=== PATIENT | female | born 1935 | race Caucasian/White ===

== ENCOUNTER 2017-06-07 22:42 | Observation (INO) | payer MEDICARE ==
[~2017-06-07] VITALS: Ht 167.6 cm; Wt 98.0 kg
[~2017-06-07 22:42] MED LIST: ACET325T49 PO; ACHYD1T PO; AMOX500C2 PO; ASP325T PO; ASP325TEC PO; ASP81TEC PO; ASPI-266 PO; ASPI-892 PO; ATEN25TA PO; ATOR40TA PO; ATOR80TA75 PO; AZOPT OU; BENZ200C25 PO; BMT1T PO; CALC-80 PO; CARV12.52; CARV3.122 PO; CARV3.12T PO; CARV6.252 PO; CEFU500T5 PO; CHOL2000 PO; CLON1TAB3 PO; CLON1TAB36; CLON1TAB36 PO; CLON1TAB69 PO; CRV25T; FLUO40CA PO; FLUO40CA12 PO; FLX20C; FURO80TA PO; FURO80TA3 PO; GLIM1TAB PO; GLIM2TAB PO; GLMP1T; GLMP1T PO; IRON150C6 PO; MEMA10TA; METF-380; METF-380 PO; METF500T4 PO; MTF500T PO; MULT-974 PO; MULT1CAP27 PO; NAPR220T76 PO; NTR.4SL PO; OMEG1CAP74 PO; OXYC-12 PO; POTA10CA43 PO; POTA10TA PO; POTA10TA36 PO; PRD20T PO; RAMI10TA PO; SENN1TAB76 PO; SIMV80TA3 PO; TRAV5DRO OU; TRAVATAN EYE OU; Warfarin Sod PO
--- OUTSIDE RECORDS SUMMARY | 2017-06-07 22:49 | XMS REPORT | Continuity of Care Document ---
Author Author [facility] Organization [facility] Address Unknown Phone Unavailable Allergies Active Description Code Type Severity Reaction Onset Reported/Identified Relationship to Patient Clinical Status Yes No Known Drug Allergies [id number] Drug Allergy Unknown N/A 02/25/2014 Medications There is no data. Problems Date Dx Coded Attending Type Code Diagnosis Diagnosed By 04/22/2010 Ot 250.00 04/22/2010 Ot 272.4 04/22/2010 Ot 278.00 04/22/2010 Ot 311 04/22/2010 Ot 401.9 04/22/2010 Ot 414.01 04/22/2010 Ot 425.4 04/22/2010 Ot 786.59 04/22/2010 Ot V45.82 04/22/2010 Ot V58.66 04/22/2010 Ot V58.69 04/22/2010 Ot V85.35 08/05/2011 Ot 250.00 DIAB JODY WO COMPL, TYPE II OR UNSPEC TY 08/05/2011 Ot 272.4 HYPERLIPIDEMIA NEC/NOS 08/05/2011 Ot 278.00 OBESITY, NOS 08/05/2011 Ot 311 DEPRESSIVE DISORDER NEC 08/05/2011 Ot 401.9 HYPERTENSION NOS 08/05/2011 Ot 414.01 CORONARY ATHEROSCLEROSIS OF [place] CORON 08/05/2011 Ot 425.4 PRIM CARDIOMYOPATHY NEC 08/05/2011 Ot 786.09 RESPIRATORY ABNORM NEC 08/05/2011 Ot 786.59 CHEST PAIN NEC 08/05/2011 Ot V45.82 PERCUTANEOUS TRANSLUM CORON ANGIOPLASTY 08/05/2011 Ot V58.66 LONG-TERM ( CURRENT) USE OF ASPIRIN 08/05/2011 Ot V58.69 OTH MED,LT, CURRENT USE 08/05/2011 Ot V85.31 BODY MASS INDEX 31.0-31.9, ADULT 08/14/2011 Ot 250.00 DIAB JODY WO COMPL, TYPE II OR UNSPEC TY 08/14/2011 Ot 401.9 HYPERTENSION NOS 08/14/2011 Ot 414.01 CORONARY ATHEROSCLEROSIS OF [place] CORON 08/14/2011 Ot 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 NEC 08/14/2011 Ot 780.79 OTH MALAISE FATIGUE 08/14/2011 Ot 786.05 SHORTNESS OF BREATH 08/14/2011 Ot V58.66 LONG-TERM ( CURRENT) USE OF ASPIRIN 08/14/2011 Ot V58.69 OTH MED,LT, CURRENT USE 12/28/2012 JUAN HIGGINS DO Ot 922.0 CONTUSION OF BREAST 12/28/2012 JUAN HIGGINS DO Ot 959.11 OTH INJURY OF CHEST WALL 12/28/2012 JUAN HIGGINS DO Ot E000.8 OTHER EXTERNAL CAUSE STATUS 12/28/2012 JUAN HIGGINS DO Ot E849.0 ACCIDENT IN HOME 12/28/2012 JUAN HIGGINS DO Ot E888.1 FALL STRIKING OBJECT NEC 03/31/2013 JUSTINE VANN, JOVANNA Pollock Ot 786.2 COUGH 08/12/2013 SHANE LOZANO MD Ot 250.40 DIAB W RENAL MANIFEST, TYPE II OR UNSPEC 08/12/2013 SHANE LOZANO MD Ot 272.0 PURE HYPERCHOLESTEROLEM 08/12/2013 SHANE LOZANO MD Ot 300.00 ANXIETY STATE NOS 08/12/2013 SHANE LOZANO MD Ot 311 DEPRESSIVE DISORDER NEC 08/12/2013 SHANE LOZANO MD Ot 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, UNSPEC, W HRT FAIL 08/12/2013 SHANE LOZANO MD Ot 414.01 CORONARY ATHEROSCLEROSIS OF [place] CORON 08/12/2013 SHANE LOZANO MD Ot 425.4 PRIM CARDIOMYOPATHY NEC 08/12/2013 SHANE LOZANO MD Ot 428.0 CONGESTIVE HEART FAILURE NOS 08/12/2013 SHANE LOZANO MD Ot 428.43 ACUTE CHRONIC SYSTOLIC/DIALSTOLIC HRT FA 08/12/2013 SHANE LOZANO MD Ot 496 CHR AIRWAY OBSTRUCT NEC 08/12/2013 SHANE LOZANO MD Ot 585.3 CHRONIC KIDNEY DISEASE, STAGE III (MODER 08/12/2013 SHANE LOZANO MD Ot V45.02 AUTO IMPLANTABLE CARDIAC DEFIBRILLATOR I 08/12/2013 SHANE LOZANO MD Ot V45.82 PERCUTANEOUS TRANSLUM CORON ANGIOPLASTY 02/25/2014 KINDRA PRINGLE DO Ot 250.00 DIAB JODY WO COMPL, TYPE II OR UNSPEC TY 02/25/2014 KINDRA PRINGLE DO Ot 272.4 HYPERLIPIDEMIA NEC/NOS 02/25/2014 YARY KINDRA Fajardo Ot 285.1 AC POSTHEMORRHAG ANEMIA 02/25/2014 YARY DO KINDRA F Ot 311 DEPRESSIVE DISORDER NEC 02/25/2014 YARY KINDRA Scotty Ot 365.9 GLAUCOMA NOS 02/25/2014 YARY , KINDRA Fajardo Ot 401.9 HYPERTENSION NOS 02/25/2014 YARY KINDRA Fajardo Ot 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 NEC 02/25/2014 YARY KINDRA Fajardo Ot 428.0 CONGESTIVE HEART FAILURE NOS 02/25/2014 YARY KINDRA F Ot 429.9 HEART DISEASE NOS 02/25/2014 YARY KINDRA Fajardo Ot 496 CHR AIRWAY OBSTRUCT NEC 02/25/2014 YARY KINDRA Fajardo Ot 715.36 LOC OSTEOARTH NOS-L/LEG 02/25/2014 YARY COATES KINDRA Fajardo Ot V45.02 AUTO IMPLANTABLE CARDIAC DEFIBRILLATOR I 02/28/2014 PATRICK VANN, GORDON E Ot 250.00 DIAB JODY WO COMPL, TYPE II OR UNSPEC TY 02/28/2014 PATRICK VANN, GORDON E Ot 272.0 PURE HYPERCHOLESTEROLEM 02/28/2014 GORDON NGUYEN MD E Ot 285.9 ANEMIA NOS 02/28/2014 GORDON NGUYEN MD E Ot 311 DEPRESSIVE DISORDER NEC 02/28/2014 GORDON NGUYEN MD Ot 401.9 HYPERTENSION NOS 02/28/2014 GORDON NGUYEN MD E Ot 414.01 CORONARY ATHEROSCLEROSIS OF [place] CORON 02/28/2014 GORDON NGUYEN MD Ot 425.4 PRIM CARDIOMYOPATHY NEC 02/28/2014 GORDON NGUYEN MD Ot 428.0 CONGESTIVE HEART FAILURE NOS 02/28/2014 GORDON NGUYEN MD E Ot 715.36 LOC OSTEOARTH NOS-L/LEG 02/28/2014 GORDON NGUYEN MD Ot 799.02 HYPOXEMIA 02/28/2014 GORDON NGUYEN MD Ot V43.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 02/28/2014 GORDON NGUYEN MD Ot V45.02 AUTO IMPLANTABLE CARDIAC DEFIBRILLATOR I 02/28/2014 GORDON NGUYEN MD Ot V45.82 PERCUTANEOUS TRANSLUM CORON ANGIOPLASTY 02/28/2014 GORDON NGUYEN MD Ot V46.2 SUPPLEMENTAL OXYGEN 02/28/2014 GORDON NGUYEN MD Ot V54.81 AFTERCARE FOLLOWING JOINT REPLACEMENT 02/28/2014 GORDON NGUYEN MD Ot V57.89 REHABILITATION PROC NEC 04/05/2014 YARY KIDNRA COATES Ot V43.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 04/05/2014 KINDRA PRINGLE DO Ot V54.81 AFTERCARE FOLLOWING JOINT REPLACEMENT 04/05/2014 YARY KINDRA Fajardo Ot V57.1 PHYSICAL THERAPY NEC 07/02/2014 SAEID RANGEL DOI Ot 250.00 DIAB JODY WO COMPL, TYPE II OR UNSPEC TY 07/02/2014 SAEID RANGEL DOI Ot 272.0 PURE HYPERCHOLESTEROLEM 07/02/2014 JUAN CARLOS COATES CRISTINA Ot 300.4 DYSTHYMIC DISORDER 07/02/2014 JUAN CARLOS COATES CRISTINA Ot 365.9 GLAUCOMA NOS 07/02/2014 SAEID RANGEL DOI Ot 397.0 TRICUSPID VALVE DISEASE 07/02/2014 SAEID RANGEL DOI Ot 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, UNSPEC, W HRT FAIL 07/02/2014 SAEID RANGEL DOI Ot 414.01 CORONARY ATHEROSCLEROSIS OF [place] CORON 07/02/2014 SAEID RANGEL DOI Ot 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 NEC 07/02/2014 JUAN CARLOS COATES CRISTINA Ot 424.0 MITRAL VALVE DISORDER 07/02/2014 JUAN CARLOS COATES CRISTINA Ot 427.31 ATRIAL FIBRILLATION 07/02/2014 SAEID RANGEL DOI Ot 427.69 PREMATURE BEATS NEC 07/02/2014 JUAN CARLOS COATES CRISTINA Ot 428.0 CONGESTIVE HEART FAILURE NOS 07/02/2014 JUAN CARLOS COATES CRISTINA Ot 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 07/02/2014 SAEID RANGEL DOI Ot 433.30 MULT BILTRAL ARTERY OCCLUSION WO CEREBRA 07/02/2014 JUAN CARLOS COATES CRISTINA Ot 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 07/02/2014 JUAN CARLOS COATES CRISTINA Ot 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, W (ACUTE) EX 07/02/2014 SAEID RANGEL DOI Ot 585.3 CHRONIC KIDNEY DISEASE, STAGE III (MODER 07/02/2014 SAEID RANGEL DOI Ot 715.90 OSTEOARTHROS NOS-UNSPEC 07/02/2014 SAEID RANGEL DOI Ot V15.82 HISTORY OF TOBACCO USE 07/02/2014 CRISTINA RANGEL DO Ot V43.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 07/02/2014 CRISTINA RANGEL DO Ot V45.02 AUTO IMPLANTABLE CARDIAC DEFIBRILLATOR I 07/02/2014 CRISTINA RANGEL DO Ot V45.77 ACQRD ABSENCE OF GENITAL ORGANS 07/02/2014 CRISTINA RANGEL DO Ot V85.32 BODY MASS INDEX 32.0-32.9, ADULT 08/23/2014 Ot 250.00 DIAB JODY WO COMPL, TYPE II OR UNSPEC TY 08/23/2014 Ot 296.30 RECURR DEPR DISORD-UNSP 08/23/2014 Ot 338.29 OTHER CHRONIC PAIN 08/23/2014 Ot 402.91 HYPERTENSIVE HRT DIS W HRT FAILURE NOS 08/23/2014 Ot 414.01 CORONARY ATHEROSCLEROSIS OF [place] CORON 08/23/2014 Ot 428.0 CONGESTIVE HEART FAILURE NOS 08/23/2014 Ot 428.43 ACUTE CHRONIC SYSTOLIC/DIALSTOLIC HRT FA 08/23/2014 Ot 496 CHR AIRWAY OBSTRUCT NEC 08/23/2014 Ot 716.90 ARTHROPATHY NOS-UNSPEC 08/23/2014 Ot 724.5 BACKACHE NOS 08/23/2014 Ot V45.02 AUTO IMPLANTABLE CARDIAC DEFIBRILLATOR I 08/23/2014 Ot V45.82 PERCUTANEOUS TRANSLUM CORON ANGIOPLASTY 09/21/2014 KATHY VANN FACC, ALI FACP CCDS Ot 250.00 09/21/2014 KATHY VANN FACC, ALI FACP CCDS Ot 272.4 09/21/2014 KATHY VANN FACC, ALI FACP CCDS Ot 278.00 09/21/2014 KATHY VANN FACC, ALI FACP CCDS Ot 296.32 09/21/2014 KATHY VANN FACC, ALI FACP CCDS Ot 401.9 09/21/2014 KATHY VANN FACC, ALI FACP CCDS Ot 414.00 09/21/2014 KATHY VANN FACC, ALI FACP CCDS Ot 425.4 09/21/2014 KATHY VANN FACC, ALI FACP CCDS Ot 447.9 09/21/2014 KATHY LEEC, ALI FACP CCDS Ot 785.9 09/21/2014 KATHY VANN FACC, ALI FACP CCDS Ot 786.09 10/01/2014 KATHY VANN FACC, ALI FACP CCDS Ot 250.00 10/01/2014 KATHY LEEC, ALI FACP CCDS Ot 272.4 10/01/2014 KATHY VANN FACC, ALI FACP CCDS Ot 278.00 10/01/2014 KATHY VANN FACC, ALI FACP CCDS Ot 296.32 10/01/2014 KATHY VANN FACC, ALI FACP CCDS Ot 401.9 10/01/2014 KATHY VANN FACC, ALI FACP CCDS Ot 414.00 10/01/2014 KATHY VANN FACC, ALI FACP CCDS Ot 425.4 10/01/2014 KATHY VANN FACC, ALI FACP CCDS Ot 447.9 10/01/2014 KATHY VANN FACC, ALI FACP CCDS Ot 785.9 10/01/2014 KATHY VANN FAC, ALI FACP CCDS Ot 786.09 11/03/2014 SHANE LOZANO MD Ot 782.3 11/17/2014 JOVANNA FLETCHER MD Ot 250.00 DIAB JODY WO COMPL, TYPE II OR UNSPEC TY 11/17/2014 JOVANNA FLETCHER MD Ot 728.87 MUSCLE WEAKNESS (GENERALIZED) 11/17/2014 JOVANNA FLETCHER MD Ot V58.69 OTH MED,LT,CURRENT USE 11/23/2014 SHANE LOZANO MD Ot 782.3 11/24/2014 YARY DO, KINDRA F Ot 250.00 11/24/2014 YARY DO, KINDRA F Ot 276.1 11/24/2014 YARY DO, KINDRA F Ot 285.1 11/24/2014 YARY DO, KINDRA F Ot 414.8 11/24/2014 YARY DO, KINDRA F Ot 715.36 11/24/2014 YARY DO, KINDRA F Ot 726.91 11/25/2014 YARY DO, KINDRA F Ot 250.00 11/25/2014 YARY DO, KINDRA F Ot 276.1 11/25/2014 YARY DO, KINDRA F Ot 285.1 11/25/2014 YARY DO, KINDRA F Ot 414.8 11/25/2014 YARY DO, KINDRA F Ot 715.36 11/25/2014 YARY DO, KINDRA F Ot 726.91 11/26/2014 YARY DO, KINDRA F Ot 250.00 11/26/2014 YARY DO, KINDRA F Ot 276.1 11/26/2014 YARY DO, KINDRA F Ot 285.1 11/26/2014 YARY DO, KINDRA F Ot 414.8 11/26/2014 YARY DO, KINDRA F Ot 715.36 11/26/2014 YARY KINDRA COATES Ot 726.91 11/26/2014 YARY KINDRA COATES Ot 250.00 DIAB JODY WO COMPL, TYPE II OR UNSPEC TY 11/26/2014 KINDRA PRINGLE DO Ot 276.1 HYPOSMOLALITY 11/26/2014 KINDRA PRINGLE DO Ot 285.1 AC POSTHEMORRHAG ANEMIA 11/26/2014 KINDRA PRINGLE DO Ot 402.90 HYPERTENSIVE HRT DIS W/O HRT FAILURE NOS 11/26/2014 KINDRA PRINGLE DO Ot 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 NEC 11/26/2014 KINDRA PRINGLE DO Ot 564.00 UNSPEC CONSTIPATION 11/26/2014 KINDRA PRINGLE DO Ot 715.36 LOC OSTEOARTH NOS-L/LEG 11/26/2014 KINDRA PRINGLE DO Ot 726.91 EXOSTOSIS, SITE NOS 12/05/2014 YARY KINDRA COATES Ot 715.36 12/05/2014 YARY KINDRA COATES Ot V72.63 12/05/2014 YARY DO, KINDRA Fajardo Ot V74.8 12/13/2014 YARY DO, KINDRA Fajardo Ot 715.36 12/13/2014 YARY DO, KINDRA Fajardo Ot V72.63 12/13/2014 YARY DO, KINDRA Fajardo Ot V74.8 12/26/2014 YARY DO, KINDRA Fajardo Ot V58.61 12/26/2014 YARY DOKINDRA Ot V58.83 02/26/2015 Ot 396.3 02/26/2015 Ot 397.0 02/26/2015 Ot 414.01 02/26/2015 Ot 425.4 02/26/2015 Ot 429.3 02/26/2015 Ot 627.1 02/26/2015 Ot 721.2 02/26/2015 Ot 786.50 02/26/2015 Ot 414.01 02/26/2015 Ot 786.50 02/26/2015 Ot 272.4 02/26/2015 Ot 401.9 02/26/2015 Ot 413.9 02/26/2015 Ot 414.01 02/26/2015 Ot 786.05 02/26/2015 Ot 794.39 02/26/2015 Ot V58.69 02/26/2015 Ot V72.63 02/26/2015 Ot V72.81 02/26/2015 Ot V74.8 02/26/2015 Ot 250.00 02/26/2015 Ot 401.9 02/26/2015 Ot 414.00 02/26/2015 Ot 425.4 02/26/2015 Ot 780.79 02/26/2015 Ot 786.05 02/26/2015 Ot V58.69 02/26/2015 Ot V72.63 02/26/2015 Ot V72.81 02/26/2015 BAIMAJEWEL L NETWORK TECHNICIAN Ot 272.4 02/26/2015 BAIMAJEWEL L NETWORK TECHNICIAN Ot 396.3 02/26/2015 BAIMAJEWEL L NETWORK TECHNICIAN Ot 401.9 02/26/2015 BAIMAASHLEEJEWEL L NETWORK TECHNICIAN Ot 414.00 02/26/2015 BAIMAJEWEL L NETWORK TECHNICIAN Ot 425.4 02/26/2015 YARY DO, KINDRA F Ot 715.36 02/26/2015 YARY DO, KINDRA F Ot V72.63 02/26/2015 YARY DO, KINDRA F Ot V72.83 02/26/2015 YARY DO, KINDRA F Ot V74.8 02/26/2015 MAYELIN OWENS ROLLER STITCHER Ot 729.81 02/26/2015 MAYELIN OWENS ROLLER STITCHER Ot V43.65 02/26/2015 KATHY VANN FACC, ALI FACP CCDS Ot 250.00 02/26/2015 KATHY VANN FACC, ALI FACP CCDS Ot 272.4 02/26/2015 KATHY VANN FACC, ALI FACP CCDS Ot 278.00 02/26/2015 KATHY VANN FACC, ALI FACP CCDS Ot 296.32 02/26/2015 KATHY VANN FACC, ALI FACP CCDS Ot 401.9 02/26/2015 KATHY VANN FACC, ALI FACP CCDS Ot 414.00 02/26/2015 KATHY VANN FACC, ALI FACP CCDS Ot 425.4 02/26/2015 KATHY VANN FACC, ALI FACP CCDS Ot 447.9 02/26/2015 KATHY VANN FACC, ALI FACP CCDS Ot 785.9 02/26/2015 KATHY VANN FACC, ALI FACP CCDS Ot 786.09 02/26/2015 BLAKE VANN, SHANE Collier Ot 782.3 02/26/2015 YARY DO, KINDRA F Ot 715.36 02/26/2015 YARY DO, KINDRA Fajardo Ot V72.63 02/26/2015 YARY DO, KINDRA Fajardo Ot V74.8 02/26/2015 YARY DO, KINDRA Fajardo Ot V58.61 02/26/2015 YARY DO, KINDRA Fajardo Ot V58.83 03/20/2015 BAIMA, JEWEL L NETWORK TECHNICIAN Ot 272.4 03/20/2015 BAIMA, JEWEL L NETWORK TECHNICIAN Ot 401.9 03/20/2015 BAIMA, JEWEL L NETWORK TECHNICIAN Ot 414.9 03/20/2015 BAIMA, JEWEL L NETWORK TECHNICIAN Ot 425.4 03/20/2015 BAIMA, JEWEL L NETWORK TECHNICIAN Ot 447.9 03/28/2015 BAIMA, JEWEL L NETWORK TECHNICIAN Ot 272.4 03/28/2015 BAIMA, JEWEL L NETWORK TECHNICIAN Ot 401.9 03/28/2015 BAIMA, JEWEL L NETWORK TECHNICIAN Ot 414.9 03/28/2015 BAIMA, JEWEL L NETWORK TECHNICIAN Ot 425.4 03/28/2015 BAIMA, JEWEL L NETWORK TECHNICIAN Ot 447.9 11/06/2015 JOVANNA FLETCEHR MD Ot 250.00 DIAB JODY WO COMPL, TYPE II OR UNSPEC TY 11/06/2015 JOVANNA FLETCHER MD Ot 728.87 MUSCLE WEAKNESS (GENERALIZED) 11/06/2015 JOVANNA FLETCHER MD Ot V58.69 OTH MED,LT,CURRENT USE 01/20/2016 Ot 250.00 DIAB JODY WO COMPL, TYPE II OR UNSPEC TY 01/20/2016 Ot 401.9 HYPERTENSION NOS 01/20/2016 Ot 414.00 CORON ATHEROSCLER NOS TYPE VESSEL, NATIV 01/20/2016 Ot 425.4 PRIM CARDIOMYOPATHY NEC 01/20/2016 Ot 780.79 OTH MALAISE FATIGUE 01/20/2016 Ot 786.05 SHORTNESS OF BREATH 01/20/2016 Ot V58.69 OTH MED,LT, CURRENT USE 01/20/2016 Ot V72.63 PRE- PROCEDURAL LABORATORY EXAMINATION 01/20/2016 Ot V72.81 EXAM-PRE- OPERATIVE CARDIOVASCULAR 01/20/2016 BAIMA, JEWEL L NETWORK TECHNICIAN Ot 272.4 HYPERLIPIDEMIA NEC/NOS 01/20/2016 BAIMA, JEWEL L NETWORK TECHNICIAN Ot 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 01/20/2016 JEWEL OSEGUERA NETWORK TECHNICIAN Ot 401.9 HYPERTENSION NOS 01/20/2016 JEWEL OSEGUERA NETWORK TECHNICIAN Ot 414.00 CORON ATHEROSCLER NOS TYPE VESSEL, NATIV 01/20/2016 JEWEL OSEGUERA NETWORK TECHNICIAN Ot 425.4 PRIM CARDIOMYOPATHY NEC 01/20/2016 KINDRA PRINGLE DO Ot 715.36 LOC OSTEOARTH NOS-L/LEG 01/20/2016 KINDRA PRINGLE DO Ot V72.63 PRE-PROCEDURAL LABORATORY EXAMINATION 01/20/2016 KINDRA PRINGLE DO Ot V72.83 EXAM PRE-OPERATIVE NEC 01/20/2016 KINDRA PRINGLE DO Ot V74.8 SCREEN-BACTERIAL DIS NEC 01/20/2016 MAYELIN OWENS ROLLER STITCHER Ot 729.81 SWELLING OF LIMB 01/20/2016 MAYELIN OWENS ROLLER STITCHER Ot V43.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 01/20/2016 KATHY VANN FACC, ALI FACP CCDS Ot 250.00 DIAB JODY WO COMPL, TYPE II OR UNSPEC TY 01/20/2016 KATHY VANN FACC, ALI FACP CCDS Ot 272.4 HYPERLIPIDEMIA NEC/NOS 01/20/2016 KATHY VANN FACC, ALI FACP CCDS Ot 278.00 OBESITY, NOS 01/20/2016 KATHY VANN FACC, ALI FACP CCDS Ot 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 01/20/2016 KATHY LEEC, ALI FACP CCDS Ot 401.9 HYPERTENSION NOS 01/20/2016 KATHY VANN FACC, ALI FACP CCDS Ot 414.00 CORON ATHEROSCLER NOS TYPE VESSEL, NATIV 01/20/2016 KATHY VANN FACC, ALI FACP CCDS Ot 425.4 PRIM CARDIOMYOPATHY NEC 01/20/2016 KATHY VANN FACC, ALI FACP CCDS Ot 447.9 ARTERIAL DISEASE NOS 01/20/2016 KATHY VANN FACC, ALI FACP CCDS Ot 785.9 CARDIOVAS SYS SYMP NEC 01/20/2016 KATHY VANN FACC, ALI FACP CCDS Ot 786.09 RESPIRATORY ABNORM NEC 01/20/2016 SHANE LOZANO MD Ot 782.3 EDEMA 01/20/2016 KINDRA PRINGLE DO Ot 715.36 LOC OSTEOARTH NOS-L/LEG 01/20/2016 KINDRA PRINGLE DO Ot V72.63 PRE-PROCEDURAL LABORATORY EXAMINATION 01/20/2016 KINDRA PRINGLE DO Ot V74.8 SCREEN-BACTERIAL DIS NEC 01/20/2016 KINDRA PRINGLE DO Ot V58.61 ANTICOAGULANTS,LT,CURRENT USE 01/20/2016 KINDRA PRINGLE DO Ot V58.83 ENCOUNTER FOR THERAPEUTIC DRUG MONITORIN 01/20/2016 JEWEL OSEGUERA NETWORK TECHNICIAN Ot 272.4 HYPERLIPIDEMIA NEC/NOS 01/20/2016 JEWEL OSEGUERA NETWORK TECHNICIAN Ot 401.9 HYPERTENSION NOS 01/20/2016 EDOUARDJEWEL WADE L NETWORK TECHNICIAN Ot 414.9 CHR ISCHEMIC HRT DIS NOS 01/20/2016 EDOUARDJEWEL WADE NETWORK TECHNICIAN Ot 425.4 PRIM CARDIOMYOPATHY NEC 01/20/2016 EDOUARDJEWEL WADE NETWORK TECHNICIAN Ot 447.9 ARTERIAL DISEASE NOS 01/20/2016 JAZMYNE WHITEHEAD APRN Ot M25.531 PAIN IN RIGHT WRIST 01/20/2016 JAZMYNE WHITEHEAD APRN Ot 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, CERVICAL REGION 01/20/2016 JAZMYNE WHITEHEAD APRN Ot S01.511A LACERATION WITHOUT FOREIGN BODY OF LIP, 01/20/2016 JAZMYNE WHITEHEAD APRN Ot S02.5XXA FRACTURE OF TOOTH (TRAUMATIC), INIT FOR 01/20/2016 JAZMYNE WHITEHEAD APRN Ot W01.0XXA FALL SAME LEV FROM SLIP/TRIP W/O STRIKE 01/20/2016 JAZMYNE WHITEHEAD APRN Ot Y92.[address] OF OCCURRENCE OF T 01/20/2016 JAZMYNE WHITEHEAD APRN Ot Y99.8 OTHER EXTERNAL CAUSE STATUS 01/20/2016 JAZMYNE WHITEHEAD APRN Ot Z23 ENCOUNTER FOR IMMUNIZATION 01/20/2016 JAZMYNE WHITEHEAD APRN Ot Z95.0 PRESENCE OF CARDIAC PACEMAKER 01/22/2016 JAZMYNE WHITEHEAD APRN Ot M25.531 PAIN IN RIGHT WRIST 01/22/2016 JAZMYNE WHITEHEAD APRN Ot 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, CERVICAL REGION 01/22/2016 JAZMYNE WHITEHEAD APRN Ot S01.511A LACERATION WITHOUT FOREIGN BODY OF LIP, 01/22/2016 JAZMYNE WHITEHEAD APRN Ot S02.5XXA FRACTURE OF TOOTH (TRAUMATIC), INIT FOR 01/22/2016 WHITEHEAD, PETER J ROLLER STITCHER Ot W01.0XXA FALL SAME LEV FROM SLIP/TRIP W/O STRIKE 01/22/2016 JAZMYNE WHITEHEAD ROLLER STITCHER Ot Y92.[address] OF OCCURRENCE OF T 01/22/2016 JAZMYNE WHITEHEAD ROLLER STITCHER Ot Y99.8 OTHER EXTERNAL CAUSE STATUS 01/22/2016 JAZMYNE WHITEHEAD ROLLER STITCHER Ot Z23 ENCOUNTER FOR IMMUNIZATION 01/22/2016 JAZMYNE WHITEHEAD ROLLER STITCHER Ot Z95.0 PRESENCE OF CARDIAC PACEMAKER 03/07/2016 JOVANNA FLETCHER MD Ot 250.00 DIAB JODY WO COMPL, TYPE II OR UNSPEC TY 03/07/2016 JOVANNA FLETCHER MD Ot 728.87 MUSCLE WEAKNESS (GENERALIZED) 03/07/2016 JOVANNA FLETCHER MD Ot V58.69 OTH MED,LT,CURRENT USE 10/26/2016 Ot 250.00 DIAB JODY WO COMPL, TYPE II OR UNSPEC TY 10/26/2016 Ot 401.9 HYPERTENSION NOS 10/26/2016 Ot 414.00 CORON ATHEROSCLER NOS TYPE VESSEL, NATIV 10/26/2016 Ot 425.4 PRIM CARDIOMYOPATHY NEC 10/26/2016 Ot 780.79 OTH MALAISE FATIGUE 10/26/2016 Ot 786.05 SHORTNESS OF BREATH 10/26/2016 Ot V58.69 OTH MED,LT, CURRENT USE 10/26/2016 Ot V72.63 PRE- PROCEDURAL LABORATORY EXAMINATION 10/26/2016 Ot V72.81 EXAM-PRE- OPERATIVE CARDIOVASCULAR 10/26/2016 JEWEL OSEGUERA NETWORK TECHNICIAN Ot 272.4 HYPERLIPIDEMIA NEC/NOS 10/26/2016 BAIMAJEWEL NETWORK TECHNICIAN Ot 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 10/26/2016 JEWEL OSEGUERA NETWORK TECHNICIAN Ot 401.9 HYPERTENSION NOS 10/26/2016 BAIMAJEWEL NETWORK TECHNICIAN Ot 414.00 CORON ATHEROSCLER NOS TYPE VESSEL, NATIV 10/26/2016 JEWEL OSEGUERA NETWORK TECHNICIAN Ot 425.4 PRIM CARDIOMYOPATHY NEC 10/26/2016 KINDRA PRINGLE DO Ot 715.36 LOC OSTEOARTH NOS-L/LEG 10/26/2016 KINDRA PRINGLE DO Ot V72.63 PRE-PROCEDURAL LABORATORY EXAMINATION 10/26/2016 KINDRA PRINGLE DO Ot V72.83 EXAM PRE-OPERATIVE NEC 10/26/2016 KINDRA PRINGLE DO Ot V74.8 SCREEN-BACTERIAL DIS NEC 10/26/2016 MAYELIN OWENS ROLLER STITCHER Ot 729.81 SWELLING OF LIMB 10/26/2016 MAYELIN OWENS ROLLER STITCHER Ot V43.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 10/26/2016 KATHY VANN FACC, ALI FACP CCDS Ot 250.00 DIAB JODY WO COMPL, TYPE II OR UNSPEC TY 10/26/2016 KATHY VANN FACC, ALI FACP CCDS Ot 272.4 HYPERLIPIDEMIA NEC/NOS 10/26/2016 KATHY VANN FACC, ALI FACP CCDS Ot 278.00 OBESITY, NOS 10/26/2016 KATHY VANN FACC, ALI FACP CCDS Ot 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 10/26/2016 KATHY VANN FACC, ALI FACP CCDS Ot 401.9 HYPERTENSION NOS 10/26/2016 KATHY VANN FACC, ALI FACP CCDS Ot 414.00 CORON ATHEROSCLER NOS TYPE VESSEL, NATIV 10/26/2016 KATHY VANN FACC, ALI FACP CCDS Ot 425.4 PRIM CARDIOMYOPATHY NEC 10/26/2016 KATHY VANN FACC, ALI FACP CCDS Ot 447.9 ARTERIAL DISEASE NOS 10/26/2016 KATHY VANN FACC, ALI FACP CCDS Ot 785.9 CARDIOVAS SYS SYMP NEC 10/26/2016 KATHY VANN FACC, ALI FACP CCDS Ot 786.09 RESPIRATORY ABNORM NEC 10/26/2016 BLAKE VANN, SHANE Collier Ot 782.3 EDEMA 10/26/2016 KINDRA PRINGLE DO Ot 715.36 LOC OSTEOARTH NOS-L/LEG 10/26/2016 KINDRA PRINGLE DO Ot V72.63 PRE-PROCEDURAL LABORATORY EXAMINATION 10/26/2016 KINDRA PRINGLE DO Ot V74.8 SCREEN-BACTERIAL DIS NEC 10/26/2016 KINDRA PRINGLE DO Ot V58.61 ANTICOAGULANTS,LT,CURRENT USE 10/26/2016 KINDRA PRINGLE DO, Ot V58.83 ENCOUNTER FOR THERAPEUTIC DRUG MONITORIN 10/26/2016 JEWEL OSEGUERA NETWORK TECHNICIAN Ot 272.4 HYPERLIPIDEMIA NEC/NOS 10/26/2016 JEWEL OSEGUERA NETWORK TECHNICIAN Ot 401.9 HYPERTENSION NOS 10/26/2016 JEWEL OSEGUERA NETWORK TECHNICIAN Ot 414.9 CHR ISCHEMIC HRT DIS NOS 10/26/2016 JEWEL OSEGUERA NETWORK TECHNICIAN Ot 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.4 PRIM CARDIOMYOPATHY NEC 10/26/2016 EDOUARDMAURO JEWEL L NETWORK TECHNICIAN Ot 447.9 ARTERIAL DISEASE NOS 10/27/2016 JOVANNA FLETCHER MD Ot R07.9 CHEST PAIN, UNSPECIFIED 10/28/2016 JOVANNA FLETCHER MD Ot E11.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 2 DIABETES W DIABETIC PERIPHERAL AN 10/28/2016 JOVANNA FLETCHER MD Ot E78.00 PURE HYPERCHOLESTEROLEMIA, UNSPECIFIED 10/28/2016 JOVANNA FLETCHER MD Ot F32.9 MAJOR DEPRESSIVE DISORDER, SINGLE EPISOD 10/28/2016 JOVANNA FLETCHER MD Ot G47.30 SLEEP APNEA, UNSPECIFIED 10/28/2016 JOVANNA FLETCHER MD, Ot I08.1 RHEUMATIC DISORDERS OF BOTH [place] AND T 10/28/2016 JOVANNA FLETCHER MD Ot I10 ESSENTIAL (PRIMARY) HYPERTENSION 10/28/2016 JOVANNA FLETCHER MD Ot I25.10 ATHSCL HEART DISEASE OF [place] CORONARY 10/28/2016 JOVANNA FLETCHER MD Ot I25.5 ISCHEMIC CARDIOMYOPATHY 10/28/2016 JOVANNA FLETCHER MD Ot I48.91 UNSPECIFIED ATRIAL FIBRILLATION 10/28/2016 JOVANNA FLETCHER MD Ot I50.23 ACUTE ON CHRONIC SYSTOLIC (CONGESTIVE) H 10/28/2016 JOVANNA FLETCHER MD Ot I65.23 OCCLUSION AND STENOSIS OF BILATERAL [place] 10/28/2016 JOVANNA FLETCHER MD Ot J44.9 CHRONIC OBSTRUCTIVE PULMONARY DISEASE, U 10/28/2016 JOVANNA FLETCHER MD Ot K64.9 UNSPECIFIED HEMORRHOIDS 10/28/2016 JOVANNA FLETCHER MD Ot M19.91 PRIMARY OSTEOARTHRITIS, UNSPECIFIED SITE 10/28/2016 JOVANNA FLETCHER MD Ot M54.9 DORSALGIA, UNSPECIFIED 10/28/2016 JOVANNA FLETCHER MD Ot R07.9 CHEST PAIN, UNSPECIFIED 10/28/2016 JOVANNA FLETCHER MD Ot R53.1 WEAKNESS 10/28/2016 JOVANNA FLETCHER MD Ot Z66 DO NOT RESUSCITATE 10/28/2016 JOVANNA FLETCHER MD Ot Z79.84 SKILLED NURSING (CURRENT) USE OF ORAL HYPOGLYC 10/28/2016 JOVANNA FLETCHER MD Ot Z87.891 PERSONAL HISTORY OF NICOTINE DEPENDENCE 10/28/2016 JOVANNA FLETCHER MD, Ot Z91.19 PATIENT'S NONCOMPLIANCE W OTH MEDICAL TR 10/28/2016 JOVANNA FLETCHER MD, Ot Z91.81 HISTORY OF FALLING 10/28/2016 JOVANNA FLETCHER MD, Ot Z95.5 PRESENCE OF CORONARY ANGIOPLASTY IMPLANT 10/28/2016 JOVANNA FLETCHER MD, Ot Z95.810 PRESENCE OF AUTOMATIC (IMPLANTABLE) CARD 10/28/2016 JOVANNA FLETCHER MD, Ot 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 OXYGEN 10/29/2016 JOVANNA FLETCHER MD Ot E11.51 TYPE 2 DIABETES W DIABETIC PERIPHERAL AN 10/29/2016 JOVANNA FLETCHER MD, Ot E78.00 PURE HYPERCHOLESTEROLEMIA, UNSPECIFIED 10/29/2016 JOVANNA FLETCHER MD, Ot F32.9 MAJOR DEPRESSIVE DISORDER, SINGLE EPISOD 10/29/2016 JOVANNA FLETCHER MD, Ot G47.30 SLEEP APNEA, UNSPECIFIED 10/29/2016 JOVANNA FLETCHER MD, Ot I08.1 RHEUMATIC DISORDERS OF BOTH [place] AND T 10/29/2016 JOVANNA FLETCHER MD Ot I10 ESSENTIAL (PRIMARY) HYPERTENSION 10/29/2016 JOVANNA FLETCHER MD, Ot I25.10 ATHSCL HEART DISEASE OF [place] CORONARY 10/29/2016 JOVANNA FLETCHER MD, Ot I25.5 ISCHEMIC CARDIOMYOPATHY 10/29/2016 JOAVNNA FLETCHER MD, Ot I48.91 UNSPECIFIED ATRIAL FIBRILLATION 10/29/2016 JOVANNA FLETCHER MD Ot I50.23 ACUTE ON CHRONIC SYSTOLIC (CONGESTIVE) H 10/29/2016 JOVANNA FLETCHER MD Ot I65.23 OCCLUSION AND STENOSIS OF BILATERAL [place] 10/29/2016 JOVANNA FLETCHER MD, Ot J44.9 CHRONIC OBSTRUCTIVE PULMONARY DISEASE, U 10/29/2016 JOVANNA FLETCHER MD, Ot K64.9 UNSPECIFIED HEMORRHOIDS 10/29/2016 JOVANNA FLETCHER MD, Ot M19.91 PRIMARY OSTEOARTHRITIS, UNSPECIFIED SITE 10/29/2016 JOVANNA FLETCHER MD, Ot M54.9 DORSALGIA, UNSPECIFIED 10/29/2016 JOVANNA FLETCHER MD Ot R07.9 CHEST PAIN, UNSPECIFIED 10/29/2016 JOVANNA FLETCHER MD Ot R53.1 WEAKNESS 10/29/2016 ODJOVANNA INGRAM MD, Ot Z66 DO NOT RESUSCITATE 10/29/2016 JOVANNA FLETCHER MD, Ot Z79.84 SKILLED NURSING (CURRENT) USE OF ORAL HYPOGLYC 10/29/2016 JOVANNA FLETCHER MD, Ot Z87.891 PERSONAL HISTORY OF NICOTINE DEPENDENCE 10/29/2016 JOVANNA FLETCHER MD, Ot Z91.19 PATIENT'S NONCOMPLIANCE W OTH MEDICAL TR 10/29/2016 JOVANNA FLETCHER MD, Ot Z91.81 HISTORY OF FALLING 10/29/2016 JOVANNA FLETCHER MD, Ot Z95.5 PRESENCE OF CORONARY ANGIOPLASTY IMPLANT 10/29/2016 JOVANNA FLETCHER MD, Ot Z95.810 PRESENCE OF AUTOMATIC (IMPLANTABLE) CARD 10/29/2016 JOVANNA FLETCHER MD, Ot 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 OXYGEN 10/29/2016 JOVANNA FLETCHER MD, Ot E11.21 TYPE 2 DIABETES MELLITUS WITH DIABETIC N 10/29/2016 JOVANNA FLETCHER MD Ot E11.51 TYPE 2 DIABETES W DIABETIC PERIPHERAL AN 10/29/2016 JOVANNA FLETCHER MD Ot E78.00 PURE HYPERCHOLESTEROLEMIA, UNSPECIFIED 10/29/2016 JOVANNA FLETCHER MD, Ot E86.0 DEHYDRATION 10/29/2016 JOVANNA FLETCHER MD, Ot E86.9 VOLUME DEPLETION, UNSPECIFIED 10/29/2016 JOVANNA FLETCHER MD Ot F32.9 MAJOR DEPRESSIVE DISORDER, SINGLE EPISOD 10/29/2016 JOVANNA FLETCHER MD Ot G47.30 SLEEP APNEA, UNSPECIFIED 10/29/2016 JOVANNA FLETCHER MD Ot I08.1 RHEUMATIC DISORDERS OF BOTH MITRAL AND T 10/29/2016 JOVANNA FLETCHER MD Ot I10 ESSENTIAL (PRIMARY) HYPERTENSION 10/29/2016 JOVANNA FLETCHER MD, Ot I25.10 ATHSCL HEART DISEASE OF [place] CORONARY 10/29/2016 JOVANNA FLETCHER MD, Ot I25.5 ISCHEMIC CARDIOMYOPATHY 10/29/2016 JOVANNA FLETCHER MD, Ot I48.91 UNSPECIFIED ATRIAL FIBRILLATION 10/29/2016 JOVANNA FLETCHER MD, Ot I50.23 ACUTE ON CHRONIC SYSTOLIC (CONGESTIVE) H 10/29/2016 JOVANNA FLETCHER MD Ot I65.23 OCCLUSION AND STENOSIS OF BILATERAL [place] 10/29/2016 JOVANNA FLETCHER MD, Ot J44.9 CHRONIC OBSTRUCTIVE PULMONARY DISEASE, U 10/29/2016 JOVANNA FLETCHER MD, Ot K64.9 UNSPECIFIED HEMORRHOIDS 10/29/2016 JOVANNA FLETCHER MD Ot M19.91 PRIMARY OSTEOARTHRITIS, UNSPECIFIED SITE 10/29/2016 JOVANNA FLETCHER MD, Ot M54.9 DORSALGIA, UNSPECIFIED 10/29/2016 JOVANNA FLETCHER MD Ot N17.9 ACUTE KIDNEY FAILURE, UNSPECIFIED 10/29/2016 JOVANNA FLETCHER MD, Ot N18.9 CHRONIC KIDNEY DISEASE, UNSPECIFIED 10/29/2016 JOVANNA FLETCHER MD Ot R07.89 OTHER CHEST PAIN 10/29/2016 JOVANNA FLETCHER MD, Ot R53.1 WEAKNESS 10/29/2016 JOVANNA FLETCHER MD, Ot Z66 DO NOT RESUSCITATE 10/29/2016 JOVANNA FLETCHER MD, Ot Z79.84 SKILLED NURSING (CURRENT) USE OF ORAL HYPOGLYC 10/29/2016 JOVANNA FLETCHER MD Ot Z87.891 PERSONAL HISTORY OF NICOTINE DEPENDENCE 10/29/2016 JOVANNA FLETCHER MD, Ot Z91.19 PATIENT'S NONCOMPLIANCE W [facility] MEDICAL TR 10/29/2016 JOVANNA FLETCHER MD, Ot Z91.81 HISTORY OF FALLING 10/29/2016 JOVANNA FLETCHER MD Ot Z95.5 PRESENCE OF CORONARY ANGIOPLASTY IMPLANT 10/29/2016 JOVANNA FLETCHER MD Ot Z95.810 PRESENCE OF AUTOMATIC (IMPLANTABLE) CARD 10/29/2016 JOVANNA FLETCHER MD Ot 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 OXYGEN Procedures Code Description Performed By Performed On 00.40 PROCEDURE ON SINGLE VESSEL 12/11/2006 00.45 INSERTION OF ONE VASCULAR STENT 12/11/2006 00.66 PERC TRANSLUMINAL CORON ANGIOPLASTY PTCA 12/11/2006 36.06 CORONARY ARTERY STENT INSERTION NON-DRUG 12/11/2006 37.23 RT/LEFT HEART CARD CATH 12/11/2006 88.53 LT HEART ANGIOCARDIOGRAM 12/11/2006 88.56 CORONAR ARTERIOGR-2 CATH 12/11/2006 99.20 INJECT/INFUSE PLATELET INHIBITOR 12/11/2006 81.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 02/20/2014 81.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 11/20/2014 [id number] MEASURE OF CARDIAC SAMPL PRESSURE, L H 10/27/2016 [id number] FLUOROSCOPY OF MULT COR ART USING L OSM 10/27/2016 [id number] FLUOROSCOPY OF LEFT HEART USING LOW OSMO 10/27/2016 Results Test Result Range Complete blood count (CBC) with automated white blood cell (WBC) differential - 10/26/16 12:20 Blood leukocytes automated count (number/volume) 7.8 10*3/uL 4.3-11.0 Blood erythrocytes automated count (number/volume) 4.03 10*6/uL 4.35-5.85 Venous blood hemoglobin measurement (mass/volume) 12.7 g/dL 11.5-16.0 Blood hematocrit (volume fraction) 39 % 35-52 Automated erythrocyte mean corpuscular volume 96 [foz_us] 80-99 Automated erythrocyte mean corpuscular hemoglobin (mass per erythrocyte) 32 pg 25-34 Automated erythrocyte mean corpuscular hemoglobin concentration measurement ( mass/volume) 33 g/dL 32-36 Automated erythrocyte distribution width ratio 13.9 % 10.0-14.5 Automated blood platelet count (count/volume) 254 10*3/uL 130-400 Automated blood platelet mean volume measurement 10.8 [foz_us] 7.4-10.4 Automated blood neutrophils/100 leukocytes 65 % 42-75 Automated blood lymphocytes/100 leukocytes 20 % 12-44 Blood monocytes/100 leukocytes 8 % 0-12 Automated blood eosinophils/100 leukocytes 7 % 0-10 Automated blood basophils/100 leukocytes 1 % 0-10 Blood neutrophils automated count (number/volume) 5.0 10*3 1.8-7.8 Blood lymphocytes automated count (number/volume) 1.5 10*3 1.0-4.0 Blood monocytes automated count (number/volume) 0.6 10*3 0.0-1.0 Automated eosinophil count 0.5 10*3/uL 0.0-0.3 Automated blood basophil count (count/volume) 0.0 10*3/uL 0.0-0.1 PT panel in platelet poor plasma by coagulation assay - 10/26/16 12:20 Prothrombin time (PT) in platelet poor plasma by coagulation assay 12.7 s 12.2-14.7 INR in platelet poor plasma or blood by coagulation assay 1.0 0.8-1.4 Activated partial thromboplastin time (aPTT) in platelet poor plasma bycoagulation assay - 10/26/16 12:20 Activated partial thromboplastin time (aPTT) in platelet poor plasma bycoagulation assay 27 s 24-35 Comprehensive metabolic panel - 10/26/16 12:20 Serum or plasma sodium measurement (moles/volume) 140 mmol/L 135-145 Serum or plasma potassium measurement (moles/volume) 4.2 mmol/L 3.6-5.0 Serum or plasma chloride measurement (moles/volume) 107 mmol/L 98-107 Carbon dioxide 24 mmol/L 21-32 Serum or plasma anion gap determination (moles/volume) 9 mmol/L 5-14 Serum or plasma urea nitrogen measurement (mass/volume) 17 mg/dL 7-18 Serum or plasma creatinine measurement (mass/volume) 1.22 mg/dL 0.60-1.30 Serum or plasma urea nitrogen/creatinine mass ratio 14 NRG Serum or plasma creatinine measurement with calculation of estimated glomerular filtration rate 42 NRG Serum or plasma glucose measurement (mass/volume) 129 mg/dL 70-105 Serum or plasma calcium measurement (mass/volume) 9.8 mg/dL 8.5-10.1 Serum or plasma total bilirubin measurement (mass/volume) 0.6 mg/dL 0.1-1.0 Serum or plasma alkaline phosphatase measurement (enzymatic activity/volume) 63 U/L 40-136 Serum or plasma aspartate aminotransferase measurement (enzymatic activity/ volume) 13 U/L 5-34 Serum or plasma alanine aminotransferase measurement (enzymatic activity/volume ) 9 U/L 0-55 Serum or plasma protein measurement (mass/volume) 6.9 g/dL 6.4-8.2 Serum or plasma albumin measurement (mass/volume) 4.0 g/dL 3.2-4.5 Magnesium - 10/26/16 12:20 Magnesium 2.1 mg/dL 1.8-2.4 Serum or plasma troponin i.cardiac measurement (mass/volume) - 10/26/16 12:20 Serum or plasma troponin i.cardiac measurement (mass/volume) < ng/ mL <0.30 Myoglobin, serum - 10/26/16 12:20 Myoglobin, serum 38.3 ng/mL 10.0-92.0 Serum or plasma lithium measurement (moles/volume) - 10/26/16 12:20 BNP level 841.4 pg/mL <100.0 Lipid 1996 panel - 10/27/16 04:45 Serum or plasma triglyceride measurement (mass/volume) 184 mg/dL <150 Serum or plasma cholesterol measurement (mass/volume) 284 mg/dL < 200 Serum or plasma cholesterol in HDL measurement (mass/volume) 38 mg/ dL 40-60 Cholesterol in LDL [mass/volume] in serum or plasma by direct assay 213 mg/dL 1-129 Serum or plasma cholesterol in VLDL measurement (mass/volume) 37 mg/ dL 5-40 Capillary blood glucose measurement by glucometer (mass/volume) - 10/27/16 17: 28 Capillary blood glucose measurement by glucometer (mass/volume) 192 mg/dL 70-110 Automated blood complete blood count (hemogram) panel - 10/28/16 04:15 Blood leukocytes automated count (number/volume) 8.9 10*3/uL 4.3-11.0 Blood erythrocytes automated count (number/volume) 3.94 10*6/uL 4.35-5.85 Venous blood hemoglobin measurement (mass/volume) 12.4 g/dL 11.5-16.0 Blood hematocrit (volume fraction) 38 % 35-52 Automated erythrocyte mean corpuscular volume 96 [foz_us] 80-99 Automated erythrocyte mean corpuscular hemoglobin (mass per erythrocyte) 32 pg 25-34 Automated erythrocyte mean corpuscular hemoglobin concentration measurement ( mass/volume) 33 g/dL 32-36 Automated erythrocyte distribution width ratio 13.7 % 10.0-14.5 Automated blood platelet count (count/volume) 247 10*3/uL 130-400 Automated blood platelet mean volume measurement 10.5 [foz_us] 7.4-10.4 Whole blood basic metabolic panel - 10/28/16 04:15 Serum or plasma sodium measurement (moles/volume) 140 mmol/L 135-145 Serum or plasma potassium measurement (moles/volume) 4.1 mmol/L 3.6-5.0 Serum or plasma chloride measurement (moles/volume) 100 mmol/L 98-107 Carbon dioxide 26 mmol/L 21-32 Serum or plasma anion gap determination (moles/volume) 14 mmol/L 5-14 Serum or plasma urea nitrogen measurement (mass/volume) 27 mg/dL 7-18 Serum or plasma creatinine measurement (mass/volume) 1.78 mg/dL 0.60-1.30 Serum or plasma urea nitrogen/creatinine mass ratio 15 NRG Serum or plasma creatinine measurement with calculation of estimated glomerular filtration rate 27 NRG Serum or plasma glucose measurement (mass/volume) 148 mg/dL 70-105 Serum or plasma calcium measurement (mass/volume) 8.8 mg/dL 8.5-10.1 Capillary blood glucose measurement by glucometer (mass/volume) - 10/28/16 11: 11 Capillary blood glucose measurement by glucometer (mass/volume) 170 mg/dL 70-110 Capillary blood glucose measurement by glucometer (mass/volume) - 10/28/16 16: 15 Capillary blood glucose measurement by glucometer (mass/volume) 112 mg/dL 70-110 Capillary blood glucose measurement by glucometer (mass/volume) - 10/28/16 20: 43 Capillary blood glucose measurement by glucometer (mass/volume) 177 mg/dL 70-110 Capillary blood glucose measurement by glucometer (mass/volume) - 10/29/16 06: 32 Capillary blood glucose measurement by glucometer (mass/volume) 133 mg/dL 70-110 Whole blood basic metabolic panel - 10/29/16 08:15 Serum or plasma sodium measurement (moles/volume) 139 mmol/L 135-145 Serum or plasma potassium measurement (moles/volume) 4.3 mmol/L 3.6-5.0 Serum or plasma chloride measurement (moles/volume) 101 mmol/L 98-107 Carbon dioxide 28 mmol/L 21-32 Serum or plasma anion gap determination (moles/volume) 10 mmol/L 5-14 Serum or plasma urea nitrogen measurement (mass/volume) 27 mg/dL 7-18 Serum or plasma creatinine measurement (mass/volume) 1.31 mg/dL 0.60-1.30 Serum or plasma urea nitrogen/creatinine mass ratio 21 NRG Serum or plasma creatinine measurement with calculation of estimated glomerular filtration rate 39 NRG Serum or plasma glucose measurement (mass/volume) 199 mg/dL 70-105 Serum or plasma calcium measurement (mass/volume) 8.9 mg/dL 8.5-10.1 Capillary blood glucose measurement by glucometer (mass/volume) - 10/29/16 10: 51 Capillary blood glucose measurement by glucometer (mass/volume) 159 mg/dL 70-110 Encounters ACCT No. Visit Date/Time Discharge Status Pt. Type Provider Facility Loc./Unit Complaint [id number] 10/26/2016 13:31:00 10/29/2016 12:35:00 DIS Inpatient JOVANNA FLETCHER MD [facility] ICU CHEST PAIN,CHF EXACERBATION [id number] 01/20/2016 14:07:00 01/20/2016 16:30:00 DIS Emergency JAZMYNE WHITEHEAD APRN [facility] ER FALL FACIAL INJURIES/ RIGHT WRIST PAIN [id number] 02/26/2015 14:20:00 02/26/2015 23:59:59 CLS Outpatient JEWEL OSEGUERA [facility] CARD CAD,CARDIOMYOPATHY, CAROTID ARTERY DI,HTN,HLP [id number] 11/29/2014 14:30:00 11/29/2014 23:59:59 CLS Outpatient KINDRA PRINGLE DO [facility] HH ANTICOAG THERAPY [id number] 11/20/2014 06:05:00 11/26/2014 16:29:00 DIS Inpatient KINDRA PRINGLE DO [facility] SURGICAL DEGENERATIVE DISC DISEASE LEFT KNEE [id number] 11/25/2014 15:23:00 11/25/2014 23:59:59 CLS Preadmit BLAKE VANN, SHANE Collier LT.KNEE [id number] 11/17/2014 12:07:00 11/17/2014 14:13:00 DIS Emergency JOVANNA FLETCHER MD [facility] ER R SIDE PAIN [id number] 11/06/2014 13:48:00 11/06/2014 23:59:59 CLS Outpatient KINDRA PRINGLE DO [facility] PREOP DEGENERATIVE DISC DISEASE LEFT KNEE [id number] 10/04/2014 11:33:00 10/04/2014 23:59:59 CLS Outpatient SHANE LOZANO MD [facility] RAD INCREASED L/E EDEMA, [id number] 08/30/2014 07:42:00 08/30/2014 23:59:59 CLS Outpatient KATHY VANN FACC, MANDA FACP CCDS [facility] CARD CAD, CARDIOMYOPATHY [id number] 06/27/2014 20:27:00 07/02/2014 16:00:00 DIS Inpatient CRISTINA RANGEL DO [facility] CSD ASTHMATIC BRONCHITIS [id number] 03/28/2014 16:18:00 04/05/2014 14:28:00 DIS Outpatient KINDRA PRINGLE DO [facility] REHAB S/P R TKR [id number] 03/07/2014 09:40:00 03/07/2014 23:59:59 CLS Outpatient GRACIELAMAYELIN ROLLER STITCHER [facility] RAD R LE SWELLING [id number] 02/25/2014 14:25:00 02/28/2014 17:19:00 DIS Inpatient GORDON NGUYEN MD [facility] IRF TKR [id number] 02/20/2014 09:00:00 02/25/2014 14:24:00 DIS Inpatient KINDRA PRINGLE DO [facility] SURGICAL RIGHT KNEE DJD [id number] 02/14/2014 13:09:00 02/14/2014 23:59:59 CLS Outpatient KINDRA PRINGLE DO [facility] PREOP RIGHT KNEE DJD [id number] 08/09/2013 13:16:00 08/12/2013 11:00:00 DIS Inpatient BLAKE VANN, SHANE Collier [facility] CSD CHF CHEST PAIN [id number] 08/02/2013 12:43:00 08/02/2013 23:59:59 CLS Outpatient JEWEL OSEGUERA [facility] CARD CAD,HTN [id number] 03/31/2013 14:55:00 03/31/2013 15:14:00 DIS Emergency JOVANNA FLETCHER MD [facility] ER COUGH/SOA [id number] 12/28/2012 12:05:00 12/28/2012 14:26:00 DIS Emergency JUAN HIGGINS DO [facility] ER FALL/LEFT RIB PAIN [id number] 02/26/2015 14:20:00 Document Registration [id number] 02/26/2015 14:20:00 Document Registration [id number] 02/26/2015 14:20:00 Document Registration [id number] 02/26/2015 14:20:00 Document Registration [id number] 02/26/2015 14:20:00 Document Registration [id number] 02/26/2015 14:20:00 Document Registration [id number] 08/21/2014 16:15:00 Document Registration [id number] 08/04/2011 14:10:00 Document Registration [id number] 04/22/2010 05:36:00 Document Registration [id number] 04/21/2010 09:13:00 Document Registration [id number] 03/26/2010 16:03:00 Document Registration [id number] 09/10/2009 12:51:00 Document Registration
[2017-06-07] MEDS ORDERED: ASPIRIN 81 MG CHEW (CHILDREN'S ASA) PO ONE (23:00)
[2017-06-07] MEDS ORDERED: FUROSEMIDE 40 MG/4 ML INJ (LASIX) IVP ONE (23:00)
--- NOTE | 2017-06-07 23:06 | ED Chest Pain ---
General Chief Complaint: Chest Pain Stated Complaint: SOA/CHEST PAIN Nursing Triage Note: cp and soa x 1 day. Nursing Sepsis Screen: No Definite Risk Source: patient, EMS Exam Limitations: no limitations History of Present Illness Time seen by provider: 22:53 Initial Comments Patient present to ER by EMS with chief complaint of shortness of breath and chest tightness. She says been short of breath for the last couple weeks and getting tired and had to use her walker more. She also feels she is been gaining some weight and distended around the middle and not able to eat as much. She has not had any fevers or cough however today she was getting worse so she called EMS to come in and get her. EMS reports she is afebrile gave her a DuoNeb treatments is had difficulty hearing breath sounds along the bases. Patient did not cough for them and they gave her 324 mg aspirin to chew up. Twelve-lead did not reveal anything new just left bundle branch block. Patient describes her pain as being tightness across to her chest on any one side and a similar to when she had a heart attack and stents in the past. She is known to Dr. Garcia. Allergies and Home Medications Allergies Coded Allergies: No Known Drug Allergies (Unverified , 02/25/14) Home Medications Aspirin 81 Mg Tablet., 81 MG PO DAILY, (Reported) Atorvastatin Calcium 40 Mg Tablet, 40 MG PO HS for 30 Days, #30 Ref 11 Prescribed by: SHANE LOZANO on 10/29/16827 Carvedilol 6.25 Mg Tablet, 6.25 MG PO BID for 30 Days, #60 Ref 11 Prescribed by: SHANE LOZANO on 10/29/16827 Clonazepam 1 Mg Tablet, 1 MG PO HS for 30 Days, #60 Prescribed by: SHANE LOZANO on 10/29/1629 Fluoxetine Hcl 40 Mg Capsule, 40 MG PO HS, (Reported) Furosemide 80 Mg Tablet, 160 MG PO DAILY@1600, (Reported) TAKE 2 (80MG) TABS Glimepiride 2 Mg Tablet, 2 MG PO DAILY, (Reported) Potassium Chloride 10 Meq Tab.prt.sr, 10 MEQ PO DAILY, (Reported) Review of Systems Constitutional: No chills, No diaphoresis, No fever, malaise EENTM: No Blurred Vision, No Double Vision Respiratory: Denies Cough, Shortness of Air, SOA With Exertion, SOA at Rest, Denies Wheezing Cardiovascular: See HPI, Chest Pain, Edema, Denies Palpitations, Denies Syncope Gastrointestinal: Denies Constipated, Denies Diarrhea, Nausea, Vomiting Genitourinary: Denies Burning, Denies Discharge Musculoskeletal: No back pain, No joint pain Skin: No pruritus, No rash Past [place]-Qdqeyi-[id number] Hx Patient Social History Alcohol Use: Denies Use Recreational Drug Use: No Smoking Status: Never a Smoker 2nd Hand Smoke Exposure: No Recent Foreign Travel: No Contact w/Someone Who Travel: No Recent Infectious Disease Expo: No Recent Hopitalizations: No Physical Abuse: No Sexual Abuse: No Mistreated: No Fear: No Immunizations Up To Date Tetanus Booster (TDap): Unknown PED Vaccines UTD: Yes Date of Pneumonia Vaccine: Sep 03, 2011 Date of Influenza Vaccine: Mar 07, 2017 Seasonal Allergies Seasonal Allergies: No Surgeries History of Surgeries: Yes (2004 hemorrhoidectomy, breast reduction, right ovary removed) Surgeries: Breast, Cardiac, Coronary Stent, Defibrillator, Eye Surgery, Gallbladder, Hysterectomy, Joint Replacement, Oophorectomy, Orthopedic, Pacemaker, Rectal Respiratory History of Respiratory Disorde: Yes Respiratory Disorders: COPD Cardiovascular History of Cardiac Disorders: Yes (Pacemaker/DEFIB, stents x 2) Cardiac Disorders: Atrial Fibrillation, Cardiomyopathy, Chronic Edema/Swelling , Coronary Artery Disease, High Cholesterol, Hypertension, Peripheral Vascular Neurological History of Neurological Disord: No 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 System Hx 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 Disorders: No Sexually Transmitted Disease: No HIV/AIDS: No Female 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 Disorders: Denies PIPE [employer]ICE History: Menopausal Genitourinary History of Genitourinary Disor: No Genitourinary Disorders: Renal Failure Gastrointestinal History of Gastrointestinal Di: Yes Gastrointestinal Disorders: Hemorrhoids Musculoskeletal History of Musculoskeletal Dis: Yes Musculoskeletal Disorders: Arthritis, Chronic Back Pain Endocrine History of Endocrine Disorders: Yes (Type II) Endocrine Disorders: Diabetes, Non-Insulin dep HEENT HEENT Disorders: Cataract Loss of Vision: Denies Hearing Impairment: Denies Cancer History of Cancer: No Psychosocial History of Psychiatric Problem: Yes Behavioral Health Disorders: Depression Suicide Risk Score: 1 Integumentary History of Skin or Integumenta: No Blood Transfusions History of Blood Disorders: No Adverse Reaction to a Blood Tr: No Family Medical History Family Medial History: Arthritis 19 FATHER 19 MOTHER G8 BROTHER G8 SISTER Asthma 19 FATHER Completed stroke G8 SISTER FH: COPD (chronic obstructive pulmonary disease) G8 SISTER FH: cancer 19 FATHER 19 MOTHER (stomach cancer ) G8 SISTER (LIVER- enio floya- breast cancer) FH: emphysema 19 FATHER G8 SISTER Glaucoma G8 SISTER Headache disorder G8 SISTER No Family History of: AIDS Abdominal aortic aneurysm Alcoholism Alzheimer's disease Cancer of mouth Cardiovascular disease Colon cancer Cystic fibrosis Deafness or hearing loss Dementia Diabetes mellitus Drug abuse Dysphasia Hypercholesterolemia Hypertension Kidney disease Myocardial infarction Parkinson's disease Prostate cancer Psychosocial problem Respiratory disorder Seizure disorder Severe allergy Thyroid disease Tuberculosis Physical Exam Vital Signs Vital Sign - Last 12Hours 06/07/17 06/07/17 22:45 22:54 Pulse 66 Resp 18 B/P (MAP) 141/67 (91) Pulse Ox 99 O2 Delivery Nasal Cannula O2 Flow Rate 2.00 FiO2 95 Capillary Refill : Less Than 3 Seconds General Appearance: WD/WN, Moderate Distress HEENT: PERRL/EOMI, Pharynx Normal Neck: Full Range of Motion, Non Tender, Supple Respiratory: Chest Non Tender, Lungs Clear, No Accessory Muscle Use, No Respiratory Distress, Decreased Breath Sounds (on bilateral bases) Cardiovascular: Regular Rate, Rhythm, Normal Peripheral Pulses Gastrointestinal: Non Tender, Soft Extremity: Normal Capillary Refill, Non Tender, No Calf Tenderness, Pedal Edema (bilateral 1+) Neurologic/Psychiatric: Alert, Oriented x3, No Motor/Sensory Deficits Skin: Normal Color, Warm/Dry Laceration Repair : Suture Size: 5-0 Progress/Results/Core Measures Results/Orders Lab Results Laboratory Tests Test 06/07/17 23:30 Range/Units White Blood Count 11.2 H 4.3-11.0 10^3/uL Red Blood Count 4.12 L 4.35-5.85 10^6/uL Hemoglobin 13.3 11.5-16.0 G/DL Hematocrit 40 35-52 % Mean Corpuscular Volume 96 80-99 FL Mean Corpuscular Hemoglobin 32 25-34 PG Mean Corpuscular Hemoglobin Concent 34 32-36 G/DL Red Cell Distribution Width 13.3 10.0-14.5 % Platelet Count 289 130-400 10^3/uL Mean Platelet Volume 10.4 7.4-10.4 FL Neutrophils (%) (Auto) 81 H 42-75 % Lymphocytes (%) (Auto) 10 L 12-44 % Monocytes (%) (Auto) 7 0-12 % Eosinophils (%) (Auto) 1 0-10 % Basophils (%) (Auto) 0 0-10 % Neutrophils # (Auto) 9.1 H 1.8-7.8 X 10^3 Lymphocytes # (Auto) 1.1 1.0-4.0 X 10^3 Monocytes # (Auto) 0.8 0.0-1.0 X 10^3 Eosinophils # (Auto) 0.1 0.0-0.3 10^3/uL Basophils # (Auto) 0.0 0.0-0.1 10^3/uL Prothrombin Time 14.2 12.2-14.7 SEC INR Comment 1.1 0.8-1.4 Activated Partial Thromboplast Time 27 24-35 SEC Sodium Level 139 135-145 MMOL/L Potassium Level 4.1 3.6-5.0 MMOL/L Chloride Level 105 98-107 MMOL/L Carbon Dioxide Level 23 21-32 MMOL/L Anion Gap 11 5-14 MMOL/L Blood Urea Nitrogen 22 H 7-18 MG/DL Creatinine 1.45 H 0.60-1.30 MG/DL Estimat Glomerular Filtration Rate 35 BUN/Creatinine Ratio 15 Glucose Level 176 H 70-105 MG/DL Calcium Level 9.3 8.5-10.1 MG/DL Magnesium Level 1.8 1.8-2.4 MG/DL Total Bilirubin 1.1 H 0.1-1.0 MG/DL Aspartate Amino Transf (AST/SGOT) 12 5-34 U/L Alanine Aminotransferase (ALT/SGPT) 12 0-55 U/L Alkaline Phosphatase 73 40-136 U/L Myoglobin 58.1 10.0-92.0 NG/ML Troponin I < 0.30 <0.30 NG/ML B-Type Natriuretic Peptide 178.3 H <100.0 PG/ML Total Protein 7.0 6.4-8.2 GM/DL Albumin 3.8 3.2-4.5 GM/DL My Orders Orders - CARO LOYOLA Cbc With Automated Diff (06/07/17 22:59) Magnesium (06/07/17 22:59) Chest 1 View, Ap/Pa Only (06/07/17 22:59) Ekg Tracing (06/07/17 22:59) Cardiac Profile 1 (06/07/17 22:59) Comprehensive Metabolic Panel (06/07/17 22:59) Myoglobin Serum (06/07/17 22:59) Protime With Inr (06/07/17 22:59) Partial Thromboplastin Time (06/07/17 22:59) O2 (06/07/17 22:59) Monitor-Rhythm Ecg Trace Only (06/07/17 22:59) Lipid Panel (06/08/17 06:00) Aspirin Chewable Tablet (Baby Aspirin Ch (06/07/17 23:00) Saline Lock/Iv-Start (06/07/17 22:59) BNP (06/07/17 22:59) Furosemide Injection (Lasix Injection) (06/07/17 23:00) Medications Given in ED Current Medications Medications Dose Ordered Sig/Teresa Route Start Time Stop Time Status Last Admin Dose Admin Furosemide 160 mg ONCE ONCE IVP 06/07/17 23:00 06/07/17 23:01 DC 06/07/17 23:12 160 MG Vital Signs/I&O Vital Sign - Last 12Hours 06/07/17 06/07/17 22:45 22:54 Pulse 66 Resp 18 B/P (MAP) 141/67 (91) Pulse Ox 99 95 O2 Delivery Nasal Cannula Nasal Cannula O2 Flow Rate 2.00 2.00 FiO2 95 Blood Pressure Mean: 91 Progress Note : Time: 00:42 Progress Note Initial history and examination lead us to believe the patient was in fluid overload and Lasix was given. However chest x-ray, BNP did not seem to bear that out. She has a modest white count of 11,000 of uncertain significance. However her treatment does seem to have improved her chest tightness whether that's from just resting or the medications. We have discussed her case with cardiology and will undergo overnight on the cardiac stepdown wing. ECG Initial ECG Impression Date: Jun 07, 2017 Initial ECG Impression Time: 22:47 Initial ECG Rate: 68 Initial ECG Rhythm: Normal Sinus Initial ECG Intervals: QRS (142) Initial ECG Impression: Nonspecific Changes (left bundle branch block) Initial ECG Comparisson: Unchanged Comment Left bundle-branch block without T-wave elevation or depression. Wide QRS. Diagnostic Imaging Diagonstic Imaging: Xray Plain Films/CT/US/NM/MRI: chest Comments Bilateral pleural effusion mild Reviewed: Reviewed by Me Departure Communication (Admissions) Time/Spoke to Admitting Phy: 00:[address] Camargo discussed case lab imaging and findings. Time/Spoke to Consulting Phy: 00:00 Communication/Consulting Dr. Wiseman recommends aspirin and keeping the patient overnight for observation. Impression Impression: Primary Impression: Chest tightness or pressure Additional Impression: Debility Disposition: ADMITTED INPATIENT Condition: Improved Admissions Decision to Admit Reason: Admit from ER (General) Decision to Admit/Date: Jun 08, 2017 Time/Decision to Admit Time: 00:44 Departure-Patient Inst. Referrals: SHANE LOZANO MD (PCP/Family) Primary Care Physician Copy Copies To 1: SHANE LOZANO MD, TITUS J Jun 07, 2017 23:06
[2017-06-07 23:42] LABS: BASOPHILS % (AUTO) 0 % (0-10); EOSINOPHILS # (AUTO) 0.1 10^3/uL (0.0-0.3); EOSINOPHILS % (AUTO) 1 % (0-10); HEMATOCRIT 40 % (35-52); HEMOGLOBIN 13.3 G/DL (11.5-16.0); LYMPHOCYTES # (AUTO) 1.1 X 10^3 (1.0-4.0); LYMPHOCYTES % (AUTO) 10 % (12-44); MEAN CORPUSCULAR HEMOGLOBIN 32 PG (25-34); MEAN CORPUSCULAR HGB CONC 34 G/DL (32-36); MEAN CORPUSCULAR VOLUME 96 FL (80-99); MEAN PLATELET VOLUME 10.4 FL (7.4-10.4); MONOCYTES # (AUTO) 0.8 X 10^3 (0.0-1.0); MONOCYTES % (AUTO) 7 % (0-12); NEUTROPHILS # (AUTO) 9.1 X 10^3 (1.8-7.8); NEUTROPHILS % (AUTO) 81 % (42-75); PLATELET COUNT 289 10^3/uL (130-400); RED BLOOD COUNT 4.12 10^6/uL (4.35-5.85); RED CELL DISTRIBUTION WIDTH 13.3 % (10.0-14.5); WHITE BLOOD COUNT 11.2 10^3/uL (4.3-11.0)
[2017-06-07 23:55] LABS: INR 1.1 (0.8-1.4); PROTHROMBIN TIME PATIENT 14.2 SEC (12.2-14.7)
[2017-06-08] VITALS (13 sets, daily range): BP systolic 120–145; BP diastolic 59–71
[2017-06-08 00:01] LABS: BUN/CREATININE RATIO 15; CARBON DIOXIDE 23 MMOL/L (21-32); CHLORIDE 105 MMOL/L (98-107); CREATININE SERUM 1.45 MG/DL (0.60-1.30); GFR ESTIMATED 35; POTASSIUM 4.1 MMOL/L (3.6-5.0); SODIUM 139 MMOL/L (135-145)
[2017-06-08 00:02] LABS: ALANINE AMINOTRANSFERASE 12 U/L (0-55); ALBUMIN 3.8 GM/DL (3.2-4.5); ALKALINE PHOSPHATASE 73 U/L (40-136); BILIRUBIN,TOTAL 1.1 MG/DL (0.1-1.0); CALCIUM 9.3 MG/DL (8.5-10.1); GLUCOSE 176 MG/DL (70-105); MAGNESIUM 1.8 MG/DL (1.8-2.4)
[2017-06-08 00:08] LABS: MYOGLOBIN SERUM 58.1 NG/ML (10.0-92.0)
--- OUTSIDE RECORDS SUMMARY | 2017-06-08 01:18 | XMS REPORT | Continuity of Care Document ---
Author Author [facility] Organization [facility] Address Unknown Phone Unavailable Allergies Active Description Code Type Severity Reaction Onset Reported/Identified Relationship to Patient Clinical Status Yes No Known Drug Allergies [id number] Drug Allergy Unknown N/A 02/25/2014 Medications There [...] NOS 08/05/2011 Ot 414.01 CORONARY ATHEROSCLEROSIS OF [place] CORON 08/05/2011 Ot 425.4 PRIM CARDIOMYOPATHY NEC [...] NOS 08/14/2011 Ot 414.01 CORONARY ATHEROSCLEROSIS OF [place] CORON 08/14/2011 Ot 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 NEC 08/14/2011 Ot 780.79 OTH MALAISE FATIGUE 08/14/2011 Ot 786.05 SHORTNESS OF BREATH 08/14/2011 Ot V58.66 LONG-TERM ( CURRENT) USE OF ASPIRIN 08/14/2011 Ot V58.69 OTH MED,LT, CURRENT USE 12/28/2012 JUAN IHGGINS DO Ot 922.0 CONTUSION OF BREAST 12/28/2012 [...] LOZANO MD Ot 414.01 CORONARY ATHEROSCLEROSIS OF [place] CORON 08/12/2013 SHANE LOZANO MD Ot 425.4 [...] AUTO IMPLANTABLE CARDIAC DEFIBRILLATOR I 08/12/2013 SHANE LOZAON MD Ot V45.82 PERCUTANEOUS TRANSLUM CORON ANGIOPLASTY 02/25/2014 KINDRA PRINGLE DO Ot 250.00 DIAB JODY WO COMPL, TYPE II OR UNSPEC TY 02/25/2014 KINDRA PRINGLE DO Ot 272.4 HYPERLIPIDEMIA NEC/NOS 02/25/2014 YARY KINDRA Fjaardo Ot 285.1 AC POSTHEMORRHAG ANEMIA 02/25/2014 YARY [...] MD E Ot 414.01 CORONARY ATHEROSCLEROSIS OF [place] CORON 02/28/2014 GORDON NGUYEN MD Ot 425.4 [...] MD Ot V46.2 SUPPLEMENTAL OXYGEN 02/28/2014 GORDON NGUYNE MD Ot V54.81 AFTERCARE FOLLOWING JOINT REPLACEMENT 02/28/2014 GORDON NGUYEN MD Ot V57.89 REHABILITATION PROC NEC 04/05/2014 YARY KINDRA COATES Ot V43.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 [...] RANGEL DOI Ot 414.01 CORONARY ATHEROSCLEROSIS OF [place] CORON 07/02/2014 SAEID RANGEL DOI Ot 414.8 [...] NOS 08/23/2014 Ot 414.01 CORONARY ATHEROSCLEROSIS OF [place] CORON 08/23/2014 Ot 428.0 CONGESTIVE HEART FAILURE [...] KINDRA Fajardo Ot V74.8 12/26/2014 YARY DO, KINDAR Fajardo Ot V58.61 12/26/2014 YARY DOKINDRA Ot [...] V72.63 02/26/2015 Ot V72.81 02/26/2015 BAIMAJEWEL L OBSERVER GRAVITY PROSPECTING Ot 272.4 02/26/2015 BAIMAJEWEL L OBSERVER GRAVITY PROSPECTING Ot 396.3 02/26/2015 BAIMAJEWEL L OBSERVER GRAVITY PROSPECTING Ot 401.9 02/26/2015 BAIMAASHLEEJEWEL L OBSERVER GRAVITY PROSPECTING Ot 414.00 02/26/2015 BAIMAJEWEL L OBSERVER GRAVITY PROSPECTING Ot 425.4 02/26/2015 YARY DO, KINDRA F Ot 715.36 02/26/2015 YARY DO, KINDRA F Ot V72.63 02/26/2015 YARY DO, KINDRA F Ot V72.83 02/26/2015 YARY DO, KINDRA F Ot V74.8 02/26/2015 MAYELIN OWENS PHP WEB DEVELOPER Ot 729.81 02/26/2015 MAYELIN OWENS PHP WEB DEVELOPER Ot V43.65 02/26/2015 KATHY VANN FACC, ALI [...] Fajardo Ot V58.83 03/20/2015 BAIMA, JEWEL L OBSERVER GRAVITY PROSPECTING Ot 272.4 03/20/2015 BAIMA, JEWEL L OBSERVER GRAVITY PROSPECTING Ot 401.9 03/20/2015 BAIMA, JEWEL L OBSERVER GRAVITY PROSPECTING Ot 414.9 03/20/2015 BAIMA, JEWEL L OBSERVER GRAVITY PROSPECTING Ot 425.4 03/20/2015 BAIMA, JEWEL L OBSERVER GRAVITY PROSPECTING Ot 447.9 03/28/2015 BAIMA, JEWEL L OBSERVER GRAVITY PROSPECTING Ot 272.4 03/28/2015 BAIMA, JEWEL L OBSERVER GRAVITY PROSPECTING Ot 401.9 03/28/2015 BAIMA, JEWEL L OBSERVER GRAVITY PROSPECTING Ot 414.9 03/28/2015 BAIMA, JEWEL L OBSERVER GRAVITY PROSPECTING Ot 425.4 03/28/2015 BAIMA, JEWEL L OBSERVER GRAVITY PROSPECTING Ot 447.9 11/06/2015 JOVANNA FLETCHER MD Ot 250.00 DIAB JODY [...] EXAM-PRE- OPERATIVE CARDIOVASCULAR 01/20/2016 BAIMA, JEWEL L OBSERVER GRAVITY PROSPECTING Ot 272.4 HYPERLIPIDEMIA NEC/NOS 01/20/2016 BAIMA, JEWEL L OBSERVER GRAVITY PROSPECTING Ot 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 01/20/2016 JEWEL OSEGUERA OBSERVER GRAVITY PROSPECTING Ot 401.9 HYPERTENSION NOS 01/20/2016 JEWEL OSEGUERA OBSERVER GRAVITY PROSPECTING Ot 414.00 CORON ATHEROSCLER NOS TYPE VESSEL, NATIV 01/20/2016 JEWEL OSEGUERA OBSERVER GRAVITY PROSPECTING Ot 425.4 PRIM CARDIOMYOPATHY NEC 01/20/2016 KINDRA PRINGLE DO Ot 715.36 LOC OSTEOARTH NOS-L/LEG 01/20/2016 KINDRA PRINGLE DO Ot V72.63 PRE-PROCEDURAL LABORATORY EXAMINATION 01/20/2016 KINDRA PRINGLE DO Ot V72.83 EXAM PRE-OPERATIVE NEC 01/20/2016 KINDRA PRINGLE DO Ot V74.8 SCREEN-BACTERIAL DIS NEC 01/20/2016 MAYELIN OWENS PHP WEB DEVELOPER Ot 729.81 SWELLING OF LIMB 01/20/2016 MAYELIN OWENS PHP WEB DEVELOPER Ot V43.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 01/20/2016 [...] FOR THERAPEUTIC DRUG MONITORIN 01/20/2016 JEWEL OSEGUERA OBSERVER GRAVITY PROSPECTING Ot 272.4 HYPERLIPIDEMIA NEC/NOS 01/20/2016 JEWEL OSEGUERA OBSERVER GRAVITY PROSPECTING Ot 401.9 HYPERTENSION NOS 01/20/2016 EDOUARDJEWEL WADE L OBSERVER GRAVITY PROSPECTING Ot 414.9 CHR ISCHEMIC HRT DIS NOS 01/20/2016 EDOUARDJEWEL WADE OBSERVER GRAVITY PROSPECTING Ot 425.4 PRIM CARDIOMYOPATHY NEC 01/20/2016 EDOUARDJEWEL WADE OBSERVER GRAVITY PROSPECTING Ot 447.9 ARTERIAL DISEASE NOS 01/20/2016 JAZMYNE [...] (TRAUMATIC), INIT FOR 01/22/2016 WHITEHEAD, PETER J PHP WEB DEVELOPER Ot W01.0XXA FALL SAME LEV FROM SLIP/TRIP W/O STRIKE 01/22/2016 JAZMYNE WHITEHEAD PHP WEB DEVELOPER Ot Y92.[address] OF OCCURRENCE OF T 01/22/2016 JAZMYNE WHITEHEAD PHP WEB DEVELOPER Ot Y99.8 OTHER EXTERNAL CAUSE STATUS 01/22/2016 JAZMYNE WHITEHEAD PHP WEB DEVELOPER Ot Z23 ENCOUNTER FOR IMMUNIZATION 01/22/2016 JAZMYNE WHITEHEAD PHP WEB DEVELOPER Ot Z95.0 PRESENCE OF CARDIAC PACEMAKER 03/07/2016 [...] V72.81 EXAM-PRE- OPERATIVE CARDIOVASCULAR 10/26/2016 JEWEL OSEGUERA OBSERVER GRAVITY PROSPECTING Ot 272.4 HYPERLIPIDEMIA NEC/NOS 10/26/2016 BAIMAJEWEL OBSERVER GRAVITY PROSPECTING Ot 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 10/26/2016 JEWEL OSEGUERA OBSERVER GRAVITY PROSPECTING Ot 401.9 HYPERTENSION NOS 10/26/2016 BAIMAJEWEL OBSERVER GRAVITY PROSPECTING Ot 414.00 CORON ATHEROSCLER NOS TYPE VESSEL, NATIV 10/26/2016 EJWEL OSEGUERA OBSERVER GRAVITY PROSPECTING Ot 425.4 PRIM CARDIOMYOPATHY NEC 10/26/2016 KINDRA PRINGLE DO Ot 715.36 LOC OSTEOARTH NOS-L/LEG 10/26/2016 KINDRA PRINGLE DO Ot V72.63 PRE-PROCEDURAL LABORATORY EXAMINATION 10/26/2016 KINDRA PRINGLE DO Ot V72.83 EXAM PRE-OPERATIVE NEC 10/26/2016 KINDRA PRINGLE DO Ot V74.8 SCREEN-BACTERIAL DIS NEC 10/26/2016 MAYELIN OWENS PHP WEB DEVELOPER Ot 729.81 SWELLING OF LIMB 10/26/2016 MAYELIN OWENS PHP WEB DEVELOPER Ot V43.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 10/26/2016 [...] DO Ot 715.36 LOC OSTEOARTH NOS-L/LEG 10/26/2016 KINRDA PRINGLE DO Ot V72.63 PRE-PROCEDURAL LABORATORY EXAMINATION 10/26/2016 KINDRA PRINGLE DO Ot V74.8 SCREEN-BACTERIAL DIS NEC 10/26/2016 KINDRA PRINGLE DO Ot V58.61 ANTICOAGULANTS,LT,CURRENT USE 10/26/2016 KINDRA PRINGLE DO, Ot V58.83 ENCOUNTER FOR THERAPEUTIC DRUG MONITORIN 10/26/2016 JEWEL OSEGUERA OBSERVER GRAVITY PROSPECTING Ot 272.4 HYPERLIPIDEMIA NEC/NOS 10/26/2016 JEWEL OSEGUERA OBSERVER GRAVITY PROSPECTING Ot 401.9 HYPERTENSION NOS 10/26/2016 JEWEL OSEGUERA OBSERVER GRAVITY PROSPECTING Ot 414.9 CHR ISCHEMIC HRT DIS NOS 10/26/2016 JEWEL OSEGUERA OBSERVER GRAVITY PROSPECTING Ot 425.4 PRIM CARDIOMYOPATHY NEC 10/26/2016 EDOUARDMAURO JEWEL L OBSERVER GRAVITY PROSPECTING Ot 447.9 ARTERIAL DISEASE NOS 10/27/2016 JOVANNA [...] MD Ot I25.10 ATHSCL HEART DISEASE OF [place] CORONARY 10/28/2016 JOVANNA FLETCHER MD Ot I25.5 [...] RESUSCITATE 10/28/2016 JOVANNA FLETCHER MD Ot Z79.84 JAIL (CURRENT) USE OF ORAL HYPOGLYC 10/28/2016 JOVANNA [...] MD, Ot I25.10 ATHSCL HEART DISEASE OF [place] CORONARY 10/29/2016 JOVANNA FLETCHER MD, Ot I25.5 [...] RESUSCITATE 10/29/2016 JOVANNA FLETCHER MD, Ot Z79.84 JAIL (CURRENT) USE OF ORAL HYPOGLYC 10/29/2016 JOVANNA [...] MD, Ot I25.10 ATHSCL HEART DISEASE OF [place] CORONARY 10/29/2016 JOVANNA FLETCHER MD, Ot I25.5 [...] RESUSCITATE 10/29/2016 JOVANNA FLETCHER MD, Ot Z79.84 JAIL (CURRENT) USE OF ORAL HYPOGLYC 10/29/2016 JOVANNA FLETCHER MD Ot Z87.891 PERSONAL HISTORY OF NICOTINE DEPENDENCE 10/29/2016 JOVANNA FLETCHER MD, Ot Z91.19 PATIENT'S NONCOMPLIANCE W 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 11/20/2014 [id number] MEASURE OF CARDIAC SAMPL PRESSURE, L H 10/27/2016 [id number] FLUOROSCOPY OF MULT COR ART USING L OSM 10/27/2016 [id number] FLUOROSCOPY OF LEFT HEART USING LOW OSMO [...] measurement by glucometer (mass/volume) 159 mg/dL 70-110 Complete blood count (CBC) with automated white blood cell (WBC) differential - 06/07/17 23:30 Blood leukocytes automated count (number/volume) 11.2 10*3/uL 4.3-11.0 Blood erythrocytes automated count (number/volume) 4.12 10*6/uL 4.35-5.85 Venous blood hemoglobin measurement (mass/volume) 13.3 g/dL 11.5-16.0 Blood hematocrit (volume fraction) 40 % 35-52 Automated erythrocyte mean corpuscular volume 96 [foz_us] 80-99 Automated erythrocyte mean corpuscular hemoglobin (mass per erythrocyte) 32 pg 25-34 Automated erythrocyte mean corpuscular hemoglobin concentration measurement ( mass/volume) 34 g/dL 32-36 Automated erythrocyte distribution width ratio 13.3 % 10.0-14.5 Automated blood platelet count (count/volume) 289 10*3/uL 130-400 Automated blood platelet mean volume measurement 10.4 [foz_us] 7.4-10.4 Automated blood neutrophils/100 leukocytes 81 % 42-75 Automated blood lymphocytes/100 leukocytes 10 % 12-44 Blood monocytes/100 leukocytes 7 % 0-12 Automated blood eosinophils/100 leukocytes 1 % 0-10 Automated blood basophils/100 leukocytes 0 % 0-10 Blood neutrophils automated count (number/volume) 9.1 10*3 1.8-7.8 Blood lymphocytes automated count (number/volume) 1.1 10*3 1.0-4.0 Blood monocytes automated count (number/volume) 0.8 10*3 0.0-1.0 Automated eosinophil count 0.1 10*3/uL 0.0-0.3 Automated blood basophil count (count/volume) 0.0 10*3/uL 0.0-0.1 Comprehensive metabolic panel - 06/07/17 23:30 Serum or plasma sodium measurement (moles/volume) 139 mmol/L 135-145 Serum or plasma potassium measurement (moles/volume) 4.1 mmol/L 3.6-5.0 Serum or plasma chloride measurement (moles/volume) 105 mmol/L 98-107 Carbon dioxide 23 mmol/L 21-32 Serum or plasma anion gap determination (moles/volume) 11 mmol/L 5-14 Serum or plasma urea nitrogen measurement (mass/volume) 22 mg/dL 7-18 Serum or plasma creatinine measurement (mass/volume) 1.45 mg/dL 0.60-1.30 Serum or plasma urea nitrogen/creatinine mass ratio 15 NRG Serum or plasma creatinine measurement with calculation of estimated glomerular filtration rate 35 NRG Serum or plasma glucose measurement (mass/volume) 176 mg/dL 70-105 Serum or plasma calcium measurement (mass/volume) 9.3 mg/dL 8.5-10.1 Serum or plasma total bilirubin measurement (mass/volume) 1.1 mg/dL 0.1-1.0 Serum or plasma alkaline phosphatase measurement (enzymatic activity/volume) 73 U/L 40-136 Serum or plasma aspartate aminotransferase measurement (enzymatic activity/ volume) 12 U/L 5-34 Serum or plasma alanine aminotransferase measurement (enzymatic activity/volume ) 12 U/L 0-55 Serum or plasma protein measurement (mass/volume) 7.0 g/dL 6.4-8.2 Serum or plasma albumin measurement (mass/volume) 3.8 g/dL 3.2-4.5 Magnesium - 06/07/17 23:30 Magnesium 1.8 mg/dL 1.8-2.4 PT panel in platelet poor plasma by coagulation assay - 06/07/17 23:30 Prothrombin time (PT) in platelet poor plasma by coagulation assay 14.2 s 12.2-14.7 INR in platelet poor plasma or blood by coagulation assay 1.1 0.8-1.4 Activated partial thromboplastin time (aPTT) in platelet poor plasma bycoagulation assay - 06/07/17 23:30 Activated partial thromboplastin time (aPTT) in platelet poor plasma bycoagulation assay 27 s 24-35 Serum or plasma troponin i.cardiac measurement (mass/volume) - 06/07/17 23:30 Serum or plasma troponin i.cardiac measurement (mass/volume) < ng/ mL <0.30 Myoglobin, serum - 06/07/17 23:30 Myoglobin, serum 58.1 ng/mL 10.0-92.0 Serum or plasma lithium measurement (moles/volume) - 06/07/17 23:30 BNP level 178.3 pg/mL <100.0 Encounters ACCT No. Visit Date/Time Discharge Status Pt. Type Provider Facility Loc./Unit Complaint [id number] 10/26/2016 13:31:00 10/29/2016 12:35:00 DIS Inpatient JUSTINE VANN, JOVANNA [facility] ICU CHEST PAIN,CHF EXACERBATION [id number] 01/20/2016 14:07:00 01/20/2016 16:30:00 DIS Emergency WHITEHEADJAZMYNE APRN [facility] ER FALL FACIAL INJURIES/ RIGHT WRIST PAIN [id number] 02/26/2015 14:20:00 02/26/2015 23:59:59 CLS Outpatient JEWEL OSEGUERA [facility] CARD CAD,CARDIOMYOPATHY, CAROTID ARTERY DI,HTN,HLP [id number] 11/29/2014 14:30:00 11/29/2014 23:59:59 CLS Outpatient KINDRA PRINGLE DO [facility] HH ANTICOAG THERAPY [id number] 11/20/2014 06:05:00 11/26/2014 16:29:00 DIS Inpatient KINDAR PRINGLE DO [facility] SURGICAL DEGENERATIVE DISC DISEASE LEFT KNEE [id number] 11/25/2014 15:23:00 11/25/2014 23:59:59 CLS Preadmit BLAKE VANN, SHANE Collier LT.KNEE [id number] 11/17/2014 12:07:00 11/17/2014 14:13:00 DIS Emergency JOVANNA FLETCHER MD [facility] ER R SIDE PAIN [id number] 11/06/2014 13:48:00 11/06/2014 23:59:59 CLS Outpatient KINDRA PRINGLE DO [facility] PREOP DEGENERATIVE DISC DISEASE LEFT KNEE [id number] 10/04/2014 11:33:00 10/04/2014 23:59:59 CLS Outpatient SHANE LOZANO MD [facility] RAD INCREASED L/E EDEMA, [id number] 08/30/2014 07:42:00 08/30/2014 23:59:59 CLS Outpatient KATHY VANN FACC, MANDA FACJuan CCDS [facility] CARD CAD, CARDIOMYOPATHY [id number] 06/27/2014 20:27:00 07/02/2014 16:00:00 DIS Inpatient CRISTINA RANGEL DO [facility] CSD ASTHMATIC BRONCHITIS [id number] 03/28/2014 16:18:00 04/05/2014 14:28:00 DIS Outpatient YARY DO, KINDRA F [facility] REHAB S/P R TKR [id number] 03/07/2014 09:40:00 03/07/2014 23:59:59 CLS Outpatient MAYELIN OWENS APRN [facility] RAD R LE SWELLING [id number] 02/25/2014 14:25:00 02/28/2014 17:19:00 DIS Inpatient GORDON NGUYEN MD [facility] IRF TKR [id number] 02/20/2014 09:00:00 02/25/2014 14:24:00 DIS Inpatient KINDRA PRINGLE DO [facility] SURGICAL RIGHT KNEE DJD [id number] 02/14/2014 13:09:00 02/14/2014 23:59:59 CLS Outpatient KINDRA PRINGLE DO [facility] PREOP RIGHT KNEE DJD [id number] 08/09/2013 13:16:00 08/12/2013 11:00:00 DIS Inpatient BLAKE VANN, SHANE Collier [facility] CSD CHF CHEST PAIN [id number] 08/02/2013 12:43:00 08/02/2013 23:59:59 CLS Outpatient JEWEL OSEGUERA [facility] CARD CAD,HTN [id number] 03/31/2013 14:55:00 03/31/2013 15:14:00 DIS Emergency JOVANNA FLETCHER MD [facility] ER COUGH/SOA [id number] 12/28/2012 12:05:00 12/28/2012 14:26:00 DIS Emergency JUAN HIGGINS DO [facility] ER FALL/LEFT RIB PAIN [id number] 06/07/2017 23:43:00 Document Registration [id number] 02/26/2015 14:20:00 Document Registration [id number] 02/26/2015 14:20:00 Document Registration [id number] 02/26/2015 14:20:00 Document Registration [id number] 02/26/2015 14:20:00 Document Registration [id number] 02/26/2015 14:20:00 Document Registration [id number] 02/26/2015 14:20:00 Document Registration [id number] 08/21/2014 16:15:00 Document Registration [id number] 08/04/2011 14:10:00 Document Registration [id number] 04/22/2010 05:36:00 Document Registration [id number] 04/21/2010 09:13:00 Document Registration [id number] 03/26/2010 16:03:00 Document Registration [id number] 09/10/2009 12:51:00 Document Registration
[2017-06-08] MEDS ORDERED: ONDANSETRON 4 MG/2 ML (SDV) Z0FRAN IV PRN (04:00)
[2017-06-08] MEDS ORDERED: ACETAMINOPHEN 500 MG TAB (TYLENOL) PO PRN (04:00)
[2017-06-08] MEDS ORDERED: NITROGLYCERIN 0.4 MG SL TABS BTL 25'S SL PRN (04:00)
[2017-06-08] MEDS ORDERED: morphine INJ 4 MG/ML 1 ML (VIAL/SYRINGE) IV PRN (04:00)
[2017-06-08 05:41] LABS: BASOPHILS % (AUTO) 0 % (0-10); EOSINOPHILS % (AUTO) 0 % (0-10); HEMATOCRIT 40 % (35-52); HEMOGLOBIN 13.3 G/DL (11.5-16.0); LYMPHOCYTES # (AUTO) 1.2 X 10^3 (1.0-4.0); LYMPHOCYTES % (AUTO) 10 % (12-44); MEAN CORPUSCULAR HEMOGLOBIN 32 PG (25-34); MEAN CORPUSCULAR HGB CONC 34 G/DL (32-36); MEAN CORPUSCULAR VOLUME 96 FL (80-99); MONOCYTES # (AUTO) 0.7 X 10^3 (0.0-1.0); MONOCYTES % (AUTO) 5 % (0-12); NEUTROPHILS # (AUTO) 10.4 X 10^3 (1.8-7.8); NEUTROPHILS % (AUTO) 85 % (42-75); PLATELET COUNT 269 10^3/uL (130-400); RED BLOOD COUNT 4.13 10^6/uL (4.35-5.85); RED CELL DISTRIBUTION WIDTH 13.3 % (10.0-14.5); WHITE BLOOD COUNT 12.3 10^3/uL (4.3-11.0)
[2017-06-08 05:55] LABS: BUN/CREATININE RATIO 16; CALCIUM 9.4 MG/DL (8.5-10.1); CARBON DIOXIDE 23 MMOL/L (21-32); CHLORIDE 103 MMOL/L (98-107); CHOLESTEROL 294 MG/DL (< 200); CREATININE SERUM 1.45 MG/DL (0.60-1.30); GFR ESTIMATED 35; GLUCOSE 164 MG/DL (70-105); HDL CHOLESTEROL 34 MG/DL (40-60); POTASSIUM 3.9 MMOL/L (3.6-5.0); SODIUM 141 MMOL/L (135-145); TRIGLYCERIDES 210 MG/DL (<150); VLDL CHOLESTEROL 42 MG/DL (5-40)
[2017-06-08] MEDS: inSUlin (REGULAR) HUMAN 1 UNIT/0.01 ML (CHARGE PER UNIT) SC SCH ×4 (06:07→20:30)
[2017-06-08] MEDS: FUROSEMIDE 40 MG (LASIX) TAB PO SCH (07:28)
--- NOTE | 2017-06-08 07:50 | Diagnostic Imaging Report ---
INDICATION: Chest pain. COMPARISON: 10/26/2016 FINDINGS: Single view of the chest demonstrates cardiac enlargement with central vascular congestion. No overt pulmonary edema seen. There is no pneumothorax or effusion. Pacemaker stable. IMPRESSION: Cardiac enlargement with central vascular congestion. Dictated by: Dictated on workstation # [id number]
[2017-06-08] MEDS: lisINopril 10 MG (PRINIVIL) TAB PO SCH (08:20)
--- NOTE | 2017-06-08 08:57 | Diagnostic Imaging Report ---
INDICATION: Congestive heart failure. COMPARISON: 06/07/2017. FINDINGS: There is cardiomegaly. There is some right basilar atelectasis and/or pneumonitis. There is no pleural effusion or pneumothorax. The mediastinum is unremarkable. A pacemaker overlies the left hemithorax. IMPRESSION: Right basilar atelectasis and/or pneumonitis. Cardiomegaly. Dictated by: Dictated on workstation # [id number]
[2017-06-08] MEDS ORDERED: ASPIRIN E.C. 325 MG (ECOTRIN) TABLET PO SCH (09:00)
[2017-06-08] MEDS ORDERED: meTOprolol TARTRATE 25 MG (LOPRESSOR) TABLET PO SCH (09:00)
[2017-06-08] MEDS ORDERED: ENOXAPARIN 30 MG/0.3 ML (LOVENOX) SYR SC SCH (09:15)
[2017-06-08] MEDS ORDERED: CLON1TAB3 PO (09:17)
[2017-06-08] MEDS ORDERED: METF1000 PO (09:17)
[2017-06-08] MEDS ORDERED: FLUO40CA12 PO (09:17)
[2017-06-08] MEDS ORDERED: ENOXAPARIN 100 MG/1 ML (LOVENOX) SYR SC SCH (09:30)
--- NOTE | 2017-06-08 10:07 | Diagnostic Imaging Report ---
PROCEDURE: US right lower extremity venous. TECHNIQUE: Multiple real-time grayscale images were obtained over the right lower extremity in various projections. Additional duplex Doppler and color Doppler images were also obtained. INDICATION: Calf pain and swelling. FINDINGS: The femoral popliteal deep venous system bilaterally was widely patent. There is normal compressibility, normal color flow and normal waveforms. No deep or superficial thrombus. No mass or fluid collection demonstrated. IMPRESSION: Normal negative unilateral right lower extremity venous Doppler and ultrasound exam. Dictated by: Dictated on workstation # [id number]
--- NOTE | 2017-06-08 10:51 | Consultation-Cardiology ---
HPI-Cardiology Cardiology Consultation: Date of Consultation 06/08/17 Time Seen by Provider: 10:00 Date of Admission 06-07-17 Attending Physician Sravani Rangel DO Admitting Physician Shane Anderson MD Consulting Physician Myrtle Wiseman MD HPI: Chief Complaint: Shortness of breath and gen weakness Ms. Dolan is an 82 year old female admitted to ICU 2 from the ED. She reports she has been feeling generally unwell for the last week. She reports dyspnea, fever, chills, nausea and lose productive cough which has been progressive. She reports she has chronic bilat LE edema, but feels the right has been more swollen than the left for approx the last 6 weeks. She reports increasing fatigue over the last week. She states she is feeling better this morning, but continues to feel short of breath. She does wear oxygen at home. She reports she wears O2 at 4L/NC at home. She does not report any chest pain, palpitations , syncope or near syncope She reports generalized and progressive weakness for several weeks. Lives by self. Finding harder and harder to continue with activities of daily life Review of Systems-Cardiology Review of Systems Constitutional: chills, fever, malaise Eyes: No vision change Ears/Nose/Throat: No epistaxis Respiratory: As described under HPI Cardiovascular: As described under HPI Gastrointestinal: No constipation, diarrhea, nausea, vomiting Genitourinary: No dysuria, No hematuria Musculoskeletal: joint pain (chronic) Skin: No rash, No ulcerations Psychiatric/Neurological: depression (chronic), No focal weakness, No syncope Hematologic: No bleeding abnormalities YAF-Lkjhbr-Mrgxht Hx Patient Social History Alcohol Use: Denies Use Recreational Drug Use: No Smoking Status: Never a Smoker 2nd Hand Smoke Exposure: No Recent Foreign Travel: No Recent Infectious Disease Expo: No Hospitalization with Isolation: Denies Physical Abuse Screen: No Sexual Abuse: No Immunizations Up To Date Tetanus Booster (TDap): Unknown Date of Pneumonia Vaccine: Sep 03, 2011 Date of Influenza Vaccine: Mar 07, 2017 Past Medical History PMH As described under Assessment. Family Medical History Family History: 19 FATHER Arthritis Asthma FH: cancer FH: emphysema 19 MOTHER Arthritis FH: cancer (stomach cancer ) G8 BROTHER Arthritis G8 SISTER Arthritis Completed stroke FH: COPD (chronic obstructive pulmonary disease) FH: cancer (LIVER- enio floya- breast cancer) FH: emphysema Glaucoma Headache disorder Allergies and Home Medications Allergies Coded Allergies: No Known Drug Allergies (Unverified , 02/25/14) Home Medications Acetaminophen 325 Mg Tablet, 650 MG PO Q4H PRN for PAIN-MILD, (Reported) TAKES 2 (325MG) TABLETS Aspirin 81 Mg Tablet.dr, 81 MG PO HS, (Reported) Atorvastatin Calcium 40 Mg Tablet, 40 MG PO HS, (Reported) Carvedilol 6.25 Mg Tablet, 12.5 MG PO HS, (Reported) TAKES 2 (6.25MG) TABLETS Clonazepam 1 Mg Tablet, 2 MG PO HS, (Reported) TAKES 2 (1MG) TABLETS Fluoxetine HCl 40 Mg Capsule, 40 MG PO HS, (Reported) Furosemide 80 Mg Tablet, 160 MG PO DAILY, (Reported) TAKES 2 (80MG) TABLETS Glimepiride 2 Mg Tablet, 2 MG PO HS, (Reported) Metformin HCl 500 Mg Tablet, 1,000 MG PO HS, (Reported) TAKES 2 (500MG) TABLETS Potassium Chloride 10 Meq Tablet.er, 10 MEQ PO DAILY, (Reported) Physical Exam-Cardiology Physical Exam Vital Signs/I&O Vital Sign - Last 12Hours 06/08/17 06/08/17 06/08/17 06/08/17 01:37 01:50 02:03 02:03 Pulse 59 65 68 Resp 18 B/P (MAP) 141/65 (90) Pulse Ox 92 95 94 O2 Delivery OxyMask Nasal Cannula Nasal Cannula O2 Flow Rate 6.00 6.00 6.00 FiO2 95 06/08/17 06/08/17 06/08/17 06/08/17 02:15 02:30 02:45 03:00 Pulse 68 65 64 65 B/P (MAP) 120/61 (80) 135/63 (87) 125/61 (82) 126/61 (82) Pulse Ox 92 92 94 94 O2 Delivery Nasal Cannula Nasal Cannula Nasal Cannula Nasal Cannula O2 Flow Rate 6.00 6.00 6.00 6.00 06/08/17 06/08/17 06/08/17 06/08/17 03:15 04:00 04:00 05:00 Pulse 63 62 62 B/P (MAP) 140/59 (86) 140/71 (94) 144/68 (93) Pulse Ox 92 94 95 96 O2 Delivery Nasal Cannula Nasal Cannula Nasal Cannula Nasal Cannula O2 Flow Rate 6.00 6.00 6.00 6.00 06/08/17 06/08/17 06/08/17 06/08/17 06:00 07:00 07:00 08:26 Temp 97.4 Pulse 60 60 60 B/P (MAP) 143/67 (92) 145/64 (91) Pulse Ox 95 96 O2 Delivery Nasal Cannula Nasal Cannula Nasal Cannula O2 Flow Rate 6.00 6.00 6.00 06/08/17 06/08/17 06/08/17 08:27 09:05 11:10 Pulse Ox 94 O2 Delivery Nasal Cannula Nasal Cannula Nasal Cannula O2 Flow Rate 6.00 6.00 5.00 Capillary Refill : Less Than 3 Seconds Constitutional: AAO x 3, well-developed, well-nourished HEENT: PERRL Neck: No carotid bruit, carotid pulses are 2 + bilaterally Respiratory: No accessory muscle use, chest expansion is symmetric, chest is bilaterally symmetric, lungs clear to auscultation Cardiovascular: regular rate-rhythm, No JVD, S1 and S2 Gastrointestinal: No tender, soft, audible bowel sounds Rectal: deferred Extremities: no lower extremity edema bilateral Neurologic/Psychiatric: grossly intact Skin: No rash, No ulcerations Data Review Labs Laboratory Tests 06/07/17 23:30: White Blood Count 11.2H, Red Blood Count 4.12L, Hemoglobin 13.3, Hematocrit 40, Mean Corpuscular Volume 96, Mean Corpuscular Hemoglobin 32, Mean Corpuscular Hemoglobin Concent 34, Red Cell Distribution Width 13.3, Platelet Count 289, Mean Platelet Volume 10.4, Neutrophils (%) (Auto) 81H, Lymphocytes (%) (Auto) 10L, Monocytes (%) (Auto) 7, Eosinophils (%) (Auto) 1, Basophils (%) (Auto) 0, Neutrophils # (Auto) 9.1H, Lymphocytes # (Auto) 1.1, Monocytes # (Auto) 0.8, Eosinophils # (Auto) 0.1, Basophils # (Auto) 0.0, Prothrombin Time 14.2, INR Comment 1.1, Activated Partial Thromboplast Time 27, Sodium Level 139, Potassium Level 4.1, Chloride Level 105, Carbon Dioxide Level 23, Anion Gap 11, Blood Urea Nitrogen 22H, Creatinine 1.45H, Estimat Glomerular Filtration Rate 35 , BUN/Creatinine Ratio 15, Glucose Level 176H, Calcium Level 9.3, Magnesium Level 1.8, Total Bilirubin 1.1H, Aspartate Amino Transf (AST/SGOT) 12, Alanine Aminotransferase (ALT/SGPT) 12, Alkaline Phosphatase 73, Myoglobin 58.1, Troponin I < 0.30, B-Type Natriuretic Peptide 178.3H, Total Protein 7.0, Albumin 3.8 06/08/17 04:25: White Blood Count 12.3H, Red Blood Count 4.13L, Hemoglobin 13.3, Hematocrit 40, Mean Corpuscular Volume 96, Mean Corpuscular Hemoglobin 32, Mean Corpuscular Hemoglobin Concent 34, Red Cell Distribution Width 13.3, Platelet Count 269, Mean Platelet Volume 11.0H, Neutrophils (%) (Auto) 85H, Lymphocytes (%) (Auto) 10L, Monocytes (%) (Auto) 5, Eosinophils (%) (Auto) 0, Basophils (%) (Auto) 0, Neutrophils # (Auto) 10.4H, Lymphocytes # (Auto) 1.2, Monocytes # (Auto) 0.7, Eosinophils # (Auto) 0.0, Basophils # (Auto) 0.0, Sodium Level 141, Potassium Level 3.9, Chloride Level 103, Carbon Dioxide Level 23, Anion Gap 15H, Blood Urea Nitrogen 23H, Creatinine 1.45H, Estimat Glomerular Filtration Rate 35, BUN/ Creatinine Ratio 16, Glucose Level 164H, Calcium Level 9.4, Troponin I < 0.30, D -Dimer 2.40H, Triglycerides Level 210H, Cholesterol Level 294H, LDL Cholesterol Direct 218H, VLDL Cholesterol 42H, HDL Cholesterol 34L 06/08/17 11:04: Glucometer 159H 06/08/17 11:05: Troponin I < 0.30 Laboratory Tests 06/07/17 23:30 06/08/17 04:25 Radiology NAME: BRANDEN DOLAN Eric WISEMAN REC#: [id number] PT STATUS: ADM Sara : 1935 PHYSICIAN: CARO LOYOLA MD ADMIT DATE: 06/08/17/ICU Signed Date of Exam: 06/07/17 CHEST 1 VIEW, AP/PA ONLY INDICATION: Chest pain. COMPARISON: 10/26/2016 FINDINGS: Single view of the chest demonstrates cardiac enlargement with central vascular congestion. No overt pulmonary edema seen. There is no pneumothorax or effusion. Pacemaker stable. IMPRESSION: Cardiac enlargement with central vascular congestion. Dictated by: Dictated on workstation # [id number] Dict: 06/08/17 0746 Trans: 06/08/17924 Interpreted by: PEPE WATSON Electronically signed by: PEPE WATSON 06/08/17924 NAME: BRANDEN DOLAN Eric [facility] REC#: [id number] PT STATUS: ADM Sara : 1935 PHYSICIAN: SRAVANI RANGEL DO ADMIT DATE: 06/08/17/ICU Signed Date of Exam: 06/08/17 CHEST PA/LAT (2 VIEW) INDICATION: Congestive heart failure. COMPARISON: 06/07/2017. FINDINGS: There is cardiomegaly. There is some right basilar atelectasis and/or pneumonitis. There is no pleural effusion or pneumothorax. The mediastinum is unremarkable. A pacemaker overlies the left hemithorax. IMPRESSION: Right basilar atelectasis and/or pneumonitis. Cardiomegaly. Dictated by: Dictated on workstation # [id number] Dict: 06/08/17 0839 Trans: 06/08/17902 Interpreted by: LAM ESCOBAR MD Electronically signed by: LAM ESCOBAR MD 06/08/17902 NAME: BRANDEN DOLAN [facility] REC#: [id number] PHYSICIAN: SHANE ANDERSON MD CC: SHANE ANDERSON MD; MICHAEL CABRALES Page 1 of 1 RADIOLOGY REPORT VIA [facility]. [place], [place] CC: SHANE ANDERSON MD; MICHAEL CABRALES Page 1 of 1 RADIOLOGY REPORT NAME: BRANDEN DOLAN [facility] REC#: [id number] PT STATUS: ADM Sara : 1935 PHYSICIAN: SHANE ANDERSON MD ADMIT DATE: 06/08/17/ICU Signed Date of Exam: 06/08/17 US VENOUS LOWER EXT RT PROCEDURE: US right lower extremity venous. TECHNIQUE: Multiple real-time grayscale images were obtained over the right lower extremity in various projections. Additional duplex Doppler and color Doppler images were also obtained. INDICATION: Calf pain and swelling. FINDINGS: The femoral popliteal deep venous system bilaterally was widely patent. There is normal compressibility, normal color flow and normal waveforms. No deep or superficial thrombus. No mass or fluid collection demonstrated. IMPRESSION: Normal negative unilateral right lower extremity venous Doppler and ultrasound exam. Dictated by: Dictated on workstation # [id number] Dict: 06/08/17 0953 Trans: 06/08/17 1023 Interpreted by: MICHAEL CABRALES Electronically signed by: MICHAEL CABRALES 06/08/17 1023 A/P-Cardiology Assessment/Admission Diagnosis Multifactorial shortness of breath and weakness Suspected pneumonia - management per Medical Services Acute on chronic renal insufficiency (CKD stage 3) - likely in some part to intravascular volume depletion Acute on chronic systolic CHF - no clinical evidence of decompensation of CHF at the time of this exam Coronary artery disease with a history of bare-metal stenting to a non-dominant right coronary and to a diagonal branch of the left anterior descending. Last cardiac catheterization of October 27, 2016: Coronary artery disease, angiographically mild. Patent stents in the first diagonal and the proximal portion of a nondominant right coronary. Global hypokinesis, left ventricle. Marked impairment of global left ventricular systolic function with ejection fraction of 20%-25%. Mild elevation of left ventricular end diastolic pressure. No significant mitral regurgitation is seen. MPI of August 2014 showed LVEF 23%. No evidence of significant myocardia ischemia or infarction. Cardiomegaly Non-ischemic cardiomyopathy Echocardiogram of 02/26/15 showed cardiomegaly with LVEF 30-35%, mild MR and TR, mild to mod AoV sclerosis, mild MAC, PASP 35 mmHg Status post single-chamber defibrillator implantation in August 2011, functioning normally per interrogation of March 2017. Maturity onset diabetes mellitus. Hypertension - controlled Hyperlipidemia - not controlled Depression, chronic. Normal ankle brachial indices in April 2009. Elevated body mass index of nearly 32. Mild carotid arterial disease, bilaterally, per carotid ultrasound carried out in July 2014 HLD - followed by her PCP PVCs, asymptomatic H/o sleep apnea, but noncompliant with therapy Intolerant to ARB d/t rash Discussion and Recomendations Dyspnea with suspected pneumonia which is being managed by medical services. She does have a h/o NICM with chronic systolic CHF which clinically appears clinically compensated. We will do an echocardiogram to re-evaluate LVEF. We will continue her home medications including Lasix, XIOMARA (-) and BB. We will continue statin tx. Monitor lab closely. She has a venous doppler this morning d/t c/o right leg swelling greater than left which was (-) for a DVT. We do advise DVT prophylaxis. We advise continuation of ASA tx. We would like to thank medical services for this consult. Further rec will be based on her hospital course. This consult is being scribed by Maisha Mckay APRN on behalf of Dr. Wiseman after discussion regarding plan of care. Clinical Quality Measures AMI/AHF: ASA po Prior to arrival: Yes DVT/VTE Risk/Contraindication: Risk Factor Score Per Nursin RFS Level Per Nursing on Admit: 4+=Very High Physician Assessment Physician Assessment Gen malaise, weakness, impaired stamina, exertional shortness of breath, feeling of being somewhat bloated Lungs: fair to good bilat air entry Cor: reg Ext: no c/c/e A&R * As documented in our note above that I updated (italics) and as noted below * Complex management issue due to multiple comorbidities described above * She has been taking large amounts of diuretics in the hope of improving symptoms, but actually appears somewhat vol depleted at this juncture * Reduce diuretics to usual daily dose * Slow and careful hydration * Monitor labs * I had a detailed discussion with her and answered her questions JEWEL MCKAY Jun 08, 2017 10:51 MYRTLE WISEMAN MD [facility] Jun 08, 2017 12:39
[2017-06-08] MEDS ORDERED: METF500T4 PO (11:27)
[2017-06-08] MEDS ORDERED: ASPI-983 PO (11:27)
[2017-06-08] MEDS ORDERED: CARV6.25 PO (11:27)
[2017-06-08] MEDS ORDERED: FURO80TA3 PO (11:31)
[2017-06-08] MEDS ORDERED: ATOR40TA PO (11:31)
[2017-06-08] MEDS ORDERED: POTA10TA10 PO (11:31)
[2017-06-08] MEDS ORDERED: ACET325T38 PO (11:33)
--- NOTE | 2017-06-08 12:56 | History & Physical-Hospitalist ---
HPI History of Present Illness: HPI/Chief Complaint Mrs. Dolan an 82-year-old white female with known COPD and ischemic cardiomyopathy with past congestive heart failure due to combined systolic and diastolic dysfunction who reported increasing chest pressure sensation and shortness of breath over the past week. She had noticed some coughing with this that was productive of whitish sputum only. She denied chills fever or myalgia sore throat or otalgia. She did report increased swelling in the right lower extremity with some mild calf discomfort. She reports previous blood clot in the left lower extremity in the 70s following immobilization. She states she was hospitalized for 7 days for does not recall going home on long- term anticoagulant therapy. Because of chest discomfort that was for the most part continuous low-level over the past week and shortness of breath she presented to the emergency room. She denied a pleuritic component to her pain and also denied hemoptysis. See review of systems. Date Seen 06/08/17 Time Seen by Provider: 08:00 Attending Physician Danyel Lozano M.D. PCP Danyel Lozano MD Referring Physician Date of Admission Jun 08, 2017 at 00:35 Home Medications & Allergies Home Medications Reviewed patient Home Medication Reconciliation Form Allergies Allergies Coded Allergies No Known Drug Allergies (Unverified02/25/14) Past Eayjnjb-Weblot-Tjklua Hx Patient Social History Alcohol Use: Denies Use Recreational Drug Use: No Smoking Status: Never a Smoker 2nd Hand Smoke Exposure: No Physical Abuse Screen: No Sexual Abuse: No Recent Foreign Travel: No Contact w/other who traveled: No Recent Hopitalizations: No Recent Infectious Disease Expo: No Immunizations Up To Date Tetanus Booster (TDap): Unknown Pediatric: Yes Date of Pneumonia Vaccine: Sep 03, 2011 Date of Influenza Vaccine: Mar 07, 2017 Seasonal Allergies Seasonal Allergies: No Surgeries Yes (2004 hemorrhoidectomy, breast reduction, right ovary removed) Breast, Cardiac, Coronary Stent, Defibrillator, Eye Surgery, Gallbladder, Hysterectomy, Joint Replacement, Oophorectomy, Orthopedic, Pacemaker, Rectal Respiratory Yes Cardiovascular Yes (Pacemaker/DEFIB, stents x 2) Atrial Fibrillation, Cardiomyopathy, Chronic Edema/Swelling, Coronary Artery Disease, High Cholesterol, Hypertension, Peripheral Vascular Neurological No 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 System Hx 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 Disorders: No Sexually Transmitted Disease: No HIV/AIDS: No Female 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 Disorders: Denies [employer] History: Menopausal Genitourinary No Renal Failure Gastrointestinal Yes Hemorrhoids Musculoskeletal Yes Arthritis, Chronic Back Pain Endocrine History of Endocrine Disorders: Yes (Type II) Endocrine Disorders: Diabetes, Non-Insulin dep HEENT HEENT Disorders: Cataract Loss of Vision: Denies Hearing Impairment: Denies Cancer No Psychosocial History of Psychiatric Problem: Yes Behavioral Health Disorders: Depression Integumentary History of Skin or Integumenta: No Blood Transfusions History of Blood Disorders: No Adverse Reaction to a Blood Tr: No Family Medical History Family Hx: Arthritis 19 FATHER 19 MOTHER G8 BROTHER G8 SISTER Asthma 19 FATHER Completed stroke G8 SISTER FH: COPD (chronic obstructive pulmonary disease) G8 SISTER FH: cancer 19 FATHER 19 MOTHER (stomach cancer ) G8 SISTER (LIVER- enio floya- breast cancer) FH: emphysema 19 FATHER G8 SISTER Glaucoma G8 SISTER Headache disorder G8 SISTER No Family History of: AIDS Abdominal aortic aneurysm Alcoholism Alzheimer's disease Cancer of mouth Cardiovascular disease Colon cancer Cystic fibrosis Deafness or hearing loss Dementia Diabetes mellitus Drug abuse Dysphasia Hypercholesterolemia Hypertension Kidney disease Myocardial infarction Parkinson's disease Prostate cancer Psychosocial problem Respiratory disorder Seizure disorder Severe allergy Thyroid disease Tuberculosis Review of Systems Constitutional: no symptoms reported, see HPI, No chills, No diaphoresis, No dizziness, No fever, No malaise, weakness, No weight gain, No weight loss Respiratory: cough, dyspnea on exertion, No hemoptysis, No orthopnea, phlegm ( nonpurulent), short of breath, No stridor, No wheezing, No other Cardiovascular: see HPI, chest pain, edema (right lower extremity only), No Hx of Intervention, No palpitations, No syncope, vascular heart diseas, No other Physical Exam Physical Exam Vital Signs Vital Sign - Last 12Hours 06/07/17 06/07/17 06/08/17 22:45 22:54 08:26 Temp 97.4 Pulse 66 Resp 18 B/P (MAP) 141/67 (91) Pulse Ox 99 O2 Delivery Nasal Cannula O2 Flow Rate 2.00 FiO2 95 Capillary Refill : Less Than 3 Seconds General Appearance: No Apparent Distress, Anxious HEENT: Pharynx Normal Neck: Full Range of Motion, Normal Inspection, Non Tender, Supple, Carotid Bruit Respiratory: Chest Non Tender, Lungs Clear, Normal Breath Sounds, No Accessory Muscle Use, No Respiratory Distress, Other (somewhat diminished breath sounds posteriorly) Cardiovascular: Regular Rate, Rhythm, No Edema, No Gallop, No JVD, No Murmur, Normal Peripheral Pulses, Other (over room noise difficult to appreciate) Gastrointestinal: Normal Bowel Sounds, No Organomegaly, No Pulsatile Mass, Soft , Other Extremity: Normal Capillary Refill, Normal Range of Motion, Calf Tenderness ( on the right there is also bilateral inner thigh discomfort no worse on the swollen side/right than her left) Neurologic/Psychiatric: Alert, Oriented x3, No Motor/Sensory Deficits Skin: Warm/Dry, Pallor Results Results/Procedures Lab Laboratory Tests 06/07/17 23:30 06/08/17 04:25 Assessment/Plan Admission Diagnosis 1. Atypical chest discomfort with shortness of breath and hypoxia in addition to increased right lower extremity swelling is concerning for DVT with pulmonary embolism. Patient does have renal insufficiency with diabetes stage III we'll start off with venous Doppler evaluation the right lower extremity and give 1 dose of 100 mg Lovenox subcutaneous. 2. Patient has a history of chronic systolic and diastolic heart failure. Currently there does not appear to be acute exacerbation considering physical exam findings chest x-ray and a baseline BNP level for this patient just a little over 100. 3. Type II diabetes mellitus. 4. COPD due to past tobaccoism. 5. Hypertension. Copy Copies To 1: DANYEL LOZANO MD Clinical Quality Measures AMI/AHF: ASA po Prior to arrival: Yes DVT/VTE Risk/Contraindication: Risk Factor Score Per Nursin RFS Level Per Nursing on Admit: 4+=Very High DANYEL LOZANO MD Jun 08, 2017 12:55
[2017-06-08] MEDS ORDERED: FUROSEMIDE 40 MG (LASIX) TAB PO SCH (14:00)
[2017-06-08] MEDS: NS IV 1000 ML 1,000 ML IV SCH (17:16)
--- NOTE | 2017-06-08 18:02 | Diagnostic Imaging Report ---
INDICATION: Short of breath. Pedal edema. Elevated D-dimer. 40.3 mCi of Technetium-99 DTPA were inhaled with images showing normal ventilation. 5.22 mCi of Technetium-99 MAA were given intravenously with images showing normal perfusion. IMPRESSION: Normal ventilation/perfusion lung scan. Dictated by: Dictated on workstation # [id number]
[2017-06-08] MEDS: CARVEDILOL 6.25 MG (COREG) TAB PO SCH (20:31)
[2017-06-08] MEDS ORDERED: clonazePAM 1 MG (KlonoPIN) TAB PO SCH (21:00)
[2017-06-08] MEDS ORDERED: FLUoxetine HCL 20 MG (PROzac) CAP PO SCH (21:00)
[2017-06-08] MEDS ORDERED: ATORVASTATIN 40 MG (LIPITOR) TABLET PO SCH ×2 (21:00)
[2017-06-09] VITALS: BP_SYST 102; BP_SYST 143; BP_DIAS 52; BP_DIAS 61
[2017-06-09 04:00] VITALS: BP 118/56
[2017-06-09 05:50] LABS: CALCIUM 8.7 MG/DL (8.5-10.1); CREATININE SERUM 1.41 MG/DL (0.60-1.30); MAGNESIUM 1.9 MG/DL (1.8-2.4); POTASSIUM 3.6 MMOL/L (3.6-5.0)
[2017-06-09] MEDS: inSUlin (REGULAR) HUMAN 1 UNIT/0.01 ML (CHARGE PER UNIT) SC SCH ×3 (06:24→16:40)
[2017-06-09] MEDS: FUROSEMIDE 40 MG (LASIX) TAB PO SCH (06:53)
[2017-06-09 08:00] VITALS: BP 123/56
[2017-06-09] MEDS: NS IV 1000 ML 1,000 ML IV SCH (08:52)
[2017-06-09] MEDS: CARVEDILOL 6.25 MG (COREG) TAB PO SCH (08:53)
[2017-06-09] MEDS: lisINopril 10 MG (PRINIVIL) TAB PO SCH (08:53)
[2017-06-09] MEDS ORDERED: ENOXAPARIN 40 MG/0.4 ML (LOVENOX) SYR SC SCH (09:00)
[2017-06-09] MEDS ORDERED: ASPIRIN E.C. 81 MG (ECOTRIN) TAB PO SCH (09:00)
--- NOTE | 2017-06-09 09:48 | Progress Note-Cardiology ---
Cardiology SOAP Progress Note Subjective: In bed. States she feels good this morning. Feels her breathing is back to her usual baseline. No c/o CP. Wants to go home. Objective: I&O/Vital Signs Vital Sign - Last 12Hours 06/09/17 06/09/17 06/09/17 06/09/17 04:00 07:00 07:00 08:00 Temp 97.7 98.0 Pulse 55 59 59 57 Resp 12 20 B/P (MAP) 118/56 (76) 123/56 (78) Pulse Ox 93 93 O2 Delivery Nasal Cannula Nasal Cannula O2 Flow Rate 5.00 5.00 06/09/17 06/09/17 06/09/17 06/09/17 08:57 09:33 09:42 12:00 Temp 97.3 Pulse 60 Resp 20 B/P (MAP) 109/59 (76) Pulse Ox 97 95 O2 Delivery Nasal Cannula Nasal Cannula Nasal Cannula O2 Flow Rate 5.00 5.00 4.00 5.00 Intake and Output 06/08/17 23:59 Intake Total 200 ml Output Total 500 ml Balance -300 ml Weight (Pounds): 216 Weight (Ounces): 0.0 Weight (Calculated Kilograms): 97.862641 Constitutional: AAO x 3, well-developed, well-nourished Respiratory: No accessory muscle use, chest expansion is symmetric, chest is bilaterally symmetric, lungs clear to auscultation Cardiovascular: regular rate-rhythm, No JVD, S1 and S2 Gastrointestional: No tender, soft, audible bowel sounds Extremities: no lower extremity edema bilateral Neurologic/Psychiatric: grossly intact Skin: No rash, No ulcerations Results/Procedures: Labs Laboratory Tests 06/08/17 17:17: Glucometer 135H 06/08/17 20:10: Glucometer 124H 06/09/17 05:06: Sodium Level 139, Potassium Level 3.6, Chloride Level 103, Carbon Dioxide Level 24, Anion Gap 12, Blood Urea Nitrogen 28H, Creatinine 1.41H, Estimat Glomerular Filtration Rate 36, BUN/Creatinine Ratio 20, Glucose Level 151H, Calcium Level 8.7, Magnesium Level 1.9 06/09/17 05:40: Glucometer 162H 06/09/17 11:35: Glucometer 130H A/P: Assessment: Multifactorial shortness of breath and weakness Suspected pneumonia - management per Medical Services Acute on chronic renal insufficiency (CKD stage 3) - likely in some part to intravascular volume depletion Acute on chronic systolic CHF - no clinical evidence of decompensation of CHF at the time of this exam Coronary artery disease with a history of bare-metal stenting to a non-dominant right coronary and to a diagonal branch of the left anterior descending. Last cardiac catheterization of October 27, 2016: Coronary artery disease, angiographically mild. Patent stents in the first diagonal and the proximal portion of a nondominant right coronary. Global hypokinesis, left ventricle. Marked impairment of global left ventricular systolic function with ejection fraction of 20%-25%. Mild elevation of left ventricular end diastolic pressure. No significant mitral regurgitation is seen. MPI of August 2014 showed LVEF 23%. No evidence of significant myocardia ischemia or infarction. Cardiomegaly Non-ischemic cardiomyopathy Echocardiogram of 02/26/15 showed cardiomegaly with LVEF 30-35%, mild MR and TR, mild to mod AoV sclerosis, mild MAC, PASP 35 mmHg Status post single-chamber defibrillator implantation in August 2011, functioning normally per interrogation of March 2017. Maturity onset diabetes mellitus. Hypertension - controlled Hyperlipidemia - not controlled Depression, chronic. Normal ankle brachial indices in April 2009. Elevated body mass index of nearly 32. Mild carotid arterial disease, bilaterally, per carotid ultrasound carried out in July 2014 HLD - followed by her PCP PVCs, asymptomatic H/o sleep apnea, but noncompliant with therapy Intolerant to ARB d/t rash Plan: Continue current medication regimen OK to discharge home from cardiac stand point Out pt f/u Clinical Quality Measures AMI/AHF: ASA po Prior to arrival: Yes JEWEL OSEGUERA Jun 09, 2017 09:48
[2017-06-09] MEDS ORDERED: FURO40TA4 PO (09:54)
[2017-06-09] MEDS ORDERED: LISI10TA2 PO (09:54)
[2017-06-09] MEDS ORDERED: CARV6.252 PO (09:54)
[2017-06-09 12:00] VITALS: BP 109/59
--- NOTE | 2017-06-09 13:50 | Progress Note-Cardiology ---
Cardiology SOAP Progress Note Subjective: Feels better than yesterday. Less bloated. Less short of breath. No cp or palp or syncope Objective: I&O/Vital Signs Vital Sign - Last 12Hours 06/09/17 06/09/17 06/09/17 06/09/17 04:00 07:00 08:00 08:57 Temp 97.7 98.0 Pulse 55 59 57 Resp 12 20 B/P (MAP) 118/56 (76) 123/56 (78) Pulse Ox 93 93 O2 Delivery Nasal Cannula Nasal Cannula Nasal Cannula O2 Flow Rate 5.00 5.00 5.00 06/09/17 06/09/17 06/09/17 09:33 09:42 12:00 Temp 97.3 Pulse 60 Resp 20 B/P (MAP) 109/59 (76) Pulse Ox 97 95 O2 Delivery Nasal Cannula Nasal Cannula O2 Flow Rate 5.00 4.00 5.00 Intake and Output 06/08/17 23:59 Intake Total 200 ml Output Total 500 ml Balance -300 ml Weight (Pounds): 216 Weight (Ounces): 0.0 Weight (Calculated Kilograms): 97.628093 Constitutional: AAO x 3, well-developed, well-nourished Respiratory: No accessory muscle use, chest expansion is symmetric, chest is bilaterally symmetric, lungs clear to auscultation Cardiovascular: regular rate-rhythm, No JVD, S1 and S2 Gastrointestional: No tender, soft, audible bowel sounds Extremities: no lower extremity edema bilateral Neurologic/Psychiatric: grossly intact Skin: No rash, No ulcerations Results/Procedures: Labs Laboratory Tests 06/08/17 17:17: Glucometer 135H 06/08/17 20:10: Glucometer 124H 06/09/17 05:06: Sodium Level 139, Potassium Level 3.6, Chloride Level 103, Carbon Dioxide Level 24, Anion Gap 12, Blood Urea Nitrogen 28H, Creatinine 1.41H, Estimat Glomerular Filtration Rate 36, BUN/Creatinine Ratio 20, Glucose Level 151H, Calcium Level 8.7, Magnesium Level 1.9 06/09/17 05:40: Glucometer 162H 06/09/17 11:35: Glucometer 130H Laboratory Tests 06/07/17 23:30 06/08/17 04:25 06/09/17 05:06 A/P: Assessment: Multifactorial shortness of breath and weakness Suspected pneumonia - management per Medical Services Acute on chronic renal insufficiency (CKD stage 3) - likely in some part to intravascular volume depletion Acute on chronic systolic CHF - no clinical evidence of decompensation of CHF at the time of this exam Coronary artery disease with a history of bare-metal stenting to a non-dominant right coronary and to a diagonal branch of the left anterior descending. Last cardiac catheterization of October 27, 2016: Coronary artery disease, angiographically mild. Patent stents in the first diagonal and the proximal portion of a nondominant right coronary. Global hypokinesis, left ventricle. Marked impairment of global left ventricular systolic function with ejection fraction of 20%-25%. Mild elevation of left ventricular end diastolic pressure. No significant mitral regurgitation is seen. MPI of August 2014 showed LVEF 23%. No evidence of significant myocardia ischemia or infarction. Cardiomegaly Non-ischemic cardiomyopathy Echocardiogram of 02/26/15 showed cardiomegaly with LVEF 30-35%, mild MR and TR, mild to mod AoV sclerosis, mild MAC, PASP 35 mmHg Status post single-chamber defibrillator implantation in August 2011, functioning normally per interrogation of March 2017. Maturity onset diabetes mellitus. Hypertension - controlled Hyperlipidemia - not controlled Depression, chronic. Normal ankle brachial indices in April 2009. Elevated body mass index of nearly 32. Mild carotid arterial disease, bilaterally, per carotid ultrasound carried out in July 2014 HLD - followed by her PCP PVCs, asymptomatic H/o sleep apnea, but noncompliant with therapy Intolerant to ARB d/t rash Plan: Continue current medication regimen OK to discharge home from cardiac stand point I spoke with her and answered CV-related questions and discussed risk factor modification Out pt f/u Clinical Quality Measures AMI/AHF: ASA po Prior to arrival: Yes MANDA CHAVEZ MD FACP FACC CCDS Jun 09, 2017 13:50
[2017-06-09 16:00] VITALS: BP 109/46
== END 2017-06-09 08:47 | disposition home or self-care (01) ==
LOC: ER 22:42 → EDUNIT# 22:42 → ICU 06-08 00:35 → UNDOADMOB 06-08 00:35 → ICU 06-08 01:50 → 4TH 06-08 19:35 → ICU 06-08 19:35 → UNDODISOB 06-09 18:22
PROVIDERS: ADMIT Internal Medicine; ATTEND Internal Medicine
DX: R06.02 Shortness of breath (principal); N18.3 Chronic kidney disease, stage 3 (moderate); I42.9 Cardiomyopathy, unspecified; Z95.810 Presence of automatic (implantable) cardiac defibrillator; I12.9 Hypertensive chronic kidney disease with stage 1 through stage 4 chronic kidney disease, or unspecified chronic kidney disease; E11.9 Type 2 diabetes mellitus without complications; E78.5 Hyperlipidemia, unspecified; G47.33 Obstructive sleep apnea (adult) (pediatric); Z91.19 Patient's noncompliance with other medical treatment and regimen; I50.23 Acute on chronic systolic (congestive) heart failure; J44.9 Chronic obstructive pulmonary disease, unspecified; E78.00 Pure hypercholesterolemia, unspecified; I48.91 Unspecified atrial fibrillation; F32.9 Major depressive disorder, single episode, unspecified; R09.02 Hypoxemia; Z87.891 Personal history of nicotine dependence
CPT/HCPCS: 36415; 71045; 80053; 83735; 83874; 83880; 84484; 85025; 85610; 85730; 93005; 93041; 99284; J1940; 71046; 78582; 80048; 80061; 82962; 85379; 93306; 94761

== ENCOUNTER 2017-10-28 21:33 | Emergency (ER) | payer MEDICARE, OTHER ==
[~2017-10-28] VITALS: Ht 167.6 cm; Wt 88.9 kg
[~2017-10-28 21:33] MED LIST changes: +ACET325T38 PO; +ASPI-983 PO; +CARV6.25 PO; +FURO40TA4 PO; +LISI10TA2 PO; +METF10002 PO; +METF500T5 PO; +POTA10TA10 PO
[2017-10-28] MEDS: NS IV 500 ML 500 ML IV ONE (21:55)
--- NOTE | 2017-10-28 21:57 | ED Fall/Injury ---
General Stated Complaint: FALL Source: patient Exam Limitations: no limitations History of Present Illness Date Seen by Provider: October 28, 2017 Time Seen by Provider: 21:37 Initial Comments The patient presents to the ER by EMS with a chief complaint that she was found face down by family in the parking lot without any evidence of loss of consciousness. The patient denies loss of consciousness. She has a small laceration just to the left of her left eye. She has a few small abrasions across her face. She is not having any nausea or vomiting but is asking repetitive questions per EMS. She is on aspirin only. She says she was headed over to get some ice cream from her apartment at night to [place] and took a Benadryl and a Klonopin before heading out of the house and then says she fell in the rain water coming off the gutter from the hotel [facility]. She does have a history of COPD with when necessary oxygen at home. She is known to Dr. Anderson and Dr. Wiseman. She says she had a tetanus shot within the last year for a fall. Allergies and Home Medications Allergies Coded Allergies: No Known Drug Allergies (Unverified , 02/25/14) Home Medications Acetaminophen 325 Mg Tablet, 650 MG PO Q4H PRN for PAIN-MILD, (Reported) TAKES 2 (325MG) TABLETS Aspirin 81 Mg Tablet.dr, 81 MG PO HS, (Reported) Atorvastatin Calcium 40 Mg Tablet, 40 MG PO HS, (Reported) Carvedilol 6.25 Mg Tablet, 6.25 MG PO BID Prescribed by: JEWEL OSEGUERA on 06/09/17 09 Clonazepam 1 Mg Tablet, 2 MG PO HS, (Reported) TAKES 2 (1MG) TABLETS Fluoxetine HCl 40 Mg Capsule, 40 MG PO HS, (Reported) Furosemide 40 Mg Tablet, 80 MG PO DAILY@0700 Prescribed by: JEWEL OSEGUERA on 06/09/17 09 Glimepiride 2 Mg Tablet, 2 MG PO HS, (Reported) Lisinopril 10 Mg Tablet, 10 MG PO DAILY@0900 Prescribed by: JEWEL OSEGUERA on 06/09/17 09 Metformin HCl 500 Mg Tablet, 1,000 MG PO HS, (Reported) TAKES 2 (500MG) TABLETS Potassium Chloride 10 Meq Tablet.er, 10 MEQ PO DAILY, (Reported) Patient Home Medication List Home Medication List Reviewed: Yes Review of Systems Constitutional: chills; No diaphoresis, No fever, No malaise Eyes: Denies Blindness, Denies Drainage, Denies Decreased Acuity, Denies Inflammation, Denies Pain, Denies Photophobia; Glasses Ears, Nose, Mouth, Throat: denies ear pain, denies ear discharge, denies nose pain, denies nose discharge, denies epistaxis Respiratory: No cough, No short of breath, No wheezing Cardiovascular: No chest pain, No palpitations, No syncope Gastrointestinal: No abdominal pain, No constipation, No diarrhea, No dysphagia , No nausea, No vomiting Genitourinary: No discharge, No dysuria Musculoskeletal: No back pain, No joint pain Past Japtops-Yrxlgu-Dziqqh Hx Patient Social History Alcohol Use: Denies Use Recreational Drug Use: No Smoking Status: Current Everyday Smoker Type Used: Cigarettes 2nd Hand Smoke Exposure: No Recent Hopitalizations: No Immunizations Up To Date Tetanus Booster (TDap): Unknown PED Vaccines UTD: Yes Date of Pneumonia Vaccine: Sep 03, 2011 Date of Influenza Vaccine: Mar 07, 2017 Seasonal Allergies Seasonal Allergies: No Past Medical History Surgeries: Yes (2004 hemorrhoidectomy, breast reduction, right ovary removed) Breast, Cardiac, Coronary Stent, Defibrillator, Eye Surgery, Gallbladder, Hysterectomy, Joint Replacement, Oophorectomy, Orthopedic, Pacemaker, Rectal Respiratory: Yes COPD Cardiac: Yes (Pacemaker/DEFIB, stents x 2) Atrial Fibrillation, Cardiomyopathy, Chronic Edema/Swelling, Coronary Artery Disease, High Cholesterol, Hypertension, Peripheral Vascular Neurological: No 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 Disorders: No Female 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 Disorders: Denies PEN TENDER History: Menopausal Sexually Transmitted Disease: No HIV/AIDS: No Genitourinary: No Renal Failure Gastrointestinal: Yes Hemorrhoids Musculoskeletal: Yes Arthritis, Chronic Back Pain Endocrine: Yes (Type II) Diabetes, Non-Insulin dep Cataract Loss of Vision: Denies Hearing Impairment: Denies Cancer: No Psychosocial: Yes Depression Integumentary: No Blood Disorders: No Adverse Reaction/Blood Tranf: No Family Medical History Arthritis 19 FATHER 19 MOTHER G8 BROTHER G8 SISTER Asthma 19 FATHER Completed stroke G8 SISTER FH: COPD (chronic obstructive pulmonary disease) G8 SISTER FH: cancer 19 FATHER 19 MOTHER (stomach cancer ) G8 SISTER (LIVER- enio floya- breast cancer) FH: emphysema 19 FATHER G8 SISTER Glaucoma G8 SISTER Headache disorder G8 SISTER No Family History of: AIDS Abdominal aortic aneurysm Alcoholism Alzheimer's disease Cancer of mouth Cardiovascular disease Colon cancer Cystic fibrosis Deafness or hearing loss Dementia Diabetes mellitus Drug abuse Dysphasia Hypercholesterolemia Hypertension Kidney disease Myocardial infarction Parkinson's disease Prostate cancer Psychosocial problem Respiratory disorder Seizure disorder Severe allergy Thyroid disease Tuberculosis Physical Exam Vital Signs Vital Signs - First Documented Capillary Refill : General Appearance: WD/WN, no apparent distress HEENT: PERRL/EOMI, normal ENT inspection, TMs normal, pharynx normal, other ( negative Mcdermott sign or raccoon eyes.) Neck: non-tender, supple, normal inspection Cardiovascular: normal peripheral pulses, regular rate, rhythm, no edema Respiratory: chest non-tender, lungs clear, normal breath sounds, no respiratory distress, no accessory muscle use Peripheral Pulses: 2+ Radial Pulses (R), 2+ Radial Pulses (L) Gastrointestinal: normal bowel sounds, non tender, soft Back: normal inspection, no vertebral tenderness Extremities: normal range of motion, non-tender, normal inspection, no pedal edema Neurologic/Psychiatric: alert, normal mood/affect, oriented x 3 Skin: other (multiple small abrasions across her face and nose. There is a less than 1 senna meter laceration on the left face lateral to the eye.) Mandie Coma Score Best Eye Response: (4) Open Spontaneously Best Verbal Response: (5) Oriented Best Motor Response: (6) Obeys Commands [place] Total: 15 Procedures/Interventions Suture Size: 5-0 Progress/Results/Core Measures Results/Orders Lab Results Laboratory Tests Test 10/28/17 21:45 10/29/17 00:40 Range/Units White Blood Count 9.0 4.3-11.0 10^3/uL Red Blood Count 4.26 L 4.35-5.85 10^6/uL Hemoglobin 13.5 11.5-16.0 G/DL Hematocrit 40 35-52 % Mean Corpuscular Volume 93 80-99 FL Mean Corpuscular Hemoglobin 32 25-34 PG Mean Corpuscular Hemoglobin Concent 34 32-36 G/DL Red Cell Distribution Width 13.3 10.0-14.5 % Platelet Count 268 130-400 10^3/uL Mean Platelet Volume 10.6 H 7.4-10.4 FL Neutrophils (%) (Auto) 67 42-75 % Lymphocytes (%) (Auto) 21 12-44 % Monocytes (%) (Auto) 10 0-12 % Eosinophils (%) (Auto) 2 0-10 % Basophils (%) (Auto) 0 0-10 % Neutrophils # (Auto) 6.0 1.8-7.8 X 10^3 Lymphocytes # (Auto) 1.9 1.0-4.0 X 10^3 Monocytes # (Auto) 0.9 0.0-1.0 X 10^3 Eosinophils # (Auto) 0.2 0.0-0.3 10^3/uL Basophils # (Auto) 0.0 0.0-0.1 10^3/uL Sodium Level 137 135-145 MMOL/L Potassium Level 3.8 3.6-5.0 MMOL/L Chloride Level 102 98-107 MMOL/L Carbon Dioxide Level 20 L 21-32 MMOL/L Anion Gap 15 H 5-14 MMOL/L Blood Urea Nitrogen 29 H 7-18 MG/DL Creatinine 1.71 H 0.60-1.30 MG/DL Estimat Glomerular Filtration Rate 29 BUN/Creatinine Ratio 17 Glucose Level 171 H 70-105 MG/DL Calcium Level 9.5 8.5-10.1 MG/DL Magnesium Level 1.9 1.8-2.4 MG/DL Total Bilirubin 0.6 0.1-1.0 MG/DL Aspartate Amino Transf (AST/SGOT) 12 5-34 U/L Alanine Aminotransferase (ALT/SGPT) 10 0-55 U/L Alkaline Phosphatase 61 40-136 U/L Total Protein 7.2 6.4-8.2 GM/DL Albumin 4.2 3.2-4.5 GM/DL Serum Alcohol < 10 <10 MG/DL Urine Color YELLOW Urine Clarity CLEAR Urine pH 5 5-9 Urine Specific [place] 1.015 L 1.016-1.022 Urine Protein 1+ H NEGATIVE Urine Glucose (UA) 2+ H NEGATIVE Urine Ketones NEGATIVE NEGATIVE Urine Nitrite NEGATIVE NEGATIVE Urine Bilirubin NEGATIVE NEGATIVE Urine Urobilinogen NORMAL NORMAL MG/DL Urine Leukocyte Esterase NEGATIVE NEGATIVE Urine RBC (Auto) NEGATIVE NEGATIVE Urine RBC NONE /HPF Urine WBC NONE /HPF Urine Squamous Epithelial Cells RARE /HPF Urine Crystals NONE /LPF Urine Bacteria NEGATIVE /HPF Urine Casts PRESENT /LPF Urine Hyaline Casts 2-5 H /LPF Urine Mucus MODERATE H /LPF Urine Culture Indicated NO My Orders Orders - MILLACARO Saline Lock/Iv-Start (10/28/17 21:44) Alcohol (10/28/17 21:44) Cbc With Automated Diff (10/28/17 21:44) Comprehensive Metabolic Panel (10/28/17 21:44) Magnesium (10/28/17 21:44) Ua Culture If Indicated (10/28/17 21:44) Chest 1 View, Ap/Pa Only (10/28/17 21:44) Saline Lock/Iv-Start (10/28/17 21:44) Ns Iv 500 Ml (Sodium Chloride 0.9%) (10/28/17 21:44) Ct Head/Cervical Spine Wo (10/28/17 21:44) Ct Maxillofacial Wo (10/28/17 22:50) Amoxicillin/Clavulanate Tablet (Augmenti (10/29/17 00:28) Acetaminophen Tablet (Tylenol Tablet) (10/29/17 01:00) Medications Given in ED Current Medications Medications Dose Ordered Sig/Teresa Route Start Time Stop Time Status Last Admin Dose Admin Acetaminophen 1,000 mg ONCE ONCE PO 10/29/17 01:00 10/29/17 01:01 10/29/17 00:54 1,000 MG Sodium Chloride 500 ml @ 0 mls/hr Q0M ONCE IV 10/28/17 21:44 10/28/17 21:50 DC 10/28/17 21:55 500 MLS/HR Vital Signs/I&O 10/28/17 10/28/17 21:36 21:36 Temp 97.1 97.1 Pulse 88 88 Resp 20 20 B/P (MAP) 164/88 (113) 164/88 (113) Pulse Ox 91 91 O2 Delivery Room Air Room Air Progress Progress Note #1: Time: 21:59 Progress Note We'll clean her face up with chlorhexidine soap water. She does not need a tetanus shot now. We will reapproximate her skin with some stitches as necessary and obtain CT scan of her head and neck. We have encouraged her to use her oxygen, walker and be careful with the use of Benadryl and benzodiazepines. Progress Note #2: Time: 23:19 Progress Note Going to get a CT of her maxillofacial to better characterize her injuries. If there is no other injuries found we'll put her on a couple days prophylactic Augmentin and allow her to go home. Progress Note #3: Time: 00:32 Progress Note We'll put her on Augmentin to protect her against the common sinus pathogens. We 'll have her follow-up with her primary care doctor next week. We will provide her with an ice pack. She is unfortunately not been able to produce a urine despite being on the bed beaver several times. We are going to do a straight catheter. Diagnostic Imaging Diagonstic Imaging: CT Plain Films/CT/US/NM/MRI: c-spine, head (without contrast) Comments Acute fracture of the anterior, posterior medial wall of the left maxillary antrum. Consider CT of the face. Acute fracture of the inferior and lateral wall of the left orbit without evidence of entrapment. Moderate soft tissue swelling noted about the left lobe with mild proptosis. No acute findings of the CT C-spine. Reviewed: Reviewed by Me Diagonstic Imaging: Xray Plain Films/CT/US/NM/MRI: chest Reviewed: Reviewed by Me Diagonstic Imaging: CT Plain Films/CT/US/NM/MRI: other (maxillofacial without contrast) Comments Acute fracture of the medial, inferior and lateral wall of the left orbit with minimal extraconal gas in stranding. No evidence of entrapment. The globe is intact. Mild proptosis. Acute fracture of the anterior, posterior medial wall of the left maxillary antrum. Blood products noted within the paranasal sinuses. Reviewed: Reviewed Night Damián Study (stat read), Reviewed by Me Diagonstic Imaging: Xray Plain Films/CT/US/NM/MRI: chest (1 view) Comments No acute cardiopulmonary processes noted. Reviewed: Reviewed by Me Departure Impression Primary Impression: Fall Qualified Codes: W19.XXXA - Unspecified fall, initial encounter Additional Impressions: Facial laceration Qualified Codes: S01.81XA - Laceration without foreign body of other part of head, initial encounter Maxillary fracture, left side, initial encounter for closed fracture Orbital wall fracture Qualified Codes: S02.80XA - Fracture of other specified skull and facial bones , unspecified side, initial encounter for closed fracture Orbital floor fracture Qualified Codes: S02.32XA - Fracture of orbital floor, left side, initial encounter for closed fracture Disposition: 01 HOME, SELF-CARE Condition: Improved Departure-Patient Inst. Decision time for Depature: 01:02 Referrals: SHANE ANDERSON MD (PCP/Family) Primary Care Physician Patient Instructions: Skull and Facial Fractures (DC) Add. 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 Drink plenty of fluids and use Tylenol 1000 mg every 8 hours as needed for pain. You can also apply an ice pack across your left face as needed to control the swelling and pain. Please use your assistive devices. Follow-up with her primary care doctor next week. If you begin to experience nausea and vomiting, fevers chills or other worrisome symptoms such as eye pain or vision changes such as double vision you should return to the ER. Scripts Amoxicillin/Potassium Clav (Augmentin 875-125 Tablet) 1 Each Tablet 1 EACH PO BID for 7 Days, #13 TAB 0 Refills Prov: CARO LOYOLA 10/29/17 Copy Copies To 1: SHANE ANDERSON MD, TITUS J October 28, 2017 21:57
[2017-10-28 22:05] LABS: BASOPHILS % (AUTO) 0 % (0-10); EOSINOPHILS # (AUTO) 0.2 10^3/uL (0.0-0.3); EOSINOPHILS % (AUTO) 2 % (0-10); HEMATOCRIT 40 % (35-52); HEMOGLOBIN 13.5 G/DL (11.5-16.0); LYMPHOCYTES # (AUTO) 1.9 X 10^3 (1.0-4.0); LYMPHOCYTES % (AUTO) 21 % (12-44); MEAN CORPUSCULAR HEMOGLOBIN 32 PG (25-34); MEAN CORPUSCULAR HGB CONC 34 G/DL (32-36); MEAN CORPUSCULAR VOLUME 93 FL (80-99); MEAN PLATELET VOLUME 10.6 FL (7.4-10.4); MONOCYTES # (AUTO) 0.9 X 10^3 (0.0-1.0); MONOCYTES % (AUTO) 10 % (0-12); NEUTROPHILS % (AUTO) 67 % (42-75); PLATELET COUNT 268 10^3/uL (130-400); RED BLOOD COUNT 4.26 10^6/uL (4.35-5.85); RED CELL DISTRIBUTION WIDTH 13.3 % (10.0-14.5)
[2017-10-28 22:10] LABS: ALANINE AMINOTRANSFERASE 10 U/L (0-55); ALBUMIN 4.2 GM/DL (3.2-4.5); ALKALINE PHOSPHATASE 61 U/L (40-136); BILIRUBIN,TOTAL 0.6 MG/DL (0.1-1.0); BUN/CREATININE RATIO 17; CALCIUM 9.5 MG/DL (8.5-10.1); CARBON DIOXIDE 20 MMOL/L (21-32); CHLORIDE 102 MMOL/L (98-107); CREATININE SERUM 1.71 MG/DL (0.60-1.30); GFR ESTIMATED 29; GLUCOSE 171 MG/DL (70-105); MAGNESIUM 1.9 MG/DL (1.8-2.4); POTASSIUM 3.8 MMOL/L (3.6-5.0); SODIUM 137 MMOL/L (135-145); TOTAL PROTEIN 7.2 GM/DL (6.4-8.2)
[2017-10-29 00:51] LABS: BILIRUBIN,URINE NEGATIVE (NEGATIVE); CLARITY,URINE CLEAR; COLOR,URINE YELLOW; GLUCOSE, URINE (UA) 2+ (NEGATIVE); KETONES,URINE NEGATIVE (NEGATIVE); LEUKOCYTE ESTERASE ,URINE NEGATIVE (NEGATIVE); NITRITE,URINE NEGATIVE (NEGATIVE); PH,URINE 5 (5-9); PROTEIN,URINE 1+ (NEGATIVE); UROBILINOGEN,URINE NORMAL (NORMAL)
[2017-10-29] MEDS: AUGMENTIN 875 MG TAB (AMOXICILLIN/CLAVULANATE) PO STA (00:53)
[2017-10-29] MEDS: ACETAMINOPHEN 500 MG TAB (TYLENOL) PO ONE (00:54)
[2017-10-29 00:58] LABS: BACTERIA,URINE NEGATIVE /HPF; SQUAMOUS EPITHELIAL CELL,UR RARE /HPF
[2017-10-29] MEDS ORDERED: AMOX-358 PO (01:04)
[2017-10-29 01:26] VITALS: BP 144/81
--- NOTE | 2017-10-29 06:15 | Diagnostic Imaging Report ---
INDICATION: Fall. COMPARISON: 06/08/2017 FINDINGS: Single frontal view of the chest demonstrates persistent moderate cardiomegaly. Pulmonary vasculature, however is within normal limits. Left-sided AICD and calcified aortic atherosclerosis are noted. The lungs are well aerated and clear. No large pleural effusion or pneumothorax is seen. The visualized osseous structures show no acute abnormalities. IMPRESSION: 1. Moderate cardiomegaly, but no evidence of failure or focal infiltrate. Dictated by: Dictated on workstation # [id number]
--- NOTE | 2017-10-29 06:56 | Diagnostic Imaging Report ---
PROCEDURE: CT head and CT cervical spine without contrast. TECHNIQUE: Multiple contiguous axial images were obtained through the brain and cervical spine without the use of intravenous contrast. Sagittal and coronal reformations through the cervical spine were then performed. DATE: 10/28/2017. COMPARISON: CT head without contrast 10/26/2016. CT head, maxillofacial area, and cervical spine without contrast 01/20/2016. INDICATION: 82-year-old female, fall. Laceration of the left eye. FINDINGS: There is soft tissue prominence just superior to the left orbit in the subcutaneous tissues. There is cutaneous gas anterior to the left orbit. The globes appear grossly intact. There is no retro-orbital hematoma. There is a comminuted mildly displaced fracture involving the lateral wall of the left maxillary sinus best illustrated on axial image 14 and adjacent sequential images. There is a nondisplaced fracture of the anterior wall of the left maxillary sinus best seen on axial image 11 and adjacent sequential images. There is a mildly displaced fracture of the superior wall of the left maxillary sinus best seen on coronal image 15. There is high attenuation with fluid fluid level in left maxillary sinus compatible with the differential layering fluid with more dependent fluid relating to blood product. There is partial opacification of the left ethmoidal air cells. The mastoid air cells and middle ears are well aerated bilaterally. There are areas of reduced attenuation in the periventricular and subcortical white matter which are nonspecific but most likely reflect moderate changes of chronic small vessel ischemic disease. There is proportional prominence of the ventricles and CSF spaces compatible with mild generalized cerebral volume loss. There is no abnormal extra-axial fluid collection. There is no acute intracranial hemorrhage. There is no mass effect or midline shift. There is no identified facet joint subluxation or dislocation. There are multilevel moderate facet degenerative changes of the cervical spine. There is no asymmetric widening of the cervical disc spaces. There is no prominent prevertebral soft tissue swelling. There are degenerative changes at the C1-C2 articulation. There is mild disc height loss at C4-C5. There is moderate disc height loss at C5-C6 and C6-C7. There are posterior disc osteophyte complexes at these levels. CT is limited for assessment of disc pathology as well as additional non-bony causes of foraminal and spinal stenosis. There is no identified acute fracture of the cervical spine. The visualized portions of the lungs are clear. The esophagus is mildly dilated with debris within the esophagus. There is retropharyngeal course of the internal carotid arteries. There are carotid calcifications bilaterally. IMPRESSION: 1. Comminuted mildly displaced fractures involving the left maxillary sinus involving the lateral, anterior, and superior jung of the left maxillary sinus. 2. Dedicated CT maxillofacial area may be more optimal for resolution and overall evaluation of potential maxillofacial bone fractures. 3. No identified acute intracranial abnormality. 4. Mild cerebral volume loss and moderate changes of chronic small vessel ischemic disease. 5. No identified acute fracture of the cervical spine. 6. Grossly intact globes. No retro-orbital hematoma. Dictated by: Dictated on workstation # [id number]
--- NOTE | 2017-10-29 07:14 | Diagnostic Imaging Report ---
PROCEDURE: CT maxillofacial without contrast. TECHNIQUE: Multiple contiguous axial images were obtained through the facial bones without the use of intravenous contrast. Date: October 28, 2017. Indication: 82-year-old female, fall. Laceration of the left eye. Comparison: 10/28/2017 CT head and cervical spine. CT head and maxillofacial area as well as cervical spine 01/20/2016. Findings: There is a comminuted mildly displaced fracture involving the left lateral wall of the maxillary sinus. There is a minimally displaced fracture of the anterior wall of the left maxillary sinus. There is fracture extension to the base of the left nasal bones best illustrated on axial image 55 and adjacent sequential images. There is a mildly displaced fracture involving the medial aspect of the left orbital wall. There is a mildly displaced fracture of the left inferior orbital wall. There is a mildly displaced fracture of the left lateral orbital wall. There is gas within the inferior aspect of the extraconal space of the left orbit. There is no extra ocular muscle herniation. There is subcutaneous gas anteriorly at the level of the inferior aspect of the left orbit. The globes appear grossly intact. There is no retro-orbital hematoma. There is a differential attenuation fluid fluid level in the left maxillary sinus compatible with areas of layering blood product. There is opacification within the left ethmoidal air cells. No additional maxillofacial bone fracture is identified. The mastoid air cells and middle ears are well aerated bilaterally. Impression: 1. Comminuted mildly displaced fractures of the left lateral maxillary sinus wall and mildly displaced fracture of the anterior wall of the left maxillary sinus. There is fracture extension to the base of the left nasal bones with mildly displaced fracture of the left medial orbital wall and mildly displaced fracture of the inferior wall of the left orbit. There is a mildly displaced fracture of the left lateral orbital wall. 2. Grossly intact globes. No retro-orbital hematoma. No extraocular muscle herniation. Dictated by: Dictated on workstation # [id number]
== END 2017-10-29 01:26 | disposition home or self-care (01) ==
LOC: EDUNIT# 21:33 → ER 21:34
DX: S02.80XA Fracture of other specified skull and facial bones, unspecified side, initial encounter for closed fracture (principal); S02.40CA Maxillary fracture, right side, initial encounter for closed fracture; S02.32XA Fracture of orbital floor, left side, initial encounter for closed fracture; R40.2142 Coma scale, eyes open, spontaneous, at arrival to emergency department; R40.2252 Coma scale, best verbal response, oriented, at arrival to emergency department; R40.2362 Coma scale, best motor response, obeys commands, at arrival to emergency department; J44.9 Chronic obstructive pulmonary disease, unspecified; E11.9 Type 2 diabetes mellitus without complications; F32.9 Major depressive disorder, single episode, unspecified; I48.91 Unspecified atrial fibrillation; I42.9 Cardiomyopathy, unspecified; I73.9 Peripheral vascular disease, unspecified; I10 Essential (primary) hypertension; E78.00 Pure hypercholesterolemia, unspecified; I25.10 Atherosclerotic heart disease of native coronary artery without angina pectoris; F17.210 Nicotine dependence, cigarettes, uncomplicated; Z95.1 Presence of aortocoronary bypass graft; Z95.810 Presence of automatic (implantable) cardiac defibrillator; Z90.710 Acquired absence of both cervix and uterus; Z80.0 Family history of malignant neoplasm of digestive organs; Z80.3 Family history of malignant neoplasm of breast; Z99.81 Dependence on supplemental oxygen; Z79.82 Long term (current) use of aspirin; Z79.84 Long term (current) use of oral hypoglycemic drugs; W18.30XA Fall on same level, unspecified, initial encounter; Y92.481 Parking lot as the place of occurrence of the external cause
CPT/HCPCS: 12011; 36415; 70450; 70486; 71045; 72125; 80053; 80320; 81000; 83735; 85025; 96360

== ENCOUNTER 2017-11-06 09:23 | Emergency (ER) | payer MEDICARE ==
[~2017-11-06] VITALS: Ht 157.5 cm; Wt 79.4 kg
[~2017-11-06 09:23] MED LIST changes: +AMOX-358 PO
--- OUTSIDE RECORDS SUMMARY | 2017-11-06 09:30 | XMS REPORT | Continuity of Care Document ---
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 08/05/2011 Ot 425.4 PRIM CARDIOMYOPATHY NEC [...] NOS 08/14/2011 Ot 414.01 CORONARY ATHEROSCLEROSIS OF [place] CORON 08/14/2011 Ot 414.8 CHR ISCHEMIC HRT [...] DO Ot E849.0 ACCIDENT IN HOME 12/28/2012 UJAN HIGGINS DO Ot E888.1 FALL STRIKING OBJECT [...] LOZANO MD Ot 414.01 CORONARY ATHEROSCLEROSIS OF [place] CORON 08/12/2013 SHANE LOZANO MD Ot 425.4 [...] MD E Ot 414.01 CORONARY ATHEROSCLEROSIS OF [place] CORON 02/28/2014 GORDON NGUYEN MD Ot 425.4 [...] RANGEL DOI Ot 414.01 CORONARY ATHEROSCLEROSIS OF [place] CORON 07/02/2014 SAEID RANGEL DOI Ot 414.8 [...] NOS 08/23/2014 Ot 414.01 CORONARY ATHEROSCLEROSIS OF [place] CORON 08/23/2014 Ot 428.0 CONGESTIVE HEART FAILURE [...] YARY DO, KINDRA F Ot 414.8 11/24/2014 AYRY DO, KINDRA F Ot 715.36 11/24/2014 YARY [...] V72.63 02/26/2015 Ot V72.81 02/26/2015 BAIMAJEWEL L MANAGER DATABASE ADMINISTRATION Ot 272.4 02/26/2015 BAIMAJEWEL L MANAGER DATABASE ADMINISTRATION Ot 396.3 02/26/2015 BAIMAJEWEL L MANAGER DATABASE ADMINISTRATION Ot 401.9 02/26/2015 BAIMAASHLEEJEWEL L MANAGER DATABASE ADMINISTRATION Ot 414.00 02/26/2015 BAIMAJEWEL L MANAGER DATABASE ADMINISTRATION Ot 425.4 02/26/2015 YARY DO, KINDRA F Ot 715.36 02/26/2015 YARY DO, KINDRA F Ot V72.63 02/26/2015 YARY DO, KINDRA F Ot V72.83 02/26/2015 YARY DO, KINDRA F Ot V74.8 02/26/2015 MAYELIN OWENS HEARING AID REPAIR TECHNICIAN Ot 729.81 02/26/2015 MAYELIN OWENS HEARING AID REPAIR TECHNICIAN Ot V43.65 02/26/2015 AKTHY VANN FACC, ALI FACP CCDS Ot 250.00 [...] Fajardo Ot V58.83 03/20/2015 BAIMA, JEWEL L MANAGER DATABASE ADMINISTRATION Ot 272.4 03/20/2015 BAIMA, JEWEL L MANAGER DATABASE ADMINISTRATION Ot 401.9 03/20/2015 BAIMA, JEWEL L MANAGER DATABASE ADMINISTRATION Ot 414.9 03/20/2015 BAIMA, JEWEL L MANAGER DATABASE ADMINISTRATION Ot 425.4 03/20/2015 BAIMA, JEWEL L MANAGER DATABASE ADMINISTRATION Ot 447.9 03/28/2015 BAIMA, JEWEL L MANAGER DATABASE ADMINISTRATION Ot 272.4 03/28/2015 BAIMA, JEWEL L MANAGER DATABASE ADMINISTRATION Ot 401.9 03/28/2015 BAIMA, JEWEL L MANAGER DATABASE ADMINISTRATION Ot 414.9 03/28/2015 BAIMA, JEWEL L MANAGER DATABASE ADMINISTRATION Ot 425.4 03/28/2015 BAIMA, JEWEL L MANAGER DATABASE ADMINISTRATION Ot 447.9 11/06/2015 JOVANNA FLETCHER MD Ot [...] EXAM-PRE- OPERATIVE CARDIOVASCULAR 01/20/2016 BAIMA, JEWEL L MANAGER DATABASE ADMINISTRATION Ot 272.4 HYPERLIPIDEMIA NEC/NOS 01/20/2016 BAIMA, JEWEL L MANAGER DATABASE ADMINISTRATION Ot 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 01/20/2016 JEWEL OSEGUERA MANAGER DATABASE ADMINISTRATION Ot 401.9 HYPERTENSION NOS 01/20/2016 JEWEL OSEGUERA MANAGER DATABASE ADMINISTRATION Ot 414.00 CORON ATHEROSCLER NOS TYPE VESSEL, NATIV 01/20/2016 JEWEL OSEGUERA MANAGER DATABASE ADMINISTRATION Ot 425.4 PRIM CARDIOMYOPATHY NEC 01/20/2016 KINDRA PRINGLE DO Ot 715.36 LOC OSTEOARTH NOS-L/LEG 01/20/2016 KINDRA PRINGLE DO Ot V72.63 PRE-PROCEDURAL LABORATORY EXAMINATION 01/20/2016 KINDRA PRINGLE DO Ot V72.83 EXAM PRE-OPERATIVE NEC 01/20/2016 KINDRA PRINGLE DO Ot V74.8 SCREEN-BACTERIAL DIS NEC 01/20/2016 MAYELIN OWENS HEARING AID REPAIR TECHNICIAN Ot 729.81 SWELLING OF LIMB 01/20/2016 MAYELIN OWENS HEARING AID REPAIR TECHNICIAN Ot V43.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 01/20/2016 [...] FOR THERAPEUTIC DRUG MONITORIN 01/20/2016 JEWEL OSEGUERA MANAGER DATABASE ADMINISTRATION Ot 272.4 HYPERLIPIDEMIA NEC/NOS 01/20/2016 JEWEL OSEGUERA MANAGER DATABASE ADMINISTRATION Ot 401.9 HYPERTENSION NOS 01/20/2016 EDOUARDJEWEL WADE L MANAGER DATABASE ADMINISTRATION Ot 414.9 CHR ISCHEMIC HRT DIS NOS 01/20/2016 EDOUARDJEWEL WADE MANAGER DATABASE ADMINISTRATION Ot 425.4 PRIM CARDIOMYOPATHY NEC 01/20/2016 EDOUADRJEWEL WADE MANAGER DATABASE ADMINISTRATION Ot 447.9 ARTERIAL DISEASE NOS 01/20/2016 JAZMYNE [...] (TRAUMATIC), INIT FOR 01/22/2016 WHITEHEAD, PETER J HEARING AID REPAIR TECHNICIAN Ot W01.0XXA FALL SAME LEV FROM SLIP/TRIP W/O STRIKE 01/22/2016 JAZMYNE WHITEHEAD HEARING AID REPAIR TECHNICIAN Ot Y92.[address] OF OCCURRENCE OF T 01/22/2016 JAZMYNE [place] HEARING AID REPAIR TECHNICIAN Ot Y99.8 OTHER EXTERNAL CAUSE STATUS 01/22/2016 JAZMYNE [place]ITE[place] HEARING AID REPAIR TECHNICIAN Ot Z23 ENCOUNTER FOR IMMUNIZATION 01/22/2016 JAZMYNE [place]ITE[place] HEARING AID REPAIR TECHNICIAN Ot Z95.0 PRESENCE OF CARDIAC PACEMAKER 03/07/2016 [...] V72.81 EXAM-PRE- OPERATIVE CARDIOVASCULAR 10/26/2016 JEWEL OSEGUERA MANAGER DATABASE ADMINISTRATION Ot 272.4 HYPERLIPIDEMIA NEC/NOS 10/26/2016 BAIMAJEWEL MANAGER DATABASE ADMINISTRATION Ot 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 10/26/2016 JEWEL OSEGUERA MANAGER DATABASE ADMINISTRATION Ot 401.9 HYPERTENSION NOS 10/26/2016 BAIMAJEWEL MANAGER DATABASE ADMINISTRATION Ot 414.00 CORON ATHEROSCLER NOS TYPE VESSEL, NATIV 10/26/2016 JEWEL OSEGUERA MANAGER DATABASE ADMINISTRATION Ot 425.4 PRIM CARDIOMYOPATHY NEC 10/26/2016 KINDRA PRINGLE DO Ot 715.36 LOC OSTEOARTH NOS-L/LEG 10/26/2016 KINDRA PRINGLE DO Ot V72.63 PRE-PROCEDURAL LABORATORY EXAMINATION 10/26/2016 KINDRA PRINGLE DO Ot V72.83 EXAM PRE-OPERATIVE NEC 10/26/2016 KINDRA PRINGLE DO Ot V74.8 SCREEN-BACTERIAL DIS NEC 10/26/2016 MAYELIN OWENS HEARING AID REPAIR TECHNICIAN Ot 729.81 SWELLING OF LIMB 10/26/2016 MAYELIN OWENS HEARING AID REPAIR TECHNICIAN Ot V43.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 10/26/2016 [...] VANN, SHANE Collier Ot 782.3 EDEMA 10/26/2016 KNIDRA PRINGLE DO Ot 715.36 LOC OSTEOARTH NOS-L/LEG 10/26/2016 KINDRA PRINGLE DO Ot V72.63 PRE-PROCEDURAL LABORATORY EXAMINATION 10/26/2016 KINDRA PRINGLE DO Ot V74.8 SCREEN-BACTERIAL DIS NEC 10/26/2016 KINDRA PRINGLE DO Ot V58.61 ANTICOAGULANTS,LT,CURRENT USE 10/26/2016 KINDRA PRINGLE DO, Ot V58.83 ENCOUNTER FOR THERAPEUTIC DRUG MONITORIN 10/26/2016 JEWEL OSEGUERA MANAGER DATABASE ADMINISTRATION Ot 272.4 HYPERLIPIDEMIA NEC/NOS 10/26/2016 JEWEL OSEGUERA MANAGER DATABASE ADMINISTRATION Ot 401.9 HYPERTENSION NOS 10/26/2016 JEWEL OSEGUERA MANAGER DATABASE ADMINISTRATION Ot 414.9 CHR ISCHEMIC HRT DIS NOS 10/26/2016 JEWEL OSEGUERA MANAGER DATABASE ADMINISTRATION Ot 425.4 PRIM CARDIOMYOPATHY NEC 10/26/2016 EDOUARDMAURO JEWEL L MANAGER DATABASE ADMINISTRATION Ot 447.9 ARTERIAL DISEASE NOS 10/27/2016 JOVANNA [...] MD Ot I25.10 ATHSCL HEART DISEASE OF [place] CORONARY 10/28/2016 JOVANNA FLETCHER MD Ot I25.5 [...] RESUSCITATE 10/28/2016 JOVANNA FLETCHER MD Ot Z79.84 SNF (CURRENT) USE OF ORAL HYPOGLYC 10/28/2016 JOVANNA [...] MD, Ot I25.10 ATHSCL HEART DISEASE OF [place] CORONARY 10/29/2016 JOVANNA FLETCHER MD, Ot I25.5 [...] RESUSCITATE 10/29/2016 JOVANNA FLETCHER MD, Ot Z79.84 SNF (CURRENT) USE OF ORAL HYPOGLYC 10/29/2016 JOVANNA [...] MD, Ot I25.10 ATHSCL HEART DISEASE OF [place] CORONARY 10/29/2016 JOVANNA FLETCHER MD, Ot I25.5 ISCHEMIC CARDIOMYOPATHY 10/29/2016 JOVANNA FLETCHER MD, Ot I48.91 UNSPECIFIED ATRIAL FIBRILLATION 10/29/2016 JOVANNA FLETCHER MD, Ot I50.23 ACUTE ON CHRONIC SYSTOLIC (CONGESTIVE) H 10/29/2016 JOVANNA FLETCHER MD Ot I65.23 OCCLUSION AND STENOSIS OF B[place]AL [place] 10/29/2016 JOVANNA FLETCHER MD, Ot J44.9 CHRONIC OBSTRUCTIVE PULMONARY DISEASE, U 10/29/2016 JOVANNA FLETCHER MD Ot K64.9 UNSPECIFIED HEMORRHOIDS 10/29/2016 JOVANNA FLETCHER MD Ot M19.91 PRIMARY OSTEOARTHRITIS, UNSPECIFIED SITE 10/29/2016 JOVANNA FLETCHER MD, Ot M54.9 DORSALGIA, UNSPECIFIED 10/29/2016 JOVANNA FLETCHER MD Ot N17.9 ACUTE KIDNEY FAILURE, UNSPECIFIED 10/29/2016 JOVANNA FLETCHER MD, Ot N18.9 CHRONIC KIDNEY DISEASE, UNSPECIFIED 10/29/2016 JOVANNA FLETCHER MD Ot R07.89 OTHER CHEST PAIN 10/29/2016 JOVANNA FLETCHER MD Ot R53.1 WEAKNESS 10/29/2016 JOVANNA FLETCHER MD, Ot Z66 DO NOT RESUSCITATE 10/29/2016 JOVANNA FLETCHER MD, Ot Z79.84 SNF (CURRENT) USE OF ORAL HYPOGLYC 10/29/2016 JOVANNA FLETCHER MD Ot Z87.891 PERSONAL HISTORY OF NICOTINE DEPENDENCE 10/29/2016 JOVANNA FLETCHER MD Ot Z91.19 PATIENT'S NONCOMPLIANCE W [facility] MEDICAL TR 10/29/2016 JOVANNA FLETCHER MD, Ot Z91.81 HISTORY OF FALLING 10/29/2016 JOVANNA FLETCHER MD Ot Z95.5 PRESENCE OF CORONARY ANGIOPLASTY IMPLANT 10/29/2016 JOVANNA FLETCHER MD Ot Z95.810 PRESENCE OF AUTOMATIC (IMPLANTABLE) CARD 10/29/2016 JOVANNA FLETCHER MD Ot 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 OXYGEN 06/08/2017 JEWEL OSEGUERA MANAGER DATABASE ADMINISTRATION Ot 272.4 HYPERLIPIDEMIA NEC/NOS 06/08/2017 JEWEL OSEGUERA MANAGER DATABASE ADMINISTRATION Ot 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 06/08/2017 JEWEL OSEGUERA MANAGER DATABASE ADMINISTRATION Ot 401.9 HYPERTENSION NOS 06/08/2017 JEWEL OSEGUERA MANAGER DATABASE ADMINISTRATION Ot 414.00 CORON ATHEROSCLER NOS TYPE VESSEL, NATIV 06/08/2017 JEWEL OSEGUERA MANAGER DATABASE ADMINISTRATION Ot 425.4 PRIM CARDIOMYOPATHY NEC 06/08/2017 KINDRA PRINGLE DO Ot 715.36 LOC OSTEOARTH NOS-L/LEG 06/08/2017 KINDRA PRINGLE DO Ot V72.63 PRE-PROCEDURAL LABORATORY EXAMINATION 06/08/2017 KINDRA PRINGLE DO Ot V72.83 EXAM PRE-OPERATIVE NEC 06/08/2017 KINDRA PRINGLE DO Ot V74.8 SCREEN-BACTERIAL DIS NEC 06/08/2017 MAYELIN OWENS HEARING AID REPAIR TECHNICIAN Ot 729.81 SWELLING OF LIMB 06/08/2017 MAYELIN OWENS HEARING AID REPAIR TECHNICIAN Ot V43.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 06/08/2017 KATHY LEEC, ALI FACP CCDS Ot 250.00 DIAB JODY WO COMPL, TYPE II OR UNSPEC TY 06/08/2017 KATHY VANN FACC, ALI FACP CCDS Ot 272.4 HYPERLIPIDEMIA NEC/NOS 06/08/2017 KATHY VANN FACC, ALI FACP CCDS Ot 278.00 OBESITY, NOS 06/08/2017 KATHY VANN FACC, ALI FACP CCDS Ot 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 06/08/2017 KATHY VANN FACC, ALI FACP CCDS Ot 401.9 HYPERTENSION NOS 06/08/2017 KATHY VANN FACC, ALI FACP CCDS Ot 414.00 CORON ATHEROSCLER NOS TYPE VESSEL, NATIV 06/08/2017 KATHY VANN FACC, ALI FACP CCDS Ot 425.4 PRIM CARDIOMYOPATHY NEC 06/08/2017 KATHY VANN FACC, ALI FACP CCDS Ot 447.9 ARTERIAL DISEASE NOS 06/08/2017 KATHY VANN FACC, ALI FACP CCDS Ot 785.9 CARDIOVAS SYS SYMP NEC 06/08/2017 KATHY VANN FACC, ALI FACP CCDS Ot 786.09 RESPIRATORY ABNORM NEC 06/08/2017 BLAKE VANN, SHANE Collier Ot 782.3 EDEMA 06/08/2017 KINDRA PRINGLE DO Ot 715.36 LOC OSTEOARTH NOS-L/LEG 06/08/2017 KINDRA PRINGLE DO Ot V72.63 PRE-PROCEDURAL LABORATORY EXAMINATION 06/08/2017 KINDRA PRINGLE DO Ot V74.8 SCREEN-BACTERIAL DIS NEC 06/08/2017 KINDRA PRINGLE DO Ot V58.61 ANTICOAGULANTS,LT,CURRENT USE 06/08/2017 KINDRA PRINGLE DO Ot V58.83 ENCOUNTER FOR THERAPEUTIC DRUG MONITORIN 06/08/2017 JEWEL OSEGUERA MANAGER DATABASE ADMINISTRATION Ot 272.4 HYPERLIPIDEMIA NEC/NOS 06/08/2017 JEWEL OSEGUERA MANAGER DATABASE ADMINISTRATION Ot 401.9 HYPERTENSION NOS 06/08/2017 JEWEL OSEGUERA MANAGER DATABASE ADMINISTRATION Ot 414.9 CHR ISCHEMIC HRT DIS NOS 06/08/2017 JEWEL OSEGUERA MANAGER DATABASE ADMINISTRATION Ot 425.4 PRIM CARDIOMYOPATHY NEC 06/08/2017 JEWLE OSEGUERA MANAGER DATABASE ADMINISTRATION Ot 447.9 ARTERIAL DISEASE NOS 06/08/2017 JEWEL OSEGUERA MANAGER DATABASE ADMINISTRATION Ot 272.4 HYPERLIPIDEMIA NEC/NOS 06/08/2017 JEWEL OSEGUERA MANAGER DATABASE ADMINISTRATION Ot 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 06/08/2017 EDOUARDJEWEL WADE MANAGER DATABASE ADMINISTRATION Ot 401.9 HYPERTENSION NOS 06/08/2017 JEWEL OSEGUERA MANAGER DATABASE ADMINISTRATION Ot 414.00 CORON ATHEROSCLER NOS TYPE VESSEL, NATIV 06/08/2017 JEWEL OSEGUERA MANAGER DATABASE ADMINISTRATION Ot 425.4 PRIM CARDIOMYOPATHY NEC 06/08/2017 KINDRA PRINGLE DO Ot 715.36 LOC OSTEOARTH NOS-L/LEG 06/08/2017 KINDRA PRINGLE DO Ot V72.63 PRE-PROCEDURAL LABORATORY EXAMINATION 06/08/2017 KINDRA PRINGLE DO Ot V72.83 EXAM PRE-OPERATIVE NEC 06/08/2017 KINDRA PRINGLE DO Ot V74.8 SCREEN-BACTERIAL DIS NEC 06/08/2017 MAYELIN OWENS HEARING AID REPAIR TECHNICIAN Ot 729.81 SWELLING OF LIMB 06/08/2017 MAYELIN OWENS HEARING AID REPAIR TECHNICIAN Ot V43.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 06/08/2017 KATHY VANN FACC, MANDA FACP CCDS Ot 250.00 DIAB JODY WO COMPL, TYPE II OR UNSPEC TY 06/08/2017 KATHY VANN FACC, MANDA FACP CCDS Ot 272.4 HYPERLIPIDEMIA NEC/NOS 06/08/2017 KATHY VANN FACC, MANDA FACP CCDS Ot 278.00 OBESITY, NOS 06/08/2017 KATHY VANN FACC, MANDA FACP CCDS Ot 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 06/08/2017 KATHY VANN FACC, ALI FACP CCDS Ot 401.9 HYPERTENSION NOS 06/08/2017 KATHY VANN FACC, ALI FACP CCDS Ot 414.00 CORON ATHEROSCLER NOS TYPE VESSEL, NATIV 06/08/2017 KATHY VANN FACC, ALI FACP CCDS Ot 425.4 PRIM CARDIOMYOPATHY NEC 06/08/2017 KATHY VANN FACC, ALI FACP CCDS Ot 447.9 ARTERIAL DISEASE NOS 06/08/2017 KATHY VANN FACC, MANDA MCCALLUM CCDS Ot 785.9 CARDIOVAS SYS SYMP NEC 06/08/2017 KATHY VANN FACC, MANDA FACP CCDS Ot 786.09 RESPIRATORY ABNORM NEC 06/08/2017 BLAKE VANN, SHANE Collier Ot 782.3 EDEMA 06/08/2017 KINDRA PRINGLE DO Ot 715.36 LOC OSTEOARTH NOS-L/LEG 06/08/2017 KINDRA PRINGLE DO Ot V72.63 PRE-PROCEDURAL LABORATORY EXAMINATION 06/08/2017 KINDRA PRINGLE DO Ot V74.8 SCREEN-BACTERIAL DIS NEC 06/08/2017 KINDRA PRINGLE DO Ot V58.61 ANTICOAGULANTS,LT,CURRENT USE 06/08/2017 KINDRA PRINGLE DO Ot V58.83 ENCOUNTER FOR THERAPEUTIC DRUG MONITORIN 06/08/2017 JEWEL OSEGUERA MANAGER DATABASE ADMINISTRATION Ot 272.4 HYPERLIPIDEMIA NEC/NOS 06/08/2017 JEWEL OSEGUERA MANAGER DATABASE ADMINISTRATION Ot 401.9 HYPERTENSION NOS 06/08/2017 JEWEL OSEGUERA MANAGER DATABASE ADMINISTRATION Ot 414.9 CHR ISCHEMIC HRT DIS NOS 06/08/2017 JEWEL OSEGUERA MANAGER DATABASE ADMINISTRATION Ot 425.4 PRIM CARDIOMYOPATHY NEC 06/08/2017 BAIMA JEWEL L MANAGER DATABASE ADMINISTRATION Ot 447.9 ARTERIAL DISEASE NOS 06/09/2017 JUAN CARLOS COATES CRISTINA Ot E11.9 TYPE 2 DIABETES MELLITUS WITHOUT COMPLIC 06/09/2017 JUAN CARLOS COATES CRISTINA Ot E78.00 PURE HYPERCHOLESTEROLEMIA, UNSPECIFIED 06/09/2017 RANGEL DO, CRISTINA Ot E78.5 HYPERLIPIDEMIA, UNSPECIFIED 06/09/2017 JUAN CARLOS COATES CRISTINA Ot F32.9 MAJOR DEPRESSIVE DISORDER, SINGLE EPISOD 06/09/2017 JUAN CARLOS COATES CRISTINA Ot G47.33 OBSTRUCTIVE SLEEP APNEA (ADULT) (PEDIATR 06/09/2017 JUAN CARLOS DO CRISTINA Ot I12.9 HYPERTENSIVE CHRONIC KIDNEY DISEASE W ST 06/09/2017 JUAN CARLOS COATES CRISTINA Ot I42.9 CARDIOMYOPATHY, UNSPECIFIED 06/09/2017 JUAN CARLOS DO CRISTINA Ot I48.91 UNSPECIFIED ATRIAL FIBRILLATION 06/09/2017 JUAN CARLOS COATES CRISTINA Ot I50.23 ACUTE ON CHRONIC SYSTOLIC (CONGESTIVE) H 06/09/2017 JUAN CARLOS COATES CRISTINA Ot J44.9 CHRONIC OBSTRUCTIVE PULMONARY DISEASE, U 06/09/2017 RANGEL DO, CRISTINA Ot N18.3 CHRONIC KIDNEY DISEASE, STAGE 3 (MODERAT 06/09/2017 RANGEL DO, CRISTINA Ot R06.02 SHORTNESS OF BREATH 06/09/2017 RANGEL DO, CRISTINA Ot R09.02 HYPOXEMIA 06/09/2017 RANGEL DO, CRISTINA Ot Z87.891 PERSONAL HISTORY OF NICOTINE DEPENDENCE 06/09/2017 RANGEL DO, CRISTINA Ot Z91.19 PATIENT'S NONCOMPLIANCE W [facility] MEDICAL TR 06/09/2017 RANGEL DO, CRISTINA Ot Z95.810 PRESENCE OF AUTOMATIC (IMPLANTABLE) CARD 06/30/2017 RANGEL DO, CRISTINA Ot E11.9 TYPE 2 DIABETES MELLITUS WITHOUT COMPLIC 06/30/2017 RANGEL DO, CRISTINA Ot E78.00 PURE HYPERCHOLESTEROLEMIA, UNSPECIFIED 06/30/2017 RANGEL DO, CRISTINA Ot E78.5 HYPERLIPIDEMIA, UNSPECIFIED 06/30/2017 RANGEL DO, CRISTINA Ot F32.9 MAJOR DEPRESSIVE DISORDER, SINGLE EPISOD 06/30/2017 RANGEL DO, CRISTINA Ot G47.33 OBSTRUCTIVE SLEEP APNEA (ADULT) (PEDIATR 06/30/2017 RANGEL DO, CRISTINA Ot I12.9 HYPERTENSIVE CHRONIC KIDNEY DISEASE W ST 06/30/2017 RANGEL DO, CRISTINA Ot I42.9 CARDIOMYOPATHY, UNSPECIFIED 06/30/2017 RANGEL DO, CRISTINA Ot I48.91 UNSPECIFIED ATRIAL FIBRILLATION 06/30/2017 RANGEL DO, CRISTINA Ot I50.23 ACUTE ON CHRONIC SYSTOLIC (CONGESTIVE) H 06/30/2017 RANGEL DO, CRISTINA Ot J44.9 CHRONIC OBSTRUCTIVE PULMONARY DISEASE, U 06/30/2017 JUAN CARLOS DO, CRISTINA Ot N18.3 CHRONIC KIDNEY DISEASE, STAGE 3 (MODERAT 06/30/2017 RANGEL DO, CRISTINA Ot R06.02 SHORTNESS OF BREATH 06/30/2017 RANGEL DO, CRISTINA Ot R09.02 HYPOXEMIA 06/30/2017 RANGEL DO, CRISTINA Ot Z87.891 PERSONAL HISTORY OF NICOTINE DEPENDENCE 06/30/2017 RANGEL DO, CRISTINA Ot Z91.19 PATIENT'S NONCOMPLIANCE W [facility] MEDICAL TR 06/30/2017 RANGEL DO, CRISTINA Ot Z95.810 PRESENCE OF AUTOMATIC (IMPLANTABLE) CARD 06/30/2017 RANGEL DO, CRISTINA Ot E11.9 TYPE 2 DIABETES MELLITUS WITHOUT COMPLIC 06/30/2017 RANGEL DO CRISTINA Ot E78.00 PURE HYPERCHOLESTEROLEMIA, UNSPECIFIED 06/30/2017 RANGELALEXANDER COATES CRISTINA Ot E78.5 HYPERLIPIDEMIA, UNSPECIFIED 06/30/2017 RANGELALEXANDER COATES CRISTINA Ot F32.9 MAJOR DEPRESSIVE DISORDER, SINGLE EPISOD 06/30/2017 RANGELALEXANDER COATES CRISTINA Ot G47.33 OBSTRUCTIVE SLEEP APNEA (ADULT) (PEDIATR 06/30/2017 RANGEL DO CRISTINA Ot I12.9 HYPERTENSIVE CHRONIC KIDNEY DISEASE W ST 06/30/2017 RANGEL DO CRISTINA Ot I42.9 CARDIOMYOPATHY, UNSPECIFIED 06/30/2017 RANGEL DO CRISTINA Ot I48.91 UNSPECIFIED ATRIAL FIBRILLATION 06/30/2017 RANGEL DO CRISTINA Ot I50.23 ACUTE ON CHRONIC SYSTOLIC (CONGESTIVE) H 06/30/2017 RANGEL DO CRISTINA Ot J44.9 CHRONIC OBSTRUCTIVE PULMONARY DISEASE, U 06/30/2017 RANGEL DO CRISTINA Ot N18.3 CHRONIC KIDNEY DISEASE, STAGE 3 (MODERAT 06/30/2017 JUAN CARLOS COATES CRISTINA Ot R06.02 SHORTNESS OF BREATH 06/30/2017 JUAN CARLOS COATES CRISTINA Ot R09.02 HYPOXEMIA 06/30/2017 JUAN CARLOS COATES CRISTINA Ot Z87.891 PERSONAL HISTORY OF NICOTINE DEPENDENCE 06/30/2017 JUAN CARLOS COATES CRISTINA Ot Z91.19 PATIENT'S NONCOMPLIANCE W [facility] MEDICAL TR 06/30/2017 JUAN CARLOS COATES CRISTINA Ot Z95.810 PRESENCE OF AUTOMATIC (IMPLANTABLE) CARD 10/29/2017 CARO LOYOLA MD Ot E11.9 TYPE 2 DIABETES MELLITUS WITHOUT COMPLIC 10/29/2017 CARO LOYOLA MD Ot E78.00 PURE HYPERCHOLESTEROLEMIA, UNSPECIFIED 10/29/2017 CARO LOYOLA MD Ot F17.210 NICOTINE DEPENDENCE, CIGARETTES, UNCOMPL 10/29/2017 CARO LOYOLA MD Ot F32.9 MAJOR DEPRESSIVE DISORDER, SINGLE EPISOD 10/29/2017 CARO LOYOLA MD Ot I10 ESSENTIAL (PRIMARY) HYPERTENSION 10/29/2017 CARO LOYOLA MD Ot I25.10 ATHSCL HEART DISEASE OF [place] CORONARY 10/29/2017 CARO LOYOLA MD Ot I42.9 CARDIOMYOPATHY, UNSPECIFIED 10/29/2017 CARO LOYOLA MD Ot I48.91 UNSPECIFIED ATRIAL FIBRILLATION 10/29/2017 CARO LOYOLA MD Ot I73.9 PERIPHERAL VASCULAR DISEASE, UNSPECIFIED 10/29/2017 CARO LOYOLA MD, Ot J44.9 CHRONIC OBSTRUCTIVE PULMONARY DISEASE, U 10/29/2017 CARO LOYOLA MD Ot R40.2142 COMA SCALE, EYES OPEN, SPONTANEOUS, EMR 10/29/2017 CARO LOYOLA MD Ot R40.2252 COMA SCALE, BEST VERBAL RESPONSE, ORIENT 10/29/2017 CARO LOYOLA MD Ot R40.2362 COMA SCALE, BEST MOTOR RESPONSE, OBEYS C 10/29/2017 CARO LOYOLA MD, Ot S00.81XA ABRASION OF OTHER PART OF HEAD, INITIAL 10/29/2017 CARO LOYOLA MD, Ot S02.32XA FRACTURE OF ORBITAL FLOOR, LEFT SIDE, IN 10/29/2017 CARO LOYOLA MD Ot S02.40CA MAXILLARY FRACTURE, RIGHT SIDE, INIT 10/29/2017 CARO LOYOLA MD, Ot S02.80XA FX OTH SKULL AND FACIAL BONES, UNSPECIFI 10/29/2017 CARO LOYOLA MD Ot W18.30XA FALL ON SAME LEVEL, UNSPECIFIED, INITIAL 10/29/2017 CARO LOYOLA MD Ot Y92.[address] OF OCCURRENCE O 10/29/2017 CARO LOYOLA MD, Ot Z79.82 BUILDING SERVICES COORDINATOR (CURRENT) USE OF ASPIRIN 10/29/2017 CARO LOYOLA MD Ot Z79.84 SNF (CURRENT) USE OF ORAL HYPOGLYC 10/29/2017 CARO LOYOLA MD Ot Z80.0 FAMILY HISTORY OF MALIGNANT NEOPLASM OF 10/29/2017 CARO LOYOLA MD, Ot Z80.3 FAMILY HISTORY OF MALIGNANT NEOPLASM OF 10/29/2017 CARO LOYOLA MD, Ot Z90.710 ACQUIRED ABSENCE OF BOTH CERVIX AND UTER 10/29/2017 CARO LOYOLA MD Ot Z95.1 PRESENCE OF AORTOCORONARY BYPASS GRAFT 10/29/2017 CARO LOYOLA MD Ot Z95.810 PRESENCE OF AUTOMATIC (IMPLANTABLE) CARD 10/29/2017 CARO LOYOLA MD, Ot 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 OXYGEN 11/03/2017 JEWEL OSEGUERA MANAGER DATABASE ADMINISTRATION Ot 272.4 HYPERLIPIDEMIA NEC/NOS 11/03/2017 JEWEL OSEGUERA MANAGER DATABASE ADMINISTRATION Ot 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 11/03/2017 JEWEL OSEGUERA MANAGER DATABASE ADMINISTRATION Ot 401.9 HYPERTENSION NOS 11/03/2017 JEWEL OSEGUERA MANAGER DATABASE ADMINISTRATION Ot 414.00 CORON ATHEROSCLER NOS TYPE VESSEL, NATIV 11/03/2017 JEWEL OSEGUERA MANAGER DATABASE ADMINISTRATION Ot 425.4 PRIM CARDIOMYOPATHY NEC 11/03/2017 YARY DO, KINDRA F Ot 715.36 LOC OSTEOARTH NOS-L/LEG 11/03/2017 YARY , KINDRA F Ot V72.63 PRE-PROCEDURAL LABORATORY EXAMINATION 11/03/2017 YARY COATES KINDRA F Ot V72.83 EXAM PRE-OPERATIVE NEC 11/03/2017 YARY COATES KINDRA F Ot V74.8 SCREEN-BACTERIAL DIS NEC 11/03/2017 MAYELIN OWENS HEARING AID REPAIR TECHNICIAN Ot 729.81 SWELLING OF LIMB 11/03/2017 MAYELIN OWENS HEARING AID REPAIR TECHNICIAN Ot V43.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 11/03/2017 KATHY VANN FACC, ALI FACP CCDS Ot 250.00 DIAB JODY WO COMPL, TYPE II OR UNSPEC TY 11/03/2017 KATHY VANN FACC, ALI FACP CCDS Ot 272.4 HYPERLIPIDEMIA NEC/NOS 11/03/2017 KATHY VANN FACC, ALI FACP CCDS Ot 278.00 OBESITY, NOS 11/03/2017 KATHY VANN FACC, ALI FACP CCDS Ot 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 11/03/2017 KATHY VANN FACC, ALI FACP CCDS Ot 401.9 HYPERTENSION NOS 11/03/2017 KATHY VANN FACC, ALI FACP CCDS Ot 414.00 CORON ATHEROSCLER NOS TYPE VESSEL, NATIV 11/03/2017 KATHY VANN FACC, ALI FACP CCDS Ot 425.4 PRIM CARDIOMYOPATHY NEC 11/03/2017 KATHY VANN FACC, ALI FACP CCDS Ot 447.9 ARTERIAL DISEASE NOS 11/03/2017 KATHY VANN FACC, ALI FACP CCDS Ot 785.9 CARDIOVAS SYS SYMP NEC 11/03/2017 KATHY VANN FACC, ALI FACP CCDS Ot 786.09 RESPIRATORY ABNORM NEC 11/03/2017 BLAKE VANN, SHANE D Ot 782.3 EDEMA 11/03/2017 KINDRA PRINGLE DO Ot 715.36 LOC OSTEOARTH NOS-L/LEG 11/03/2017 KINDRA PRINGLE DO Ot V72.63 PRE-PROCEDURAL LABORATORY EXAMINATION 11/03/2017 KINDRA PRINGLE DO Ot V74.8 SCREEN-BACTERIAL DIS NEC 11/03/2017 KINDRA PRINGLE DO Ot V58.61 ANTICOAGULANTS,LT,CURRENT USE 11/03/2017 KINDRA PRINGLE DO Ot V58.83 ENCOUNTER FOR THERAPEUTIC DRUG MONITORIN 11/03/2017 JEWEL OSEGUERA MANAGER DATABASE ADMINISTRATION Ot 272.4 HYPERLIPIDEMIA NEC/NOS 11/03/2017 JEWEL OSEGUERA MANAGER DATABASE ADMINISTRATION Ot 401.9 HYPERTENSION NOS 11/03/2017 JEWEL OSEGUERA MANAGER DATABASE ADMINISTRATION Ot 414.9 CHR ISCHEMIC HRT DIS NOS 11/03/2017 JEWEL OSEGUERA MANAGER DATABASE ADMINISTRATION Ot 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.4 PRIM CARDIOMYOPATHY NEC 11/03/2017 JEWEL OSEGUERA MANAGER DATABASE ADMINISTRATION Ot 447.9 ARTERIAL DISEASE NOS Procedures Code Description Performed By Performed On [...] REPLACEMENT 02/20/2014 81.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 11/20/2014 [id number] MEASURE OF CARDIAC SAMPL PRESSURE, L H 10/27/2016 [id number] FLUOROSCOPY OF MULT COR ART USING L OSM 10/27/2016 [id number] FLUOROSCOPY OF LEFT HEART USING LOW OSMO [...] 06/07/17 23:30 BNP level 178.3 pg/mL <100.0 Complete blood count (CBC) with automated white blood cell (WBC) differential - 06/08/17 04:25 Blood leukocytes automated count (number/volume) 12.3 10*3/uL 4.3-11.0 Blood erythrocytes automated count (number/volume) 4.13 10*6/uL 4.35-5.85 Venous blood hemoglobin measurement (mass/volume) 13.3 g/dL 11.5-16.0 Blood hematocrit (volume fraction) 40 % 35-52 Automated erythrocyte mean corpuscular volume 96 [foz_us] 80-99 Automated erythrocyte mean corpuscular hemoglobin (mass per erythrocyte) 32 pg 25-34 Automated erythrocyte mean corpuscular hemoglobin concentration measurement ( mass/volume) 34 g/dL 32-36 Automated erythrocyte distribution width ratio 13.3 % 10.0-14.5 Automated blood platelet count (count/volume) 269 10*3/uL 130-400 Automated blood platelet mean volume measurement 11.0 [foz_us] 7.4-10.4 Automated blood neutrophils/100 leukocytes 85 % 42-75 Automated blood lymphocytes/100 leukocytes 10 % 12-44 Blood monocytes/100 leukocytes 5 % 0-12 Automated blood eosinophils/100 leukocytes 0 % 0-10 Automated blood basophils/100 leukocytes 0 % 0-10 Blood neutrophils automated count (number/volume) 10.4 10*3 1.8-7.8 Blood lymphocytes automated count (number/volume) 1.2 10*3 1.0-4.0 Blood monocytes automated count (number/volume) 0.7 10*3 0.0-1.0 Automated eosinophil count 0.0 10*3/uL 0.0-0.3 Automated blood basophil count (count/volume) 0.0 10*3/uL 0.0-0.1 Whole blood basic metabolic panel - 06/08/17 04:25 Serum or plasma sodium measurement (moles/volume) 141 mmol/L 135-145 Serum or plasma potassium measurement (moles/volume) 3.9 mmol/L 3.6-5.0 Serum or plasma chloride measurement (moles/volume) 103 mmol/L 98-107 Carbon dioxide 23 mmol/L 21-32 Serum or plasma anion gap determination (moles/volume) 15 mmol/L 5-14 Serum or plasma urea nitrogen measurement (mass/volume) 23 mg/dL 7-18 Serum or plasma creatinine measurement (mass/volume) 1.45 mg/dL 0.60-1.30 Serum or plasma urea nitrogen/creatinine mass ratio 16 NRG Serum or plasma creatinine measurement with calculation of estimated glomerular filtration rate 35 NRG Serum or plasma glucose measurement (mass/volume) 164 mg/dL 70-105 Serum or plasma calcium measurement (mass/volume) 9.4 mg/dL 8.5-10.1 Serum or plasma troponin i.cardiac measurement (mass/volume) - 06/08/17 04:25 Serum or plasma troponin i.cardiac measurement (mass/volume) < ng/ mL <0.30 Lipid 1996 panel - 06/08/17 04:25 Serum or plasma triglyceride measurement (mass/volume) 210 mg/dL <150 Serum or plasma cholesterol measurement (mass/volume) 294 mg/dL < 200 Serum or plasma cholesterol in HDL measurement (mass/volume) 34 mg/ dL 40-60 Cholesterol in LDL [mass/volume] in serum or plasma by direct assay 218 mg/dL 1-129 Serum or plasma cholesterol in VLDL measurement (mass/volume) 42 mg/ dL 5-40 Fibrin D-dimer FEU measurement in platelet poor plasma (mass/volume) - 04:25 Fibrin D-dimer FEU measurement in platelet poor plasma (mass/volume) 2.40 ug/mL 0.00-0.49 Capillary blood glucose measurement by glucometer (mass/volume) - 06/08/17 11: 04 Capillary blood glucose measurement by glucometer (mass/volume) 159 mg/dL 70-110 Serum or plasma troponin i.cardiac measurement (mass/volume) - 06/08/17 11:05 Serum or plasma troponin i.cardiac measurement (mass/volume) < ng/ mL <0.30 Capillary blood glucose measurement by glucometer (mass/volume) - 06/08/17 17: 17 Capillary blood glucose measurement by glucometer (mass/volume) 135 mg/dL 70-110 Capillary blood glucose measurement by glucometer (mass/volume) - 06/08/17 20: 10 Capillary blood glucose measurement by glucometer (mass/volume) 124 mg/dL 70-110 Whole blood basic metabolic panel - 06/09/17 05:06 Serum or plasma sodium measurement (moles/volume) 139 mmol/L 135-145 Serum or plasma potassium measurement (moles/volume) 3.6 mmol/L 3.6-5.0 Serum or plasma chloride measurement (moles/volume) 103 mmol/L 98-107 Carbon dioxide 24 mmol/L 21-32 Serum or plasma anion gap determination (moles/volume) 12 mmol/L 5-14 Serum or plasma urea nitrogen measurement (mass/volume) 28 mg/dL 7-18 Serum or plasma creatinine measurement (mass/volume) 1.41 mg/dL 0.60-1.30 Serum or plasma urea nitrogen/creatinine mass ratio 20 NRG Serum or plasma creatinine measurement with calculation of estimated glomerular filtration rate 36 NRG Serum or plasma glucose measurement (mass/volume) 151 mg/dL 70-105 Serum or plasma calcium measurement (mass/volume) 8.7 mg/dL 8.5-10.1 Magnesium - 06/09/17 05:06 Magnesium 1.9 mg/dL 1.8-2.4 Capillary blood glucose measurement by glucometer (mass/volume) - 06/09/17 05: 40 Capillary blood glucose measurement by glucometer (mass/volume) 162 mg/dL 70-110 Capillary blood glucose measurement by glucometer (mass/volume) - 06/09/17 11: 35 Capillary blood glucose measurement by glucometer (mass/volume) 130 mg/dL 70-110 Capillary blood glucose measurement by glucometer (mass/volume) - 06/09/17 16: 37 Capillary blood glucose measurement by glucometer (mass/volume) 132 mg/dL 70-110 Comprehensive metabolic panel - 10/28/17 21:45 Serum or plasma sodium measurement (moles/volume) 137 mmol/L 135-145 Serum or plasma potassium measurement (moles/volume) 3.8 mmol/L 3.6-5.0 Serum or plasma chloride measurement (moles/volume) 102 mmol/L 98-107 Carbon dioxide 20 mmol/L 21-32 Serum or plasma anion gap determination (moles/volume) 15 mmol/L 5-14 Serum or plasma urea nitrogen measurement (mass/volume) 29 mg/dL 7-18 Serum or plasma creatinine measurement (mass/volume) 1.71 mg/dL 0.60-1.30 Serum or plasma urea nitrogen/creatinine mass ratio 17 NRG Serum or plasma creatinine measurement with calculation of estimated glomerular filtration rate 29 NRG Serum or plasma glucose measurement (mass/volume) 171 mg/dL 70-105 Serum or plasma calcium measurement (mass/volume) 9.5 mg/dL 8.5-10.1 Serum or plasma total bilirubin measurement (mass/volume) 0.6 mg/dL 0.1-1.0 Serum or plasma alkaline phosphatase measurement (enzymatic activity/volume) 61 U/L 40-136 Serum or plasma aspartate aminotransferase measurement (enzymatic activity/ volume) 12 U/L 5-34 Serum or plasma alanine aminotransferase measurement (enzymatic activity/volume ) 10 U/L 0-55 Serum or plasma protein measurement (mass/volume) 7.2 g/dL 6.4-8.2 Serum or plasma albumin measurement (mass/volume) 4.2 g/dL 3.2-4.5 Magnesium - 10/28/17 21:45 Magnesium 1.9 mg/dL 1.8-2.4 Complete blood count (CBC) with automated white blood cell (WBC) differential - 10/28/17 21:45 Blood leukocytes automated count (number/volume) 9.0 10*3/uL 4.3-11.0 Blood erythrocytes automated count (number/volume) 4.26 10*6/uL 4.35-5.85 Venous blood hemoglobin measurement (mass/volume) 13.5 g/dL 11.5-16.0 Blood hematocrit (volume fraction) 40 % 35-52 Automated erythrocyte mean corpuscular volume 93 [foz_us] 80-99 Automated erythrocyte mean corpuscular hemoglobin (mass per erythrocyte) 32 pg 25-34 Automated erythrocyte mean corpuscular hemoglobin concentration measurement ( mass/volume) 34 g/dL 32-36 Automated erythrocyte distribution width ratio 13.3 % 10.0-14.5 Automated blood platelet count (count/volume) 268 10*3/uL 130-400 Automated blood platelet mean volume measurement 10.6 [foz_us] 7.4-10.4 Automated blood neutrophils/100 leukocytes 67 % 42-75 Automated blood lymphocytes/100 leukocytes 21 % 12-44 Blood monocytes/100 leukocytes 10 % 0-12 Automated blood eosinophils/100 leukocytes 2 % 0-10 Automated blood basophils/100 leukocytes 0 % 0-10 Blood neutrophils automated count (number/volume) 6.0 10*3 1.8-7.8 Blood lymphocytes automated count (number/volume) 1.9 10*3 1.0-4.0 Blood monocytes automated count (number/volume) 0.9 10*3 0.0-1.0 Automated eosinophil count 0.2 10*3/uL 0.0-0.3 Automated blood basophil count (count/volume) 0.0 10*3/uL 0.0-0.1 Serum or plasma ethanol measurement (mass/volume) - 10/28/17 21:45 Serum or plasma ethanol measurement (mass/volume) < mg/dL <10 Complete urinalysis with reflex to culture - 10/29/17 00:40 Urine color determination YELLOW NRG Urine clarity determination CLEAR NRG Urine pH measurement by test strip 5 5-9 Specific gravity of urine by test strip 1.015 1.016- 1.022 Urine protein assay by test strip, semi-quantitative 1+ NEGATIVE Urine glucose detection by automated test strip 2+ NEGATIVE Erythrocytes detection in urine sediment by light microscopy NEGATIVE NEGATIVE Urine ketones detection by automated test strip NEGATIVE NEGATIVE Urine nitrite detection by test strip NEGATIVE NEGATIVE Urine total bilirubin detection by test strip NEGATIVE NEGATIVE Urine urobilinogen measurement by automated test strip (mass/volume) NORMAL NORMAL Urine leukocyte esterase detection by dipstick NEGATIVE NEGATIVE Automated urine sediment erythrocyte count by microscopy (number/high power field) NONE NRG Automated urine sediment leukocyte count by microscopy (number/high power field ) NONE NRG Bacteria detection in urine sediment by light microscopy NEGATIVE NRG Squamous epithelial cells detection in urine sediment by light microscopy RARE NRG Crystals detection in urine sediment by light microscopy NONE NRG Casts detection in urine sediment by light microscopy PRESENT NRG Mucus detection in urine sediment by light microscopy MODERATE NRG Complete urinalysis with reflex to culture NO NRG Hyaline casts detection in urine sediment by light microscopy 2-5 NRG Encounters ACCT No. Visit Date/Time Discharge Status Pt. Type Provider Facility Loc./Unit Complaint [id number] 10/28/2017 21:34:00 10/29/2017 01:26:00 DIS Emergency MILLA VANN, CARO Reyes [facility] ER FALL [id number] 06/07/2017 22:43:00 06/09/2017 08:47:00 DIS Inpatient CRISTINA RANGEL DO [facility] 4TH CHEST PAIN R/O [id number] 10/26/2016 13:31:00 10/29/2016 12:35:00 DIS Inpatient JOVANNA FLETCHER MD [facility] ICU CHEST PAIN,CHF EXACERBATION [id number] 01/20/2016 14:07:00 01/20/2016 16:30:00 DIS Emergency JAZMYNE WHITEHEAD APRN [facility] ER FALL FACIAL INJURIES/ RIGHT WRIST PAIN [id number] 02/26/2015 14:20:00 02/26/2015 23:59:59 CLS Outpatient JEWEL OSEGUERA [employer] [facility] CARD CAD,CARDIOMYOPATHY, CAROTID ARTERY DI,HTN,HLP [id number] 11/29/2014 14:30:00 11/29/2014 23:59:59 CLS Outpatient KINDRA PRINGLE DO [facility] HH ANTICOAG THERAPY [id number] 11/20/2014 06:05:00 11/26/2014 16:29:00 DIS Inpatient KINDRA PRINGLE DO [facility] SURGICAL DEGENERATIVE DISC DISEASE LEFT KNEE [id number] 11/25/2014 15:23:00 11/25/2014 23:59:59 CLS Preadmit BLAKE VANN, SHANE Collier LT.KNEE [id number] 11/17/2014 12:07:00 11/17/2014 14:13:00 DIS Emergency JUSTINE VANN, JOVANNA Pollock [facility] ER R SIDE PAIN [id number] 11/06/2014 13:48:00 11/06/2014 23:59:59 CLS Outpatient KINDRA PRINGLE DO [facility] PREOP DEGENERATIVE DISC DISEASE LEFT KNEE [id number] 10/04/2014 11:33:00 10/04/2014 23:59:59 CLS Outpatient SHANE LOZANO MD [facility] RAD INCREASED L/E EDEMA, [id number] 08/30/2014 07:42:00 08/30/2014 23:59:59 CLS Outpatient KATHY VANN FACC, MANDA LEEP CCDS [facility] CARD CAD, CARDIOMYOPATHY [id number] 06/27/2014 20:27:00 07/02/2014 16:00:00 DIS Inpatient CRISTINA RANGEL DO [facility] CSD ASTHMATIC BRONCHITIS [id number] 03/28/2014 16:18:00 04/05/2014 14:28:00 DIS Outpatient KINDRA PRINGLE DO [facility] REHAB S/P R TKR [id number] 03/07/2014 09:40:00 03/07/2014 23:59:59 CLS Outpatient MAYELIN OWENS APRN [facility] RAD R LE SWELLING [id number] 02/25/2014 14:25:00 02/28/2014 17:19:00 DIS Inpatient GORDON NGUYEN MD [facility] IRF TKR [id number] 02/20/2014 09:00:00 02/25/2014 14:24:00 DIS Inpatient KINDRA PRINGLE DO [facility] SURGICAL RIGHT KNEE DJD [id number] 02/14/2014 13:09:00 02/14/2014 23:59:59 CLS Outpatient KINDRA PRINGLE DO [facility] PREOP RIGHT KNEE DJD [id number] 08/09/2013 13:16:00 08/12/2013 11:00:00 DIS Inpatient BLAKE VANN, SHANE Collier [facility] CSD CHF CHEST PAIN [id number] 08/02/2013 12:43:00 08/02/2013 23:59:59 CLS Outpatient JEWEL OSEGUERAP [facility] CARD CAD,HTN [id number] 03/31/2013 14:55:00 03/31/2013 15:14:00 DIS Emergency JOVANNA FLETCHER MD [facility] ER COUGH/SOA [id number] 12/28/2012 12:05:00 12/28/2012 14:26:00 DIS Emergency JUAN HIGGINS DO [facility] ER FALL/LEFT RIB PAIN [id number] 02/26/2015 14:20:00 Document Registration [id number] 02/26/2015 14:20:00 Document Registration [id number] 02/26/2015 14:20:00 Document Registration [id number] 02/26/2015 14:20:00 Document Registration [id number] 02/26/2015 14:20:00 Document Registration [id number] 02/26/2015 14:20:00 Document Registration [id number] 08/21/2014 16:15:00 Document Registration [id number] 08/04/2011 14:10:00 Document Registration [id number] 04/22/2010 05:36:00 Document Registration [id number] 04/21/2010 09:13:00 Document Registration [id number] 03/26/2010 16:03:00 Document Registration [id number] 09/10/2009 12:51:00 Document Registration
[2017-11-06 09:44] VITALS: BP 136/72
== END 2017-11-06 09:44 | disposition home or self-care (01) ==
LOC: EDUNIT# 09:23 → ER 09:24
DX: S01.81XD Laceration without foreign body of other part of head, subsequent encounter (principal); X58.XXXD Exposure to other specified factors, subsequent encounter

== ENCOUNTER 2018-06-10 18:22 | Emergency (ER) | payer MEDICARE | END 2018-06-10 19:24 | disposition home or self-care (01) | LOC: ER 18:22 ==

== ENCOUNTER 2018-07-03 11:57 | Inpatient (IN) | payer MEDICARE ==
[~2018-07-03] VITALS: Ht 165.1 cm; Wt 95.1 kg
[~2018-07-03 11:57] MED LIST changes: +CLON1TAB13 PO; +METF-397 PO; +METF-399 PO; -METF10002 PO; -METF500T5 PO
--- NOTE | 2018-07-03 11:57 | NUR ---
PATIENT PLACED ON 02 ON ADMIT REPORTS SHE WEARS 02 24HRS,BUT DID NOT HAVE IT ON ADMIT TO ED . SA02 89% ROOM AIR. PLACED ON 02 3L SA02 UP TO 94% AFTER BEING PLACED ON 02
[2018-07-03 12:12] LABS: BASOPHILS % (AUTO) 1 % (0-10); EOSINOPHILS # (AUTO) 0.4 10^3/uL (0.0-0.3); EOSINOPHILS % (AUTO) 5 % (0-10); HEMATOCRIT 39 % (35-52); HEMOGLOBIN 12.2 G/DL (11.5-16.0); LYMPHOCYTES # (AUTO) 1.7 X 10^3 (1.0-4.0); LYMPHOCYTES % (AUTO) 22 % (12-44); MEAN CORPUSCULAR HEMOGLOBIN 31 PG (25-34); MEAN CORPUSCULAR HGB CONC 32 G/DL (32-36); MEAN CORPUSCULAR VOLUME 97 FL (80-99); MEAN PLATELET VOLUME 10.6 FL (7.4-10.4); MONOCYTES # (AUTO) 0.6 X 10^3 (0.0-1.0); MONOCYTES % (AUTO) 8 % (0-12); NEUTROPHILS # (AUTO) 4.9 X 10^3 (1.8-7.8); NEUTROPHILS % (AUTO) 65 % (42-75); PLATELET COUNT 249 10^3/uL (130-400); RED CELL DISTRIBUTION WIDTH 13.8 % (10.0-14.5); WHITE BLOOD COUNT 7.5 10^3/uL (4.3-11.0)
[2018-07-03 12:21] LABS: INR 1.1 (0.8-1.4); PROTHROMBIN TIME PATIENT 13.8 SEC (12.2-14.7)
--- NOTE | 2018-07-03 12:26 | NUR ---
CALLED [facility]) ABOUT INTERGATION OF LENNY PORTER FROM [facility] RETURNED Jen FARIA WILL LOOK PATIENT UP.
[2018-07-03 12:31] LABS: ALANINE AMINOTRANSFERASE 10 U/L (0-55); ALBUMIN 4.1 GM/DL (3.2-4.5); ALKALINE PHOSPHATASE 63 U/L (40-136); BILIRUBIN,TOTAL 0.8 MG/DL (0.1-1.0); BUN/CREATININE RATIO 15; CALCIUM 9.6 MG/DL (8.5-10.1); CARBON DIOXIDE 21 MMOL/L (21-32); CHLORIDE 108 MMOL/L (98-107); CREATININE SERUM 1.33 MG/DL (0.60-1.30); GFR ESTIMATED 38; GLUCOSE 155 MG/DL (70-105); POTASSIUM 4.9 MMOL/L (3.6-5.0); SODIUM 140 MMOL/L (135-145); TOTAL PROTEIN 7.1 GM/DL (6.4-8.2)
--- NOTE | 2018-07-03 12:32 | ED General ---
General Chief Complaint: General Problems/Pain Stated Complaint: PACEMAKER ISSUES,SOA Source of Information: Patient Exam Limitations: No Limitations History of Present Illness Date Seen by Provider: Jul 03, 2018 Time Seen by Provider: 12:12 Initial Comments Here with report of shortness of air that it's been worsening over the last week as well as concerns about her pacemaker may be failing. She states that she can feel/hear buzzing and it will occasionally ring like a phone. Reports fevers at night. States that the pacemaker is about 10 years old although she wasn't sure about the exact date. States that she feels pain in the area of the left breast intermittently where she believes the pacemaker wires are through. Denies nausea or vomiting. Denies recent injuries but does have history of frequent falls. Seen in a few weeks back for fall and was evaluated at that time. States that she didn't think to call her paper cone grader because she thought that this should be evaluated at the hospital. Timing/Duration: 1 Week, Intermittent Severity: Mild, Moderate Associated Systoms: Chest Pain (occasional twinge at the left breast that she reports is related to the pacemaker. Currently pain-free); No Cough; Fever/ Chills; No Nausea/Vomiting; Shortness of Air; No Weakness Allergies and Home Medications Allergies Coded Allergies: No Known Drug Allergies (Unverified , 02/25/14) Home Medications Acetaminophen 325 Mg Tablet, 650 MG PO Q4H PRN for PAIN-MILD, (Reported) TAKES 2 (325MG) TABLETS Aspirin 81 Mg Tablet.dr, 81 MG PO HS, (Reported) Atorvastatin Calcium 40 Mg Tablet, 40 MG PO HS, (Reported) Carvedilol 6.25 Mg Tablet, 6.25 MG PO BID Prescribed by: JEWEL OSEGUERA on 06/09/17953 Clonazepam 1 Mg Tablet, 2 MG PO HS, (Reported) TAKES 2 (1MG) TABLETS Fluoxetine HCl 40 Mg Capsule, 40 MG PO HS, (Reported) Furosemide 40 Mg Tablet, 80 MG PO DAILY@0700 Prescribed by: JEWEL OSEGUERA on 06/09/17953 Glimepiride 2 Mg Tablet, 2 MG PO HS, (Reported) Lisinopril 10 Mg Tablet, 10 MG PO DAILY@0900 Prescribed by: JEWEL OSEGUERA on 06/09/17953 Metformin HCl 500 Mg Tablet, 1,000 MG PO HS, (Reported) TAKES 2 (500MG) TABLETS Potassium Chloride 10 Meq Tablet.er, 10 MEQ PO DAILY, (Reported) Patient Home Medication List Home Medication List Reviewed: Yes Review of Systems Review of Systems Constitutional: see HPI; No chills; fever; No weakness EENTM: no symptoms reported Respiratory: dyspnea on exertion, short of breath; No wheezing Cardiovascular: see HPI; No edema, No palpitations Gastrointestinal: No abdominal pain, No nausea, No vomiting Genitourinary: no symptoms reported Musculoskeletal: no symptoms reported Skin: no symptoms reported Psychiatric/Neurological: Anxiety; Denies Emotional Problems Hematologic/Lymphatic: No Symptoms Reported All Other Systems Reviewed Negative Unless Noted: Yes Past Ltvgdfh-Mrmeld-Crxzss Hx Past Med/Social Hx: Reviewed Nursing Past Med/Soc Hx Patient Social History Alcohol Use: Denies Use Recreational Drug Use: No Smoking Status: Never a Smoker Type Used: Cigarettes 2nd Hand Smoke Exposure: No Recent Foreign Travel: No Contact w/Someone Who Travel: No Recent Hopitalizations: No Immunizations Up To Date Tetanus Booster (TDap): Less than 5yrs PED Vaccines UTD: Yes Date of Pneumonia Vaccine: Sep 03, 2011 Date of Influenza Vaccine: Mar 07, 2017 Seasonal Allergies Seasonal Allergies: No Past Medical History Surgeries: Yes (2004 hemorrhoidectomy, breast reduction, right ovary removed) Breast, Cardiac, Coronary Stent, Defibrillator, Eye Surgery, Gallbladder, Hysterectomy, Joint Replacement, Oophorectomy, Orthopedic, Pacemaker, Rectal Respiratory: Yes (Has home O2 and wears infrequent at 2 L/M) COPD Cardiac: Yes (Pacemaker/DEFIB, stents x 2) Atrial Fibrillation, Cardiomyopathy, Chronic Edema/Swelling, Coronary Artery Disease, High Cholesterol, Hypertension, Peripheral Vascular Neurological: No 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 Disorders: No Female 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 Disorders: 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 Sexually Transmitted Disease: No HIV/AIDS: No Genitourinary: No Renal Failure Gastrointestinal: Yes Hemorrhoids Musculoskeletal: Yes Arthritis, Chronic Back Pain Endocrine: Yes (Type II) Diabetes, Non-Insulin dep HEENT: Yes Cataract Loss of Vision: Denies Hearing Impairment: Denies Cancer: No Psychosocial: Yes Depression Integumentary: No Blood Disorders: No Adverse Reaction/Blood Tranf: No Family Medical History Reviewed Nursing Family Hx Arthritis 19 FATHER 19 MOTHER G8 BROTHER G8 SISTER Asthma 19 FATHER Completed stroke G8 SISTER FH: COPD (chronic obstructive pulmonary disease) G8 SISTER FH: cancer 19 FATHER 19 MOTHER (stomach cancer ) G8 SISTER (LIVER- enio floya- breast cancer) FH: emphysema 19 FATHER G8 SISTER Glaucoma G8 SISTER Headache disorder G8 SISTER No Family History of: AIDS Abdominal aortic aneurysm Alcoholism Alzheimer's disease Cancer of mouth Cardiovascular disease Colon cancer Cystic fibrosis Deafness or hearing loss Dementia Diabetes mellitus Drug abuse Dysphasia Hypercholesterolemia Hypertension Kidney disease Myocardial infarction Parkinson's disease Prostate cancer Psychosocial problem Respiratory disorder Seizure disorder Severe allergy Thyroid disease Tuberculosis Physical Exam Vital Signs Vital Signs - First Documented 07/03/18 11:57 Temp 97.3 Pulse 73 Resp 18 B/P (MAP) 162/87 (112) Pulse Ox 89 O2 Delivery Room Air O2 Flow Rate 3.00 FiO2 89 Capillary Refill : Height, Weight, BMI Height: 5'5.00" Weight: 200lbs. 0.0oz. 90.562354hr; 28.12 BMI Method:Stated General Appearance: No Apparent Distress, WD/WN HEENT: PERRL/EOMI, Pharynx Normal Neck: Non Tender, Supple Respiratory: Lungs Clear, Normal Breath Sounds Cardiovascular: Regular Rate, Rhythm, No Murmur Gastrointestinal: Non Tender, Soft Back: Normal Inspection, No CVA Tenderness, No Vertebral Tenderness Extremity: Normal Range of Motion, Non Tender, No Calf Tenderness, No Pedal Edema Neurologic/Psychiatric: Alert, Oriented x3 Skin: Normal Color, Warm/Dry Procedures/Interventions Suture Size: 5-0 Progress/Results/Core Measures Suspected Sepsis SIRS Temperature: Pulse: Respiratory Rate: Laboratory Tests 07/03/18 12:06: White Blood Count 7.5 Blood Pressure / Mean: Laboratory Tests 07/03/18 12:06: Creatinine 1.33H, INR Comment 1.1, Platelet Count 249, Total Bilirubin 0.8 Results/Orders Lab Results Laboratory Tests Test 07/03/18 12:06 07/03/18 13:34 Range/Units White Blood Count 7.5 4.3-11.0 10^3/uL Red Blood Count 3.97 L 4.35-5.85 10^6/uL Hemoglobin 12.2 11.5-16.0 G/DL Hematocrit 39 35-52 % Mean Corpuscular Volume 97 80-99 FL Mean Corpuscular Hemoglobin 31 25-34 PG Mean Corpuscular Hemoglobin Concent 32 32-36 G/DL Red Cell Distribution Width 13.8 10.0-14.5 % Platelet Count 249 130-400 10^3/uL Mean Platelet Volume 10.6 H 7.4-10.4 FL Neutrophils (%) (Auto) 65 42-75 % Lymphocytes (%) (Auto) 22 12-44 % Monocytes (%) (Auto) 8 0-12 % Eosinophils (%) (Auto) 5 0-10 % Basophils (%) (Auto) 1 0-10 % Neutrophils # (Auto) 4.9 1.8-7.8 X 10^3 Lymphocytes # (Auto) 1.7 1.0-4.0 X 10^3 Monocytes # (Auto) 0.6 0.0-1.0 X 10^3 Eosinophils # (Auto) 0.4 H 0.0-0.3 10^3/uL Basophils # (Auto) 0.0 0.0-0.1 10^3/uL Prothrombin Time 13.8 12.2-14.7 SEC INR Comment 1.1 0.8-1.4 Activated Partial Thromboplast Time 29 24-35 SEC Sodium Level 140 135-145 MMOL/L Potassium Level 4.9 3.6-5.0 MMOL/L Chloride Level 108 H 98-107 MMOL/L Carbon Dioxide Level 21 21-32 MMOL/L Anion Gap 11 5-14 MMOL/L Blood Urea Nitrogen 20 H 7-18 MG/DL Creatinine 1.33 H 0.60-1.30 MG/DL Estimat Glomerular Filtration Rate 38 BUN/Creatinine Ratio 15 Glucose Level 155 H 70-105 MG/DL Calcium Level 9.6 8.5-10.1 MG/DL Corrected Calcium 9.5 8.5-10.1 MG/DL Magnesium Level 2.0 1.8-2.4 MG/DL Total Bilirubin 0.8 0.1-1.0 MG/DL Aspartate Amino Transf (AST/SGOT) 16 5-34 U/L Alanine Aminotransferase (ALT/SGPT) 10 0-55 U/L Alkaline Phosphatase 63 40-136 U/L Myoglobin 32.8 10.0-92.0 NG/ML Troponin I < 0.028 <0.028 NG/ML B-Type Natriuretic Peptide 832.7 H <100.0 PG/ML Total Protein 7.1 6.4-8.2 GM/DL Albumin 4.1 3.2-4.5 GM/DL My Orders Orders - EBONI VINES MD Furosemide Injection (Lasix Injection) (07/03/18 13:33) Vital Signs/I&O 07/03/18 07/03/18 07/03/18 11:57 11:57 13:04 Temp 97.3 Pulse 73 66 Resp 18 18 B/P (MAP) 162/87 (112) 141/70 (93) Pulse Ox 89 95 O2 Delivery Room Air Nasal Cannula Nasal Cannula O2 Flow Rate 3.00 3.00 FiO2 89 Capillary Refill : Progress Note : Progress Note Seen and evaluated. IV, labs, EKG and chest x-ray ordered. ASA 324 mg by mouth ordered. We will work to get pacemaker evaluated/interrogated. Monitor patient. 1347: I did discuss the case with Dr. LOZANO 1333 and accepts patient for admission, inpatient status due to findings of heart failure. Lasix 40 mg IV ordered and given. Dr. Wiseman is her primary paper cone grader he is out of town currently. I did discuss the case with Dr. Enriquez on-call for cardiology. He agrees with Lasix and recommends echocardiogram in the morning. This was ordered. The pacemaker will be interrogated and we are pending arrival of the team. Admit, inpatient status. Patient agrees with plan. ECG Initial ECG Impression Date: Jul 03, 2018 Initial ECG Impression Time: 11:59 Initial ECG Rate: 73 Comment Atrial rhythm with prolonged AL interval. Left bundle branch block. No evidence of ST elevation IN. Similar to 06/08/17. Interpreted by me. Diagnostic Imaging Diagonstic Imaging: Xray Plain Films/CT/US/NM/MRI: chest Comments [facility] [place], [place] NAME: MARYBRANDEN J MED REC#: [id number] PT STATUS: REG ER : 1935 PHYSICIAN: JAZMYNE WHITEHEAD APRN ADMIT DATE: 07/03/18/ER Draft Date of Exam:07/03/18 CHEST 1 VIEW, AP/PA ONLY INDICATION: Pacemaker. Shortness of breath COMPARISON: 09/28/2017 FINDINGS: Single view of the chest demonstrates cardiac enlargement with central vascular congestion and borderline pulmonary edema. There is no pneumothorax or effusion. Pacemaker is stable. Osseous structures are age-appropriate. IMPRESSION: Cardiac enlargement with central vascular congestion and borderline pulmonary edema. Dictated on workstation # [id number] Dict: 07/03/18 1228 Trans: 07/03/18 1232 [facility] [id number] Interpreted by: PEPE WATSON Electronically signed by: Departure Communication (Admissions) Time/Spoke to Admitting Phy: 13:33 Time/Spoke to Consulting Phy: 13:46 Impression Primary Impression: Acute heart failure Qualified Codes: I50.9 - Heart failure, unspecified Additional Impression: Pacemaker complications Qualified Codes: T82.9XXA - Unspecified complication of cardiac and vascular prosthetic device, implant and graft, initial encounter Disposition: ADMITTED INPATIENT Condition: Stable Admissions Decision to Admit Reason: Admit from ER (General) Decision to Admit/Date: Jul 03, 2018 Time/Decision to Admit Time: 13:33 Departure-Patient Inst. Referrals: SHANE LOZANO MD (PCP/Family) Primary Care Physician EBONI VINES MD Jul 03, 2018 12:32
--- NOTE | 2018-07-03 12:35 | NUR ---
[facility] FROM [facility] CALLED BACK WILL COME TO DO INTERGATION COMING FROM [facility] WILL TAKE APX 2 HRS TO GET HERE.
[2018-07-03 12:38] LABS: MYOGLOBIN SERUM 32.8 NG/ML (10.0-92.0)
[2018-07-03 13:04] VITALS: BP 141/70
--- NOTE | 2018-07-03 13:32 | NUR ---
TO ROOM PATIENT REPORTS THAT SHE IS FEELING BETTER INFORMED THAT SHE IS WATING ON STAFF FROM [facility] TO DO INTERGATION
[2018-07-03] MEDS ORDERED: FUROSEMIDE 40 MG/4 ML INJ (LASIX) IV STA (13:33)
--- NOTE | 2018-07-03 13:56 | NUR ---
CALLED FOR ROOM OBTAINED,BUT IS BEING CLEANED WILL BE APX 1430 BEFORE IT IS READY PER STAFF ON FLOOR.
--- OUTSIDE RECORDS SUMMARY | 2018-07-03 14:06 | XMS REPORT | Continuity of Care Document ---
Author Author [facility] Organization [facility] Address Unknown Phone Unavailable Allergies Active Description Code Type Severity Reaction Onset Reported/Identified Relationship to Patient Clinical Status Yes No Known Drug Allergies [id number] Drug Allergy Unknown N/A 02/25/2014 Medications There [...] NOS 08/05/2011 Ot 414.01 CORONARY ATHEROSCLEROSIS OF [place] CORON 08/05/2011 Ot 425.4 PRIM CARDIOMYOPATHY NEC [...] NOS 08/14/2011 Ot 414.01 CORONARY ATHEROSCLEROSIS OF [place] CORON 08/14/2011 Ot 414.8 CHR ISCHEMIC HRT [...] LOZANO MD Ot 414.01 CORONARY ATHEROSCLEROSIS OF [place] CORON 08/12/2013 SHANE LOZANO MD Ot 425.4 PRIM CARDIOMYOPATHY NEC 08/12/2013 SHANE LOZANO MD Ot 428.0 CONGESTIVE HEART FAILURE NOS 08/12/2013 SHANE LOZANO MD Ot 428.43 ACUTE CHRONIC SYSTOLIC/DIALSTOLIC HRT FA 08/12/2013 SHANE LOZANO MD Ot 496 CHR AIRWAY OBSTRUCT NEC 08/12/2013 SHNAE LOZANO MD Ot 585.3 CHRONIC KIDNEY DISEASE, [...] Fajardo Ot 285.1 AC POSTHEMORRHAG ANEMIA 02/25/2014 YAYR DO KINDRA F Ot 311 DEPRESSIVE DISORDER [...] MD E Ot 414.01 CORONARY ATHEROSCLEROSIS OF [place] CORON 02/28/2014 GORDON NGUYEN MD Ot 425.4 [...] RANGEL DOI Ot 414.01 CORONARY ATHEROSCLEROSIS OF [place] CORON 07/02/2014 SAEID RANGEL DOI Ot 414.8 [...] BRONCHITIS WITH ACUT 07/02/2014 JUAN CARLOS COATES CRISTIAN Ot 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, W (ACUTE) [...] NOS 08/23/2014 Ot 414.01 CORONARY ATHEROSCLEROSIS OF [place] CORON 08/23/2014 Ot 428.0 CONGESTIVE HEART FAILURE [...] V72.63 02/26/2015 Ot V72.81 02/26/2015 BAIMAJEWEL L UNDERWRITING DIRECTOR Ot 272.4 02/26/2015 BAIMAJEWEL L UNDERWRITING DIRECTOR Ot 396.3 02/26/2015 BAIMAJEWEL L UNDERWRITING DIRECTOR Ot 401.9 02/26/2015 BAIMAASHLEEJEWEL L UNDERWRITING DIRECTOR Ot 414.00 02/26/2015 BAIMAJEWEL L UNDERWRITING DIRECTOR Ot 425.4 02/26/2015 YARY DO, KINDRA F Ot 715.36 02/26/2015 YARY DO, KINDRA F Ot V72.63 02/26/2015 YARY DO, KINDRA F Ot V72.83 02/26/2015 YARY DO, KINDRA F Ot V74.8 02/26/2015 MAYELIN OWENS MACHINE CANDLE MOLDER Ot 729.81 02/26/2015 MAYELIN OWENS MACHINE CANDLE MOLDER Ot V43.65 02/26/2015 KATHY VANN FACC, ALI [...] Fajardo Ot V58.83 03/20/2015 BAIMA, JEWEL L UNDERWRITING DIRECTOR Ot 272.4 03/20/2015 BAIMA, JEWEL L UNDERWRITING DIRECTOR Ot 401.9 03/20/2015 BAIMA, JEWEL L UNDERWRITING DIRECTOR Ot 414.9 03/20/2015 BAIMA, JEWEL L UNDERWRITING DIRECTOR Ot 425.4 03/20/2015 BAIMA, JEWEL L UNDERWRITING DIRECTOR Ot 447.9 03/28/2015 BAIMA, JEWEL L UNDERWRITING DIRECTOR Ot 272.4 03/28/2015 BAIMA, JEWEL L UNDERWRITING DIRECTOR Ot 401.9 03/28/2015 BAIMA, JEWEL L UNDERWRITING DIRECTOR Ot 414.9 03/28/2015 BAIMA, JEWEL L UNDERWRITING DIRECTOR Ot 425.4 03/28/2015 BAIMA, JEWEL L UNDERWRITING DIRECTOR Ot 447.9 11/06/2015 JOVANNA FLETCHER MD Ot [...] EXAM-PRE- OPERATIVE CARDIOVASCULAR 01/20/2016 BAIMA, JEWEL L UNDERWRITING DIRECTOR Ot 272.4 HYPERLIPIDEMIA NEC/NOS 01/20/2016 BAIMA, JEWEL L UNDERWRITING DIRECTOR Ot 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 01/20/2016 JEWEL OSEGUERA UNDERWRITING DIRECTOR Ot 401.9 HYPERTENSION NOS 01/20/2016 JEWEL OSEGUERA UNDERWRITING DIRECTOR Ot 414.00 CORON ATHEROSCLER NOS TYPE VESSEL, NATIV 01/20/2016 JEWEL OSEGUERA UNDERWRITING DIRECTOR Ot 425.4 PRIM CARDIOMYOPATHY NEC 01/20/2016 KINDRA PRINGLE DO Ot 715.36 LOC OSTEOARTH NOS-L/LEG 01/20/2016 KINDRA PRINGLE DO Ot V72.63 PRE-PROCEDURAL LABORATORY EXAMINATION 01/20/2016 KINDRA PRINGLE DO Ot V72.83 EXAM PRE-OPERATIVE NEC 01/20/2016 KINDRA PRINGLE DO Ot V74.8 SCREEN-BACTERIAL DIS NEC 01/20/2016 MAYELIN OWENS MACHINE CANDLE MOLDER Ot 729.81 SWELLING OF LIMB 01/20/2016 MAYELIN OWENS MACHINE CANDLE MOLDER Ot V43.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 01/20/2016 [...] FOR THERAPEUTIC DRUG MONITORIN 01/20/2016 JEWEL OSEGUERA UNDERWRITING DIRECTOR Ot 272.4 HYPERLIPIDEMIA NEC/NOS 01/20/2016 JEWEL OSEGUERA UNDERWRITING DIRECTOR Ot 401.9 HYPERTENSION NOS 01/20/2016 EDOUARDJEWEL WADE L UNDERWRITING DIRECTOR Ot 414.9 CHR ISCHEMIC HRT DIS NOS 01/20/2016 EDOUARDJEWEL WADE UNDERWRITING DIRECTOR Ot 425.4 PRIM CARDIOMYOPATHY NEC 01/20/2016 EDOUARDJEWEL WADE UNDERWRITING DIRECTOR Ot 447.9 ARTERIAL DISEASE NOS 01/20/2016 JAZMYNE [...] (TRAUMATIC), INIT FOR 01/22/2016 WHITEHEAD, PETER J MACHINE CANDLE MOLDER Ot W01.0XXA FALL SAME LEV FROM SLIP/TRIP W/O STRIKE 01/22/2016 JAZMYNE WHITEHEAD MACHINE CANDLE MOLDER Ot Y92.[address] OF OCCURRENCE OF T 01/22/2016 JAZMYNE WHITEHEAD MACHINE CANDLE MOLDER Ot Y99.8 OTHER EXTERNAL CAUSE STATUS 01/22/2016 JAZMYNE WHITEHEAD MACHINE CANDLE MOLDER Ot Z23 ENCOUNTER FOR IMMUNIZATION 01/22/2016 JAZMYNE WHITEHEAD MACHINE CANDLE MOLDER Ot Z95.0 PRESENCE OF CARDIAC PACEMAKER 03/07/2016 [...] V72.81 EXAM-PRE- OPERATIVE CARDIOVASCULAR 10/26/2016 JEWEL OSEGUERA UNDERWRITING DIRECTOR Ot 272.4 HYPERLIPIDEMIA NEC/NOS 10/26/2016 BAIMAJEWEL UNDERWRITING DIRECTOR Ot 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 10/26/2016 JEWEL OSEGUERA UNDERWRITING DIRECTOR Ot 401.9 HYPERTENSION NOS 10/26/2016 BAIMAJEWEL UNDERWRITING DIRECTOR Ot 414.00 CORON ATHEROSCLER NOS TYPE VESSEL, NATIV 10/26/2016 JEWEL OSEGUERA UNDERWRITING DIRECTOR Ot 425.4 PRIM CARDIOMYOPATHY NEC 10/26/2016 KINDRA PRINGLE DO Ot 715.36 LOC OSTEOARTH NOS-L/LEG 10/26/2016 KINDRA PRINGLE DO Ot V72.63 PRE-PROCEDURAL LABORATORY EXAMINATION 10/26/2016 KINDRA PRINGLE DO Ot V72.83 EXAM PRE-OPERATIVE NEC 10/26/2016 KINDRA PRINGLE DO Ot V74.8 SCREEN-BACTERIAL DIS NEC 10/26/2016 MAYELIN OWENS MACHINE CANDLE MOLDER Ot 729.81 SWELLING OF LIMB 10/26/2016 MAYELIN OWENS MACHINE CANDLE MOLDER Ot V43.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 10/26/2016 [...] FOR THERAPEUTIC DRUG MONITORIN 10/26/2016 JEWEL OSEGUERA UNDERWRITING DIRECTOR Ot 272.4 HYPERLIPIDEMIA NEC/NOS 10/26/2016 JEWEL OSEGUERA UNDERWRITING DIRECTOR Ot 401.9 HYPERTENSION NOS 10/26/2016 JEWEL OSEGUERA UNDERWRITING DIRECTOR Ot 414.9 CHR ISCHEMIC HRT DIS NOS 10/26/2016 JEWEL OSEGUERA UNDERWRITING DIRECTOR Ot 425.4 PRIM CARDIOMYOPATHY NEC 10/26/2016 EDOUARDMAURO JEWEL L UNDERWRITING DIRECTOR Ot 447.9 ARTERIAL DISEASE NOS 10/27/2016 JOVANNA [...] MD Ot I25.10 ATHSCL HEART DISEASE OF [place] CORONARY 10/28/2016 JOVANNA FLETCHER MD Ot I25.5 [...] RESUSCITATE 10/28/2016 JOVANNA FLETCHER MD Ot Z79.84 SENIOR LIVING (CURRENT) USE OF ORAL HYPOGLYC 10/28/2016 JOVANNA FLETCHER MD Ot Z87.891 PERSONAL HISTORY OF NICOTINE DEPENDENCE 10/28/2016 JOVANNA FELTCHER MD, Ot Z91.19 PATIENT'S NONCOMPLIANCE W [facility] TR 10/28/2016 JOVANNA FLETCHER MD, Ot Z91.81 HISTORY OF FALLING 10/28/2016 JOVANNA FLETCHER MD, Ot Z95.5 PRESENCE OF CORONARY ANGIOPLASTY IMPLANT 10/28/2016 JOVANNA FLETCHER MD, Ot Z95.810 PRESENCE OF AUTOMATIC (IMPLANTABLE) CARD 10/28/2016 JOVANNA LFETCHER MD, Ot 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 OXYGEN [...] MD, Ot I25.10 ATHSCL HEART DISEASE OF [place] CORONARY 10/29/2016 JOVANNA FLETCHER MD, Ot I25.5 [...] RESUSCITATE 10/29/2016 JOVANNA FLETCHER MD, Ot Z79.84 SENIOR LIVING (CURRENT) USE OF ORAL HYPOGLYC 10/29/2016 JOVANNA [...] MD, Ot I25.10 ATHSCL HEART DISEASE OF [place] CORONARY 10/29/2016 JOVANNA FLETCHER MD, Ot I25.5 [...] RESUSCITATE 10/29/2016 JOVANNA FLETCHER MD, Ot Z79.84 SENIOR LIVING (CURRENT) USE OF ORAL HYPOGLYC 10/29/2016 JOVANNA FLETCHER MD Ot Z87.891 PERSONAL HISTORY OF NICOTINE DEPENDENCE 10/29/2016 JOVANNA FLETCHER MD Ot Z91.19 PATIENT'S NONCOMPLIANCE W [facility] 10/29/2016 JOVANNA FLETCHER MD, Ot Z91.81 HISTORY OF FALLING 10/29/2016 JOVANNA FLETCHER MD Ot Z95.5 PRESENCE OF CORONARY ANGIOPLASTY IMPLANT 10/29/2016 JOVANNA FLETCHER MD Ot Z95.810 PRESENCE OF AUTOMATIC (IMPLANTABLE) CARD 10/29/2016 JOVANNA FLETCHER MD Ot 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 OXYGEN 06/08/2017 JEWEL OSEGUERA UNDERWRITING DIRECTOR Ot 272.4 HYPERLIPIDEMIA NEC/NOS 06/08/2017 JEWEL OSEGUERA UNDERWRITING DIRECTOR Ot 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 06/08/2017 JEWEL OSEGUERA UNDERWRITING DIRECTOR Ot 401.9 HYPERTENSION NOS 06/08/2017 JEWEL OSEGUERA UNDERWRITING DIRECTOR Ot 414.00 CORON ATHEROSCLER NOS TYPE VESSEL, NATIV 06/08/2017 JEWEL OSEGUERA UNDERWRITING DIRECTOR Ot 425.4 PRIM CARDIOMYOPATHY NEC 06/08/2017 KINDRA PRINGLE DO Ot 715.36 LOC OSTEOARTH NOS-L/LEG 06/08/2017 KINDRA PRINGLE DO Ot V72.63 PRE-PROCEDURAL LABORATORY EXAMINATION 06/08/2017 KINDRA PRINGLE DO Ot V72.83 EXAM PRE-OPERATIVE NEC 06/08/2017 KINDRA PRINGLE DO Ot V74.8 SCREEN-BACTERIAL DIS NEC 06/08/2017 MAYELIN OWENS MACHINE CANDLE MOLDER Ot 729.81 SWELLING OF LIMB 06/08/2017 MAYELIN OWENS MACHINE CANDLE MOLDER Ot V43.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 06/08/2017 [...] FOR THERAPEUTIC DRUG MONITORIN 06/08/2017 JEWEL OSEGUERA UNDERWRITING DIRECTOR Ot 272.4 HYPERLIPIDEMIA NEC/NOS 06/08/2017 JEWEL OSEGUERA UNDERWRITING DIRECTOR Ot 401.9 HYPERTENSION NOS 06/08/2017 JEWEL OSEGUERA UNDERWRITING DIRECTOR Ot 414.9 CHR ISCHEMIC HRT DIS NOS 06/08/2017 JEWEL OSEGUERA UNDERWRITING DIRECTOR Ot 425.4 PRIM CARDIOMYOPATHY NEC 06/08/2017 JEWEL OSEGUERA UNDERWRITING DIRECTOR Ot 447.9 ARTERIAL DISEASE NOS 06/08/2017 EJWEL OSEGUERA UNDERWRITING DIRECTOR Ot 272.4 HYPERLIPIDEMIA NEC/NOS 06/08/2017 JEWEL OSEGUERA UNDERWRITING DIRECTOR Ot 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 06/08/2017 EDOUARDJEWEL WADE UNDERWRITING DIRECTOR Ot 401.9 HYPERTENSION NOS 06/08/2017 JEWEL OSEGUERA UNDERWRITING DIRECTOR Ot 414.00 CORON ATHEROSCLER NOS TYPE VESSEL, NATIV 06/08/2017 JEWEL OSEGUERA UNDERWRITING DIRECTOR Ot 425.4 PRIM CARDIOMYOPATHY NEC 06/08/2017 KINDRA PRINGLE DO Ot 715.36 LOC OSTEOARTH NOS-L/LEG 06/08/2017 KINDRA PRINGLE DO Ot V72.63 PRE-PROCEDURAL LABORATORY EXAMINATION 06/08/2017 KINDRA PRINGLE DO Ot V72.83 EXAM PRE-OPERATIVE NEC 06/08/2017 KINDRA PRINGLE DO Ot V74.8 SCREEN-BACTERIAL DIS NEC 06/08/2017 MAYELIN OWENS MACHINE CANDLE MOLDER Ot 729.81 SWELLING OF LIMB 06/08/2017 MAYELIN OWENS MACHINE CANDLE MOLDER Ot V43.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 06/08/2017 [...] FOR THERAPEUTIC DRUG MONITORIN 06/08/2017 JEWEL OSEGUERA UNDERWRITING DIRECTOR Ot 272.4 HYPERLIPIDEMIA NEC/NOS 06/08/2017 JEWEL OSEGUERA UNDERWRITING DIRECTOR Ot 401.9 HYPERTENSION NOS 06/08/2017 JEWEL OSEGUERA UNDERWRITING DIRECTOR Ot 414.9 CHR ISCHEMIC HRT DIS NOS 06/08/2017 JEWEL OSEGUERA UNDERWRITING DIRECTOR Ot 425.4 PRIM CARDIOMYOPATHY NEC 06/08/2017 BAIMA JEWEL L UNDERWRITING DIRECTOR Ot 447.9 ARTERIAL DISEASE NOS 06/09/2017 JUAN [...] DO, CRISTINA Ot Z91.19 PATIENT'S NONCOMPLIANCE W [facility] 06/09/2017 RANGEL DO, CRISTINA Ot [...] DO, CRISTINA Ot Z91.19 PATIENT'S NONCOMPLIANCE W [facility] 06/30/2017 RANGEL DO, CRISTINA Ot [...] COATES CRISTINA Ot Z91.19 PATIENT'S NONCOMPLIANCE W [facility] 06/30/2017 JUAN CARLOS COATES CRISTINA [...] MD Ot I25.10 ATHSCL HEART DISEASE OF [place] CORONARY 10/29/2017 CARO LOYOLA MD Ot I42.9 [...] O 10/29/2017 CARO LOYOLA MD, Ot Z79.82 MANAGER WINTER (CURRENT) USE OF ASPIRIN 10/29/2017 CARO LOYOLA MD Ot Z79.84 SENIOR LIVING (CURRENT) USE OF ORAL HYPOGLYC 10/29/2017 CARO [...] DEPENDENCE ON SUPPLEMENTAL OXYGEN 11/03/2017 JEWEL OSEGUERA UNDERWRITING DIRECTOR Ot 272.4 HYPERLIPIDEMIA NEC/NOS 11/03/2017 JEWEL OSEGUERA UNDERWRITING DIRECTOR Ot 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 11/03/2017 JEWEL OSEGUERA UNDERWRITING DIRECTOR Ot 401.9 HYPERTENSION NOS 11/03/2017 JEWEL OSEGUERA UNDERWRITING DIRECTOR Ot 414.00 CORON ATHEROSCLER NOS TYPE VESSEL, NATIV 11/03/2017 JEWEL OSEGUERA UNDERWRITING DIRECTOR Ot 425.4 PRIM CARDIOMYOPATHY NEC 11/03/2017 YARY DO, KINDRA F Ot 715.36 LOC OSTEOARTH NOS-L/LEG 11/03/2017 YARY , KINDRA F Ot V72.63 PRE-PROCEDURAL LABORATORY EXAMINATION 11/03/2017 YARY COATES KINDRA F Ot V72.83 EXAM PRE-OPERATIVE NEC 11/03/2017 YARY COATES KINDRA F Ot V74.8 SCREEN-BACTERIAL DIS NEC 11/03/2017 MAYELIN OWENS MACHINE CANDLE MOLDER Ot 729.81 SWELLING OF LIMB 11/03/2017 MAYELIN OWENS MACHINE CANDLE MOLDER Ot V43.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 11/03/2017 [...] FOR THERAPEUTIC DRUG MONITORIN 11/03/2017 JEWEL OSEGUERA UNDERWRITING DIRECTOR Ot 272.4 HYPERLIPIDEMIA NEC/NOS 11/03/2017 BAIJEWEL WADE UNDERWRITING DIRECTOR Ot 401.9 HYPERTENSION NOS 11/03/2017 JEWEL OSEGUERA UNDERWRITING DIRECTOR Ot 414.9 CHR ISCHEMIC HRT DIS NOS 11/03/2017 JEWEL OSEGUERA UNDERWRITING DIRECTOR Ot 425.4 PRIM CARDIOMYOPATHY NEC 11/03/2017 BAIJEWEL WADE UNDERWRITING DIRECTOR Ot 447.9 ARTERIAL DISEASE NOS 11/06/2017 BASILJEAN PIERRE Stafford DO Ot S01.81XD LACERATION W/O FOREIGN BODY OF OTH PART 11/06/2017 BASILJEAN PIERRE Stafford DO Ot X58.XXXD EXPOSURE TO OTHER SPECIFIED FACTORS, SUB 11/08/2017 BASIL JEAN PIERRE COATES Ot S01.81XD LACERATION W/O FOREIGN BODY OF OTH PART 11/08/2017 BASIL , JEAN PIERRE Pollock Ot X58.XXXD EXPOSURE TO OTHER SPECIFIED FACTORS, SUB 06/13/2018 JAZMYNE WHITEHEAD APRN Ot E11.51 TYPE 2 DIABETES W DIABETIC PERIPHERAL AN 06/13/2018 JAZMYNE WHITEHEAD APRN Ot E78.00 PURE HYPERCHOLESTEROLEMIA, UNSPECIFIED 06/13/2018 JAZMYNE WHITEHEAD APRN Ot F32.9 MAJOR DEPRESSIVE DISORDER, SINGLE EPISOD 06/13/2018 JAZMYNE WHITEHEAD APRN Ot I10 ESSENTIAL (PRIMARY) HYPERTENSION 06/13/2018 JAZMYNE WHITEHEAD APRN Ot I25.10 ATHSCL HEART DISEASE OF [place] CORONARY 06/13/2018 JAZMYNE WHITEHEAD APRN Ot I42.9 CARDIOMYOPATHY, UNSPECIFIED 06/13/2018 JAZMYNE WHITEHEAD APRN Ot I48.91 UNSPECIFIED ATRIAL FIBRILLATION 06/13/2018 JAZMYNE WHITEHEAD APRN Ot I73.9 PERIPHERAL VASCULAR DISEASE, UNSPECIFIED 06/13/2018 JAZMYNE WHITEHEAD APRN Ot J44.9 CHRONIC OBSTRUCTIVE PULMONARY DISEASE, U 06/13/2018 JAZMYNE WHITEHEAD APRN Ot R40.2142 COMA SCALE, EYES OPEN, SPONTANEOUS, EMR 06/13/2018 JAZMYNE WHITEHEAD APRN Ot R40.2252 COMA SCALE, BEST VERBAL RESPONSE, ORIENT 06/13/2018 JAZMYNE WHITEHEAD APRN Ot R40.2362 COMA SCALE, BEST MOTOR RESPONSE, OBEYS C 06/13/2018 JAZMYNE WHITEHEAD APRN Ot R51 HEADACHE 06/13/2018 JAZMYNE WHITEHEAD APRN Ot S01.112A LACERATION W/O FB OF LEFT EYELID AND PER 06/13/2018 JAZMYNE WHITEHEAD APRN Ot W01.198A FALL SAME LEV FROM SLIP/TRIP W STRIKE AG 06/13/2018 JAZMYNE WHITEHEAD APRN Ot Z79.4 MANAGER WINTER (CURRENT) USE OF INSULIN 06/13/2018 JAZMYNE WHITEHEAD APRN Ot Z79.82 SENIOR LIVING (CURRENT) USE OF ASPIRIN 06/13/2018 JAZMYNE WHITEHEAD APRN Ot Z80.0 FAMILY HISTORY OF MALIGNANT NEOPLASM OF 06/13/2018 JAZMYNE WHITEHEAD APRN Ot Z87.19 PERSONAL HISTORY OF OTHER DISEASES OF TH 06/13/2018 JAZMYNE WHITEHEAD APRN Ot Z87.448 PERSONAL HISTORY OF OTHER DISEASES OF UR 06/13/2018 JAZMYNE WHITEHEAD APRN Ot Z90.710 ACQUIRED ABSENCE OF BOTH CERVIX AND UTER 06/13/2018 JAZMYNE WHITEHEAD APRN Ot Z90.89 ACQUIRED ABSENCE OF OTHER ORGANS 06/13/2018 JAZMYNE WHITEHEAD APRN Ot Z95.5 PRESENCE OF CORONARY ANGIOPLASTY IMPLANT 06/13/2018 JAZMYNE WHITEHEAD APRN Ot Z95.810 PRESENCE OF AUTOMATIC (IMPLANTABLE) CARD 06/13/2018 JAZMYNE WHITEHEAD APRN Ot 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 OXYGEN Procedures [...] REPLACEMENT 02/20/2014 81.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 11/20/2014 [id number] MEASURE OF CARDIAC SAMPL PRESSURE, L H 10/27/2016 [id number] FLUOROSCOPY OF MULT COR ART USING L OSM 10/27/2016 [id number] FLUOROSCOPY OF LEFT HEART USING LOW OSMO [...] 103 mmol/L 98-107 Carbon dioxide 24 mmol/L -32 Serum or plasma anion gap determination (moles/volume) [...] 102 mmol/L 98-107 Carbon dioxide 20 mmol/L -32 Serum or plasma anion gap determination (moles/volume) [...] urine sediment by light microscopy 2-5 NRG Complete blood count (CBC) with automated white blood cell (WBC) differential - 07/03/18 12:06 Blood leukocytes automated count (number/volume) 7.5 10*3/uL 4.3-11.0 Blood erythrocytes automated count (number/volume) 3.97 10*6/uL 4.35-5.85 Venous blood hemoglobin measurement (mass/volume) 12.2 g/dL 11.5-16.0 Blood hematocrit (volume fraction) 39 % 35-52 Automated erythrocyte mean corpuscular volume 97 [foz_us] 80-99 Automated erythrocyte mean corpuscular hemoglobin (mass per erythrocyte) 31 pg 25-34 Automated erythrocyte mean corpuscular hemoglobin concentration measurement ( mass/volume) 32 g/dL 32-36 Automated erythrocyte distribution width ratio 13.8 % 10.0-14.5 Automated blood platelet count (count/volume) 249 10*3/uL 130-400 Automated blood platelet mean volume measurement 10.6 [foz_us] 7.4-10.4 Automated blood neutrophils/100 leukocytes 65 % 42-75 Automated blood lymphocytes/100 leukocytes 22 % 12-44 Blood monocytes/100 leukocytes 8 % 0-12 Automated blood eosinophils/100 leukocytes 5 % 0-10 Automated blood basophils/100 leukocytes 1 % 0-10 Blood neutrophils automated count (number/volume) 4.9 10*3 1.8-7.8 Blood lymphocytes automated count (number/volume) 1.7 10*3 1.0-4.0 Blood monocytes automated count (number/volume) 0.6 10*3 0.0-1.0 Automated eosinophil count 0.4 10*3/uL 0.0-0.3 Automated blood basophil count (count/volume) 0.0 10*3/uL 0.0-0.1 PT panel in platelet poor plasma by coagulation assay - 07/03/18 12:06 Prothrombin time (PT) in platelet poor plasma by coagulation assay 13.8 s 12.2-14.7 INR in platelet poor plasma or blood by coagulation assay 1.1 0.8-1.4 Activated partial thromboplastin time (aPTT) in platelet poor plasma bycoagulation assay - 07/03/18 12:06 Activated partial thromboplastin time (aPTT) in platelet poor plasma bycoagulation assay 29 s 24-35 Comprehensive metabolic panel - 07/03/18 12:06 Serum or plasma sodium measurement (moles/volume) 140 mmol/L 135-145 Serum or plasma potassium measurement (moles/volume) 4.9 mmol/L 3.6-5.0 Serum or plasma chloride measurement (moles/volume) 108 mmol/L 98-107 Carbon dioxide 21 mmol/L 21-32 Serum or plasma anion gap determination (moles/volume) 11 mmol/L 5-14 Serum or plasma urea nitrogen measurement (mass/volume) 20 mg/dL 7-18 Serum or plasma creatinine measurement (mass/volume) 1.33 mg/dL 0.60-1.30 Serum or plasma urea nitrogen/creatinine mass ratio 15 NRG Serum or plasma creatinine measurement with calculation of estimated glomerular filtration rate 38 NRG Serum or plasma glucose measurement (mass/volume) 155 mg/dL 70-105 Serum or plasma calcium measurement (mass/volume) 9.6 mg/dL 8.5-10.1 Serum or plasma total bilirubin measurement (mass/volume) 0.8 mg/dL 0.1-1.0 Serum or plasma alkaline phosphatase measurement (enzymatic activity/volume) 63 U/L 40-136 Serum or plasma aspartate aminotransferase measurement (enzymatic activity/ volume) 16 U/L 5-34 Serum or plasma alanine aminotransferase measurement (enzymatic activity/volume ) 10 U/L 0-55 Serum or plasma protein measurement (mass/volume) 7.1 g/dL 6.4-8.2 Serum or plasma albumin measurement (mass/volume) 4.1 g/dL 3.2-4.5 CALCIUM CORRECTED 9.5 mg/dL 8.5-10.1 Magnesium - 07/03/18 12:06 Magnesium 2.0 mg/dL 1.8-2.4 Serum or plasma troponin i.cardiac measurement (mass/volume) - 07/03/18 12:06 Serum or plasma troponin i.cardiac measurement (mass/volume) < ng/ mL <0.028 Myoglobin, serum - 07/03/18 12:06 Myoglobin, serum 32.8 ng/mL 10.0-92.0 Serum or plasma lithium measurement (moles/volume) - 07/03/18 12:06 BNP level 832.7 pg/mL <100.0 Encounters ACCT No. Visit Date/Time Discharge Status Pt. Type Provider Facility Loc./Unit Complaint [id number] 06/10/2018 18:22:00 06/10/2018 19:24:00 DIS Outpatient JAZMYNE WHITEHEAD APRN [facility] ER FELL [id number] 11/06/2017 09:24:00 11/06/2017 09:44:00 DIS Emergency JEAN PIERRE GRACIA DO [facility] ER STITCH REMOVAL [id number] 10/28/2017 21:34:00 10/29/2017 01:26:00 DIS Emergency CARO LOYOLA MD [facility] ER FALL [id number] 06/07/2017 22:43:00 06/09/2017 08:47:00 DIS Inpatient SAEID RANGEL DOI [facility] 4TH CHEST PAIN R/O [id number] 10/26/2016 13:31:00 10/29/2016 12:35:00 DIS Inpatient JOVANNA FLETCHER MD [facility] ICU CHEST PAIN,CHF EXACERBATION [id number] 01/20/2016 14:07:00 01/20/2016 16:30:00 DIS Emergency JAZMYNE WHITEHEAD APRN [facility] ER FALL FACIAL INJURIES/ RIGHT WRIST PAIN [id number] 02/26/2015 14:20:00 02/26/2015 23:59:59 CLS Outpatient JEWEL OSEGUERA [facility] CARD CAD,CARDIOMYOPATHY, CAROTID ARTERY DI,HTN,HLP [id number] 11/29/2014 14:30:00 11/29/2014 23:59:59 CLS Outpatient KINDRA PRINGLE DO [facility] HH ANTICOAG THERAPY [id number] 11/20/2014 06:05:00 11/26/2014 16:29:00 DIS Inpatient KINDRA PRINGLE DO [facility] SURGICAL DEGENERATIVE DISC DISEASE LEFT KNEE [id number] 11/25/2014 15:23:00 11/25/2014 23:59:59 CLS Preadmit SHANE LOZANO MD LT.KNEE [id number] 11/17/2014 12:07:00 11/17/2014 14:13:00 DIS Emergency JOVANNA FLETCHER MD [facility] ER R SIDE PAIN [id number] 11/06/2014 13:48:00 11/06/2014 23:59:59 CLS Outpatient KINDRA PRINGLE DO [facility] PREOP DEGENERATIVE DISC DISEASE LEFT KNEE [id number] 10/04/2014 11:33:00 10/04/2014 23:59:59 CLS Outpatient SHANE LOZANO MD [facility] RAD INCREASED L/E EDEMA, [id number] 08/30/2014 07:42:00 08/30/2014 23:59:59 CLS Outpatient KATHY VANN FACC, MANDA MCCALLUM CCDS [facility] CARD CAD, CARDIOMYOPATHY [id number] 06/27/2014 20:27:00 07/02/2014 16:00:00 DIS Inpatient CRISTINA RANGEL DO [facility] CSD ASTHMATIC BRONCHITIS [id number] 03/28/2014 16:18:00 04/05/2014 14:28:00 DIS Outpatient KINDRA PRINGLE DO [facility] REHAB S/P R TKR [id number] 03/07/2014 09:40:00 03/07/2014 23:59:59 CLS Outpatient MAYELIN OWENS MACHINE [employer] [facility] RAD R LE SWELLING [id number] 02/25/2014 14:25:00 02/28/2014 17:19:00 DIS Inpatient GORDON NGUYEN MD [facility] IRF TKR [id number] 02/20/2014 09:00:00 02/25/2014 14:24:00 DIS Inpatient KINDRA PRINGLE DO [facility] SURGICAL RIGHT KNEE DJD [id number] 02/14/2014 13:09:00 02/14/2014 23:59:59 CLS Outpatient KINDRA PRINGLE DO [facility] PREOP RIGHT KNEE DJD [id number] 08/09/2013 13:16:00 08/12/2013 11:00:00 DIS Inpatient SHANE LOZANO MD [facility] CSD CHF CHEST PAIN [id number] 08/02/2013 12:43:00 08/02/2013 23:59:59 CLS Outpatient JEWEL OSEGUERA [facility] CARD CAD,HTN [id number] 03/31/2013 14:55:00 03/31/2013 15:14:00 DIS Emergency OJVANNA FLETCHER MD [facility] ER COUGH/SOA [id number] 12/28/2012 12:05:00 12/28/2012 14:26:00 DIS Emergency JUAN HIGGINS DO [facility] ER FALL/LEFT RIB PAIN [id number] 07/03/2018 12:14:00 Document Registration [id number] 02/26/2015 14:20:00 Document Registration [id number] 02/26/2015 14:20:00 Document Registration [id number] 02/26/2015 14:20:00 Document Registration [id number] 02/26/2015 14:20:00 Document Registration [id number] 02/26/2015 14:20:00 Document Registration [id number] 02/26/2015 14:20:00 Document Registration [id number] 08/21/2014 16:15:00 Document Registration [id number] 08/04/2011 14:10:00 Document Registration [id number] 04/22/2010 05:36:00 Document Registration [id number] 04/21/2010 09:13:00 Document Registration [id number] 03/26/2010 16:03:00 Document Registration [id number] 09/10/2009 12:51:00 Document Registration
[2018-07-03 14:40] VITALS: BP 173/79
--- NOTE | 2018-07-03 14:40 | NUR ---
BRANDEN HERNANDEZ admitted to room 414-1, with an admitting diagnosis of ACUTE HEART FAILURE, PACEMAKER CONCERNS, on 07/03/18 from ED via , accompanied by STAFF. BRANDEN HERNANDEZ introduced to surroundings, call light, bed controls, phone, TV, temperature control, lights, meal times, smoking policy, visitor policy, side rail policy, bathrooms and showers. Patient Rights given to patient in the handbook. BRANDEN HERNANDEZ verbalizes understanding that [facility] is not responsible for the loss or damage to any personal effects or valuables that are kept in the patients posession during their hospitalization. BRANDEN HERNANDEZ verbalizes understanding of Interdisciplinary Patient Education. Patient and/or family were informed about the Rapid Response Team and its purpose.
[2018-07-03] MEDS ORDERED: ACETAMINOPHEN 325 MG TABLET PO PRN (15:45)
--- NOTE | 2018-07-03 15:55 | Consultation-Cardiology ---
HPI-Cardiology Cardiology Consultation: Date of Consultation 07/03/18 Date of Admission Attending Physician Danyel Anderson MD Admitting Physician Danyel Anderson MD Consulting Physician Katalina ENRIQUEZ MD HPI: Time Seen by a Provider: 15:48 Chief Complaint: Shortness of breath This is a 83-year-old lady who is a patient of Dr. Wiseman. She presents with shortness of breath which has been worsening. Occasionally at rest as well. She denies any chest pain. The patient has history of a single-chamber ICD implanted by Dr. Wiseman in 2011. It's a [employer] device. According to the patient she is hearing some noises from the device. Device interrogation will be done. She previously presented in 2016. Echocardiogram showed severe LV systolic dysfunction with an EF of 25 percent. Coronary angiography done by Dr. Wiseman showed patent stents with no significant CAD. Review of Systems-Cardiology Review of Systems Constitutional: As described under HPI; No As described under HPI, No no symptoms reported, No chills, No fever, No lightheadedness Eyes: No As described under HPI, No no symptoms reported, No blindness, No blurred vision, No contact lenses, No drainage, No decreased acuity, No foreign body sensation, No pain, No vision change Ears/Nose/Throat: No As described under HPI, No no symptoms reported, No chronic hearing loss, No ear discharge, No ear pain, No nasal drainage, No ulcerations Respiratory: No no symptoms reported; As described under HPI; No As described under HPI, No cough; orthopnea, shortness of breath; No SOB with excertion Cardiovascular: No no symptoms reported; As described under HPI; No As described under HPI, No chest pain, No edema, No irregular heart rate, No lightheadedness, No palpitations Gastrointestinal: No no symptoms reported, No As described under HPI, No abdomen distended, No abdominal pain, No blood streaked bowels, No constipation , No diarrhea, No nausea, No vomiting, No stool coloration changes Genitourinary: No As described under HPI, No burning, No dysuria, No discharge , No frequency, No flank pain, No hematuria, No urgency : Yes : No Skin: No no symptoms reported, No As described under HPI, No change in color, No change in hair/nails, No dryness, No lesions, No lumps, No rash, No other, No skin related problems, No ulcerations, No rash on exposed areas, No ulcerations on exposed areas Psychiatric/Neurological: No anxiety, No depression, No seizure, No focal weakness, No syncope Hematologic: No bleeding abnormalities All Other Systems Reviewed Negative Unless Noted: Yes ACM-Oairyh-Fwudwn Hx Patient Social History Alcohol Use: Denies Use Recreational Drug Use: No Smoking Status: Never a Smoker Type Used: Cigarettes 2nd Hand Smoke Exposure: No Recent Foreign Travel: No Recent Infectious Disease Expo: No Hospitalization with Isolation: Denies Physical Abuse Screen: No Sexual Abuse: No Immunizations Up To Date Tetanus Booster (TDap): Less than 5yrs Date of Pneumonia Vaccine: Sep 03, 2011 Date of Influenza Vaccine: Jun 14, 2018 Past Medical History PMH As described under Assessment. Family Medical History Family History: Arthritis 19 FATHER 19 MOTHER G8 BROTHER G8 SISTER Asthma 19 FATHER Completed stroke G8 SISTER FH: COPD (chronic obstructive pulmonary disease) G8 SISTER FH: cancer 19 FATHER 19 MOTHER (stomach cancer ) G8 SISTER (LIVER- enio floya- breast cancer) FH: emphysema 19 FATHER G8 SISTER Glaucoma G8 SISTER Headache disorder G8 SISTER No Family History of: AIDS Abdominal aortic aneurysm Alcoholism Alzheimer's disease Cancer of mouth Cardiovascular disease Colon cancer Cystic fibrosis Deafness or hearing loss Dementia Diabetes mellitus Drug abuse Dysphasia Hypercholesterolemia Hypertension Kidney disease Myocardial infarction Parkinson's disease Prostate cancer Psychosocial problem Respiratory disorder Seizure disorder Severe allergy Thyroid disease Tuberculosis Allergies and Home Medications Allergies Coded Allergies: No Known Drug Allergies (Unverified , 07/03/18) Home Medications Acetaminophen 325 Mg Tablet, 650 MG PO Q4H PRN for PAIN-MILD, (Reported) TAKES 2 (325MG) TABLETS Aspirin 81 Mg Tablet.dr, 81 MG PO HS, (Reported) Atorvastatin Calcium 40 Mg Tablet, 40 MG PO HS, (Reported) Carvedilol 6.25 Mg Tablet, 6.25 MG PO BID Prescribed by: JEWEL OSEGUERA on 06/09/17 0954 Clonazepam 1 Mg Tablet, 2 MG PO HS, (Reported) TAKES 2 (1MG) TABLETS Fluoxetine HCl 40 Mg Capsule, 40 MG PO HS, (Reported) Furosemide 40 Mg Tablet, 80 MG PO DAILY@0700 Prescribed by: JEWEL OSEGUERA on 06/09/17 0954 Glimepiride 2 Mg Tablet, 2 MG PO HS, (Reported) Lisinopril 10 Mg Tablet, 10 MG PO DAILY@0900 Prescribed by: JEWEL OSEGUERA on 06/09/17 0954 Metformin HCl 500 Mg Tablet, 1,000 MG PO HS, (Reported) TAKES 2 (500MG) TABLETS Potassium Chloride 10 Meq Tablet.er, 10 MEQ PO DAILY, (Reported) Patient Home Medication List Home Medication List Reviewed: Yes Physical Exam-Cardiology Physical Exam Vital Signs/I&O 07/03/18 07/03/18 07/03/18 07/03/18 11:57 11:57 13:04 14:29 Temp 97.3 Pulse 73 66 73 Resp 18 18 18 B/P (MAP) 162/87 (112) 141/70 (93) 145/74 (97) Pulse Ox 89 95 96 O2 Delivery Room Air Nasal Cannula Nasal Cannula Nasal Cannula O2 Flow Rate 3.00 3.00 3.00 FiO2 89 07/03/18 07/03/18 07/03/18 14:40 14:40 15:38 Temp 98.2 Pulse 70 Resp 18 B/P (MAP) 173/79 (110) Pulse Ox 97 O2 Delivery Room Air Room Air O2 Flow Rate 3.00 Capillary Refill : Less Than 3 Seconds Constitutional: appears stated age, AAO x 3; No apparent distress; well- developed, well-nourished HEENT: PERRL; No normal ENT inspection, No TMs normal, No pharynx normal, No scleral icterus (R), No scleral icterus (L), No pale conjunctivae (R), No pale conjunctivae (L), No photophobia, No TM abnormal (R), No TM abnormal (L), No pharyngeal erythema, No tonsillar exudate, No other, No discharge, No EOMI; hearing is well preserved; No hard of hearing; oral hygience is good; No ulceration, No xanthelasmas are seen Neck: No non-tender, No full range of motion, No supple, No normal inspection, No carotid bruit, No limited range of motion, No lymphadenopathy (R), No lymphadenopathy (L), No tender lateral, No tender midline, No thyromegaly, No other; carotid pulses are 2 + bilaterally; No with good upstrokes Respiratory: No accessory muscle use, No respiratory distress, No chest tender , No chest expansion is symmetric; chest is bilaterally symmetric; No lungs clear to percussion; lungs clear to auscultation; No crackles, No rhonchi, No rales, No stridor, No wheezing, No pleural rub, No other Cardiovascular: regular rate-rhythm; No irregularly irregular, No extra beats, No parasternal heave is noted, No JVD, No edema, No bradycardia, No tachycardia , No point of maximal impulse, No cardiac thrills are palpable; S1 and S2; No gallop/S3, No gallop/S4, No diastolic murmur, No systolic murmur, No friction rub, No click, No other Gastrointestinal: No tender, No soft, No round, No distended, No pulsatile mass , No organomegaly, No guarding, No rebound, No tenderness, No hernia, No mass, No audible bowel sounds, No abnormal bowel sounds, No abdominal bruits, No spleenomegaly, No other Rectal: deferred Extremities: normal range of motion, non-tender, normal inspection; No pedal edema, No calf tenderness, No normal capillary refill, No pelvis stable, No calf tenderness, No inflammation, No pedal edema, No slow capillary refill, No swelling, No other, No abrasion, No clubbing, No cyanosis, No ecchymosis, No laceration, No no lower extremity edema bilateral, No significant edema, No tenderness, No wound Neurologic/Psychiatric: no motor/sensory deficits, alert, normal mood/affect, oriented x 3, power is 5/5 both on sides Skin: No normal color, No warm/dry, No cyanosis, No cool, No diaphoresis, No damp, No ecchymosis, No jaundice, No mottled, No pallor, No rash, No tattoos/ piercings, No ulcerations, No rash on exposed areas, No ulcerations on exposed areas, No other Data Review Labs Laboratory Tests 07/03/18 12:06: White Blood Count 7.5, Red Blood Count 3.97L, Hemoglobin 12.2, Hematocrit 39, Mean Corpuscular Volume 97, Mean Corpuscular Hemoglobin 31, Mean Corpuscular Hemoglobin Concent 32, Red Cell Distribution Width 13.8, Platelet Count 249, Mean Platelet Volume 10.6H, Neutrophils (%) (Auto) 65, Lymphocytes (%) (Auto) 22 , Monocytes (%) (Auto) 8, Eosinophils (%) (Auto) 5, Basophils (%) (Auto) 1, Neutrophils # (Auto) 4.9, Lymphocytes # (Auto) 1.7, Monocytes # (Auto) 0.6, Eosinophils # (Auto) 0.4H, Basophils # (Auto) 0.0, Prothrombin Time 13.8, INR Comment 1.1, Activated Partial Thromboplast Time 29, Sodium Level 140, Potassium Level 4.9, Chloride Level 108H, Carbon Dioxide Level 21, Anion Gap 11 , Blood Urea Nitrogen 20H, Creatinine 1.33H, Estimat Glomerular Filtration Rate 38, BUN/Creatinine Ratio 15, Glucose Level 155H, Calcium Level 9.6, Corrected Calcium 9.5, Magnesium Level 2.0, Total Bilirubin 0.8, Aspartate Amino Transf ( AST/SGOT) 16, Alanine Aminotransferase (ALT/SGPT) 10, Alkaline Phosphatase 63, Myoglobin 32.8, Troponin I < 0.028, B-Type Natriuretic Peptide 832.7H, Total Protein 7.1, Albumin 4.1 ECG Impression ECG Comment First degree AV block with sinus rhythm, left bundle branch block with QRS duration of 150 ms. A/P-Cardiology Assessment/Admission Diagnosis Acute on chronic systolic congestive heart failure, CAD, Hypertension, Hyperlipidemia, Ischemic cardiomyopathy. ICD in place. Acute renal insufficiency. Plan Acute on chronic systolic congestive heart failure, elevated BNP. Chest x-ray shows increased pulmonary vascular congestion. Will give IV Lasix. Echocardiogram in the morning. Salt and water restriction. CAD, continue aspirin, statin, XIOMARA inhibitor and beta jacki. Hypertension, continue XIOMARA inhibitor and beta jacki. Hyperlipidemia, continue atorvastatin. Ischemic cardiomyopathy. Patient is on goal-directed medical therapy including Lasix, lisinopril, carvedilol. Patient has acute on chronic systolic congestive heart failure with left bundle branch block with QRS duration of 150 ms with previous EF of 25 percent. The patient has been on goal-directed medical therapy for at least the last one and a half year. We will repeat an echocardiogram and if EF is below 35 percent she may be a candidate for upgrade to biventricular device. 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 Wiseman. ICD in place. Device interrogation done today shows a single chamber ICD with V pacing less than 1 percent. Normal sensitivity and capture threshold. No ATP or shocks. Normal device function. Acute renal insufficiency. Will require renal follow-up as an outpatient. Thank you for your consultation. Please call me if you have any questions. Lyn Enriquez MD, FACP, FACC, FSCAI, FHRS, CCDS Interventional Cardiology Cardiac Electrophysiology Vascular Medicine and Endovascular Interventions Clinical Quality Measures DVT/VTE Risk/Contraindication: Risk Factor Score Per Nursin RFS Level Per Nursing on Admit: 4+=Very High Katalina ENRIQUEZ MD Jul 03, 2018 3:55 pm
[2018-07-03 16:00] VITALS: BP 171/78
[2018-07-03 20:00] VITALS: BP 142/70
[2018-07-03] MEDS: clonazePAM 1 MG (KlonoPIN) TAB PO SCH (20:51)
[2018-07-03] MEDS: GLIMEPIRIDE 2 MG (AMARYL) TAB PO SCH (20:51)
[2018-07-03] MEDS: ATORVASTATIN 40 MG (LIPITOR) TABLET PO SCH (20:52)
[2018-07-03] MEDS: CARVEDILOL 6.25 MG (COREG) TAB PO SCH (20:52)
[2018-07-03] MEDS: FLUoxetine HCL 20 MG (PROzac) CAP PO SCH (20:52)
[2018-07-03] MEDS: metFORMIN 500 MG (GLUCOPHAGE) TAB PO SCH (20:52)
[2018-07-03] MEDS: ASPIRIN E.C. 81 MG (ECOTRIN) TAB PO SCH (20:52)
[2018-07-03 23:56] VITALS: BP 149/76
[2018-07-04] VITALS (7 sets, daily range): BP systolic 108–143; BP diastolic 56–83
[2018-07-04 06:13] LABS: BASOPHILS % (AUTO) 0 % (0-10); EOSINOPHILS # (AUTO) 0.2 10^3/uL (0.0-0.3); EOSINOPHILS % (AUTO) 3 % (0-10); HEMATOCRIT 37 % (35-52); HEMOGLOBIN 11.9 G/DL (11.5-16.0); LYMPHOCYTES # (AUTO) 1.7 X 10^3 (1.0-4.0); LYMPHOCYTES % (AUTO) 26 % (12-44); MEAN CORPUSCULAR HEMOGLOBIN 31 PG (25-34); MEAN CORPUSCULAR HGB CONC 32 G/DL (32-36); MEAN CORPUSCULAR VOLUME 96 FL (80-99); MEAN PLATELET VOLUME 10.6 FL (7.4-10.4); MONOCYTES # (AUTO) 0.5 X 10^3 (0.0-1.0); MONOCYTES % (AUTO) 8 % (0-12); NEUTROPHILS % (AUTO) 62 % (42-75); PLATELET COUNT 240 10^3/uL (130-400); RED CELL DISTRIBUTION WIDTH 13.7 % (10.0-14.5); WHITE BLOOD COUNT 6.4 10^3/uL (4.3-11.0)
[2018-07-04 06:30] LABS: CALCIUM 9.1 MG/DL (8.5-10.1); CREATININE SERUM 1.28 MG/DL (0.60-1.30); POTASSIUM 4.1 MMOL/L (3.6-5.0)
[2018-07-04] MEDS ORDERED: FUROSEMIDE 40 MG (LASIX) TAB PO SCH (07:00)
[2018-07-04] MEDS: CARVEDILOL 6.25 MG (COREG) TAB PO SCH ×2 (08:32→21:11)
[2018-07-04] MEDS: KCL 10 MEQ TAB (MICRO K) PO SCH (08:33)
[2018-07-04] MEDS: lisINopril 10 MG (PRINIVIL) TABLET PO SCH (08:33)
[2018-07-04] MEDS ORDERED: ROSU20TA31 PO (10:07)
[2018-07-04] MEDS ORDERED: MULT-1067 PO (10:07)
[2018-07-04] MEDS ORDERED: FURO80TA3 PO (10:07)
[2018-07-04] MEDS ORDERED: LISI10TA2 PO (10:07)
[2018-07-04] MEDS ORDERED: CARV6.252 PO (10:07)
--- NOTE | 2018-07-04 10:10 | NUR ---
WENT OVER THE EXT MED HX WITH THE PATIENT AND SHE VERIFIED HOW SHE TAKES ALL OF HER MEDS. SHE STATES SHE TAKES EVERYTHING AT BEDTIME EXCEPT FOR HER TWO LASIX AND POTASSIUM. SHE STATES SHE KNOWS SHE SHOULD TAKE SOME OF THEM IN THE MORNING AND A FEW ARE PRESCRIBED BID (SHE TAKES BOTH DOSES AT HS) AND SHE INTENDS TO BE BETTER AT TAKING THEM HOW THEY ARE PRESCRIBED. SHE TAKES TYLENOL PRN, ASPIRIN HS, AND CENTRUM AT NOON OTC.
--- NOTE | 2018-07-04 10:51 | History & Physical-Hospitalist ---
History of Present Illness HPI/Chief Complaint Pt is an 83yoCF with a PMH of ischemic cardiomyopathy, CHF, and NIDDMII who presented to the ER due to shortness of breath. She states her symptoms started on 07/02 afternoon. She felt short of breath and was dyspneic with exertion. She normally wears 2lpm of oxygen all the time but had to bump it up to 4lpm. Eventually increased oxygen didn't help either so she decided to seek care in the ER. She is unsure if she had any chest pain or swelling in her legs because she was preoccupied by her SOB. She does not she will immediately get swelling if she doesn't take her lasix but she denies missing any doses recently. She also complains of her pacemaker ringing or talking to her at night and does not like her pacemaker. She was found to be in acutely decompenstated heart failure and admitted for further management. Source: patient Date Seen 07/04/18 Time Seen by a Provider: 10:46 Attending Physician Danyel Anderson MD PCP Danyel Anderson MD Referring Physician Date of Admission Jul 03, 2018 at 13:38 Home Medications & Allergies Home Medications Reviewed patient Home Medication Reconciliation performed by pharmacy medication reconciliations alarm installation technician and/or nursing. Patients Allergies have been reviewed. Allergies Allergies Coded Allergies No Known Drug Allergies (Unverified07/03/18) Past Wlhwtdc-Wmtylq-Jnytlz Hx Past Med/Social Hx: Reviewed Nursing Past Med/Soc Hx Patient Social History Employed/Student: retired Alcohol Use: Denies Use Recreational Drug Use: No Smoking Status: Never a Smoker Type Used: Cigarettes 2nd Hand Smoke Exposure: No Physical Abuse Screen: No Sexual Abuse: No Recent Foreign Travel: No Contact w/other who traveled: No Recent Hopitalizations: No Recent Infectious Disease Expo: No Immunizations Up To Date Tetanus Booster (TDap): Less than 5yrs Pediatric: Yes Date of Pneumonia Vaccine: Sep 03, 2011 Date of Influenza Vaccine: Jun 14, 2018 Seasonal Allergies Seasonal Allergies: No Past Medical History Surgeries: Breast, Cardiac, Coronary Stent, Defibrillator, Eye Surgery, Gallbladder, Hysterectomy, Joint Replacement, Oophorectomy, Orthopedic, Pacemaker, Rectal Cardiac: Atrial Fibrillation, Cardiomyopathy, Chronic Edema/Swelling, Coronary Artery Disease, High Cholesterol, Hypertension, Peripheral Vascular 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: No Sexually Transmitted Disease: No HIV/AIDS: No Female 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 Disorders: Denies Menopausal Genitourinary: Renal Failure Gastrointestinal: Hemorrhoids Musculoskeletal: Arthritis, Chronic Back Pain Endocrine: Diabetes, Non-Insulin dep HEENT: Cataract Loss of Vision: Denies Hearing Impairment: Denies Psychosocial: Depression History of Blood Disorders: No Adverse Reaction to Blood [place]: No Family History Reviewed Nursing Family Hx Arthritis 19 FATHER 19 MOTHER G8 BROTHER G8 SISTER Asthma 19 FATHER Completed stroke G8 SISTER FH: COPD (chronic obstructive pulmonary disease) G8 SISTER FH: cancer 19 FATHER 19 MOTHER (stomach cancer ) G8 SISTER (LIVER- enio floya- breast cancer) FH: emphysema 19 FATHER G8 SISTER Glaucoma G8 SISTER Headache disorder G8 SISTER No Family History of: AIDS Abdominal aortic aneurysm Alcoholism Alzheimer's disease Cancer of mouth Cardiovascular disease Colon cancer Cystic fibrosis Deafness or hearing loss Dementia Diabetes mellitus Drug abuse Dysphasia Hypercholesterolemia Hypertension Kidney disease Myocardial infarction Parkinson's disease Prostate cancer Psychosocial problem Respiratory disorder Seizure disorder Severe allergy Thyroid disease Tuberculosis No Pertinent Family Hx Review of Systems Constitutional: No chills, No fever Respiratory: dyspnea on exertion; No hemoptysis, No phlegm; short of breath Cardiovascular: No chest pain; palpitations Gastrointestinal: no symptoms reported All Other Systems Reviewed Negative Unless Noted: Yes (Negative excepted noted.) Physical Exam Physical Exam Vital Signs Vital Signs - First Documented 07/03/18 11:57 Temp 97.3 Pulse 73 Resp 18 B/P (MAP) 162/87 (112) Pulse Ox 89 O2 Delivery Room Air O2 Flow Rate 3.00 FiO2 89 Capillary Refill : Less Than 3 SecondsLess Than 3 Seconds Height, Weight, BMI Height: 5'5.00" Weight: 209lbs. 10.6oz. 95.335929wy; 34.9 BMI Method:Stated General Appearance: No Apparent Distress, WD/WN HEENT: PERRL/EOMI, Moist Mucous Membranes Neck: Non Tender, Supple Respiratory: Lungs Clear, No Respiratory Distress Cardiovascular: Regular Rate, Rhythm, No JVD, No Murmur Gastrointestinal: Normal Bowel Sounds, Non Tender, Soft Extremity: Non Tender, No Calf Tenderness, No Pedal Edema Neurologic/Psychiatric: Alert, Oriented x3, Normal Mood/Affect Skin: Normal Color, Warm/Dry Results Results/Procedures Labs Laboratory Tests 07/03/18 12:06 07/04/18 05:36 Patient resulted labs reviewed. Imaging: Reviewed Imaging Report Assessment/Plan Admission Diagnosis Acute decompensated systolic heart failure Admission Status: Inpatient Order (span 2 midnights) Reason for Inpatient Admission: IV diuresis, cardiolology evaluation Diagnosis/Problems Diagnosis/Problems (1) Acute heart failure Status: Acute Assessment & Plan: Cardiology consulted, appreciate recs Continue Lasix Echo ordered Oxygen to keep sats >90 Continue home heart failure meds Qualifiers: Heart failure type: systolic Qualified Codes: I50.21 - Acute systolic ( congestive) heart failure (2) CKD (chronic kidney disease) stage 3, GFR 30-59 ml/min Assessment & Plan: Creatinine at baseline Trend with diuresis (3) Non-insulin dependent type 2 diabetes mellitus Status: Chronic Assessment & Plan: SSI Continue home metformin Clinical Quality Measures DVT/VTE Risk/Contraindication: Risk Factor Score Per Nursin RFS Level Per Nursing on Admit: 4+=Very High SONG GUDINO MD Jul 04, 2018 10:51
--- NOTE | 2018-07-04 11:07 | NUR ---
CM/SS, initial interview. Patient resides at [facility] and will return there at discharge. DME: Established home O2 with [employer]. Patient describes that she is unable to perform housework due to shortness of breath. Discussed in-home assistance options, including referral to [employer] for assessment for assistance. Patient declined at this time stating that she wants someone for about 4 hours per week and she will only pay $20 total. She concluded she will ask friends at [facility] to do this for us and does not want to contact any agencies re [facility]. Confirmed with patient she has someone to bring her portable O2 when she is discharged.
--- NOTE | 2018-07-04 14:42 | Cardiology Progress Note ---
Cardiology SOAP Progress Note Subjective: Significantly improved shortness of breath. Objective: I&O/Vital Signs 07/04/18 07/04/18 07/04/18 07/04/18 04:00 07:00 07:58 08:35 Temp 97.8 97.2 Pulse 63 64 62 Resp 18 20 B/P (MAP) 131/61 (84) 143/83 (103) Pulse Ox 95 96 O2 Delivery Room Air Nasal Cannula Room Air O2 Flow Rate 2.00 2.00 07/04/18 07/04/18 12:00 12:59 Temp 98.0 Pulse 66 60 Resp 16 B/P (MAP) 108/71 (83) Pulse Ox 95 O2 Delivery Nasal Cannula O2 Flow Rate 2.00 07/04/18 00:00 Intake Total 1140 ml Output Total 1750 ml Balance -610 ml Weight (Pounds): 209 Weight (Ounces): 10.6 Weight (Calculated Kilograms): [id number] Constitutional: appears stated age, AAO x 3; No apparent distress; well- developed, well-nourished Respiratory: No accessory muscle use, No respiratory distress, No chest tender , No chest expansion is symmetric; chest is bilaterally symmetric; No lungs clear to percussion; lungs clear to auscultation; No crackles, No rhonchi, No rales, No stridor, No wheezing, No pleural rub, No other Cardiovascular: regular rate-rhythm; No irregularly irregular, No extra beats, No parasternal heave is noted, No JVD, No edema, No bradycardia, No tachycardia , No point of maximal impulse, No cardiac thrills are palpable; S1 and S2; No gallop/S3, No gallop/S4, No diastolic murmur, No systolic murmur, No friction rub, No click, No other Gastrointestional: No tender, No soft, No round, No distended, No pulsatile mass, No organomegaly, No guarding, No rebound, No tenderness, No hernia, No mass, No audible bowel sounds, No abnormal bowel sounds, No abdominal bruits, No spleenomegaly, No other Extremities: normal range of motion, non-tender, normal inspection; No pedal edema, No calf tenderness, No normal capillary refill, No pelvis stable, No calf tenderness, No inflammation, No pedal edema, No slow capillary refill, No swelling, No other, No abrasion, No clubbing, No cyanosis, No ecchymosis, No laceration, No no lower extremity edema bilateral, No significant edema, No tenderness, No wound Neurologic/Psychiatric: no motor/sensory deficits, alert, normal mood/affect, oriented x 3, power is 5/5 both on sides Skin: No normal color, No warm/dry, No cyanosis, No cool, No diaphoresis, No damp, No ecchymosis, No jaundice, No mottled, No pallor, No rash, No tattoos/ piercings, No ulcerations, No rash on exposed areas, No ulcerations on exposed areas, No other Results/Procedures: Labs Laboratory Tests 07/04/18 05:36: White Blood Count 6.4, Red Blood Count 3.83L, Hemoglobin 11.9, Hematocrit 37, Mean Corpuscular Volume 96, Mean Corpuscular Hemoglobin 31, Mean Corpuscular Hemoglobin Concent 32, Red Cell Distribution Width 13.7, Platelet Count 240, Mean Platelet Volume 10.6H, Neutrophils (%) (Auto) 62, Lymphocytes (%) (Auto) 26 , Monocytes (%) (Auto) 8, Eosinophils (%) (Auto) 3, Basophils (%) (Auto) 0, Neutrophils # (Auto) 4.0, Lymphocytes # (Auto) 1.7, Monocytes # (Auto) 0.5, Eosinophils # (Auto) 0.2, Basophils # (Auto) 0.0, Sodium Level 140, Potassium Level 4.1, Chloride Level 105, Carbon Dioxide Level 23, Anion Gap 12, Blood Urea Nitrogen 22H, Creatinine 1.28, Estimat Glomerular Filtration Rate 40, BUN/ Creatinine Ratio 17, Glucose Level 88, Calcium Level 9.1, B-Type Natriuretic Peptide 614.8H A/P: Assessment/Dx: Acute on chronic systolic congestive heart failure, CAD, Hypertension, Hyperlipidemia, Ischemic cardiomyopathy. ICD in place. Acute renal insufficiency. Plan: Acute on chronic systolic congestive heart failure, elevated BNP. Chest x-ray shows increased pulmonary vascular congestion. Will give IV Lasix. Echocardiogram in the morning. Salt and water restriction. CAD, continue aspirin, statin, XIOMARA inhibitor and beta jacki. Hypertension, continue XIOMARA inhibitor and beta jacki. Hyperlipidemia, continue atorvastatin. Ischemic cardiomyopathy. Patient is on goal-directed medical therapy including Lasix, lisinopril, carvedilol. Patient has acute on chronic systolic congestive heart failure with left bundle branch block with QRS duration of 150 ms with previous EF of 25 percent. The patient has been on goal-directed medical therapy for at least the last one and a half year. Repeat echocardiogram 07/04/2018 shows an EF of 30-35 percent. Patient is not keen on a biventricular ICD. I will defer to Dr. Wiseman. ICD in place. Device interrogation done today shows a single chamber ICD with V pacing less than 1 percent. Normal sensitivity and capture threshold. No ATP or shocks. Normal device function. Acute renal insufficiency. Will require renal follow-up as an outpatient. Dr. Wiseman to take over cardiology care on Wednesday07/05/2018. Thank you for your consultation. Please call me if you have any questions. Lyn Enriquez MD, FACP, FACC, FSCAI, FHRS, CCDS Interventional Cardiology Cardiac Electrophysiology Vascular Medicine and Endovascular Interventions Katalina ENRIQUEZ MD Jul 04, 2018 2:42 pm
[2018-07-04] MEDS: ATORVASTATIN 40 MG (LIPITOR) TABLET PO SCH (21:11)
[2018-07-04] MEDS: GLIMEPIRIDE 2 MG (AMARYL) TAB PO SCH (21:11)
[2018-07-04] MEDS: ASPIRIN E.C. 81 MG (ECOTRIN) TAB PO SCH (21:11)
[2018-07-04] MEDS: clonazePAM 1 MG (KlonoPIN) TAB PO SCH (21:12)
[2018-07-04] MEDS: metFORMIN 500 MG (GLUCOPHAGE) TAB PO SCH (21:12)
[2018-07-04] MEDS: FLUoxetine HCL 20 MG (PROzac) CAP PO SCH (21:12)
[2018-07-05 03:55] VITALS: BP 99/46
[2018-07-05 04:45] VITALS: BP 122/57
[2018-07-05] MEDS ORDERED: FUROSEMIDE 40 MG/4 ML INJ (LASIX) IVP SCH (07:00)
[2018-07-05 08:03] VITALS: BP 104/55
[2018-07-05] MEDS: CARVEDILOL 6.25 MG (COREG) TAB PO SCH (09:19)
[2018-07-05] MEDS: KCL 10 MEQ TAB (MICRO K) PO SCH (09:19)
[2018-07-05] MEDS: lisINopril 10 MG (PRINIVIL) TABLET PO SCH (09:19)
--- NOTE | 2018-07-05 10:19 | Discharge Inst-Simple/Standard ---
Discharge Inst-Standard Discharge Medications New, Converted or Re-Newed RX: Transmitted to Pharmacy Patient Instructions/Follow Up Plan of Care/Instructions/FU: Please continue to take your medications as written. Please follow up with Dr Andesron and Dr Wiseman to follow up this hospital stay. Activity as Tolerated: Yes Discharge Diet: Low Sodium Diet Return to The Hospital For: Chest pain, shortness of breath, weight gain of more than 5 pounds, leg swelling, if you feel you are getting worse. SONG GUDINO MD Jul 05, 2018 10:19
[2018-07-05] MEDS ORDERED: CARV6.252 PO (10:25)
[2018-07-05] MEDS ORDERED: FURO-124 PO (10:25)
--- NOTE | 2018-07-05 10:27 | Discharge Summary-Hospitalist ---
Diagnosis/Chief Complaint Date of Admission Jul 03, 2018 at 13:38 Date of Discharge Discharge Date: Jul 05, 2018 Admission Diagnosis Acute decompensated systolic heart failure Discharge Diagnosis (1) Acute heart failure Status: Acute Assessment & Plan: Cardiology consulted, appreciate recs Continue Lasix Echo ordered Oxygen to keep sats >90 Continue home heart failure meds (2) CKD (chronic kidney disease) stage 3, GFR 30-59 ml/min Assessment & Plan: Creatinine at baseline Trend with diuresis (3) Non-insulin dependent type 2 diabetes mellitus Status: Chronic Assessment & Plan: SSI Continue home metformin Discharge Summary Discharge Physical Exam Allergies: Coded Allergies: No Known Drug Allergies (Unverified , 07/03/18) Vitals & I&Os Vital Signs Date Time Temp Pulse Resp B/P (MAP) Pulse Ox O2 Delivery O2 Flow Rate FiO2 07/05/18 09:00 Room Air 2.00 07/05/18 08:51 62 07/05/18 08:03 97.9 20 104/55 (71) 95 07/03/18 11:57 89 Hospital Course Labs (last 24 hrs) Patient resulted labs reviewed. Imaging: Reviewed Imaging Report Discharge Home Medications: Active Scripts Active Lasix (Furosemide) 40 Mg Tablet 40 Mg PO DAILY Carvedilol 6.25 Mg Tablet 6.25 Mg PO BID Reported Centrum Adults Tablet (Multivitamin/Iron/Folic Acid) 1 Each Tablet 1 Tab PO 1200 Rosuvastatin Calcium 20 Mg Tablet 20 Mg PO HS Carvedilol 6.25 Mg Tablet 12.5 Mg PO HS TAKES 2 (6.25MG) TABLETS Furosemide 80 Mg Tablet 160 Mg PO DAILY Lisinopril 10 Mg Tablet 10 Mg PO HS Tylenol (Acetaminophen) 325 Mg Tablet 650 Mg PO Q4H PRN TAKES 2 (325MG) TABLETS Potassium Chloride 10 Meq Tablet.er 10 Meq PO DAILY Metformin HCl 500 Mg Tablet 1,000 Mg PO HS TAKES 2 (500MG) TABLETS Aspirin EC (Aspirin) 81 Mg Tablet.dr 81 Mg PO HS Clonazepam 1 Mg Tablet 2 Mg PO HS TAKES 2 (1MG) TABLETS Prozac (Fluoxetine HCl) 40 Mg Capsule 40 Mg PO HS Glimepiride 2 Mg Tablet 2 Mg PO HS Instructions to patient/family Please see electronic discharge instructions given to patient. Clinical Quality Measures DVT/VTE Risk/Contraindication: Risk Factor Score Per Nursin RFS Level Per Nursing on Admit: 4+=Very High Problem Qualifiers (1) Acute heart failure: Heart failure type: systolic Qualified Codes: I50.21 - Acute systolic ( congestive) heart failure SONG GUDINO MD Jul 05, 2018 10:27
--- NOTE | 2018-07-05 11:32 | Progress Note-Cardiology ---
Cardiology SOAP Progress Note Subjective: No cp or palp or syncope or shortness of breath Currently feels well and wishes to go home Objective: I&O/Vital Signs 07/04/18 07/05/18 07/05/18 07/05/18 23:55 01:00 03:55 04:45 Temp 97.0 97.5 Pulse 68 70 65 64 Resp 20 20 B/P (MAP) 114/58 (76) 99/46 (63) 122/57 (78) Pulse Ox 93 92 94 O2 Delivery Nasal Cannula Nasal Cannula Nasal Cannula O2 Flow Rate 2.00 2.00 3.00 07/05/18 07/05/18 07/05/18 08:03 08:51 09:00 Temp 97.9 Pulse 63 62 Resp 20 B/P (MAP) 104/55 (71) Pulse Ox 95 O2 Delivery Nasal Cannula Room Air O2 Flow Rate 2.00 2.00 07/05/18 00:00 Intake Total 1730 ml Output Total 1850 ml Balance -120 ml Weight (Pounds): 209 Weight (Ounces): 10.6 Weight (Calculated Kilograms): [id number] Constitutional: appears stated age, AAO x 3; No apparent distress; well- developed, well-nourished Respiratory: No accessory muscle use, No respiratory distress; chest is bilaterally symmetric, lungs clear to auscultation Cardiovascular: regular rate-rhythm, S1 and S2, systolic murmur (soft NANCY at card base) Gastrointestional: No tender, No guarding, No rebound; audible bowel sounds Extremities: non-tender; No swelling, No cyanosis, No significant edema Neurologic/Psychiatric: oriented x 3, grossly intact, power is 5/5 both on sides Skin: warm/dry; No cyanosis, No cool, No rash on exposed areas, No ulcerations on exposed areas Results/Procedures: Labs Laboratory Tests 07/03/18 12:06 07/04/18 05:36 A/P: Assessment: Acute on chronic systolic congestive heart failure, currently clinically compensated CAD, clinically stable Hypertension Hyperlipidemia treated with statins Ischemic cardiomyopathy. Patient has acute on chronic systolic congestive heart failure with left bundle branch block with QRS duration of 150 ms with previous EF of 25 percent. The patient has been on goal-directed medical therapy for at least the last one and a half year. Repeat echocardiogram 07/04/2018 shows an EF of 30-35 percent. Patient has been advised [employer], but she has not agreed. ICD in place. Device interrogation by Dr Enriquez on 07/04/18 shows a single chamber ICD with V pacing less than 1 percent. Normal sensitivity and capture threshold. No ATP or shocks. Normal device function. Acute renal insuff, stable / improved. Plan: * I discussed her case with Dr Enriquez * I spoke with the patient and answered her questions * Continue previous cardiac regimen * Outpt f/u advised MANDA CHAVEZ MD FACP FACC CCDS Jul 05, 2018 11:32
--- NOTE | 2018-07-05 12:01 | NUR ---
Notified [facility] of pt's need for portable oxygen for transport home. They advised that they would deliver portable oxygen to Room 414.
--- NOTE | 2018-07-05 14:17 | NUR ---
home oxygen study pt on room air at rest dropped spo2 down to 85% placed pt back on 3lpm nasal cannula spo2 increased 92% pt will require 3lpm nasal cannula at all times
== END 2018-07-05 15:40 | disposition home or self-care (01) | DRG 291 ==
LOC: EDUNIT# 11:57 → ER 11:58 → 4TH 13:38
PROVIDERS: ADMIT Internal Medicine; ATTEND Internal Medicine
DX: I13.0 Hypertensive heart and chronic kidney disease with heart failure and stage 1 through stage 4 chronic kidney disease, or unspecified chronic kidney disease (principal); I50.23 Acute on chronic systolic (congestive) heart failure; N18.3 Chronic kidney disease, stage 3 (moderate); I25.10 Atherosclerotic heart disease of native coronary artery without angina pectoris; I44.7 Left bundle-branch block, unspecified; I25.5 Ischemic cardiomyopathy; E78.5 Hyperlipidemia, unspecified; N28.9 Disorder of kidney and ureter, unspecified; J44.9 Chronic obstructive pulmonary disease, unspecified; I48.91 Unspecified atrial fibrillation; E11.51 Type 2 diabetes mellitus with diabetic peripheral angiopathy without gangrene; F32.9 Major depressive disorder, single episode, unspecified; M19.91 Primary osteoarthritis, unspecified site; K64.9 Unspecified hemorrhoids; M54.9 Dorsalgia, unspecified; Z95.810 Presence of automatic (implantable) cardiac defibrillator; Z95.5 Presence of coronary angioplasty implant and graft; Z99.81 Dependence on supplemental oxygen; Z79.84 Long term (current) use of oral hypoglycemic drugs
CPT/HCPCS: 36415; 71045; 80048; 80053; 83735; 83874; 83880; 84484; 85025; 85610; 85730; 93005; 93041; 93306; 94761; 96374

== ENCOUNTER 2018-12-06 15:30 | Inpatient (IN) | payer MEDICARE ==
[~2018-12-06] VITALS: Ht 165.1 cm; Wt 93.1 kg
[~2018-12-06 15:30] MED LIST changes: +FURO-124 PO; +MULT-1067 PO; +ROSU20TA31 PO
[2018-12-06] MEDS ORDERED: NS IV 500 ML 500 ML ONE (15:35)
[2018-12-06] MEDS ORDERED: NS IV 500 ML 500 ML IV ONE (15:41)
--- OUTSIDE RECORDS SUMMARY | 2018-12-06 15:43 | XMS REPORT | Continuity of Care Document ---
Author Organization Unknown Address Unknown Allergies Active Description Code Type Severity Reaction Onset Reported/Identified Relationship to Patient Clinical Status Yes No Known Drug Allergies [id number] Drug Allergy Unknown N/A 07/03/2018 Medications There is no data. Problems Date [...] NOS 08/05/2011 Ot 414.01 CORONARY ATHEROSCLEROSIS OF [place] CORON 08/05/2011 Ot 425.4 PRIM CARDIOMYOPATHY NEC 08/05/2011 Ot 786.09 RESPIRATORY ABNORM NEC 08/05/2011 Ot 786.59 CHEST PAIN NEC 08/05/2011 Ot V45.82 PERCUTANEOUS TRANSLUM CORON ANGIOPLASTY 08/05/2011 Ot V58.66 LONG-TERM (CURRENT) USE OF ASPIRIN 08/05/2011 Ot V58.69 OTH MED,LT,CURRENT USE 08/05/2011 Ot V85.31 BODY MASS INDEX 31.0-31.9, ADULT 08/14/2011 Ot 250.00 DIAB JODY WO COMPL, TYPE II OR UNSPEC TY 08/14/2011 Ot 401.9 HYPERTENSION NOS 08/14/2011 Ot 414.01 CORONARY ATHEROSCLEROSIS OF [place] CORON 08/14/2011 Ot 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 NEC 08/14/2011 Ot 780.79 OTH MALAISE FATIGUE 08/14/2011 Ot 786.05 SHORTNESS OF BREATH 08/14/2011 Ot V58.66 LONG-TERM (CURRENT) USE OF ASPIRIN 08/14/2011 Ot V58.69 OTH MED,LT,CURRENT USE 12/28/2012 JUAN HIGGINS DO Ot 922.0 [...] LOZANO MD Ot 414.01 CORONARY ATHEROSCLEROSIS OF [place] CORON 08/12/2013 SHANE LOZANO MD Ot 425.4 [...] PRINGLE DO Ot 272.4 HYPERLIPIDEMIA NEC/NOS 02/25/2014 KINDRA PRINGLE DO Ot 285.1 AC POSTHEMORRHAG ANEMIA 02/25/2014 YARY COATES KINDRA Fajardo Ot 311 DEPRESSIVE DISORDER NEC 02/25/2014 YARY COATES KINDRA Fajardo Ot 365.9 GLAUCOMA NOS 02/25/2014 YARY COATES KINDRA Fajardo Ot 401.9 HYPERTENSION NOS 02/25/2014 YARY COATES KINDRA Fajardo Ot 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 NEC 02/25/2014 YARY COATES KINDRA Fajardo Ot 428.0 CONGESTIVE HEART FAILURE NOS 02/25/2014 YARY COATES KINDRA Fajardo Ot 429.9 HEART DISEASE NOS 02/25/2014 YARY COATES KINDRA Fajardo Ot 496 CHR AIRWAY OBSTRUCT NEC 02/25/2014 YARY COATES KINDRA Fajardo Ot 715.36 LOC OSTEOARTH NOS-L/LEG 02/25/2014 YARY COATES KINDRA Fajardo Ot V45.02 AUTO IMPLANTABLE CARDIAC DEFIBRILLATOR I 02/28/2014 PATRICK VANN, GORDON E Ot 250.00 DIAB JODY WO COMPL, TYPE II OR UNSPEC TY 02/28/2014 GORDON NGUYEN MD E Ot 272.0 PURE HYPERCHOLESTEROLEM 02/28/2014 GORDON NGUYEN MD Ot 285.9 ANEMIA NOS 02/28/2014 GORDON NGUYEN MD E Ot 311 DEPRESSIVE DISORDER NEC 02/28/2014 GORDON NGUYEN MD Ot 401.9 HYPERTENSION NOS 02/28/2014 GORDON NGUYEN MD E Ot 414.01 CORONARY ATHEROSCLEROSIS OF [place] CORON 02/28/2014 GORDON NGUYEN MD E Ot 425.4 PRIM CARDIOMYOPATHY NEC 02/28/2014 GORDON NGUYEN MD Ot 428.0 CONGESTIVE HEART FAILURE NOS 02/28/2014 GORDON NGUYEN MD Ot 715.36 LOC OSTEOARTH NOS-L/LEG 02/28/2014 GORDON NGUYEN MD Ot 799.02 HYPOXEMIA 02/28/2014 GORDON NGYUEN MD Ot V43.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 02/28/2014 GORDON NGUYEN MD Ot V45.02 AUTO IMPLANTABLE CARDIAC DEFIBRILLATOR I 02/28/2014 GORDON NGUYEN MD Ot V45.82 PERCUTANEOUS TRANSLUM CORON ANGIOPLASTY 02/28/2014 GORDON NGUYEN MD Ot V46.2 SUPPLEMENTAL OXYGEN 02/28/2014 GORDON NGUYEN MD Ot V54.81 AFTERCARE FOLLOWING JOINT REPLACEMENT 02/28/2014 GORDON NGUYEN MD Ot V57.89 REHABILITATION PROC NEC 04/05/2014 KINDRA PRINGLE DO Ot V43.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 04/05/2014 KINDRA PRINGLE DO Ot V54.81 AFTERCARE FOLLOWING JOINT REPLACEMENT 04/05/2014 KINDRA PRINGLE DO Ot V57.1 PHYSICAL THERAPY NEC 07/02/2014 CRISTINA RANGEL DO Ot 250.00 DIAB JODY WO COMPL, TYPE II OR UNSPEC TY 07/02/2014 SAEID RANGEL DOI Ot 272.0 PURE HYPERCHOLESTEROLEM 07/02/2014 JUAN CARLOS COATES CRISTINA Ot 300.4 DYSTHYMIC DISORDER 07/02/2014 JUAN CARLOS COATES CRISTINA Ot 365.9 GLAUCOMA NOS 07/02/2014 JUAN CARLOS COATES CRISTINA Ot 397.0 TRICUSPID VALVE DISEASE 07/02/2014 SAEID RANGEL DOI Ot 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, UNSPEC, W HRT FAIL 07/02/2014 SAEID RANGEL DOI Ot 414.01 CORONARY ATHEROSCLEROSIS OF [place] CORON 07/02/2014 SAEID RANGEL DOI Ot 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 NEC 07/02/2014 SAEID RANGEL DOI Ot 424.0 MITRAL VALVE DISORDER 07/02/2014 JUAN CARLOS COATES CRISTINA Ot 427.31 ATRIAL FIBRILLATION 07/02/2014 JUAN CARLOS COATES CRISTINA Ot 427.69 PREMATURE BEATS NEC 07/02/2014 SAEID RANGEL DOI Ot 428.0 CONGESTIVE HEART FAILURE NOS 07/02/2014 JUAN CARLOS COATES CRISTINA Ot 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 07/02/2014 JUAN CARLOS COATES CRISTINA Ot 433.30 MULT BILTRAL ARTERY OCCLUSION WO CEREBRA 07/02/2014 SAEID RANGEL DOI Ot 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 07/02/2014 JUAN CARLOS COATES CRISTINA Ot 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, W (ACUTE) EX 07/02/2014 JUAN CARLOS COATES CRISTINA Ot 585.3 CHRONIC KIDNEY DISEASE, STAGE III (MODER 07/02/2014 SAEID RANGEL DOI Ot 715.90 OSTEOARTHROS NOS-UNSPEC 07/02/2014 CRISTINA RANGEL DO Ot V15.82 HISTORY OF TOBACCO USE 07/02/2014 [...] UNSPEC TY 08/23/2014 Ot 296.30 RECURR DEPR DISORD- UNSP 08/23/2014 Ot 338.29 OTHER CHRONIC PAIN 08/23/2014 Ot 402.91 HYPERTENSIVE HRT DIS W HRT FAILURE NOS 08/23/2014 Ot 414.01 CORONARY ATHEROSCLEROSIS OF [place] CORON 08/23/2014 Ot 428.0 CONGESTIVE HEART FAILURE NOS 08/23/2014 Ot 428.43 ACUTE CHRONIC SYSTOLIC/DIALSTOLIC HRT FA 08/23/2014 Ot 496 CHR AIRWAY OBSTRUCT NEC 08/23/2014 Ot 716.90 ARTHROPATHY NOS- UNSPEC 08/23/2014 Ot 724.5 BACKACHE NOS 08/23/2014 Ot [...] ALI FACP CCDS Ot 401.9 09/21/2014 KATHY LEEC, ALI FACP CCDS Ot 414.00 09/21/2014 KATHY LEEC, ALI FACP CCDS Ot 425.4 09/21/2014 KATHY VANN FACC, ALI FACP CCDS Ot 447.9 09/21/2014 KATHY VANN FACC, ALI FACP CCDS Ot 785.9 09/21/2014 KATHY VANN FACC, ALI FACP CCDS Ot 786.09 10/01/2014 KATHY VANN FACC, ALI FACP CCDS Ot 250.00 10/01/2014 KATHY VANN FACC, ALI FACP CCDS Ot 272.4 10/01/2014 KATHY VANN FACC, ALI FACP CCDS Ot 278.00 10/01/2014 KATHY MD FACC, ALI FACP CCDS Ot 296.32 10/01/2014 KATHY VANN FACC, ALI FACP CCDS Ot 401.9 10/01/2014 KATHY VANN FACC, ALI FACP CCDS Ot 414.00 10/01/2014 KATHY VANN FACC, ALI FACP CCDS Ot 425.4 10/01/2014 KATHY VANN FACC, ALI FACP CCDS Ot 447.9 10/01/2014 KATHY VANN FACC, ALI FACP CCDS Ot 785.9 10/01/2014 KATHY VNAN FACC, ALI FACP CCDS Ot 786.09 11/03/2014 BLAKE VANN, SHANE Collier Ot 782.3 11/17/2014 JOVANNA FLETCHER MD Ot 250.00 DIAB JODY WO COMPL, TYPE II OR UNSPEC TY 11/17/2014 JOVANNA FLETCHER MD Ot 728.87 MUSCLE WEAKNESS (GENERALIZED) 11/17/2014 JOVANNA FLETCHER MD Ot V58.69 OTH MED,LT,CURRENT USE 11/23/2014 BLAKE VANN, SHANE Collier Ot 782.3 11/24/2014 YARY DO, KINDRA F [...] DO, KINDRA F Ot 715.36 11/26/2014 YARY DO, KINDRA F Ot 726.91 11/26/2014 YARY COATES, KINDRA Fajardo Ot 250.00 DIAB JODY WO COMPL, TYPE [...] DO Ot 726.91 EXOSTOSIS, SITE NOS 12/05/2014 KINDRA PRINGLE DO Ot 715.36 12/05/2014 KINDRA PRINGLE DO Ot V72.63 12/05/2014 YARY COATES KINDRA Fajardo Ot V74.8 12/13/2014 YARY COATES, KINDRA Fajardo Ot 715.36 12/13/2014 YARY COATES, KINDRA Fajardo Ot V72.63 12/13/2014 YARY DO, KINDRA Fajardo Ot V74.8 12/26/2014 YARY KINDRA COAETS Ot V58.61 12/26/2014 YARY KINDRA COATES Ot V58.83 02/26/2015 Ot 396.3 02/26/2015 Ot [...] 02/26/2015 Ot V72.63 02/26/2015 Ot V72.81 02/26/2015 BAIJEWEL WADE L INFRASTRUCTURE TECH Ot 272.4 02/26/2015 BAIMAJEWEL L INFRASTRUCTURE TECH Ot 396.3 02/26/2015 BAIMAJEWEL L INFRASTRUCTURE TECH Ot 401.9 02/26/2015 BAIMAJEWEL L INFRASTRUCTURE TECH Ot 414.00 02/26/2015 BAIJEWEL WADE L INFRASTRUCTURE TECH Ot 425.4 02/26/2015 YARY DO, KINDRA Fajardo Ot 715.36 02/26/2015 YARY DO, KINDRA F Ot V72.63 02/26/2015 YARY DO, KINDRA F Ot V72.83 02/26/2015 YARY DO, KINDRA F Ot V74.8 02/26/2015 MAYELIN OWENS BOAT OAR MAKER Ot 729.81 02/26/2015 MAYELIN OWENS BOAT OAR MAKER Ot V43.65 02/26/2015 KATHY VANN FACC, ALI [...] Collier Ot 782.3 02/26/2015 YARY DO, KINDRA Fajardo Ot 715.36 02/26/2015 YARY DO, KINDRA Fajardo Ot V72.63 02/26/2015 YARY DO, KINDRA Fajardo Ot V74.8 02/26/2015 YARY DO, KINDRA Fajardo Ot V58.61 02/26/2015 YARY DO, KINDRA Fajardo Ot V58.83 03/20/2015 BAIMA, JEWEL L INFRASTRUCTURE TECH Ot 272.4 03/20/2015 BAIMA, JEWEL L INFRASTRUCTURE TECH Ot 401.9 03/20/2015 BAIMA, JEWEL L INFRASTRUCTURE TECH Ot 414.9 03/20/2015 BAIMA, JEWEL L INFRASTRUCTURE TECH Ot 425.4 03/20/2015 BAIMA, JEWEL L INFRASTRUCTURE TECH Ot 447.9 03/28/2015 BAIMA, JEWEL L INFRASTRUCTURE TECH Ot 272.4 03/28/2015 BAIMA, JEWEL L INFRASTRUCTURE TECH Ot 401.9 03/28/2015 BAIMA, JEWEL L INFRASTRUCTURE TECH Ot 414.9 03/28/2015 BAIMA, JEWEL L INFRASTRUCTURE TECH Ot 425.4 03/28/2015 BAIMA, JEWEL L INFRASTRUCTURE TECH Ot 447.9 11/06/2015 OJVANNA FLETCHER MD Ot 250.00 DIAB JODY WO [...] SHORTNESS OF BREATH 01/20/2016 Ot V58.69 OTH MED,LT,CURRENT USE 01/20/2016 Ot V72.63 PRE-PROCEDURAL LABORATORY EXAMINATION 01/20/2016 Ot V72.81 [id number] CARDIOVASCULAR 01/20/2016 BAIMA, JEWEL L INFRASTRUCTURE TECH Ot 272.4 HYPERLIPIDEMIA NEC/NOS 01/20/2016 BAIMA, JEWEL L INFRASTRUCTURE TECH Ot 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 01/20/2016 BAIMA, JEWEL L INFRASTRUCTURE TECH Ot 401.9 HYPERTENSION NOS 01/20/2016 JEWEL OSEGUERA INFRASTRUCTURE TECH Ot 414.00 CORON ATHEROSCLER NOS TYPE VESSEL, NATIV 01/20/2016 JEWEL OSEGUERA INFRASTRUCTURE TECH Ot 425.4 PRIM CARDIOMYOPATHY NEC 01/20/2016 KINDRA PRINGLE DO Ot 715.36 LOC OSTEOARTH NOS-L/LEG 01/20/2016 KINDRA PRINGLE DO Ot V72.63 PRE-PROCEDURAL LABORATORY EXAMINATION 01/20/2016 KINDRA PRINGLE DO Ot V72.83 EXAM PRE-OPERATIVE NEC 01/20/2016 KINDRA PRINGLE DO Ot V74.8 SCREEN-BACTERIAL DIS NEC 01/20/2016 MAYELIN OWENS BOAT OAR MAKER Ot 729.81 SWELLING OF LIMB 01/20/2016 MAYELIN OWENS BOAT OAR MAKER Ot V43.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 01/20/2016 KATHY VANN FACC, ALI FACP CCDS Ot 250.00 DIAB JODY WO COMPL, TYPE II OR UNSPEC TY 01/20/2016 KATHY VANN FACC, ALI FACP CCDS Ot 272.4 HYPERLIPIDEMIA NEC/NOS 01/20/2016 KATHY VANN FACC, ALI FACP CCDS Ot 278.00 OBESITY, NOS 01/20/2016 KATHY VANN FACC, ALI FACP CCDS Ot 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 01/20/2016 KATHY VANN FACC, ALI FACP CCDS [...] CCDS Ot 786.09 RESPIRATORY ABNORM NEC 01/20/2016 BLAKE VANN, SHANE Collier Ot 782.3 EDEMA 01/20/2016 KINDRA PRINGLE DO Ot 715.36 LOC OSTEOARTH NOS-L/LEG 01/20/2016 KINDRA PRINGLE DO Ot V72.63 PRE-PROCEDURAL LABORATORY EXAMINATION 01/20/2016 KINDRA PRINGLE DO Ot V74.8 SCREEN-BACTERIAL DIS NEC 01/20/2016 KINDRA PRINGLE DO Ot V58.61 ANTICOAGULANTS,LT,CURRENT USE 01/20/2016 KINDRA PRINGLE DO Ot V58.83 ENCOUNTER FOR THERAPEUTIC DRUG MONITORIN 01/20/2016 JEWEL OSEGUERA INFRASTRUCTURE TECH Ot 272.4 HYPERLIPIDEMIA NEC/NOS 01/20/2016 JEWEL OSEGUERA INFRASTRUCTURE TECH Ot 401.9 HYPERTENSION NOS 01/20/2016 EDOUARDJEWEL WADE INFRASTRUCTURE TECH Ot 414.9 CHR ISCHEMIC HRT DIS NOS 01/20/2016 JEWEL OSEGUERA INFRASTRUCTURE TECH Ot 425.4 PRIM CARDIOMYOPATHY NEC 01/20/2016 EDOUARDJEWEL WADE INFRASTRUCTURE TECH Ot 447.9 ARTERIAL DISEASE NOS 01/20/2016 JAZMYNE [...] FRACTURE OF TOOTH (TRAUMATIC), INIT FOR 01/22/2016 JAZMYNE WHITEHEAD APRN Ot W01.0XXA FALL SAME LEV FROM SLIP/TRIP W/O STRIKE 01/22/2016 JAZYMNE WHITEHEAD BOAT OAR MAKER Ot Y92.[address] OF OCCURRENCE OF T 01/22/2016 JAZMYNE WHITEHEAD BOAT OAR MAKER Ot Y99.8 OTHER EXTERNAL CAUSE STATUS 01/22/2016 JAZMYNE WHITEHEAD BOAT OAR MAKER Ot Z23 ENCOUNTER FOR IMMUNIZATION 01/22/2016 JAZMYNE WHITEHEAD BOAT OAR MAKER Ot Z95.0 PRESENCE OF CARDIAC PACEMAKER 03/07/2016 [...] SHORTNESS OF BREATH 10/26/2016 Ot V58.69 OTH MED,LT,CURRENT USE 10/26/2016 Ot V72.63 PRE-PROCEDURAL LABORATORY EXAMINATION 10/26/2016 Ot V72.81 [id number] CARDIOVASCULAR 10/26/2016 BAIJEWEL WADE INFRASTRUCTURE TECH Ot 272.4 HYPERLIPIDEMIA NEC/NOS 10/26/2016 BAIMA, JEWEL L INFRASTRUCTURE TECH Ot 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 10/26/2016 JEWEL OSEGUERA INFRASTRUCTURE TECH Ot 401.9 HYPERTENSION NOS 10/26/2016 BAIMA JEWEL L INFRASTRUCTURE TECH Ot 414.00 CORON ATHEROSCLER NOS TYPE VESSEL, NATIV 10/26/2016 JEWEL OSEGUERA INFRASTRUCTURE TECH Ot 425.4 PRIM CARDIOMYOPATHY NEC 10/26/2016 KINDRA PRINGLE DO Ot 715.36 LOC OSTEOARTH NOS-L/LEG 10/26/2016 KINDRA PRINGLE DO Ot V72.63 PRE-PROCEDURAL LABORATORY EXAMINATION 10/26/2016 KINDRA PRINGLE DO Ot V72.83 EXAM PRE-OPERATIVE NEC 10/26/2016 KINDRA PRINGLE DO Ot V74.8 SCREEN-BACTERIAL DIS NEC 10/26/2016 MAYELIN OWENS BOAT OAR MAKER Ot 729.81 SWELLING OF LIMB 10/26/2016 MAYELIN OWENS BOAT OAR MAKER Ot V43.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 10/26/2016 [...] Ot V58.61 ANTICOAGULANTS,LT,CURRENT USE 10/26/2016 KINDRA PRINGLE DO Ot V58.83 ENCOUNTER FOR THERAPEUTIC DRUG MONITORIN 10/26/2016 JEWEL OSEGUERA INFRASTRUCTURE TECH Ot 272.4 HYPERLIPIDEMIA NEC/NOS 10/26/2016 JEWEL OSEGUERA INFRASTRUCTURE TECH Ot 401.9 HYPERTENSION NOS 10/26/2016 JEWEL OSEGUERA INFRASTRUCTURE TECH Ot 414.9 CHR ISCHEMIC HRT DIS NOS 10/26/2016 JEWEL OSEGUERA INFRASTRUCTURE TECH Ot 425.4 PRIM CARDIOMYOPATHY NEC 10/26/2016 JEWEL OSEGUERA INFRASTRUCTURE TECH Ot 447.9 ARTERIAL DISEASE NOS 10/27/2016 JOVANNA FLETCHER MD Ot R07.9 CHEST PAIN, UNSPECIFIED 10/28/2016 JOVANNA FLETCHER MD Ot E11.51 TYPE 2 DIABETES W DIABETIC PERIPHERAL AN 10/28/2016 JOVANNA FLETCHER MD Ot E78.00 PURE HYPERCHOLESTEROLEMIA, UNSPECIFIED 10/28/2016 JOVANNA FLETCHER MD Ot F32.9 MAJOR DEPRESSIVE DISORDER, SINGLE EPISOD 10/28/2016 JOVANNA FLETCHER MD Ot G47.30 SLEEP APNEA, UNSPECIFIED 10/28/2016 JOVANNA FLETCHER MD Ot I08.1 RHEUMATIC DISORDERS OF BOTH MITRAL AND T 10/28/2016 JOVANNA FLETCHER MD, Ot I10 ESSENTIAL (PRIMARY) HYPERTENSION 10/28/2016 JOVANNA FLETCHER MD Ot I25.10 ATHSCL HEART DISEASE OF [place] CORONARY 10/28/2016 JOVANNA FLETCHER MD, Ot I25.5 ISCHEMIC CARDIOMYOPATHY 10/28/2016 JOVANNA FLETCHER [...] RESUSCITATE 10/28/2016 JOVANNA FLETCHER MD Ot Z79.84 FPC (CURRENT) USE OF ORAL HYPOGLYC 10/28/2016 JOVANNA FLETCHER MD Ot Z87.891 PERSONAL HISTORY OF NICOTINE DEPENDENCE 10/28/2016 JOVANNA FLETCHER MD Ot Z91.19 PATIENT'S NONCOMPLIANCE W [facility] 10/28/2016 JOVANNA FLETCHER MD, Ot Z91.81 HISTORY OF FALLING 10/28/2016 JOVANNA FLETCHER MD, Ot Z95.5 PRESENCE OF CORONARY ANGIOPLASTY IMPLANT 10/28/2016 JOVANNA FLETCHER MD, Ot Z95.810 PRESENCE OF AUTOMATIC (IMPLANTABLE) CARD 10/28/2016 JOVANNA FLETCHER MD Ot 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 OXYGEN 10/29/2016 [...] BOTH MITRAL AND T 10/29/2016 JOVANNA FLETCHER MD, Ot I10 ESSENTIAL (PRIMARY) HYPERTENSION 10/29/2016 JOVANNA FLETCHER MD, Ot I25.10 ATHSCL HEART DISEASE OF [place] CORONARY 10/29/2016 JOVANNA FLETCHER MD, Ot I25.5 [...] MD Ot R53.1 WEAKNESS 10/29/2016 JOVANNA FLETCHER MD Ot Z66 DO NOT RESUSCITATE 10/29/2016 JOVANNA FLETCHER MD, Ot Z79.84 FPC (CURRENT) USE OF ORAL HYPOGLYC 10/29/2016 JOVANNA FLETCHER MD, Ot Z87.891 PERSONAL HISTORY OF NICOTINE DEPENDENCE 10/29/2016 JOVANNA FLETCHER MD, Ot Z91.19 PATIENT'S NONCOMPLIANCE W [facility] 10/29/2016 JOVANNA FLETCHER MD, Ot Z91.81 HISTORY OF FALLING 10/29/2016 JOVANNA FLETCHER MD, Ot Z95.5 PRESENCE OF CORONARY ANGIOPLASTY IMPLANT 10/29/2016 JOVANNA FLETCHER MD, Ot Z95.810 PRESENCE OF AUTOMATIC (IMPLANTABLE) CARD 10/29/2016 JOVANNA FLETCHER MD, Ot 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 OXYGEN 10/29/2016 JOVANNA FLETCHER MD, Ot E11.21 TYPE 2 DIABETES MELLITUS WITH DIABETIC N 10/29/2016 JOVANNA FLETCHER MD, Ot E11.51 TYPE 2 DIABETES W DIABETIC PERIPHERAL AN 10/29/2016 JOVANNA FLETCHER MD, Ot E78.00 PURE HYPERCHOLESTEROLEMIA, UNSPECIFIED 10/29/2016 JOVANNA FLETCHER MD, Ot E86.0 DEHYDRATION 10/29/2016 JOVANNA FLETCHER MD, Ot E86.9 VOLUME DEPLETION, UNSPECIFIED 10/29/2016 JOVANNA FLETCHER MD, Ot F32.9 MAJOR DEPRESSIVE DISORDER, SINGLE EPISOD 10/29/2016 JOVANNA FLETCHER MD, Ot G47.30 SLEEP APNEA, UNSPECIFIED 10/29/2016 JOVANNA FLETCHER MD, Ot I08.1 RHEUMATIC DISORDERS OF BOTH MITRAL AND T 10/29/2016 JOVANNA FLETCHER MD Ot I10 ESSENTIAL (PRIMARY) HYPERTENSION 10/29/2016 JOVANNA FLETCHER MD, Ot I25.10 ATHSCL HEART DISEASE OF [place] CORONARY 10/29/2016 JOVANNA FLETCHER MD, Ot I25.5 ISCHEMIC CARDIOMYOPATHY 10/29/2016 JOVANNA FLETCHER MD, Ot I48.91 UNSPECIFIED ATRIAL FIBRILLATION 10/29/2016 JOVANNA FLETCHER MD, Ot I50.23 ACUTE ON CHRONIC SYSTOLIC (CONGESTIVE) H 10/29/2016 JOVANNA FLETCHER MD, Ot I65.23 OCCLUSION AND STENOSIS OF BILATERAL [place] 10/29/2016 JOVANNA FLETCHER MD, Ot J44.9 CHRONIC OBSTRUCTIVE PULMONARY DISEASE, U 10/29/2016 JOVANNA FLETCHER MD Ot K64.9 UNSPECIFIED HEMORRHOIDS 10/29/2016 JOVANNA FLETCHER MD Ot M19.91 PRIMARY OSTEOARTHRITIS, UNSPECIFIED SITE 10/29/2016 JOVANNA FLETCHER MD Ot M54.9 DORSALGIA, UNSPECIFIED 10/29/2016 JOVANNA FLETCHER MD, Ot N17.9 ACUTE KIDNEY FAILURE, UNSPECIFIED 10/29/2016 JOVANNA FLETCHER MD, Ot N18.9 CHRONIC KIDNEY DISEASE, UNSPECIFIED 10/29/2016 JOVANNA FLETCHER MD Ot R07.89 OTHER CHEST PAIN 10/29/2016 JOVANNA FLETCHER MD Ot R53.1 WEAKNESS 10/29/2016 JOVANNA FLETCHER MD, Ot Z66 DO NOT RESUSCITATE 10/29/2016 JOVANNA FLETCHER MD, Ot Z79.84 COAL LOADER (CURRENT) USE OF ORAL HYPOGLYC 10/29/2016 JOVANNA FLETCHER MD Ot Z87.891 PERSONAL HISTORY OF NICOTINE DEPENDENCE 10/29/2016 JOVANNA FLETCHER MD Ot Z91.19 PATIENT'S NONCOMPLIANCE W [facility] 10/29/2016 JOVANNA FLETCHER MD Ot Z91.81 HISTORY OF FALLING 10/29/2016 JOVANNA FLETCHER MD Ot Z95.5 PRESENCE OF CORONARY ANGIOPLASTY IMPLANT 10/29/2016 JOVANNA FLETCHER MD Ot Z95.810 PRESENCE OF AUTOMATIC (IMPLANTABLE) CARD 10/29/2016 JOVANNA FLETCHER MD Ot 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 OXYGEN 06/08/2017 JEWEL OSEGUERA Ot 272.4 HYPERLIPIDEMIA NEC/NOS 06/08/2017 JEWEL OSEGUERAP Ot 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 06/08/2017 JEWEL OSEGUERA Ot 401.9 HYPERTENSION NOS 06/08/2017 JEWEL OSEGUERA Ot 414.00 CORON ATHEROSCLER NOS TYPE VESSEL, NATIV 06/08/2017 JEWEL OSEGUERA Ot 425.4 PRIM CARDIOMYOPATHY NEC 06/08/2017 KINDRA PRINGLE DO Ot 715.36 LOC OSTEOARTH NOS-L/LEG 06/08/2017 KINDRA PRINGLE DO Ot V72.63 PRE-PROCEDURAL LABORATORY EXAMINATION 06/08/2017 KINDRA PRINGLE DO Ot V72.83 EXAM PRE-OPERATIVE NEC 06/08/2017 KINDRA PRINGLE DO Ot V74.8 SCREEN-BACTERIAL DIS NEC 06/08/2017 MAYELIN OWENS BOAT OAR MAKER Ot 729.81 SWELLING OF LIMB 06/08/2017 MAYELIN OWENS BOAT OAR MAKER Ot V43.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 06/08/2017 KATHY VANN FACC, ALI FACP CCDS Ot 250.00 DIAB JODY WO COMPL, TYPE II OR UNSPEC TY 06/08/2017 KATHY LEEC, ALI FACP CCDS Ot 272.4 HYPERLIPIDEMIA NEC/NOS 06/08/2017 KATHY LEEC, ALI FACP CCDS Ot 278.00 OBESITY, NOS [...] V58.83 ENCOUNTER FOR THERAPEUTIC DRUG MONITORIN 06/08/2017 BAIJEWEL WADE INFRASTRUCTURE TECH Ot 272.4 HYPERLIPIDEMIA NEC/NOS 06/08/2017 BAIMAJEWEL L INFRASTRUCTURE TECH Ot 401.9 HYPERTENSION NOS 06/08/2017 BAIMA, JEWEL L INFRASTRUCTURE TECH Ot 414.9 CHR ISCHEMIC HRT DIS NOS 06/08/2017 JEWEL OSEGUERA INFRASTRUCTURE TECH Ot 425.4 PRIM CARDIOMYOPATHY NEC 06/08/2017 JEWEL OSEGUERA INFRASTRUCTURE TECH Ot 447.9 ARTERIAL DISEASE NOS 06/08/2017 JEWEL OSEGUERA INFRASTRUCTURE TECH Ot 272.4 HYPERLIPIDEMIA NEC/NOS 06/08/2017 JEWEL OSEGUERA INFRASTRUCTURE TECH Ot 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 06/08/2017 JEWEL OSEGUERA INFRASTRUCTURE TECH Ot 401.9 HYPERTENSION NOS 06/08/2017 JEWEL OSEGUERA INFRASTRUCTURE TECH Ot 414.00 CORON ATHEROSCLER NOS TYPE VESSEL, NATIV 06/08/2017 JEWEL OSEGUERA INFRASTRUCTURE TECH Ot 425.4 PRIM CARDIOMYOPATHY NEC 06/08/2017 KINDRA PRINGLE DO Ot 715.36 LOC OSTEOARTH NOS-L/LEG 06/08/2017 KINDRA PRINGLE DO Ot V72.63 PRE-PROCEDURAL LABORATORY EXAMINATION 06/08/2017 KINDRA PRINGLE DO Ot V72.83 EXAM PRE-OPERATIVE NEC 06/08/2017 KINDRA PRINGLE DO Ot V74.8 SCREEN-BACTERIAL DIS NEC 06/08/2017 MAYELIN OWENS BOAT OAR MAKER Ot 729.81 SWELLING OF LIMB 06/08/2017 MAYELIN OWENS [employer] OAR MAKER Ot V43.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 06/08/2017 [...] Ot 447.9 ARTERIAL DISEASE NOS 06/08/2017 KATHY MD FACC, ALI FACP CCDS Ot 785.9 CARDIOVAS SYS SYMP NEC 06/08/2017 KATHY VANN FAC, ALI FACP CCDS Ot 786.09 RESPIRATORY ABNORM [...] FOR THERAPEUTIC DRUG MONITORIN 06/08/2017 JEWEL OSEGUERA INFRASTRUCTURE TECH Ot 272.4 HYPERLIPIDEMIA NEC/NOS 06/08/2017 JEWEL OSEGUERA INFRASTRUCTURE TECH Ot 401.9 HYPERTENSION NOS 06/08/2017 JEWEL OSEGUERA INFRASTRUCTURE TECH Ot 414.9 CHR ISCHEMIC HRT DIS NOS 06/08/2017 JEWEL OSEGUERA INFRASTRUCTURE TECH Ot 425.4 PRIM CARDIOMYOPATHY NEC 06/08/2017 BAIMAJEWEL INFRASTRUCTURE TECH Ot 447.9 ARTERIAL DISEASE NOS 06/09/2017 JUAN CARLOS COATES, CRISTINA Ot E11.9 TYPE 2 DIABETES MELLITUS WITHOUT COMPLIC 06/09/2017 JUAN CARLOS DO CRISTINA Ot E78.00 PURE HYPERCHOLESTEROLEMIA, UNSPECIFIED 06/09/2017 RANGEL DO, CRISTINA Ot E78.5 HYPERLIPIDEMIA, UNSPECIFIED 06/09/2017 RANGELALEXANDER COATES CRISTINA Ot F32.9 MAJOR DEPRESSIVE DISORDER, SINGLE EPISOD 06/09/2017 JUAN CARLOS COATES CRISTINA Ot G47.33 OBSTRUCTIVE SLEEP APNEA (ADULT) (PEDIATR 06/09/2017 RANGEL DO CRISTINA Ot I12.9 HYPERTENSIVE CHRONIC KIDNEY DISEASE W ST 06/09/2017 JUAN CARLOS COATES CRISTINA Ot I42.9 CARDIOMYOPATHY, UNSPECIFIED 06/09/2017 JUAN CARLOS DO CRISTINA Ot I48.91 UNSPECIFIED ATRIAL FIBRILLATION 06/09/2017 JUAN CARLOS DO, CRISTINA Ot I50.23 ACUTE ON CHRONIC SYSTOLIC (CONGESTIVE) H 06/09/2017 JUAN CARLOS COATES CRISTINA Ot J44.9 CHRONIC OBSTRUCTIVE PULMONARY DISEASE, U 06/09/2017 JUAN CARLOS COATES CRISTINA Ot N18.3 CHRONIC KIDNEY DISEASE, STAGE 3 (MODERAT 06/09/2017 RANGEL DO, CRISTINA Ot R06.02 SHORTNESS OF BREATH 06/09/2017 RANGEL DO, CRISTINA Ot R09.02 HYPOXEMIA 06/09/2017 RANGEL DO, CRISTINA Ot Z87.891 PERSONAL HISTORY OF NICOTINE DEPENDENCE 06/09/2017 RANGEL DO, CRISTINA Ot Z91.19 PATIENT'S NONCOMPLIANCE W [facility] 06/09/2017 RANGEL DO CRISTINA Ot Z95.810 PRESENCE OF AUTOMATIC (IMPLANTABLE) [...] DO, CRISTINA Ot Z91.19 PATIENT'S NONCOMPLIANCE W [facility] 06/30/2017 RANGEL DO CRISTINA Ot Z95.810 PRESENCE OF AUTOMATIC (IMPLANTABLE) CARD 06/30/2017 RANGEL DO, CRISTINA Ot E11.9 TYPE 2 DIABETES MELLITUS WITHOUT COMPLIC 06/30/2017 RANGEL DO, CRISTINA Ot E78.00 PURE HYPERCHOLESTEROLEMIA, UNSPECIFIED 06/30/2017 RANGEL DO CRISTINA Ot E78.5 HYPERLIPIDEMIA, UNSPECIFIED 06/30/2017 RANGEL DO CRISTINA Ot F32.9 MAJOR DEPRESSIVE DISORDER, SINGLE EPISOD 06/30/2017 RANGELALEXANDER COATES CRISTINA Ot G47.33 OBSTRUCTIVE SLEEP APNEA (ADULT) (PEDIATR 06/30/2017 RANGEL DO CRISTINA Ot I12.9 HYPERTENSIVE CHRONIC KIDNEY DISEASE W ST 06/30/2017 RANGEL DO CRISTINA Ot I42.9 CARDIOMYOPATHY, UNSPECIFIED 06/30/2017 RANGEL DO CRISTINA Ot I48.91 UNSPECIFIED ATRIAL FIBRILLATION 06/30/2017 RANGEL DO CRISTINA Ot I50.23 ACUTE ON CHRONIC SYSTOLIC (CONGESTIVE) H 06/30/2017 JUAN CARLOS COATES CRISTINA Ot J44.9 CHRONIC OBSTRUCTIVE PULMONARY DISEASE, U 06/30/2017 RANGEL DO CRISTINA Ot N18.3 CHRONIC KIDNEY DISEASE, STAGE 3 (MODERAT 06/30/2017 JUAN CARLOS COATES CRISTINA Ot R06.02 SHORTNESS OF BREATH 06/30/2017 JUAN CARLOS COATES CRISTINA Ot R09.02 HYPOXEMIA 06/30/2017 JUAN CARLOS COATES CRISTINA Ot Z87.891 PERSONAL HISTORY OF NICOTINE DEPENDENCE 06/30/2017 JUAN CARLOS COATES CRISTINA Ot Z91.19 PATIENT'S NONCOMPLIANCE W [facility] 06/30/2017 JUAN CARLOS COATES CRISTINA [...] MD Ot I25.10 ATHSCL HEART DISEASE OF [place] CORONARY 10/29/2017 CARO LOYOLA MD Ot I42.9 [...] MOTOR RESPONSE, OBEYS C 10/29/2017 CARO LOYOLA MD Ot S00.81XA ABRASION OF OTHER PART OF [...] PLACE OF OCCURRENCE O 10/29/2017 CARO LOYOLA MD Ot Z79.82 COAL LOADER (CURRENT) USE OF ASPIRIN 10/29/2017 CARO LOYOLA MD Ot Z79.84 FPC (CURRENT) USE OF ORAL HYPOGLYC 10/29/2017 CARO LOYOLA MD Ot Z80.0 FAMILY HISTORY OF MALIGNANT NEOPLASM OF 10/29/2017 CARO LOYOLA MD Ot Z80.3 FAMILY HISTORY OF MALIGNANT NEOPLASM OF 10/29/2017 CARO LOYOLA MD Ot Z90.710 ACQUIRED ABSENCE OF BOTH CERVIX AND UTER 10/29/2017 CARO LOYOLA MD Ot Z95.1 PRESENCE OF AORTOCORONARY BYPASS GRAFT 10/29/2017 CARO LOYOLA MD Ot Z95.810 PRESENCE OF AUTOMATIC (IMPLANTABLE) CARD 10/29/2017 CARO LOYOLA MD Ot 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 OXYGEN 11/03/2017 BAIMA, JEWEL L INFRASTRUCTURE TECH Ot 272.4 HYPERLIPIDEMIA NEC/NOS 11/03/2017 JEWEL OSEGUERA INFRASTRUCTURE TECH Ot 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 11/03/2017 JEWEL OSEGUERA INFRASTRUCTURE TECH Ot 401.9 HYPERTENSION NOS 11/03/2017 JEWEL OSEGUERA INFRASTRUCTURE TECH Ot 414.00 CORON ATHEROSCLER NOS TYPE VESSEL, NATIV 11/03/2017 JEWEL OSEGUERA INFRASTRUCTURE TECH Ot 425.4 PRIM CARDIOMYOPATHY NEC 11/03/2017 KINDRA PRINGLE DO Ot 715.36 LOC OSTEOARTH NOS-L/LEG 11/03/2017 KINDRA PRINGLE DO Ot V72.63 PRE-PROCEDURAL LABORATORY EXAMINATION 11/03/2017 KINDRA PRINGLE DO Ot V72.83 EXAM PRE-OPERATIVE NEC 11/03/2017 KINDRA PRINGLE DO Ot V74.8 SCREEN-BACTERIAL DIS NEC 11/03/2017 MAYELIN OWENS BOAT OAR MAKER Ot 729.81 SWELLING OF LIMB 11/03/2017 MAYELIN OWENS BOAT OAR MAKER Ot V43.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 11/03/2017 [...] RESPIRATORY ABNORM NEC 11/03/2017 BLAKE VANN, SHANE Collier Ot 782.3 EDEMA 11/03/2017 KINDRA PRINGLE DO Ot 715.36 LOC OSTEOARTH NOS-L/LEG 11/03/2017 KINDRA PRINGLE DO Ot V72.63 PRE-PROCEDURAL LABORATORY EXAMINATION 11/03/2017 KINDRA PRINGLE DO Ot V74.8 SCREEN-BACTERIAL DIS NEC 11/03/2017 KINDRA PRINGLE DO Ot V58.61 ANTICOAGULANTS,LT,CURRENT USE 11/03/2017 KINDRA PRINGLE DO Ot V58.83 ENCOUNTER FOR THERAPEUTIC DRUG MONITORIN 11/03/2017 JEWEL OSEGUERA INFRASTRUCTURE TECH Ot 272.4 HYPERLIPIDEMIA NEC/NOS 11/03/2017 BAIJEWEL WADE INFRASTRUCTURE TECH Ot 401.9 HYPERTENSION NOS 11/03/2017 BAIJEWEL WADE INFRASTRUCTURE TECH Ot 414.9 CHR ISCHEMIC HRT DIS NOS 11/03/2017 EDOUARDJEWEL WADE INFRASTRUCTURE TECH Ot 425.4 PRIM CARDIOMYOPATHY NEC 11/03/2017 BAIJEWEL WADE INFRASTRUCTURE TECH Ot 447.9 ARTERIAL DISEASE NOS 11/06/2017 BASIL DO JEAN PIERRE Pollock Ot S01.81XD LACERATION W/O FOREIGN BODY OF OTH PART 11/06/2017 BASIL DO JEAN PIERRE K Ot X58.XXXD EXPOSURE TO OTHER SPECIFIED FACTORS, SUB 11/08/2017 BASIL JEAN PIERRE Phill Ot S01.81XD LACERATION W/O FOREIGN BODY OF OTH PART 11/08/2017 BASIL , JEAN PIERRE Phill Ot X58.XXXD EXPOSURE TO OTHER SPECIFIED FACTORS, SUB 06/10/2018 JAZMYNE WHITEHEAD APRN Ot E11.51 TYPE 2 DIABETES W DIABETIC PERIPHERAL AN 06/10/2018 JAZMYNE WHITEHEAD APRN Ot E78.00 PURE HYPERCHOLESTEROLEMIA, UNSPECIFIED 06/10/2018 JAZMYNE WHITEHEAD APRN Ot F32.9 MAJOR DEPRESSIVE DISORDER, SINGLE EPISOD 06/10/2018 JAZMYNE WHITEHEAD APRN Ot I10 ESSENTIAL (PRIMARY) HYPERTENSION 06/10/2018 JAZMYNE WHITEHEAD APRN Ot I25.10 ATHSCL HEART DISEASE OF [place] CORONARY 06/10/2018 JAZMYNE WHITEHEAD APRN Ot I42.9 CARDIOMYOPATHY, UNSPECIFIED 06/10/2018 JAZMYNE WHITEHEAD APRN Ot I48.91 UNSPECIFIED ATRIAL FIBRILLATION 06/10/2018 JAZMYNE WHITEHEAD APRN Ot I73.9 PERIPHERAL VASCULAR DISEASE, UNSPECIFIED 06/10/2018 JAZMYNE WHITEHEAD APRN Ot J44.9 CHRONIC OBSTRUCTIVE PULMONARY DISEASE, U 06/10/2018 JAZMYNE WHITEHEAD APRN Ot R40.2142 COMA SCALE, EYES OPEN, SPONTANEOUS, EMR 06/10/2018 JAZMYNE WHITEHEAD APRN Ot R40.2252 COMA SCALE, BEST VERBAL RESPONSE, ORIENT 06/10/2018 JAZMYNE WHITEHEAD APRN Ot R40.2362 COMA SCALE, BEST MOTOR RESPONSE, OBEYS C 06/10/2018 JAZMYNE WHITEHEAD APRN Ot R51 HEADACHE 06/10/2018 JAZMYNE WHITEHEAD APRN, Ot S01.112A LACERATION W/O FB OF LEFT EYELID AND PER 06/10/2018 JAZMYNE WHITEHEAD APRN Ot W01.198A FALL SAME LEV FROM SLIP/TRIP W STRIKE AG 06/10/2018 JAZMYNE WHITEHEAD APRN Ot Z79.4 COAL LOADER (CURRENT) USE OF INSULIN 06/10/2018 JAZMYNE WHITEHEAD APRN Ot Z79.82 COAL LOADER (CURRENT) USE OF ASPIRIN 06/10/2018 JAZMYNE WHITEHEAD APRN Ot Z80.0 FAMILY HISTORY OF MALIGNANT NEOPLASM OF 06/10/2018 JAZMYNE WHITEHEAD APRN Ot Z87.19 PERSONAL HISTORY OF OTHER DISEASES OF TH 06/10/2018 JAZMYNE WHITEHEAD APRN Ot Z87.448 PERSONAL HISTORY OF OTHER DISEASES OF UR 06/10/2018 JAZMYNE WHITEHEAD APRN Ot Z90.710 ACQUIRED ABSENCE OF BOTH CERVIX AND UTER 06/10/2018 JAZMYNE WHITEHEAD APRN Ot Z90.89 ACQUIRED ABSENCE OF OTHER ORGANS 06/10/2018 JAZMYNE WHITEHEAD APRN Ot Z95.5 PRESENCE OF CORONARY ANGIOPLASTY IMPLANT 06/10/2018 JAZMYNE WHITEHEAD APRN Ot Z95.810 PRESENCE OF AUTOMATIC (IMPLANTABLE) CARD 06/10/2018 JAZMYNE WHITEHEAD APRN Ot 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 OXYGEN 06/13/2018 JAZMYNE WHITEHEAD APRN Ot E11.51 TYPE 2 DIABETES W DIABETIC PERIPHERAL AN 06/13/2018 JAZMYNE WHITEHEAD APRN Ot E78.00 PURE HYPERCHOLESTEROLEMIA, UNSPECIFIED 06/13/2018 JAZMYNE WHITEHEAD APRN Ot F32.9 MAJOR DEPRESSIVE DISORDER, SINGLE EPISOD 06/13/2018 JAZMYNE WHITEHEAD APRN Ot I10 ESSENTIAL (PRIMARY) HYPERTENSION 06/13/2018 JAZMYNE WHITEHEAD APRN Ot I25.10 ATHSCL HEART DISEASE OF [place] CORONARY 06/13/2018 JAZMYNE WHITEHEAD APRN Ot I42.9 CARDIOMYOPATHY, UNSPECIFIED 06/13/2018 JAZMYNE WHITEHEAD APRN Ot I48.91 UNSPECIFIED ATRIAL FIBRILLATION 06/13/2018 JAZMYNE WHITEHEAD APRN Ot I73.9 PERIPHERAL VASCULAR DISEASE, UNSPECIFIED 06/13/2018 JAZMYNE WHITEHEAD APRN, Ot J44.9 CHRONIC OBSTRUCTIVE PULMONARY DISEASE, U [...] AG 06/13/2018 JAZMYNE WHITEHEAD APRN Ot Z79.4 FPC (CURRENT) USE OF INSULIN 06/13/2018 JAZMYNE WHITEHEAD APRN Ot Z79.82 FPC (CURRENT) USE OF ASPIRIN 06/13/2018 JAZMYNE WHITEHEAD APRN Ot Z80.0 FAMILY HISTORY OF MALIGNANT NEOPLASM OF 06/13/2018 JAZMYNE WHITEHEAD APRN, Ot Z87.19 PERSONAL HISTORY OF OTHER DISEASES [...] APRN Ot 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 OXYGEN 07/05/2018 SHANE LOZANO MD Ot E11.51 TYPE 2 DIABETES W DIABETIC PERIPHERAL AN 07/05/2018 SHANE LOZANO MD Ot E78.5 HYPERLIPIDEMIA, UNSPECIFIED 07/05/2018 SHANE LOZANO MD Ot F32.9 MAJOR DEPRESSIVE DISORDER, SINGLE EPISOD 07/05/2018 SHANE LOZANO MD Ot I13.0 HYP HRT CHR KDNY DIS W HRT FAIL AND ST 07/05/2018 SHANE LOZANO MD Ot I25.10 ATHSCL HEART DISEASE OF [place] CORONARY 07/05/2018 SHANE LOZANO MD, Ot I25.5 ISCHEMIC CARDIOMYOPATHY 07/05/2018 SHANE LOZANO MD Ot I44.7 LEFT BUNDLE-BRANCH BLOCK, UNSPECIFIED 07/05/2018 SHANE LOZANO MD Ot I48.91 UNSPECIFIED ATRIAL FIBRILLATION 07/05/2018 SHANE LOZANO MD Ot I50.23 ACUTE ON CHRONIC SYSTOLIC (CONGESTIVE) H 07/05/2018 SHANE LOZANO MD Ot J44.9 CHRONIC OBSTRUCTIVE PULMONARY DISEASE, U 07/05/2018 SHANE LOZANO MD Ot K64.9 UNSPECIFIED HEMORRHOIDS 07/05/2018 SHANE LOZANO MD Ot M19.91 PRIMARY OSTEOARTHRITIS, UNSPECIFIED SITE 07/05/2018 SHANE LOZANO MD Ot M54.9 DORSALGIA, UNSPECIFIED 07/05/2018 SHANE LOZANO MD Ot N18.3 CHRONIC KIDNEY DISEASE, STAGE 3 (MODERAT 07/05/2018 SHANE LOZANO MD Ot N28.9 DISORDER OF KIDNEY AND URETER, UNSPECIFI 07/05/2018 SHANE LOZANO MD Ot Z79.84 COAL LOADER (CURRENT) USE OF ORAL HYPOGLYC 07/05/2018 SHANE LOZANO MD Ot Z95.5 PRESENCE OF CORONARY ANGIOPLASTY IMPLANT 07/05/2018 SHANE LOZANO MD Ot Z95.810 PRESENCE OF AUTOMATIC (IMPLANTABLE) CARD 07/05/2018 SHANE LOZANO MD Ot 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 OXYGEN 07/05/2018 SHANE LOZANO MD Ot E11.51 TYPE 2 DIABETES W DIABETIC PERIPHERAL AN 07/05/2018 SHANE LOZANO MD Ot E78.5 HYPERLIPIDEMIA, UNSPECIFIED 07/05/2018 SHANE LOZANO MD Ot F32.9 MAJOR DEPRESSIVE DISORDER, SINGLE EPISOD 07/05/2018 SHANE LOZANO MD Ot I13.0 HYP HRT CHR [place] DIS W HRT FAIL AND ST 07/05/2018 SHANE LOZNAO MD, Ot I25.10 ATHSCL HEART DISEASE OF [place] CORONARY 07/05/2018 SHANE LOZANO MD, Ot I25.5 ISCHEMIC CARDIOMYOPATHY 07/05/2018 SHANE LOZANO MD, Ot I44.7 LEFT BUNDLE-BRANCH BLOCK, UNSPECIFIED 07/05/2018 SHANE LOZANO MD Ot I48.91 UNSPECIFIED ATRIAL FIBRILLATION 07/05/2018 SHANE LOZANO MD, Ot I50.23 ACUTE ON CHRONIC SYSTOLIC (CONGESTIVE) H 07/05/2018 SHANE LOZANO MD, Ot J44.9 CHRONIC OBSTRUCTIVE PULMONARY DISEASE, U 07/05/2018 SHANE LOZANO MD, Ot K64.9 UNSPECIFIED HEMORRHOIDS 07/05/2018 SHANE LOZANO MD Ot M19.91 PRIMARY OSTEOARTHRITIS, UNSPECIFIED SITE 07/05/2018 SHANE LOZANO MD Ot M54.9 DORSALGIA, UNSPECIFIED 07/05/2018 SHANE LOZANO MD, Ot N18.3 CHRONIC KIDNEY DISEASE, STAGE 3 (MODERAT 07/05/2018 SHANE LOZANO MD, Ot N28.9 DISORDER OF KIDNEY AND URETER, UNSPECIFI 07/05/2018 SHANE LOZANO MD Ot Z79.84 COAL LOADER (CURRENT) USE OF ORAL HYPOGLYC 07/05/2018 SHANE LOZANO MD Ot Z95.5 PRESENCE OF CORONARY ANGIOPLASTY IMPLANT 07/05/2018 SHANE LOZANO MD Ot Z95.810 PRESENCE OF AUTOMATIC (IMPLANTABLE) CARD 07/05/2018 SHANE LOZANO MD Ot 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 OXYGEN [...] REPLACEMENT 02/20/2014 81.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 11/20/2014 [id number] MEASURE OF CARDIAC SAMPL PRESSURE, L H 10/27/2016 [id number] FLUOROSCOPY OF MULT COR ART USING L OSM 10/27/2016 [id number] FLUOROSCOPY OF LEFT HEART USING LOW OSMO [...] Automated erythrocyte mean corpuscular hemoglobin concentration measurement (mass/volume) 33 g/dL 32-36 Automated erythrocyte distribution width ratio 13.9 % 10.0- 14.5 Automated blood platelet count (count/volume) 254 10*3/uL [...] Blood monocytes automated count (number/volume) 0.6 10*3 0.0- 1.0 Automated eosinophil count 0.5 10*3/uL 0.0-0.3 Automated [...] Serum or plasma aspartate aminotransferase measurement (enzymatic activity/volume) 13 U/L 5-34 Serum or plasma alanine aminotransferase measurement (enzymatic activity/volume) 9 U/L 0-55 Serum or plasma protein measurement (mass/volume) 6.9 g/dL 6.4-8.2 Serum or plasma albumin measurement (mass/volume) 4.0 g/dL 3.2-4.5 Magnesium - 10/26/16 12:20 Magnesium 2.1 mg/dL 1.8-2.4 Serum or plasma troponin i.cardiac measurement (mass/volume) - 10/26/16 12:20 Serum or plasma troponin i.cardiac measurement (mass/volume) < ng/mL <0.30 Myoglobin, serum - 10/26/16 12:20 Myoglobin, serum 38.3 ng/mL 10.0-92.0 Serum or plasma lithium measurement (moles/volume) - 10/26/16 12:20 BNP level 841.4 pg/mL <100.0 Lipid 1996 panel - 10/27/16 04:45 Serum or plasma triglyceride measurement (mass/volume) 184 mg/dL <150 Serum or plasma cholesterol measurement (mass/volume) 284 mg/dL < 200 Serum or plasma cholesterol in HDL measurement (mass/volume) 38 mg/dL 40-60 Cholesterol in LDL [mass/volume] in serum or plasma by direct assay 213 mg/dL 1-129 Serum or plasma cholesterol in VLDL measurement (mass/volume) 37 mg/dL 5-40 Capillary blood glucose measurement by glucometer (mass/volume) - 10/27/16 17:28 Capillary blood glucose measurement by glucometer (mass/volume) [...] Automated erythrocyte mean corpuscular hemoglobin concentration measurement (mass/volume) 33 g/dL 32-36 Automated erythrocyte distribution width ratio 13.7 % 10.0- 14.5 Automated blood platelet count (count/volume) 247 10*3/uL [...] glucose measurement by glucometer (mass/volume) - 10/28/16 11:11 Capillary blood glucose measurement by glucometer (mass/volume) 170 mg/dL 70-110 Capillary blood glucose measurement by glucometer (mass/volume) - 10/28/16 16:15 Capillary blood glucose measurement by glucometer (mass/volume) 112 mg/dL 70-110 Capillary blood glucose measurement by glucometer (mass/volume) - 10/28/16 20:43 Capillary blood glucose measurement by glucometer (mass/volume) 177 mg/dL 70-110 Capillary blood glucose measurement by glucometer (mass/volume) - 10/29/16 06:32 Capillary blood glucose measurement by glucometer (mass/volume) [...] glucose measurement by glucometer (mass/volume) - 10/29/16 10:51 Capillary blood glucose measurement by glucometer (mass/volume) [...] Automated erythrocyte mean corpuscular hemoglobin concentration measurement (mass/volume) 34 g/dL 32-36 Automated erythrocyte distribution width ratio 13.3 % 10.0- 14.5 Automated blood platelet count (count/volume) 289 10*3/uL [...] Blood monocytes automated count (number/volume) 0.8 10*3 0.0- 1.0 Automated eosinophil count 0.1 10*3/uL 0.0-0.3 Automated [...] Serum or plasma aspartate aminotransferase measurement (enzymatic activity/volume) 12 U/L 5-34 Serum or plasma alanine aminotransferase measurement (enzymatic activity/volume) 12 U/L 0-55 Serum or plasma protein [...] or plasma troponin i.cardiac measurement (mass/volume) < ng/mL <0.30 Myoglobin, serum - 06/07/17 23:30 Myoglobin, [...] Automated erythrocyte mean corpuscular hemoglobin concentration measurement (mass/volume) 34 g/dL 32-36 Automated erythrocyte distribution width ratio 13.3 % 10.0- 14.5 Automated blood platelet count (count/volume) 269 10*3/uL [...] Blood monocytes automated count (number/volume) 0.7 10*3 0.0- 1.0 Automated eosinophil count 0.0 10*3/uL 0.0-0.3 Automated [...] or plasma troponin i.cardiac measurement (mass/volume) < ng/mL <0.30 Lipid 1996 panel - 06/08/17 04:25 Serum or plasma triglyceride measurement (mass/volume) 210 mg/dL <150 Serum or plasma cholesterol measurement (mass/volume) 294 mg/dL < 200 Serum or plasma cholesterol in HDL measurement (mass/volume) 34 mg/dL 40-60 Cholesterol in LDL [mass/volume] in serum or plasma by direct assay 218 mg/dL 1-129 Serum or plasma cholesterol in VLDL measurement (mass/volume) 42 mg/dL 5-40 Fibrin D-dimer FEU measurement in platelet poor plasma (mass/volume) - 06/08/17 04:25 Fibrin D-dimer FEU measurement in platelet poor plasma (mass/volume) 2.40 ug/mL 0.00-0.49 Capillary blood glucose measurement by glucometer (mass/volume) - 06/08/17 11:04 Capillary blood glucose measurement by glucometer (mass/volume) 159 mg/dL 70-110 Serum or plasma troponin i.cardiac measurement (mass/volume) - 06/08/17 11:05 Serum or plasma troponin i.cardiac measurement (mass/volume) < ng/mL <0.30 Capillary blood glucose measurement by glucometer (mass/volume) - 06/08/17 17:17 Capillary blood glucose measurement by glucometer (mass/volume) 135 mg/dL 70-110 Capillary blood glucose measurement by glucometer (mass/volume) - 06/08/17 20:10 Capillary blood glucose measurement by glucometer (mass/volume) [...] glucose measurement by glucometer (mass/volume) - 06/09/17 05:40 Capillary blood glucose measurement by glucometer (mass/volume) 162 mg/dL 70-110 Capillary blood glucose measurement by glucometer (mass/volume) - 06/09/17 11:35 Capillary blood glucose measurement by glucometer (mass/volume) 130 mg/dL 70-110 Capillary blood glucose measurement by glucometer (mass/volume) - 06/09/17 16:37 Capillary blood glucose measurement by glucometer (mass/volume) [...] Serum or plasma aspartate aminotransferase measurement (enzymatic activity/volume) 12 U/L 5-34 Serum or plasma alanine aminotransferase measurement (enzymatic activity/volume) 10 U/L 0-55 Serum or plasma protein [...] Automated erythrocyte mean corpuscular hemoglobin concentration measurement (mass/volume) 34 g/dL 32-36 Automated erythrocyte distribution width ratio 13.3 % 10.0- 14.5 Automated blood platelet count (count/volume) 268 10*3/uL [...] Blood monocytes automated count (number/volume) 0.9 10*3 0.0- 1.0 Automated eosinophil count 0.2 10*3/uL 0.0-0.3 Automated [...] gravity of urine by test strip 1.015 1.016-1.022 Urine protein assay by test strip, semi-quantitative [...] sediment leukocyte count by microscopy (number/high power field) NONE NRG Bacteria detection in urine sediment [...] Automated erythrocyte mean corpuscular hemoglobin concentration measurement (mass/volume) 32 g/dL 32-36 Automated erythrocyte distribution width ratio 13.8 % 10.0- 14.5 Automated blood platelet count (count/volume) 249 10*3/uL [...] Blood monocytes automated count (number/volume) 0.6 10*3 0.0- 1.0 Automated eosinophil count 0.4 10*3/uL 0.0-0.3 Automated [...] Serum or plasma aspartate aminotransferase measurement (enzymatic activity/volume) 16 U/L 5-34 Serum or plasma alanine aminotransferase measurement (enzymatic activity/volume) 10 U/L 0-55 Serum or plasma protein measurement (mass/volume) 7.1 g/dL 6.4-8.2 Serum or plasma albumin measurement (mass/volume) 4.1 g/dL 3.2-4.5 CALCIUM CORRECTED 9.5 mg/dL 8.5-10.1 Magnesium - 07/03/18 12:06 Magnesium 2.0 mg/dL 1.8-2.4 Serum or plasma troponin i.cardiac measurement (mass/volume) - 07/03/18 12:06 Serum or plasma troponin i.cardiac measurement (mass/volume) < ng/mL <0.028 Myoglobin, serum - 07/03/18 12:06 Myoglobin, serum 32.8 ng/mL 10.0-92.0 Serum or plasma lithium measurement (moles/volume) - 07/03/18 12:06 BNP level 832.7 pg/mL <100.0 Complete blood count (CBC) with automated white blood cell (WBC) differential - 07/04/18 05:36 Blood leukocytes automated count (number/volume) 6.4 10*3/uL 4.3-11.0 Blood erythrocytes automated count (number/volume) 3.83 10*6/uL 4.35-5.85 Venous blood hemoglobin measurement (mass/volume) 11.9 g/dL 11.5-16.0 Blood hematocrit (volume fraction) 37 % 35-52 Automated erythrocyte mean corpuscular volume 96 [foz_us] 80-99 Automated erythrocyte mean corpuscular hemoglobin (mass per erythrocyte) 31 pg 25-34 Automated erythrocyte mean corpuscular hemoglobin concentration measurement (mass/volume) 32 g/dL 32-36 Automated erythrocyte distribution width ratio 13.7 % 10.0- 14.5 Automated blood platelet count (count/volume) 240 10*3/uL 130-400 Automated blood platelet mean volume measurement 10.6 [foz_us] 7.4-10.4 Automated blood neutrophils/100 leukocytes 62 % 42-75 Automated blood lymphocytes/100 leukocytes 26 % 12-44 Blood monocytes/100 leukocytes 8 % 0-12 Automated blood eosinophils/100 leukocytes 3 % 0-10 Automated blood basophils/100 leukocytes 0 % 0-10 Blood neutrophils automated count (number/volume) 4.0 10*3 1.8-7.8 Blood lymphocytes automated count (number/volume) 1.7 10*3 1.0-4.0 Blood monocytes automated count (number/volume) 0.5 10*3 0.0- 1.0 Automated eosinophil count 0.2 10*3/uL 0.0-0.3 Automated blood basophil count (count/volume) 0.0 10*3/uL 0.0-0.1 Whole blood basic metabolic panel - 07/04/18 05:36 Serum or plasma sodium measurement (moles/volume) 140 mmol/L 135-145 Serum or plasma potassium measurement (moles/volume) 4.1 mmol/L 3.6-5.0 Serum or plasma chloride measurement (moles/volume) 105 mmol/L 98-107 Carbon dioxide 23 mmol/L 21-32 Serum or plasma anion gap determination (moles/volume) 12 mmol/L 5-14 Serum or plasma urea nitrogen measurement (mass/volume) 22 mg/dL 7-18 Serum or plasma creatinine measurement (mass/volume) 1.28 mg/dL 0.60-1.30 Serum or plasma urea nitrogen/creatinine mass ratio 17 NRG Serum or plasma creatinine measurement with calculation of estimated glomerular filtration rate 40 NRG Serum or plasma glucose measurement (mass/volume) 88 mg/dL 70-105 Serum or plasma calcium measurement (mass/volume) 9.1 mg/dL 8.5-10.1 Serum or plasma lithium measurement (moles/volume) - 07/04/18 05:36 BNP level 614.8 pg/mL <100.0 Encounters ACCT No. Visit Date/Time Discharge Status Pt. Type Provider Facility Loc./Unit Complaint [id number] 07/03/2018 14:40:00 07/05/2018 13:25:00 DIS Outpatient BLAKE VANN, SHANE Collier [facility] 4TH ACUTE HEART FAILURE,PACEMAKER CONCERNS [id number] 06/10/2018 18:22:00 06/10/2018 19:24:00 DIS Emergency JAZMYNE WHITEHEAD APRN [facility] ER FELL [id number] 11/06/2017 09:24:00 11/06/2017 09:44:00 DIS Emergency JEAN PIERRE GRACIA DO [facility] ER STITCH REMOVAL [id number] 10/28/2017 21:34:00 10/29/2017 01:26:00 DIS Emergency CARO LOYOLA MD [facility] ER FALL [id number] 06/07/2017 22:43:00 06/09/2017 08:47:00 DIS Inpatient CRISTINA RANGEL DO [facility] 4TH CHEST PAIN R/O [id number] 10/26/2016 13:31:00 10/29/2016 12:35:00 DIS Inpatient JOVANNA FLETCHER MD [facility] ICU CHEST PAIN,CHF EXACERBATION [id number] 01/20/2016 14:07:00 01/20/2016 16:30:00 DIS Emergency JAZMYNE WHITEHEAD BOAT OAR MAKER [facility] ER FALL FACIAL INJURIES/RIGHT WRIST PAIN [id number] 02/26/2015 14:20:00 02/26/2015 23:59:59 CLS Outpatient JEWEL OSEGUERA [facility] CARD CAD,CARDIOMYOPATHY,CAROTID ARTERY DI,HTN,HLP [id number] 11/29/2014 14:30:00 11/29/2014 23:59:59 CLS Outpatient KINDRA PRINGLE DO [facility] HH ANTICOAG THERAPY [id number] 11/20/2014 06:05:00 11/26/2014 16:29:00 DIS Inpatient KINDRA PRINGLE DO [facility] SURGICAL DEGENERATIVE DISC DISEASE LEFT KNEE [id number] 11/25/2014 15:23:00 11/25/2014 23:59:59 CLS Preadmit BLAKE VANN, SHANE Collier LT.KNEE [id number] 11/17/2014 12:07:00 11/17/2014 14:13:00 DIS Emergency JOVANNA FLETCHER MD [facility] ER R SIDE PAIN [id number] 11/06/2014 13:48:00 11/06/2014 23:59:59 CLS Outpatient KINDRA PRINGLE DO F [facility] PREOP DEGENERATIVE DISC DISEASE LEFT KNEE [id number] 10/04/2014 11:33:00 10/04/2014 23:59:59 CLS Outpatient SHANE LOZANO MD [facility] RAD INCREASED L/E EDEMA, [id number] 08/30/2014 07:42:00 08/30/2014 23:59:59 CLS Outpatient KATHY VANN FACCMANDA FACP CCDS [facility] CARD CAD,CARDIOMYOPATHY [id number] 06/27/2014 20:27:00 07/02/2014 16:00:00 DIS Inpatient RANGEL CRISTINA COATES [facility] CSD ASTHMATIC BRONCHITIS [id number] 03/28/2014 16:18:00 04/05/2014 14:28:00 DIS Outpatient YARY COATES KINDRA Scotty [facility] REHAB S/P R TKR [id number] 03/07/2014 09:40:00 03/07/2014 23:59:59 CLS Outpatient MAYELIN OWENS BOAT OAR MAKER [facility] RAD R LE SWELLING [id number] 02/25/2014 14:25:00 02/28/2014 17:19:00 DIS Inpatient GORDON NGUYEN MD [facility] IRF TKR [id number] 02/20/2014 09:00:00 02/25/2014 14:24:00 DIS Inpatient YARY COATES KINDRA Scotty [facility] SURGICAL RIGHT KNEE DJD [id number] 02/14/2014 13:09:00 02/14/2014 23:59:59 CLS Outpatient YARY COATES KINDRA Fajardo [facility] PREOP RIGHT KNEE DJD [id number] 08/09/2013 13:16:00 08/12/2013 11:00:00 DIS Inpatient SHANE LOZANO MD [facility] CSD CHF CHEST PAIN [id number] 08/02/2013 12:43:00 08/02/2013 23:59:59 CLS Outpatient JEWEL OSEGUERA [facility] CARD CAD,HTN [id number] 03/31/2013 14:55:00 03/31/2013 15:14:00 DIS Emergency JUSTINE VANN, JOVANNA Pollock [facility] ER COUGH/SOA [id number] 12/28/2012 12:05:00 12/28/2012 14:26:00 DIS Emergency JUAN HIGGINS DO [facility] ER FALL/LEFT RIB PAIN [id number] 02/26/2015 14:20:00 Document Registration [id number] 02/26/2015 14:20:00 Document Registration [id number] 02/26/2015 14:20:00 Document Registration [id number] 02/26/2015 14:20:00 Document Registration [id number] 02/26/2015 14:20:00 Document Registration [id number] 02/26/2015 14:20:00 Document Registration [id number] 08/21/2014 16:15:00 Document Registration [id number] 08/04/2011 14:10:00 Document Registration [id number] 04/22/2010 05:36:00 Document Registration [id number] 04/21/2010 09:13:00 Document Registration [id number] 03/26/2010 16:03:00 Document Registration [id number] 09/10/2009 12:51:00 Document Registration
[2018-12-06 15:50] LABS: BASOPHILS % (AUTO) 0 % (0-10); EOSINOPHILS # (AUTO) 0.1 10^3/uL (0.0-0.3); EOSINOPHILS % (AUTO) 1 % (0-10); HEMATOCRIT 42 % (35-52); HEMOGLOBIN 13.7 G/DL (11.5-16.0); LYMPHOCYTES # (AUTO) 1.1 X 10^3 (1.0-4.0); LYMPHOCYTES % (AUTO) 10 % (12-44); MEAN CORPUSCULAR HEMOGLOBIN 31 PG (25-34); MEAN CORPUSCULAR HGB CONC 33 G/DL (32-36); MEAN CORPUSCULAR VOLUME 96 FL (80-99); MEAN PLATELET VOLUME 10.6 FL (7.4-10.4); MONOCYTES # (AUTO) 0.8 X 10^3 (0.0-1.0); MONOCYTES % (AUTO) 7 % (0-12); NEUTROPHILS # (AUTO) 9.4 X 10^3 (1.8-7.8); NEUTROPHILS % (AUTO) 82 % (42-75); PLATELET COUNT 293 10^3/uL (130-400); RED CELL DISTRIBUTION WIDTH 14.2 % (10.0-14.5); WHITE BLOOD COUNT 11.5 10^3/uL (4.3-11.0)
[2018-12-06 16:05] LABS: ALBUMIN 4.1 GM/DL (3.2-4.5); BILIRUBIN,TOTAL 0.7 MG/DL (0.1-1.0); CALCIUM 9.7 MG/DL (8.5-10.1); CREATININE SERUM 2.94 MG/DL (0.60-1.30); MAGNESIUM 1.7 MG/DL (1.8-2.4); POTASSIUM 4.5 MMOL/L (3.6-5.0); TOTAL PROTEIN 7.3 GM/DL (6.4-8.2)
[2018-12-06 16:25] LABS: TSH (THYROID ANALYZER) 1.6 UIU/ML (0.35-4.94)
[2018-12-06] MEDS ORDERED: NS IV 1000 ML 1,000 ML IV ONE (16:45)
--- NOTE | 2018-12-06 17:34 | ED General ---
General Chief Complaint: General Problems/Pain Stated Complaint: WEAKNESS/FALLS Nursing Triage Note: PT PRESENTS TO THE ER VIA [facility] WITH COMPLAINTS OF DIZZINES AND WEAKNESS. PT REPORTS A FALL ON WEDNESDAY BUT DENIES ANY PAIN AT THIS TIME. EMS STAFF REPORT A LOW BLOOD PRESSURE DURING ROUTE OF 80s AND 90s SYSTOLIC Nursing Sepsis Screen: No Definite Risk Source of Information: Patient, Old Records Exam Limitations: No Limitations History of Present Illness Date Seen by Provider: Dec 06, 2018 Time Seen by Provider: 15:31 Initial Comments This 83-year-old woman presents to the emergency room via EMS with complaints of generalized weakness and some dizziness. She has had multiple falls in the recent past with the last fall being December 02. She did bump her face and has some minor ecchymosis in the right periorbital region. She denies loss of consciousness. She reports progressive problems with weakness and li ghtheadedness over the past 6 months. She has not been seen for this. Review of chart notes a cardiac catheterization in October 2016 showing mild coronary artery disease. She had an ejection fraction of 20-25 percent at that time with cardiomyopathy. She was admitted for acute heart failure in June of this year. She does use diuretics. She denies any fever. Allergies and Home Medications Allergies Coded Allergies: No Known Drug Allergies (Unverified , 07/03/18) Home Medications Acetaminophen 325 Mg Tablet, 650 MG PO Q4H PRN for PAIN-MILD, (Reported) TAKES 2 (325MG) TABLETS Aspirin 81 Mg Tablet.dr, 81 MG PO HS, (Reported) Carvedilol 6.25 Mg Tablet, 6.25 MG PO BID Prescribed by: JEWEL OSEGUERA on 07/05/18 1025 Clonazepam 1 Mg Tablet, 2 MG PO HS, (Reported) TAKES 2 (1MG) TABLETS Fluoxetine HCl 40 Mg Capsule, 40 MG PO HS, (Reported) Furosemide 40 Mg Tablet, 40 MG PO DAILY Prescribed by: JEWEL OSEGUERA on 07/05/18 1025 Glimepiride 2 Mg Tablet, 2 MG PO HS, (Reported) Lisinopril 10 Mg Tablet, 10 MG PO HS, (Reported) Metformin HCl 500 Mg Tablet, 1,000 MG PO HS, (Reported) TAKES 2 (500MG) TABLETS Multivitamin/Iron/Folic Acid 1 Each Tablet, 1 TAB PO 1200, (Reported) Potassium Chloride 10 Meq Tablet.er, 10 MEQ PO DAILY, (Reported) Rosuvastatin Calcium 20 Mg Tablet, 20 MG PO HS, (Reported) Patient Home Medication List Home Medication List Reviewed: Yes Review of Systems Review of Systems Constitutional: see HPI EENTM: see HPI Respiratory: no symptoms reported Cardiovascular: see HPI Gastrointestinal: no symptoms reported Genitourinary: no symptoms reported : No Musculoskeletal: no symptoms reported Skin: see HPI Psychiatric/Neurological: No Symptoms Reported Hematologic/Lymphatic: No Symptoms Reported Immunological/Allergic: no symptoms reported Past Hwkohli-Ujttdw-Nwostn Hx Past Med/Social Hx: Reviewed and Corrections made Patient Social History Alcohol Use: Denies Use Recreational Drug Use: No Smoking Status: Never a Smoker Type Used: Cigarettes 2nd Hand Smoke Exposure: No Recent Foreign Travel: No Contact w/Someone Who Travel: No Recent Infectious Disease Expo: No Recent Hopitalizations: No Physical Abuse: No Sexual Abuse: No Mistreated: No Fear: No Immunizations Up To Date Tetanus Booster (TDap): Less than 5yrs PED Vaccines UTD: Yes Date of Pneumonia Vaccine: Sep 03, 2011 Date of Influenza Vaccine: Jun 14, 2018 Seasonal Allergies Seasonal Allergies: No Past Medical History Surgeries: Yes (2004 hemorrhoidectomy, breast reduction, right ovary removed) Breast, Cardiac, Coronary Stent, Defibrillator, Eye Surgery, Gallbladder, Hysterectomy, Joint Replacement, Oophorectomy, Orthopedic, Pacemaker, Rectal Respiratory: Yes (Has home O2 and wears infrequent at 2 L/M) COPD Cardiac: Yes (Pacemaker/DEFIB, stents x 2, congestive heart failure) Atrial Fibrillation, Cardiomyopathy, Chronic Edema/Swelling, Coronary Artery Disease, High Cholesterol, Hypertension, Peripheral Vascular Neurological: No 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 Disorders: No 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 Sexually Transmitted Disease: No HIV/AIDS: No Genitourinary: Yes Renal Failure Gastrointestinal: Yes Hemorrhoids Musculoskeletal: Yes Arthritis, Chronic Back Pain Endocrine: Yes (Type II) Diabetes, Non-Insulin dep HEENT: Yes Cataract Loss of Vision: Denies Hearing Impairment: Denies Cancer: No Psychosocial: Yes Depression Integumentary: No Blood Disorders: No Adverse Reaction/Blood Tranf: No Family Medical History Reviewed Nursing Family Hx Arthritis 19 FATHER 19 MOTHER G8 BROTHER G8 SISTER Asthma 19 FATHER Completed stroke G8 SISTER FH: COPD (chronic obstructive pulmonary disease) G8 SISTER FH: cancer 19 FATHER 19 MOTHER (stomach cancer ) G8 SISTER (LIVER- enio floya- breast cancer) FH: emphysema 19 FATHER G8 SISTER Glaucoma G8 SISTER Headache disorder G8 SISTER No Family History of: AIDS Abdominal aortic aneurysm Alcoholism Alzheimer's disease Cancer of mouth Cardiovascular disease Colon cancer Cystic fibrosis Deafness or hearing loss Dementia Diabetes mellitus Drug abuse Dysphasia Hypercholesterolemia Hypertension Kidney disease Myocardial infarction Parkinson's disease Prostate cancer Psychosocial problem Respiratory disorder Seizure disorder Severe allergy Thyroid disease Tuberculosis No Pertinent Family Hx Physical Exam Vital Signs Vital Signs - First Documented 12/06/18 15:35 Temp 97.2 Pulse 77 Resp 18 B/P (MAP) 111/56 (74) Pulse Ox 93 O2 Delivery Nasal Cannula O2 Flow Rate 4.00 Capillary Refill : Less Than 3 Seconds Height, Weight, BMI Height: 5'6.00" Weight: 185lbs. 10.6oz. 83.722380xv; 34.9 BMI Method:Stated General Appearance: No Apparent Distress, WD/WN HEENT: PERRL/EOMI, Pharynx Normal, Other (ecchymosis in the right periorbital region) Neck: Normal Inspection, Non Tender Respiratory: Lungs Clear, Normal Breath Sounds, No Accessory Muscle Use, No Respiratory Distress Cardiovascular: Regular Rate, Rhythm, No Edema, Systolic Murmur Gastrointestinal: Non Tender, Soft Extremity: Normal Inspection, No Pedal Edema Neurologic/Psychiatric: Alert, Oriented x3, No Motor/Sensory Deficits, Normal Mood/Affect, t rail turner II-XII Norm as Tested Skin: Normal Color, Warm/Dry Procedures/Interventions Suture Size: 5-0 Progress/Results/Core Measures Suspected Sepsis Recent Fever Within 48 Hours: No Infection Criteria Present: None New/Unexplained Altered Menta: No Sepsis Screen: No Definite Risk SIRS Temperature:97.2 Pulse: 77 Respiratory Rate: 18 Laboratory Tests 12/06/18 15:39: White Blood Count 11.5H Blood Pressure 111 /56 Mean: 74 Laboratory Tests 12/06/18 15:39: Creatinine 2.94H, Platelet Count 293, Total Bilirubin 0.7 Results/Orders Lab Results Laboratory Tests Test 12/06/18 15:39 Range/Units White Blood Count 11.5 H 4.3-11.0 10^3/uL Red Blood Count 4.38 4.35-5.85 10^6/uL Hemoglobin 13.7 11.5-16.0 G/DL Hematocrit 42 35-52 % Mean Corpuscular Volume 96 80-99 FL Mean Corpuscular Hemoglobin 31 25-34 PG Mean Corpuscular Hemoglobin Concent 33 32-36 G/DL Red Cell Distribution Width 14.2 10.0-14.5 % Platelet Count 293 130-400 10^3/uL Mean Platelet Volume 10.6 H 7.4-10.4 FL Neutrophils (%) (Auto) 82 H 42-75 % Lymphocytes (%) (Auto) 10 L 12-44 % Monocytes (%) (Auto) 7 0-12 % Eosinophils (%) (Auto) 1 0-10 % Basophils (%) (Auto) 0 0-10 % Neutrophils # (Auto) 9.4 H 1.8-7.8 X 10^3 Lymphocytes # (Auto) 1.1 1.0-4.0 X 10^3 Monocytes # (Auto) 0.8 0.0-1.0 X 10^3 Eosinophils # (Auto) 0.1 0.0-0.3 10^3/uL Basophils # (Auto) 0.0 0.0-0.1 10^3/uL Sodium Level 136 135-145 MMOL/L Potassium Level 4.5 3.6-5.0 MMOL/L Chloride Level 100 98-107 MMOL/L Carbon Dioxide Level 25 21-32 MMOL/L Anion Gap 11 5-14 MMOL/L Blood Urea Nitrogen 30 H 7-18 MG/DL Creatinine 2.94 H 0.60-1.30 MG/DL Estimat Glomerular Filtration Rate 15 BUN/Creatinine Ratio 10 Glucose Level 167 H 70-105 MG/DL Calcium Level 9.7 8.5-10.1 MG/DL Corrected Calcium 9.6 8.5-10.1 MG/DL Magnesium Level 1.7 L 1.8-2.4 MG/DL Total Bilirubin 0.7 0.1-1.0 MG/DL Aspartate Amino Transf (AST/SGOT) 11 5-34 U/L Alanine Aminotransferase (ALT/SGPT) 10 0-55 U/L Alkaline Phosphatase 74 40-136 U/L Total Protein 7.3 6.4-8.2 GM/DL Albumin 4.1 3.2-4.5 GM/DL TSH Trigg Testing 1.60 0.35-4.94 UIU/ML My Orders Orders - THUY ADAMS MD Ns Iv 500 Ml (Sodium Chloride 0.9%) (12/06/18 15:35) Ed Iv/Invasive Line Start (12/06/18 15:41) Ekg Tracing (12/06/18 15:41) Monitor-Rhythm Ecg Trace Only (12/06/18 15:41) Chest 1 View, Ap/Pa Only (12/06/18 15:41) Ct Head/Cervical Spine Wo (12/06/18 15:41) Cbc With Automated Diff (12/06/18 15:41) Comprehensive Metabolic Panel (12/06/18 15:41) Magnesium (12/06/18 15:41) Thyroid Analyzer (12/06/18 15:41) Ua Culture If Indicated (12/06/18 15:41) Ed Iv/Invasive Line Start (12/06/18 15:41) Ns Iv 500 Ml (Sodium Chloride 0.9%) (12/06/18 15:41) Ns Iv 1000 Ml (Sodium Chloride 0.9%) (12/06/18 16:45) Medications Given in ED Current Medications Medications Dose Ordered Sig/Teresa Route Start Time Stop Time Status Last Admin Dose Admin Sodium Chloride 500 ml @ 0 mls/hr Q0M ONCE IV 12/06/18 15:41 12/06/18 15:44 DC 12/06/18 15:37 500 MLS/HR Sodium Chloride 1,000 ml @ 100 mls/hr Q10H ONCE IV 12/06/18 16:45 12/07/18 02:44 12/06/18 16:51 100 MLS/HR Vital Signs/I&O 12/06/18 12/06/18 12/06/18 12/06/18 15:35 20:05 20:15 20:15 Temp 97.2 97.5 97.9 97.9 Pulse 77 72 74 74 Resp 18 18 20 20 B/P (MAP) 111/56 (74) 118/69 (85) 143/63 (89) 143/63 Pulse Ox 93 97 95 95 O2 Delivery Nasal Cannula Nasal Cannula Nasal Cannula Nasal Cannula O2 Flow Rate 4.00 4.00 4.00 4.00 Capillary Refill : Less Than 3 Seconds Blood Pressure Mean: 74 Progress Note #1: Time: 17:43 Progress Note Patient was found to have a significantly elevated creatinine of 2.9. She is re ceiving a 500 mL normal saline bolus followed by normal saline at 100 mL per hour. Hydration needs to be administered carefully due to her significant heart failure and cardiomyopathy. Imaging results are pending at this time. Progress Note #2: Time: 20:[address] and x-ray imaging or negative. Patient is being admitted for IV hydration to treat the acute renal failure. Case was discussed with Dr. Galdamez and Dr. Wiseman. Lasix will be held. She will be gently hydrated through the night. We discussed CODE STATUS and she wishes to have a DO NOT RESUSCITATE order. ECG Initial ECG Impression Date: Dec 06, 2018 Initial ECG Impression Time: 16:21 Initial ECG Rate: 71 Comment Sinus rhythm with no ST elevation or depression. Chronic left bundle branch block. Diagnostic Imaging Diagonstic Imaging: Xray Plain Films/CT/US/NM/MRI: chest Comments NAME: [facility] REC#: [id number] PT STATUS: REG ER : 1935 PHYSICIAN: THUY ADAMS MD ADMIT DATE: 12/06/18/ER Signed Date of Exam: 12/06/18 CHEST 1 VIEW, AP/PA ONLY EXAM: CHEST 1 VIEW, AP/PA ONLY. INDICATION: Chest pain. Dyspnea. COMPARISON: Chest radiograph 07/03/2018. FINDINGS: AICD. Normal heart size and central pulmonary vascularity. Calcified aorta. Persistent mild atelectasis or infiltrate in the medial right lung base. No pleural effusion or pneumothorax. No acute osseous findings. IMPRESSION: Mild persistent atelectasis or infiltrate in the right lung base. Remainder unremarkable. Dictated by: Dictated on workstation # [id number] Dict: 12/06/181805 Trans: 12/06/181823 Interpreted by: ANNELIESE KIDD MD Electronically signed by: ANNELIESE KIDD MD 12/06/181823 Diagonstic Imaging: CT Plain Films/CT/US/NM/MRI: c-spine, head Comments NAME: BRANDEN HERNANDEZ [facility] REC#: [id number] PT STATUS: REG ER : 1935 PHYSICIAN: THUY ADAMS MD ADMIT DATE: 12/06/18/ER Draft Date of Exam:12/06/18 CT HEAD/CERVICAL SPINE WO PROCEDURE: CT head and CT cervical spine without contrast. TECHNIQUE: Multiple contiguous axial images were obtained through the brain and cervical spine without the use of intravenous contrast. Sagittal and coronal reformations through the cervical spine were then performed. Auto Exposure Controls were utilized during the CT exam to meet ALARA standards for radiation dose reduction. INDICATION: Followup head and neck injury. COMPARISON: Correlation is made with prior CT 06/10/2018. FINDINGS: CT HEAD: Ventricles and sulci are consistent with patient's age. Moderate periventricular hypodensity is noted consistent with senescent change. No sulcal effacement or midline shift is identified. No acute intra-axial or extra-axial hemorrhage is seen. Cisterns are patent. Visualized paranasal sinuses are clear. IMPRESSION: Senescent changes. No acute intracranial process is detected. CT CERVICAL SPINE: There is anterolisthesis of C4 on C5. There is multilevel degenerative disc disease with variable disc space narrowing and marginal spurring, greatest at C4-5, C5-6 and C6-7 levels. There is multilevel facet arthropathy. No fracture is seen. Prevertebral tissues are within normal limits. Odontoid is intact. IMPRESSION: Cervical spondylosis. No acute bony abnormality is detected. Dictated on workstation # [id number] Dict: 12/06/18 1805 Trans: 12/06/18 1812 [id number] Interpreted by: JORGE ALBERTO MEDRANO MD Departure Communication (Admissions) Time/Spoke to Admitting Phy: 18:40 Dr. Galdamez Time/Spoke to Consulting Phy: 19:15 Dr. Wiseman Impression Primary Impression: Acute kidney injury Additional Impressions: Cardiomyopathy Qualified Codes: I25.5 - Ischemic cardiomyopathy Generalized weakness Falls frequently Disposition: 09 ADMITTED INPATIENT Condition: Improved Admissions Decision to Admit Reason: Admit from ER (General) Decision to Admit/Date: Dec 06, 2018 Time/Decision to Admit Time: 17:00 Departure-Patient Inst. Referrals: SHANE LOZANO MD (PCP/Family) Primary Care Physician THUY ADAMS MD Dec 06, 2018 17:34
--- NOTE | 2018-12-06 18:09 | Diagnostic Imaging Report ---
EXAM: CHEST 1 VIEW, AP/PA ONLY. INDICATION: Chest pain. Dyspnea. COMPARISON: Chest radiograph 07/03/2018. FINDINGS: AICD. Normal heart size and central pulmonary vascularity. Calcified aorta. Persistent mild atelectasis or infiltrate in the medial right lung base. No pleural effusion or pneumothorax. No acute osseous findings. IMPRESSION: Mild persistent atelectasis or infiltrate in the right lung base. Remainder unremarkable. Dictated by: Dictated on workstation # [id number]
--- NOTE | 2018-12-06 18:12 | Diagnostic Imaging Report ---
PROCEDURE: CT head and CT cervical spine without contrast. TECHNIQUE: Multiple contiguous axial images were obtained through the brain and cervical spine without the use of intravenous contrast. Sagittal and coronal reformations through the cervical spine were then performed. Auto Exposure Controls were utilized during the CT exam to meet ALARA standards for radiation dose reduction. INDICATION: Followup head and neck injury. COMPARISON: Correlation is made with prior CT 06/10/2018. FINDINGS: CT HEAD: Ventricles and sulci are consistent with patient's age. Moderate periventricular hypodensity is noted consistent with senescent change. No sulcal effacement or midline shift is identified. No acute intra-axial or extra-axial hemorrhage is seen. Cisterns are patent. Visualized paranasal sinuses are clear. IMPRESSION: Senescent changes. No acute intracranial process is detected. CT CERVICAL SPINE: There is anterolisthesis of C4 on C5. There is multilevel degenerative disc disease with variable disc space narrowing and marginal spurring, greatest at C4-5, C5-6 and C6-7 levels. There is multilevel facet arthropathy. No fracture is seen. Prevertebral tissues are within normal limits. Odontoid is intact. IMPRESSION: Cervical spondylosis. No acute bony abnormality is detected. Dictated by: Dictated on workstation # [id number]
--- NOTE | 2018-12-06 19:00 | NUR ---
Recieved report from NATO Rios to assume care of pt @ this time.
--- NOTE | 2018-12-06 19:26 | NUR ---
BP of 89/58 inaccurate d/t cuff being off of pt. BP retaken @ 1928 reading 117/66.
--- OUTSIDE RECORDS SUMMARY | 2018-12-06 19:54 | XMS REPORT | Continuity of Care Document ---
Author Organization Unknown Address Unknown Allergies Active Description Code Type Severity Reaction Onset Reported/Identified Relationship to Patient Clinical Status Yes No Known Drug Allergies [id number] Drug Allergy Unknown N/A 07/03/2018 Medications There [...] NOS 08/05/2011 Ot 414.01 CORONARY ATHEROSCLEROSIS OF [place] CORON 08/05/2011 Ot 425.4 PRIM CARDIOMYOPATHY NEC [...] NOS 08/14/2011 Ot 414.01 CORONARY ATHEROSCLEROSIS OF [place] CORON 08/14/2011 Ot 414.8 CHR ISCHEMIC HRT [...] LOZANO MD Ot 414.01 CORONARY ATHEROSCLEROSIS OF [place] CORON 08/12/2013 SHANE LOZANO MD Ot 425.4 [...] 429.9 HEART DISEASE NOS 02/25/2014 YARY COATES KINDAR Fajardo Ot 496 CHR AIRWAY OBSTRUCT NEC [...] MD E Ot 414.01 CORONARY ATHEROSCLEROSIS OF [place] CORON 02/28/2014 GORDON NGUYEN MD E Ot [...] V54.81 AFTERCARE FOLLOWING JOINT REPLACEMENT 02/28/2014 GORDON NGUEYN MD Ot V57.89 REHABILITATION PROC NEC 04/05/2014 [...] RANGEL DOI Ot 414.01 CORONARY ATHEROSCLEROSIS OF [place] CORON 07/02/2014 SAEID RANGEL DOI Ot 414.8 [...] NOS 08/23/2014 Ot 414.01 CORONARY ATHEROSCLEROSIS OF [place] CORON 08/23/2014 Ot 428.0 CONGESTIVE HEART FAILURE [...] ALI FACP CCDS Ot 785.9 09/21/2014 KATHY VNAN FACC, ALI FACP CCDS Ot 786.09 10/01/2014 [...] FACP CCDS Ot 785.9 10/01/2014 KATHY VANN FACC, ALI FACP CCDS Ot 786.09 11/03/2014 [...] KINDRA Fajardo Ot V74.8 12/26/2014 YARY KINDRA COATES Ot V58.61 12/26/2014 YARY KINDRA COATES Ot [...] 02/26/2015 Ot V72.81 02/26/2015 BAIJEWEL WADE L AIR FILLER Ot 272.4 02/26/2015 BAIMAJEWEL L AIR FILLER Ot 396.3 02/26/2015 BAIMAJEWEL L AIR FILLER Ot 401.9 02/26/2015 BAIMAJEWEL L AIR FILLER Ot 414.00 02/26/2015 BAIJEWEL WADE L AIR FILLER Ot 425.4 02/26/2015 YARY DO, KINDRA Fajardo Ot 715.36 02/26/2015 YARY DO, KINDRA F Ot V72.63 02/26/2015 YARY DO, KINDRA F Ot V72.83 02/26/2015 YARY DO, KINDRA F Ot V74.8 02/26/2015 MAYELIN OWENS HOSPITALITY SERVICES MANAGER Ot 729.81 02/26/2015 MAYELIN OWENS HOSPITALITY SERVICES MANAGER Ot V43.65 02/26/2015 KATHY VANN FACC, ALI [...] Fajardo Ot V58.83 03/20/2015 BAIMA, JEWEL L AIR FILLER Ot 272.4 03/20/2015 BAIMA, JEWEL L AIR FILLER Ot 401.9 03/20/2015 BAIMA, JEWEL L AIR FILLER Ot 414.9 03/20/2015 BAIMA, JEWEL L AIR FILLER Ot 425.4 03/20/2015 BAIMA, JEWEL L AIR FILLER Ot 447.9 03/28/2015 BAIMA, JEWEL L AIR FILLER Ot 272.4 03/28/2015 BAIMA, JEWEL L AIR FILLER Ot 401.9 03/28/2015 BAIMA, JEWEL L AIR FILLER Ot 414.9 03/28/2015 BAIMA, JEWEL L AIR FILLER Ot 425.4 03/28/2015 BAIMA, JEWEL L AIR FILLER Ot 447.9 11/06/2015 JOVANNA FLETCHER MD Ot [...] V72.63 PRE-PROCEDURAL LABORATORY EXAMINATION 01/20/2016 Ot V72.81 [id number] CARDIOVASCULAR 01/20/2016 BAIMA, JEWEL L AIR FILLER Ot 272.4 HYPERLIPIDEMIA NEC/NOS 01/20/2016 BAIMA, JEWEL L AIR FILLER Ot 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 01/20/2016 BAIMA, JEWEL L AIR FILLER Ot 401.9 HYPERTENSION NOS 01/20/2016 JEWEL OSEGUERA AIR FILLER Ot 414.00 CORON ATHEROSCLER NOS TYPE VESSEL, NATIV 01/20/2016 JEWEL OSEGUERA AIR FILLER Ot 425.4 PRIM CARDIOMYOPATHY NEC 01/20/2016 KINDRA PRINGLE DO Ot 715.36 LOC OSTEOARTH NOS-L/LEG 01/20/2016 KINDRA PRINGLE DO Ot V72.63 PRE-PROCEDURAL LABORATORY EXAMINATION 01/20/2016 KINDRA PRINGLE DO Ot V72.83 EXAM PRE-OPERATIVE NEC 01/20/2016 KINDRA PRINGLE DO Ot V74.8 SCREEN-BACTERIAL DIS NEC 01/20/2016 MAYELIN OWENS HOSPITALITY SERVICES MANAGER Ot 729.81 SWELLING OF LIMB 01/20/2016 MAYELIN OWENS HOSPITALITY SERVICES MANAGER Ot V43.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 01/20/2016 [...] FOR THERAPEUTIC DRUG MONITORIN 01/20/2016 JEWEL OSEGUERA AIR FILLER Ot 272.4 HYPERLIPIDEMIA NEC/NOS 01/20/2016 JEWEL OSEGUERA AIR FILLER Ot 401.9 HYPERTENSION NOS 01/20/2016 EDOUARDJEWEL WADE AIR FILLER Ot 414.9 CHR ISCHEMIC HRT DIS NOS 01/20/2016 JEWEL OSEGUERA AIR FILLER Ot 425.4 PRIM CARDIOMYOPATHY NEC 01/20/2016 EDOUARDJEWEL WADE AIR FILLER Ot 447.9 ARTERIAL DISEASE NOS 01/20/2016 JAZMYNE [...] FROM SLIP/TRIP W/O STRIKE 01/22/2016 JAZMYNE WHITEHEAD HOSPITALITY SERVICES MANAGER Ot Y92.[address] OF OCCURRENCE OF T 01/22/2016 JAZMYNE WHITEHEAD HOSPITALITY SERVICES MANAGER Ot Y99.8 OTHER EXTERNAL CAUSE STATUS 01/22/2016 JAZMYNE WHITEHEAD HOSPITALITY SERVICES MANAGER Ot Z23 ENCOUNTER FOR IMMUNIZATION 01/22/2016 JAZMYNE WHITEHEAD HOSPITALITY SERVICES MANAGER Ot Z95.0 PRESENCE OF CARDIAC PACEMAKER 03/07/2016 [...] V72.63 PRE-PROCEDURAL LABORATORY EXAMINATION 10/26/2016 Ot V72.81 [id number] CARDIOVASCULAR 10/26/2016 BAIJEWEL WADE AIR FILLER Ot 272.4 HYPERLIPIDEMIA NEC/NOS 10/26/2016 BAIMA, JEWEL L AIR FILLER Ot 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 10/26/2016 JEWEL OSEGUERA AIR FILLER Ot 401.9 HYPERTENSION NOS 10/26/2016 BAIMA JEWEL L AIR FILLER Ot 414.00 CORON ATHEROSCLER NOS TYPE VESSEL, NATIV 10/26/2016 JEWEL OSEGUERA AIR FILLER Ot 425.4 PRIM CARDIOMYOPATHY NEC 10/26/2016 KINDRA PRINGLE DO Ot 715.36 LOC OSTEOARTH NOS-L/LEG 10/26/2016 KINDRA PRINGLE DO Ot V72.63 PRE-PROCEDURAL LABORATORY EXAMINATION 10/26/2016 KINDRA PRINGLE DO Ot V72.83 EXAM PRE-OPERATIVE NEC 10/26/2016 KINDRA PRINGLE DO Ot V74.8 SCREEN-BACTERIAL DIS NEC 10/26/2016 MAYELIN OWENS HOSPITALITY SERVICES MANAGER Ot 729.81 SWELLING OF LIMB 10/26/2016 MAYELIN OWENS HOSPITALITY SERVICES MANAGER Ot V43.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 10/26/2016 [...] CCDS Ot 425.4 PRIM CARDIOMYOPATHY NEC 10/26/2016 KAHTY VANN FACC, ALI FACP CCDS Ot 447.9 [...] FOR THERAPEUTIC DRUG MONITORIN 10/26/2016 JEWEL OSEGUERA AIR FILLER Ot 272.4 HYPERLIPIDEMIA NEC/NOS 10/26/2016 JEWEL OSEGUERA AIR FILLER Ot 401.9 HYPERTENSION NOS 10/26/2016 JEWEL OSEGUERA AIR FILLER Ot 414.9 CHR ISCHEMIC HRT DIS NOS 10/26/2016 JEWEL OSEGUERA AIR FILLER Ot 425.4 PRIM CARDIOMYOPATHY NEC 10/26/2016 JEWEL OSEGUERA AIR FILLER Ot 447.9 ARTERIAL DISEASE NOS 10/27/2016 JOVANNA [...] MD Ot I25.10 ATHSCL HEART DISEASE OF [place] CORONARY 10/28/2016 JOVANNA FLETCHER MD, Ot I25.5 [...] MD Ot Z91.19 PATIENT'S NONCOMPLIANCE W [facility] 10/28/2016 JOVANNA FLETCHER MD, Ot [...] MD, Ot I25.10 ATHSCL HEART DISEASE OF [place] CORONARY 10/29/2016 JOVANNA FLETCHER MD, Ot I25.5 [...] MD, Ot Z91.19 PATIENT'S NONCOMPLIANCE W [facility] 10/29/2016 JOVANNA FLETCHER MD, Ot [...] MD, Ot I25.10 ATHSCL HEART DISEASE OF [place] CORONARY 10/29/2016 JOVANNA FLETCHER MD, Ot I25.5 [...] RESUSCITATE 10/29/2016 JOVANNA FLETCHER MD, Ot Z79.84 FOOT CASTER (CURRENT) USE OF ORAL HYPOGLYC 10/29/2016 JOVANNA FLETCHER MD Ot Z87.891 PERSONAL HISTORY OF NICOTINE DEPENDENCE 10/29/2016 JOVANNA FLETCHER MD Ot Z91.19 PATIENT'S NONCOMPLIANCE W [facility] 10/29/2016 JOVANNA FLETCHER MD Ot [...] V74.8 SCREEN-BACTERIAL DIS NEC 06/08/2017 MAYELIN OWENS HOSPITALITY SERVICES MANAGER Ot 729.81 SWELLING OF LIMB 06/08/2017 MAYELIN OWENS HOSPITALITY SERVICES MANAGER Ot V43.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 06/08/2017 [...] FOR THERAPEUTIC DRUG MONITORIN 06/08/2017 BAIJEWEL WADE AIR FILLER Ot 272.4 HYPERLIPIDEMIA NEC/NOS 06/08/2017 BAIMAJEWEL L AIR FILLER Ot 401.9 HYPERTENSION NOS 06/08/2017 BAIMA, JEWEL L AIR FILLER Ot 414.9 CHR ISCHEMIC HRT DIS NOS 06/08/2017 JEWEL OSEGUERA AIR FILLER Ot 425.4 PRIM CARDIOMYOPATHY NEC 06/08/2017 JEWEL OSEGUERA AIR FILLER Ot 447.9 ARTERIAL DISEASE NOS 06/08/2017 JEWEL OSEGUERA AIR FILLER Ot 272.4 HYPERLIPIDEMIA NEC/NOS 06/08/2017 JEWEL OSEGUERA AIR FILLER Ot 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 06/08/2017 JEWEL OSEGUERA AIR FILLER Ot 401.9 HYPERTENSION NOS 06/08/2017 JEWEL OSEGUERA AIR FILLER Ot 414.00 CORON ATHEROSCLER NOS TYPE VESSEL, NATIV 06/08/2017 JEWEL OSEGUERA AIR FILLER Ot 425.4 PRIM CARDIOMYOPATHY NEC 06/08/2017 KINDRA PRINGLE DO Ot 715.36 LOC OSTEOARTH NOS-L/LEG 06/08/2017 KINDRA PRINGLE DO Ot V72.63 PRE-PROCEDURAL LABORATORY EXAMINATION 06/08/2017 KINDRA PRINGLE DO Ot V72.83 EXAM PRE-OPERATIVE NEC 06/08/2017 KINDRA PRINGLE DO Ot V74.8 SCREEN-BACTERIAL DIS NEC 06/08/2017 MAYELIN OWENS HOSPITALITY SERVICES MANAGER Ot 729.81 SWELLING OF LIMB 06/08/2017 MAYELIN OWENS HOSPITALITY SERVICES MANAGER Ot V43.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 06/08/2017 [...] FOR THERAPEUTIC DRUG MONITORIN 06/08/2017 JEWEL OSEGUERA AIR FILLER Ot 272.4 HYPERLIPIDEMIA NEC/NOS 06/08/2017 JEWEL OSEGUERA AIR FILLER Ot 401.9 HYPERTENSION NOS 06/08/2017 JEWEL OSEGUERA AIR FILLER Ot 414.9 CHR ISCHEMIC HRT DIS NOS 06/08/2017 JEWEL OSEGUERA AIR FILLER Ot 425.4 PRIM CARDIOMYOPATHY NEC 06/08/2017 BAIMAJEWEL AIR FILLER Ot 447.9 ARTERIAL DISEASE NOS 06/09/2017 JUAN [...] HYPERTENSIVE CHRONIC KIDNEY DISEASE W ST 06/09/2017 JUNA CARLOS COATES CRISTINA Ot I42.9 CARDIOMYOPATHY, UNSPECIFIED [...] CRISTINA Ot Z91.19 PATIENT'S NONCOMPLIANCE W [facility] 06/09/2017 RANGEL DO CRISTINA Ot [...] CRISTINA Ot Z91.19 PATIENT'S NONCOMPLIANCE W [facility] 06/30/2017 RANGEL DO CRISTINA Ot [...] CRISTINA Ot Z91.19 PATIENT'S NONCOMPLIANCE W [facility] 06/30/2017 JUAN CARLOS COATES CRISTINA [...] MD Ot I25.10 ATHSCL HEART DISEASE OF [place] CORONARY 10/29/2017 CARO LOYOLA MD Ot I42.9 CARDIOMYOPATHY, UNSPECIFIED 10/29/2017 CARO LOYOLA MD Ot I48.91 UNSPECIFIED ATRIAL FIBRILLATION 10/29/2017 CARO LOYOLA MD Ot I73.9 PERIPHERAL VASCULAR DISEASE, UNSPECIFIED 10/29/2017 CARO LOYOLA MD, Ot J44.9 CHRONIC OBSTRUCTIVE PULMONARY DISEASE, U 10/29/2017 ACRO LOYOLA MD Ot R40.2142 COMA SCALE, EYES [...] O 10/29/2017 CARO LOYOLA MD Ot Z79.82 FOOT CASTER (CURRENT) USE OF ASPIRIN 10/29/2017 CARO LOYOLA MD Ot Z79.84 FPC (CURRENT) USE OF ORAL HYPOGLYC 10/29/2017 CARO LOYLOA MD Ot Z80.0 FAMILY HISTORY OF MALIGNANT [...] ON SUPPLEMENTAL OXYGEN 11/03/2017 BAIMA, JEWEL L AIR FILLER Ot 272.4 HYPERLIPIDEMIA NEC/NOS 11/03/2017 JEWEL OSEGUERA AIR FILLER Ot 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 11/03/2017 JEWEL OSEGUERA AIR FILLER Ot 401.9 HYPERTENSION NOS 11/03/2017 JEWEL OSEGUERA AIR FILLER Ot 414.00 CORON ATHEROSCLER NOS TYPE VESSEL, NATIV 11/03/2017 JEWEL OSEGUERA AIR FILLER Ot 425.4 PRIM CARDIOMYOPATHY NEC 11/03/2017 KINDRA PRINGLE DO Ot 715.36 LOC OSTEOARTH NOS-L/LEG 11/03/2017 KINDRA PRINGLE DO Ot V72.63 PRE-PROCEDURAL LABORATORY EXAMINATION 11/03/2017 KINDRA PRINGLE DO Ot V72.83 EXAM PRE-OPERATIVE NEC 11/03/2017 KINDRA PRINGLE DO Ot V74.8 SCREEN-BACTERIAL DIS NEC 11/03/2017 MAYELIN OWENS HOSPITALITY SERVICES MANAGER Ot 729.81 SWELLING OF LIMB 11/03/2017 MAYELIN OWENS HOSPITALITY SERVICES MANAGER Ot V43.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 11/03/2017 [...] FOR THERAPEUTIC DRUG MONITORIN 11/03/2017 JEWEL OSEGUERA AIR FILLER Ot 272.4 HYPERLIPIDEMIA NEC/NOS 11/03/2017 BAIJEWEL WADE AIR FILLER Ot 401.9 HYPERTENSION NOS 11/03/2017 BAIJEWEL WADE AIR FILLER Ot 414.9 CHR ISCHEMIC HRT DIS NOS 11/03/2017 EDOUARDJEWEL WADE AIR FILLER Ot 425.4 PRIM CARDIOMYOPATHY NEC 11/03/2017 BAIJEWEL WADE AIR FILLER Ot 447.9 ARTERIAL DISEASE NOS 11/06/2017 BASIL [...] APRN Ot I25.10 ATHSCL HEART DISEASE OF [place] CORONARY 06/10/2018 JAZMYNE WHITEHEAD APRN Ot I42.9 [...] AG 06/10/2018 JAZMYNE WHITEHEAD APRN Ot Z79.4 FOOT CASTER (CURRENT) USE OF INSULIN 06/10/2018 JAZMYNE WHITEHEAD APRN Ot Z79.82 FOOT CASTER (CURRENT) USE OF ASPIRIN 06/10/2018 JAZMYNE WHITEHEAD [...] APRN Ot I25.10 ATHSCL HEART DISEASE OF [place] CORONARY 06/13/2018 JAZMYNE WHITEHEAD APRN Ot I42.9 [...] MD Ot I25.10 ATHSCL HEART DISEASE OF [place] CORONARY 07/05/2018 SHANE LOZANO MD, Ot I25.5 ISCHEMIC CARDIOMYOPATHY 07/05/2018 SHANE LOZANO MD Ot I44.7 LEFT BUNDLE-BRANCH BLOCK, UNSPECIFIED 07/05/2018 SHANE LOZANO MD Ot I48.91 UNSPECIFIED ATRIAL FIBRILLATION 07/05/2018 SHANE LOZANO MD Ot I50.23 ACUTE ON CHRONIC SYSTOLIC (CONGESTIVE) H 07/05/2018 SHANE LOZAON MD Ot J44.9 CHRONIC OBSTRUCTIVE PULMONARY DISEASE, [...] UNSPECIFI 07/05/2018 SHANE LOZANO MD Ot Z79.84 FOOT CASTER (CURRENT) USE OF ORAL HYPOGLYC 07/05/2018 SHANE [...] HRT FAIL AND ST 07/05/2018 SHANE LOZANO MD, Ot I25.10 ATHSCL HEART DISEASE OF [place] CORONARY 07/05/2018 SHANE LOZANO MD, Ot I25.5 [...] UNSPECIFI 07/05/2018 SHANE LOZANO MD Ot Z79.84 FOOT CASTER (CURRENT) USE OF ORAL HYPOGLYC 07/05/2018 SHANE [...] REPLACEMENT 02/20/2014 81.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 11/20/2014 [id number] MEASURE OF CARDIAC SAMPL PRESSURE, L H 10/27/2016 [id number] FLUOROSCOPY OF MULT COR ART USING L OSM 10/27/2016 [id number] FLUOROSCOPY OF LEFT HEART USING LOW OSMO [...] Status Pt. Type Provider Facility Loc./Unit Complaint [id number] 07/03/2018 14:40:00 07/05/2018 13:25:00 DIS Outpatient BLAKE VANN, SHANE Collier [facility] 4TH ACUTE HEART FAILURE,PACEMAKER CONCERNS [id number] 06/10/2018 18:22:00 06/10/2018 19:24:00 DIS Emergency JAZMYNE WHITEHEAD APRN [facility] ER FELL [id number] 11/06/2017 09:24:00 11/06/2017 09:44:00 DIS Emergency JEAN PIERRE GRACIA DO [facility] ER STITCH REMOVAL [id number] 10/28/2017 21:34:00 10/29/2017 01:26:00 DIS Emergency CARO LOYOLA MD [facility] ER FALL [id number] 06/07/2017 22:43:00 06/09/2017 08:47:00 DIS Inpatient CRISTINA RANGEL DO [facility] 4TH CHEST PAIN R/O [id number] 10/26/2016 13:31:00 10/29/2016 12:35:00 DIS Inpatient JOVANNA FLETCHER MD [facility] ICU CHEST PAIN,CHF EXACERBATION [id number] 01/20/2016 14:07:00 01/20/2016 16:30:00 DIS Emergency JAZMYNE WHITEHEAD HOSPITALITY SERVICES MANAGER [facility] ER FALL FACIAL INJURIES/RIGHT WRIST PAIN [id number] 02/26/2015 14:20:00 02/26/2015 23:59:59 CLS Outpatient JEWEL OSEGUERA [facility] CARD CAD,CARDIOMYOPATHY,CAROTID ARTERY DI,HTN,HLP [id number] 11/29/2014 14:30:00 11/29/2014 23:59:59 CLS Outpatient KINDRA PRINGLE DO [facility] HH ANTICOAG THERAPY [id number] 11/20/2014 06:05:00 11/26/2014 16:29:00 DIS Inpatient KINDRA PRINGLE DO [facility] SURGICAL DEGENERATIVE DISC DISEASE LEFT KNEE [id number] 11/25/2014 15:23:00 11/25/2014 23:59:59 CLS Preadmit BLAKE VANN, SHANE Collier LT.KNEE [id number] 11/17/2014 12:07:00 11/17/2014 14:13:00 DIS Emergency JOVANNA FLETCHER MD [facility] ER R SIDE PAIN [id number] 11/06/2014 13:48:00 11/06/2014 23:59:59 CLS Outpatient KINDRA PRINGLE DO F [facility] PREOP DEGENERATIVE DISC DISEASE LEFT KNEE [id number] 10/04/2014 11:33:00 10/04/2014 23:59:59 CLS Outpatient SHANE LOZANO MD [facility] RAD INCREASED L/E EDEMA, [id number] 08/30/2014 07:42:00 08/30/2014 23:59:59 CLS Outpatient KATHY VANN FACCMANDA FACP CCDS [facility] CARD CAD,CARDIOMYOPATHY [id number] 06/27/2014 20:27:00 07/02/2014 16:00:00 DIS Inpatient RANGEL CRISTINA COATES [facility] CSD ASTHMATIC BRONCHITIS [id number] 03/28/2014 16:18:00 04/05/2014 14:28:00 DIS Outpatient YARY COATES KINDRA Scotty [facility] REHAB S/P R TKR [id number] 03/07/2014 09:40:00 03/07/2014 23:59:59 CLS Outpatient MAYELIN OWENS HOSPITALITY SERVICES MANAGER [facility] RAD R LE SWELLING [id number] 02/25/2014 14:25:00 02/28/2014 17:19:00 DIS Inpatient GORDON NGUYEN MD [facility] IRF TKR [id number] 02/20/2014 09:00:00 02/25/2014 14:24:00 DIS Inpatient YARY COATES KINDRA Scotty [facility] SURGICAL RIGHT KNEE DJD [id number] 02/14/2014 13:09:00 02/14/2014 23:59:59 CLS Outpatient YARY COATES KINDRA Fajardo [facility] PREOP RIGHT KNEE DJD [id number] 08/09/2013 13:16:00 08/12/2013 11:00:00 DIS Inpatient SHANE LOZANO MD [facility] CSD CHF CHEST PAIN [id number] 08/02/2013 12:43:00 08/02/2013 23:59:59 CLS Outpatient JEWEL OSEGUERA [facility] CARD CAD,HTN [id number] 03/31/2013 14:55:00 03/31/2013 15:14:00 DIS Emergency JUSTINE VANN, JOVANNA Pollock [facility] ER COUGH/SOA [id number] 12/28/2012 12:05:00 12/28/2012 14:26:00 DIS Emergency JUAN HIGGINS DO [facility] ER FALL/LEFT RIB PAIN [id number] 02/26/2015 14:20:00 Document Registration [id number] 02/26/2015 14:20:00 Document Registration [id number] 02/26/2015 14:20:00 Document Registration [id number] 02/26/2015 14:20:00 Document Registration [id number] 02/26/2015 14:20:00 Document Registration [id number] 02/26/2015 14:20:00 Document Registration [id number] 08/21/2014 16:15:00 Document Registration [id number] 08/04/2011 14:10:00 Document Registration [id number] 04/22/2010 05:36:00 Document Registration [id number] 04/21/2010 09:13:00 Document Registration [id number] 03/26/2010 16:03:00 Document Registration [id number] 09/10/2009 12:51:00 Document Registration
--- NOTE | 2018-12-06 20:00 | NUR ---
Patient admitted to room 429 per cart from ER. A/Ox3 and cooperative with care. Weak and reports having weak legs x1 week. V/U to need for admission. Patient lives alone at [facility]. Patient states she has a niece and nephew that look after her. Admission process completed. Call light given and V/U to routines, POC. See flowsheets for further information.
[2018-12-06 20:15] VITALS: BP 143/63
[2018-12-06 23:56] LABS: CLARITY,URINE CLEAR; COLOR,URINE YELLOW; GLUCOSE, URINE (UA) NEGATIVE (NEGATIVE); KETONES,URINE NEGATIVE (NEGATIVE); LEUKOCYTE ESTERASE ,URINE 1+ (NEGATIVE); NITRITE,URINE NEGATIVE (NEGATIVE); PH,URINE 5 (5-9); PROTEIN,URINE 1+ (NEGATIVE); UROBILINOGEN,URINE 1 MG/DL (NORMAL)
[2018-12-07] VITALS: BP 127/72
[2018-12-07 00:07] LABS: BACTERIA,URINE FEW /HPF; BILIRUBIN,URINE 2+ (NEGATIVE); WBC,URINE 0-2 /HPF
[2018-12-07 04:00] VITALS: BP 117/67
[2018-12-07] MEDS: NS IV 1000 ML 1,000 ML IV SCH ×3 (04:00→17:35)
[2018-12-07 05:56] LABS: BASOPHILS % (AUTO) 0 % (0-10); EOSINOPHILS # (AUTO) 0.5 10^3/uL (0.0-0.3); EOSINOPHILS % (AUTO) 7 % (0-10); HEMATOCRIT 36 % (35-52); HEMOGLOBIN 11.7 G/DL (11.5-16.0); LYMPHOCYTES # (AUTO) 1.8 X 10^3 (1.0-4.0); LYMPHOCYTES % (AUTO) 25 % (12-44); MEAN CORPUSCULAR HEMOGLOBIN 31 PG (25-34); MEAN CORPUSCULAR HGB CONC 32 G/DL (32-36); MEAN CORPUSCULAR VOLUME 97 FL (80-99); MEAN PLATELET VOLUME 10.5 FL (7.4-10.4); MONOCYTES # (AUTO) 0.5 X 10^3 (0.0-1.0); MONOCYTES % (AUTO) 8 % (0-12); NEUTROPHILS # (AUTO) 4.2 X 10^3 (1.8-7.8); NEUTROPHILS % (AUTO) 60 % (42-75); PLATELET COUNT 237 10^3/uL (130-400); RED CELL DISTRIBUTION WIDTH 13.9 % (10.0-14.5); WHITE BLOOD COUNT 7.1 10^3/uL (4.3-11.0)
[2018-12-07 06:15] LABS: CALCIUM 8.7 MG/DL (8.5-10.1); CREATININE SERUM 2.14 MG/DL (0.60-1.30); POTASSIUM 4.2 MMOL/L (3.6-5.0)
[2018-12-07] MEDS: CARVEDILOL 6.25 MG (COREG) TAB PO SCH ×2 (06:57→17:35)
[2018-12-07 08:00] VITALS: BP 126/61
[2018-12-07] MEDS ORDERED: FURO-124 PO (08:20)
[2018-12-07] MEDS ORDERED: CARV6.25 PO (08:20)
[2018-12-07] MEDS: ASPIRIN 81 MG CHEW (CHILDREN'S ASA) PO SCH (08:25)
[2018-12-07] MEDS ORDERED: FURO80TA3 PO (08:41)
[2018-12-07] MEDS ORDERED: ONDANSETRON 4 MG/2 ML (SDV) Z0FRAN IVP PRN (09:15)
--- NOTE | 2018-12-07 09:22 | NUR ---
SPOKE WITH PATIENT WELL GOING THROUGH THE EXTERNAL MED HISTORY TO COMPLETE THE MED REC. 09-28-2018 METFORMIN 500MG #180/90 DS (THIS DID NOT SHOW UP ON THE EXTERNAL MED HISTORY AND I REACHED OUT TO JAIR HEBERT FOR MORE INFORMATION) OTC MEDS: MULTIVITAMIN -1 DAILY ASPIRIN 81MG - 1 DAILY ACETAMINOPHEN 325MG- 1 TO 2 PRN
--- NOTE | 2018-12-07 09:47 | History & Physical-Hospitalist ---
History of Present Illness HPI/Chief Complaint Pt is an 83yoCF with a PMH of CHF, NIDDMII, and HTN who presented to the ER due to weakness and falls x3 months. She lives independently at [facility] and is normally able to walk to [facility] (1/2 block away) for breakfast. Yesterday she was os weak she could hardly make it back to her apartment and required assistance prompting her to [facility] evaluation in the ER where she was found to have an YAHAIRA with creatinine of 2.9. She states this all started around 3 months ago and denies any changes in her life or medications then. She does note that she has had less of an appetite and has been eating and drinking less. She has not had any weight loss with that. She has been compliant with her medications. Her only other complaint today is that she ate eggs and burrows and then quickly vomited it back up but this has been her only instance of emesis. Source: patient Date Seen 12/07/18 Time Seen by a Provider: 09:39 Attending Physician Song Galdamez MD PCP Danyel Anderson MD Referring Physician Date of Admission Dec 06, 2018 at 19:20 Home Medications & Allergies Home Medications Reviewed patient Home Medication Reconciliation performed by pharmacy medication reconciliations industrial ecology technician and/or nursing. Patients Allergies have been reviewed. Allergies Allergies Coded Allergies No Known Drug Allergies (Unverified07/03/18) Past Dwhcqjw-Atbrhg-Edfndf Hx Past Med/Social Hx: Reviewed Nursing Past Med/Soc Hx, Reviewed and Corrections made Patient Social History Alcohol Use: Denies Use Recreational Drug Use: No Smoking Status: Never a Smoker Type Used: Cigarettes 2nd Hand Smoke Exposure: No Recent Foreign Travel: No Contact w/other who traveled: No Recent Hopitalizations: No Recent Infectious Disease Expo: No Immunizations Up To Date Tetanus Booster (TDap): Less than 5yrs Pediatric: Yes Date of Pneumonia Vaccine: Dec 07, 2014 Date of Influenza Vaccine: Jun 14, 2018 Seasonal Allergies Seasonal Allergies: No Past Medical History Surgeries: Breast, Cardiac, Coronary Stent, Defibrillator, Eye Surgery, Gallbladder, Hysterectomy, Joint Replacement, Oophorectomy, Orthopedic, Pacemaker, Rectal Cardiac: Atrial Fibrillation, Cardiomyopathy, Chronic Edema/Swelling, Coronary Artery Disease, High Cholesterol, Hypertension, Peripheral Vascular : No 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: No Sexually Transmitted Disease: No HIV/AIDS: No Female 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 Disorders: Denies Menopausal Genitourinary: Renal Failure Gastrointestinal: Hemorrhoids Musculoskeletal: Arthritis, Chronic Back Pain Endocrine: Diabetes, Non-Insulin dep HEENT: Cataract Loss of Vision: Denies Hearing Impairment: Denies Psychosocial: Depression History of Blood Disorders: No Adverse Reaction to Blood [place]: No Family History Reviewed Nursing Family Hx Arthritis 19 FATHER 19 MOTHER G8 BROTHER G8 SISTER Asthma 19 FATHER Completed stroke G8 SISTER FH: COPD (chronic obstructive pulmonary disease) G8 SISTER FH: cancer 19 FATHER 19 MOTHER (stomach cancer ) G8 SISTER (LIVER- enio floya- breast cancer) FH: emphysema 19 FATHER G8 SISTER Glaucoma G8 SISTER Headache disorder G8 SISTER No Family History of: AIDS Abdominal aortic aneurysm Alcoholism Alzheimer's disease Cancer of mouth Cardiovascular disease Colon cancer Cystic fibrosis Deafness or hearing loss Dementia Diabetes mellitus Drug abuse Dysphasia Hypercholesterolemia Hypertension Kidney disease Myocardial infarction Parkinson's disease Prostate cancer Psychosocial problem Respiratory disorder Seizure disorder Severe allergy Thyroid disease Tuberculosis No Pertinent Family Hx Review of Systems Constitutional: No dizziness, No fever; weakness; No weight loss EENTM: no symptoms reported Respiratory: No dyspnea on exertion, No orthopnea, No short of breath (but has had increase in oxygen requiremnt from 2lpm to 4lpm) Cardiovascular: No chest pain, No edema; Hx of Intervention; No palpitations, No syncope Gastrointestinal: No abdominal pain, No constipation; loss of appetite, vomiting Genitourinary: no symptoms reported Musculoskeletal: joint pain Skin: no symptoms reported Psychiatric/Neurological: No Symptoms Reported Physical Exam Physical Exam Vital Signs Vital Signs - First Documented 12/06/18 15:35 Temp 97.2 Pulse 77 Resp 18 B/P (MAP) 111/56 (74) Pulse Ox 93 O2 Delivery Nasal Cannula O2 Flow Rate 4.00 Capillary Refill : Less Than 3 Seconds Height, Weight, BMI Height: 5'5.00" Weight: 205lbs. 5.0oz. [id number]; 34.2 BMI Method:Stated General Appearance: No Apparent Distress, Chronically ill HEENT: Normal ENT Inspection, Moist Mucous Membranes; No Scleral Icterus (L), No Scleral Icterus (R) Neck: Normal Inspection, Supple; No Thyromegaly Respiratory: Lungs Clear, No Accessory Muscle Use, No Respiratory Distress, Other (on oxygen via [place]) Cardiovascular: Regular Rate, Rhythm, No JVD, No Murmur Gastrointestinal: Normal Bowel Sounds, Non Tender, Soft Rectal: Deferred Extremity: Normal Capillary Refill, No Calf Tenderness, No Pedal Edema Neurologic/Psychiatric: Alert, Oriented x3, No Motor/Sensory Deficits, Normal Mood/Affect Skin: Normal Color, Warm/Dry, Ecchymosis (right eye) Results Results/Procedures Labs Laboratory Tests 12/06/18 15:39 12/07/18 05:45 Patient resulted labs reviewed. Imaging: Reviewed Imaging Report Assessment/Plan Admission Diagnosis YAHAIRA Admission Status: Inpatient Order (span 2 midnights) Reason for Inpatient Admission: YAHAIRA, needs IVF Diagnosis/Problems Diagnosis/Problems (1) Acute renal failure (ARF) Status: Acute Assessment & Plan: Acute on chronic stage 3a Continue gentle hydration given significant cardiomyopathy Trend creatinine hold nephrotoxic drugs as able Qualifiers: Acute renal failure type: unspecified Qualified Codes: N17.9 - Acute kidney failure, unspecified (2) CHF Status: Acute Assessment & Plan: known systolic dysfunction cardiology consulted appreicate recs Hold XIOMARA for YAHAIRA (3) Falls frequently Status: Acute Assessment & Plan: PT/OT Consider IRU (4) Non-insulin dependent type 2 diabetes mellitus Status: Chronic Assessment & Plan: holding metformin for YAHAIRA AC HS accu-checks SSI (5) HTN (hypertension) Assessment & Plan: Resume home meds as able for YAHAIRA COntinue coreg Clinical Quality Measures DVT/VTE Risk/Contraindication: Risk Factor Score Per Nursin RFS Level Per Nursing on Admit: 4+=Very High SONG GALDAMEZ MD Dec 07, 2018 9:47 am
--- NOTE | 2018-12-07 09:48 | Consultation-Cardiology ---
HPI-Cardiology Cardiology Consultation: Date of Consultation 12/07/18 Time Seen by a Provider: 09:30 Date of Admission Attending Physician Bridget Galdamez MD Admitting Physician Danyel Anderson MD Consulting Physician MANDA CHAVEZ MD, MA, FACP, FACC, [facility], CCDS Physician requesting consult: Dr Galdamez HPI: Chief Complaint: Reason for consultation: Ischemic cardiomyopathy HPI 83 yo woman admitted with increasing gen malaise and fatique. Has chronic exertional shortness of breath. Has had some bouts of vomiting (but no blood) at home. Oral intake has been poor ("Too lazy to cook," she says). No cp or palp or leg swelling. No fever or chills. No diarrhea. Review of Systems-Cardiology Review of Systems Constitutional: As described under HPI Eyes: No vision change Ears/Nose/Throat: No ear discharge, No nasal drainage, No recent hearing loss Cardiovascular: As described under HPI Gastrointestinal: As described under HPI Genitourinary: No dysuria, No hematuria, No urine frequency changes : No Musculoskeletal: back pain (chronic) Skin: No rash, No ulcerations Psychiatric/Neurological: No seizure, No focal weakness, No syncope Hematologic: No bleeding abnormalities VAM-Bxflka-Pjmuir Hx Patient Social History Alcohol Use: Denies Use Recreational Drug Use: No Smoking Status: Never a Smoker Type Used: Cigarettes 2nd Hand Smoke Exposure: No Recent Foreign Travel: No Recent Infectious Disease Expo: No Hospitalization with Isolation: Denies Immunizations Up To Date Tetanus Booster (TDap): Less than 5yrs Date of Pneumonia Vaccine: Dec 07, 2014 Date of Influenza Vaccine: Jun 14, 2018 Past Medical History PMH As described under Assessment. Family Medical History Family History: Arthritis 19 FATHER 19 MOTHER G8 BROTHER G8 SISTER Asthma 19 FATHER Completed stroke G8 SISTER FH: COPD (chronic obstructive pulmonary disease) G8 SISTER FH: cancer 19 FATHER 19 MOTHER (stomach cancer ) G8 SISTER (LIVER- enio floya- breast cancer) FH: emphysema 19 FATHER G8 SISTER Glaucoma G8 SISTER Headache disorder G8 SISTER No Family History of: AIDS Abdominal aortic aneurysm Alcoholism Alzheimer's disease Cancer of mouth Cardiovascular disease Colon cancer Cystic fibrosis Deafness or hearing loss Dementia Diabetes mellitus Drug abuse Dysphasia Hypercholesterolemia Hypertension Kidney disease Myocardial infarction Parkinson's disease Prostate cancer Psychosocial problem Respiratory disorder Seizure disorder Severe allergy Thyroid disease Tuberculosis Allergies and Home Medications Allergies Coded Allergies: No Known Drug Allergies (Unverified , 07/03/18) Home Medications Acetaminophen 325 Mg Tablet, 650 MG PO Q4H PRN for PAIN-MILD, (Reported) TAKES 2 (325MG) TABLETS Aspirin 81 Mg Tablet.dr, 81 MG PO HS, (Reported) Carvedilol 6.25 Mg Tablet, 6.25 MG PO BID, (Reported) Clonazepam 1 Mg Tablet, 2 MG PO HS, (Reported) TAKES 2 (1MG) TABLETS Fluoxetine HCl 40 Mg Capsule, 40 MG PO HS, (Reported) Furosemide 80 Mg Tablet, 160 MG PO DAILY, (Reported) Glimepiride 2 Mg Tablet, 2 MG PO HS, (Reported) Lisinopril 10 Mg Tablet, 10 MG PO HS, (Reported) Metformin HCl 500 Mg Tablet, 1,000 MG PO 1800, (Reported) TAKES 2 (500MG) TABLETS Multivitamin/Iron/Folic Acid 1 Each Tablet, 1 TAB PO DAILY, (Reported) Potassium Chloride 10 Meq Tablet.er, 10 MEQ PO DAILY, (Reported) Patient Home Medication List Home Medication List Reviewed: Yes Physical Exam-Cardiology Physical Exam Vital Signs/I&O 12/07/18 12/07/18 12/07/18 12/07/18 00:00 04:00 08:00 08:00 Temp 96.7 97.0 97.0 Pulse 64 63 59 Resp 20 20 21 B/P (MAP) 127/72 (90) 117/67 (84) 126/61 (82) Pulse Ox 98 98 98 98 O2 Delivery Nasal Cannula Nasal Cannula Nasal Cannula Nasal Cannula O2 Flow Rate 4.00 4.00 4.00 4.00 12/07/18 00:00 Intake Total 400 ml Output Total 0 ml Balance 400 ml Capillary Refill : Less Than 3 Seconds Constitutional: AAO x 3, well-developed, well-nourished HEENT: EOMI, hearing is well preserved; No xanthelasmas are seen Neck: carotid pulses are 2 + bilaterally, with good upstrokes Respiratory: No accessory muscle use; other (good bilat air entry) Cardiovascular: regular rate-rhythm, S1 and S2, systolic murmur (soft NANCY at card base) Gastrointestinal: No tender; soft; No guarding, No rebound; audible bowel sounds Extremities: No clubbing, No cyanosis, No significant edema Neurologic/Psychiatric: oriented x 3, grossly intact, power is 5/5 both on sides Skin: No rash on exposed areas, No ulcerations on exposed areas Data Review Labs Laboratory Tests 12/06/18 15:39: White Blood Count 11.5H, Red Blood Count 4.38, Hemoglobin 13.7, Hematocrit 42, Mean Corpuscular Volume 96, Mean Corpuscular Hemoglobin 31, Mean Corpuscular Hemoglobin Concent 33, Red Cell Distribution Width 14.2, Platelet Count 293, Mean Platelet Volume 10.6H, Neutrophils (%) (Auto) 82H, Lymphocytes (%) (Auto) 10L, Monocytes (%) (Auto) 7, Eosinophils (%) (Auto) 1, Basophils (%) (Auto) 0, Neutrophils # (Auto) 9.4H, Lymphocytes # (Auto) 1.1, Monocytes # (Auto) 0.8, Eosinophils # (Auto) 0.1, Basophils # (Auto) 0.0, Sodium Level 136, Potassium Level 4.5, Chloride Level 100, Carbon Dioxide Level 25, Anion Gap 11, Blood Urea Nitrogen 30H, Creatinine 2.94H, Estimat Glomerular Filtration Rate 15, BUN/Creatinine Ratio 10, Glucose Level 167H, Calcium Level 9.7, Corrected Calcium 9.6, Magnesium Level 1.7L, Total Bilirubin 0.7, Aspartate Amino Transf (AST/SGOT) 11, Alanine Aminotransferase (ALT/SGPT) 10, Alkaline Phosphatase 74, Total Protein 7.3, Albumin 4.1, TSH [place] Testing 1.60 12/06/18 23:47: Urine Color YELLOW, Urine Clarity CLEAR, Urine pH 5, Urine Specific [place] 1.025H, Urine Protein 1+H, Urine Glucose (UA) NEGATIVE, Urine Ketones NEGATIVE, Urine Nitrite NEGATIVE, Urine Bilirubin 2+H, Urine Urobilinogen 1, Urine Leukocyte Esterase 1+H, Urine RBC (Auto) NEGATIVE, Urine RBC NONE, Urine WBC 0- 2, Urine Squamous Epithelial Cells 5-10, Urine Crystals NONE, Urine Bacteria FEWH, Urine Casts PRESENT, Urine Hyaline Casts 5-10H, Urine Mucus SMALLH, Urine Culture Indicated NO 12/07/18 05:45: White Blood Count 7.1, Red Blood Count 3.75L, Hemoglobin 11.7, Hematocrit 36, Mean Corpuscular Volume 97, Mean Corpuscular Hemoglobin 31, Mean Corpuscular Hemoglobin Concent 32, Red Cell Distribution Width 13.9, Platelet Count 237, Mean Platelet Volume 10.5H, Neutrophils (%) (Auto) 60, Lymphocytes (%) (Auto) 25, Monocytes (%) (Auto) 8, Eosinophils (%) (Auto) 7, Basophils (%) (Auto) 0, Neutrophils # (Auto) 4.2, Lymphocytes # (Auto) 1.8, Monocytes # (Auto) 0.5, Eosinophils # (Auto) 0.5H, Basophils # (Auto) 0.0, Sodium Level 136, Potassium Level 4.2, Chloride Level 104, Carbon Dioxide Level 21, Anion Gap 11, Blood Urea Nitrogen 33H, Creatinine 2.14H, Estimat Glomerular Filtration Rate 22, BUN/Creatinine Ratio 15, Glucose Level 108H, Calcium Level 8.7 A/P-Cardiology Assessment/Admission Diagnosis Acute Kidney Injury (YAHAIRA) 3, likely due to volume depletion Chronic systolic congestive heart failure CAD, clinically stable Hypertension Hyperlipidemia treated with statins Ischemic cardiomyopathy. Patient has acute on chronic systolic congestive heart failure with left bundle branch block with QRS duration of 150 ms with previous EF of 25 percent. The patient has been on goal-directed medical therapy for at least the last one and a half year. Repeat echocardiogram 07/04/2018 shows an EF of 30-35 percent. Patient has been advised TECHNICAL DEVELOPER-D, but she has not agreed. ICD in place. Device interrogation by Dr Enriquez on 07/04/18 shows a single c hamber ICD with V pacing less than 1 percent. Normal sensitivity and capture threshold. No ATP or shocks. Normal device function. Discussion and Recomendations * Careful hydration * Monitor labs * I discussed her CV issues and her current issues with her * I discussed our treatment plan for her with her * I discussed her case with Dr Galdamez this morning Clinical Quality Measures DVT/VTE Risk/Contraindication: Risk Factor Score Per Nursin RFS Level Per Nursing on Admit: 4+=Very High MANDA CHAVEZ MD [facility] Dec 07, 2018 09:48
[2018-12-07] MEDS ORDERED: MAGNESIUM 1 GM/100 ML IVPB 100 ML IV NR (10:00)
[2018-12-07] MEDS ORDERED: MELATONIN 3 MG TABLET PO PRN (10:45)
[2018-12-07] MEDS ORDERED: ANTACID SUSP 30 ML UDC (MYLANTA) PO PRN (10:45)
[2018-12-07] MEDS ORDERED: BENZONATATE 100 MG (TESSALON) CAPSULE PO PRN (10:45)
[2018-12-07] MEDS ORDERED: MILK OF MAGNESIA 400 MG/5 ML 30 ML UDC PO PRN (10:45)
[2018-12-07] MEDS: inSUlin ASPART (NovoLOG) 1 UNIT/0.01 ML (CHARGE PER UNIT) SC SCH ×3 (11:39→21:08)
[2018-12-07 12:00] VITALS: BP 121/58
[2018-12-07] MEDS: ENOXAPARIN 40 MG/0.4 ML (LOVENOX) SYR SQ SCH (14:08)
--- NOTE | 2018-12-07 15:02 | Occupational Therapy Eval ---
OT Evaluation-General/PLF Medical Diagnosis Admission Date Dec 06, 2018 at 19:20 Medical Diagnosis: ARF/CHF Onset Date: Dec 06, 2018 Therapy Diagnosis Therapy Diagnosis: decreased self care skills Height/Weight Height (Feet): 5 Height (Inches): 5.00 Weight (Pounds): 205 Weight (Ounces): 5.0 Precautions Precautions/Isolations: Fall Prevention, Standard Precautions Safety Interventions: Reorient-PRN Medical History Pertinent Medical History: Arthritis, DM, HTN Additional Medical History CHF, A-fib, CAD, cardiomyopathy, coronary stent, defibrillator, chronic edema, high cholesterol, PVD, renal failure, chronic back pain, depression Current History Pt has experienced increased weakness and fall x3 months. admitted with ARF Reviewed History: Yes Social History Home: Apartment ([facility]) Current Living Status: Alone Entry Into Home: Level Entry ADL-Prior Level of Function Therapy Code Descriptions/Definitions Functional [place] Measure: 0=Not Assessed/NA 4=Minimal Assistance 1=Total Assistance 5=Supervision or Setup 2=Maximal Assistance 6=Modified [place] 3=Moderate Assistance 7=Complete [place] Therapy Quality Codes: 6 Independent with activity with or without an assistive device 5 Patient requires set up or clean up by helper. Patient completes activity by themselves 4 Supervision or touching assist (CGA). [place] provide cues , steadying assist 3 The helper provides less than half the effort to complete the activity 2 The helper provides more than half the effort to complete the activity 1 Dependent. The helper does all the effort to complete an activity 7 Patient refused to complete or attempt activity 9 The patient did not perform the activity before the current illness or injury 88 Not attempted due to Medical conditions or safety concerns Functional Abilities and Goals: Independent: Patient completed the activities by him/herself, with or without an assistive device, with no assistance from a helper. Needed Some Help: Patient needed partial assistance from another person to complete activities. Dependent: A helper completed the activities for the patient. Unknown: Not Applicable: ADL PLOF Comments Pt states she is normally able to complete basic ADLs and transfers without assist. Uses 4WW for mobility. Pt reports increased weakness last 3 months. Unable to get into tub/shower, so just does sponge baths. Does not drive. Has friend who assists with shopping and cleaning 2x/month. Pt states she has been sleeping a lot lately. DME/Equipment: Tub/Shower (pt states she does not feel safe to get into shower so just does sponge baths) Drive Self: No OT Current Status Subjective Pt sitting in chair, agrees to therapy. Mental Status/Objective Patient Orientation: Person, Place Attachments: IV, Oxygen Current Glasses/Contacts: Yes Hearing Aids: No Dentures/Partials: No Hand Dominance: Left Upper Extremity ROM Grossly WFL Upper Extremity Coordination Intact Upper Extremity Strength Grossly 4/5 ADL-Treatment ADL-Current Pt sitting in chair, sit to stand with supervision. Gait to restroom with FWW. Stood at sink to complete grooming tasks. Pt brushed teeth, combed hair, and washed face with SBA. Transfer to toilet with SBA using grab bar for safety. Pt able to complete toileting hygiene, required CGA for balance during clothing management. Transfer to EOB with SBA using FWW. Sit to supine with SBA. Pt resting in bed with needs met after session. Therapy Code Descriptions/Definitions Functional [place] Measure: 0=Not Assessed/NA 4=Minimal Assistance 1=Total Assistance 5=Supervision or Setup 2=Maximal Assistance 6=Modified [place] 3=Moderate Assistance 7=Complete [place] Therapy Quality Codes: 6 Independent with activity with or without an assistive device 5 Patient requires set up or clean up by helper. Patient completes activity by themselves 4 Supervision or touching assist (CGA). [place] provide cues , steadying assist 3 The helper provides less than half the effort to complete the activity 2 The helper provides more than half the effort to complete the activity 1 Dependent. The helper does all the effort to complete an activity 7 Patient refused to complete or attempt activity 9 The patient did not perform the activity before the current illness or injury 88 Not attempted due to Medical conditions or safety concerns Eating (FIM): 5 (by report) Grooming (FIM): 5 Toileting (FIM): 4 (CGA for balance during clothing management) Education OT Patient Education: Rehab process Teaching Recipient: Patient Teaching Methods: Discussion Response to Teaching: Verbalize Understanding OT Short Term Goals Short Term Goals 1=Demonstrate adherence to instructed precautions during ADL tasks. 2=Patient will verbalize/demonstrate understanding of assistive devices/modifications for ADL. 3=Patient will improve strength/tolerance for activity to enable patient to perform ADL's. OT Equities Analyst Goals Equities Analyst Goals Time Frame: Dec 14, 2018 Grooming(FIM): 6 Bathing(FIM): 5 Upper Body Dressing(FIM): 6 Lower Body Dressing(FIM): 6 Toileting(FIM): 6 Toilet/Commode Transfer(FIM): 6 Additional Goals: 1-Demonstrate ADL Tasks, 2-Verbalize Understanding, 3- ImproveStrength/Yudith 1=Demonstrate adherence to instructed precautions during ADL tasks. 2=Patient will verbalize/demonstrate understanding of assistive devices/modifications for ADL. 3=Patient will improve strength/tolerance for activity to enable patient to perform ADL's. OT Education/Plan Problem List/Assessment Assessment: Decreased Activ Tolerance, Decreased UE Strength, Dependent Transfers, Impaired I ADL's, Impaired Self-Care Skills Pt to benefit from skilled OT intervention for ADL training, transfers, strengthening, and safety education to increase level of independence and allow safe return home. Discharge Recommendations Plan/Recommendations: Continue POC Treatment Plan/Plan of Care Treatment,Training & Education: Yes Patient would benefit from OT for education, treatment and training to promote independence in ADL's, mobility, safety and/or upper extremity function for ADL's. Plan of Care: ADL Retraining, Functional Mobility, UE Funct Exercise/Act Treatment Duration: Dec 14, 2018 Frequency: 5 times per week Estimated Hrs Per Day: .25 hour per day Rehab Potential: Fair Time/GCodes Start Time: 14:21 Stop Time: 14:54 Total Time Billed (hr/min): 33 Billed Treatment Time 1 visit, EVL(15minutes), ADL(18minutes) KEVIN MONTANEZ OT Dec 07, 2018 15:02
--- NOTE | 2018-12-07 15:46 | NUR ---
IRF Evaluation Order received to evaluate patient for the ARU. Determination pending therapy evaluations. Additionally, there is limited bed availability on the ARU. Will continue to follow as it relates to evaluation/availability. Thank you for this referral.
[2018-12-07 15:51] VITALS: BP 125/59
--- NOTE | 2018-12-07 15:52 | Physical Therapy Evaluation ---
PT Evaluation-General Medical Diagnosis Admission Date Dec 06, 2018 at 19:20 Medical Diagnosis: ARF/CHF Onset Date: Dec 06, 2018 Therapy Diagnosis Therapy Diagnosis: abnormal gait Height/Weight Height (Feet): 5 Height (Inches): 5.00 Weight (Pounds): 205 Weight (Ounces): 5.0 Precautions Precautions/Isolations: Fall Prevention, Standard Precautions Weight Bear Status Right Lower Extremity: Right Weight Bearing/Tolerated Left Lower Extremity: Left Weight Bearing/Tolerated Referral Physician: Rudolph Reason for Referral: Evaluation/Treatment Medical History Pertinent Medical History: Arthritis, DM, HTN Current History Admitted to [facility] for progressive falls and weakness. Reviewed History: Yes Social History Home: Apartment ([facility]) Current Living Status: Alone Entry Into Home: Level Entry Prior/Core FIM Prior Level of Function Therapy Code Descriptions/Definitions Functional [place] Measure: 0=Not Assessed/NA 4=Minimal Assistance 1=Total Assistance 5=Supervision or Setup 2=Maximal Assistance 6=Modified [place] 3=Moderate Assistance 7=Complete [place] Therapy Quality Codes: 6 Independent with activity with or without an assistive device 5 Patient requires set up or clean up by helper. Patient completes activity by themselves 4 Supervision or touching assist (CGA). [place] provide cues , steadying assist 3 The helper provides less than half the effort to complete the activity 2 The helper provides more than half the effort to complete the activity 1 Dependent. The helper does all the effort to complete an activity 7 Patient refused to complete or attempt activity 9 The patient did not perform the activity before the current illness or injury 88 Not attempted due to Medical conditions or safety concerns Functional Abilities and Goals: Independent: Patient completed the activities by him/herself, with or without an assistive device, with no assistance from a helper. Needed Some Help: Patient needed partial assistance from another person to complete activities. Dependent: A helper completed the activities for the patient. Unknown: Not Applicable: Bed Mobility: 7 Transfers (B,C,W/C) (FIM): 7 Gait: 6 (walker) Stairs: Independent Prior Devices Use: Walker PT Evaluation-Current Subjective Agrees to PT Objective Patient Orientation: Person, Place, Time, Situation Problem Solving: Good ROM/Strength ROM Lower Extremities WNL Strength Lower Extremities WFL Integumentary/Posture Integumentary intact Bowel Incontinence: No Bladder Incontinence: No Posture rounded shoulders Neuromuscular (Tone, Coordination, Reflexes) intact and functional Sensory Vision: Functional Hearing: Functional Hand Dominance: Right Sensation Right Lower Extremit: Intact Sensation Left Lower Extremity: Intact Transfers Therapy Code Descriptions/Definitions Functional [place] Measure: 0=Not Assessed/NA 4=Minimal Assistance 1=Total Assistance 5=Supervision or Setup 2=Maximal Assistance 6=Modified [place] 3=Moderate Assistance 7=Complete [place] Transfers (B, C, W/C) (FIM): 4 Supine to/from Sit: 4 Sit to/from Stand: 4 min assist to get out of bed and CGA for sit to stand from bed and toilet Gait Mode of Locomotion: Walk Anticipated Mode of Locomotion: Walk Gait (FIM): 4 Distance (FIM): 3=150 ft Gait Assistive Device: FWW Comments/Gait Description Pt ambulated in and out of the bathroom with CGA and in garcía with CGA. Balance Sitting Static: Normal Sitting Dynamic: Normal Standing Static: Good Standing Dynamic: Good Assessment/Needs Pt presents with a decline in functional strength and mobility and will benefit from skilled PT to address safetywith gait and transfers. Rehab Potential: Good PT Alf Goals Alf Goals PT Watch Dial Stoner Goals Time Frame: Dec 14, 2018 Transfers (B,C,W/C) (FIM): 6 Gait (FIM): 6 Gait distance (FIM): 3=150 ft Gait Assistive Device: FWW PT Plan Problem List Problem List: Activity Tolerance, Functional Strength, Safety, Balance, Gait, Transfer, Bed Mobility Treatment/Plan Treatment Plan: Continue Plan of Care Treatment Plan: Bed Mobility, Education, Functional Activity Yudith, Functional Strength, Gait, Safety, Therapeutic Exercise, Transfers Treatment Duration: Dec 14, 2018 Frequency: 5 times per week Estimated Hrs Per Day: .25 hour per day Patient and/or Family Agrees t: Yes Safety Risks/Education Patient Education: Transfer Techniques, Safety Issues Teaching Recipient: Patient Teaching Methods: Discussion Response to Teaching: Reinforcement Needed Time/GCodes Time In: 1240 Time Out: 1300 Total Billed Treatment Time: 20 Total Billed Treatment visit EVL 20 KEN DUBOIS PT Dec 07, 2018 15:52
[2018-12-07 19:55] VITALS: BP 110/55
[2018-12-07] MEDS: FLUoxetine HCL 20 MG (PROzac) CAP PO SCH (21:08)
[2018-12-08] VITALS (7 sets, daily range): BP systolic 123–166; BP diastolic 60–72
[2018-12-08] MEDS: ACETAMINOPHEN 500 MG TAB (TYLENOL) PO PRN ×2 (01:51→19:24)
[2018-12-08] MEDS: NS IV 1000 ML 1,000 ML IV SCH (01:59)
[2018-12-08 05:56] LABS: BASOPHILS % (AUTO) 0 % (0-10); EOSINOPHILS # (AUTO) 0.5 10^3/uL (0.0-0.3); EOSINOPHILS % (AUTO) 10 % (0-10); HEMATOCRIT 34 % (35-52); HEMOGLOBIN 10.7 G/DL (11.5-16.0); LYMPHOCYTES # (AUTO) 1.5 X 10^3 (1.0-4.0); LYMPHOCYTES % (AUTO) 29 % (12-44); MEAN CORPUSCULAR HEMOGLOBIN 32 PG (25-34); MEAN CORPUSCULAR HGB CONC 32 G/DL (32-36); MEAN CORPUSCULAR VOLUME 99 FL (80-99); MEAN PLATELET VOLUME 10.7 FL (7.4-10.4); MONOCYTES # (AUTO) 0.5 X 10^3 (0.0-1.0); MONOCYTES % (AUTO) 10 % (0-12); NEUTROPHILS # (AUTO) 2.6 X 10^3 (1.8-7.8); NEUTROPHILS % (AUTO) 51 % (42-75); PLATELET COUNT 219 10^3/uL (130-400); RED CELL DISTRIBUTION WIDTH 14.2 % (10.0-14.5); WHITE BLOOD COUNT 5.1 10^3/uL (4.3-11.0)
[2018-12-08 06:20] LABS: CALCIUM 8.7 MG/DL (8.5-10.1); CREATININE SERUM 1.38 MG/DL (0.60-1.30); POTASSIUM 4.2 MMOL/L (3.6-5.0)
[2018-12-08] MEDS: inSUlin ASPART (NovoLOG) 1 UNIT/0.01 ML (CHARGE PER UNIT) SC SCH ×4 (06:38→21:32)
[2018-12-08] MEDS: CARVEDILOL 6.25 MG (COREG) TAB PO SCH ×2 (06:38→21:25)
[2018-12-08] MEDS: ASPIRIN 81 MG CHEW (CHILDREN'S ASA) PO SCH (08:12)
--- NOTE | 2018-12-08 08:42 | Progress Note-Hospitalist ---
Subjective HPI/CC On Admission Date Seen by Provider: Dec 08, 2018 Time Seen by Provider: 08:39 Pt is an 83yoCF with a PMH of CHF, NIDDMII, and HTN who presented to the ER due to weakness and falls x3 months. She lives independently at [facility] and is normally able to walk to [facility] (1/2 block away) for breakfast. Yesterday she was os weak she could hardly make it back to her apartment and required assistance prompting her to jackson evaluation in the ER where she was found to have an YAHAIRA with creatinine of 2.9. She states this all started around 3 months ago and denies any changes in her life or medications then. She does note that she has had less of an appetite and has been eating and drinking less. She has not had any weight loss with that. She has been compliant with her medications. Her only other complaint today is that she ate eggs and burrows and then quickly vomited it back up but this has been her only instance of emesis. Subjective/Events-last exam Pt reports doing well. Denies any SOB. Worked with PT yesterday. Discussed plan for DC and interested in HH which she has had before after knee placements. She thinks her insurance may have lapsed though. Objective Exam Vital Signs Vital Signs Date Time Temp Pulse Resp B/P (MAP) Pulse Ox O2 Delivery O2 Flow Rate FiO2 12/08/18 04:00 97.6 61 20 136/63 (87) 96 Nasal Cannula 3.50 Capillary Refill : Less Than 3 Seconds General Appearance: No Apparent Distress, Chronically ill HEENT: No Scleral Icterus (L), No Scleral Icterus (R) Neck: No Thyromegaly Respiratory: Lungs Clear, No Accessory Muscle Use, No Respiratory Distress Cardiovascular: Regular Rate, Rhythm, No JVD, No Murmur Gastrointestinal: Normal Bowel Sounds, Non Tender, Soft Extremity: No Pedal Edema Neurologic/Psychiatric: Alert, Oriented x3, Normal Mood/Affect Results/Procedures Lab Laboratory Tests 12/08/18 05:20 12/08/18 05:30 Patient resulted labs reviewed. Assessment/Plan Assessment and Plan Assess & Plan/Chief Complaint YAHAIRA Diagnosis/Problems Diagnosis/Problems (1) Acute renal failure (ARF) Status: Acute Assessment & Plan: Acute on chronic stage 3a DC IVF and monitor creatinine with oral intake only Likely DC tomorrow Creatinine much improved since admission Qualifiers: Acute renal failure type: unspecified Qualified Codes: N17.9 - Acute kidney failure, unspecified (2) CHF Status: Acute Assessment & Plan: known systolic dysfunction cardiology consulted appreicate recs Hold XIOMARA for YAHAIRA (3) Falls frequently Status: Acute Assessment & Plan: PT/OT Will need HH at DC (4) Non-insulin dependent type 2 diabetes mellitus Status: Chronic Assessment & Plan: holding metformin for YAHAIRA AC HS accu-checks SSI A1C ordered (5) HTN (hypertension) Assessment & Plan: BP well controlled with coreg only Cntinue coreg Clinical Quality Measures DVT/VTE Risk/Contraindication: Risk Factor Score Per Nursin RFS Level Per Nursing on Admit: 4+=Very High SONG GUDINO MD Dec 08, 2018 8:42 am
[2018-12-08] MEDS ORDERED: METF-397 PO (08:55)
[2018-12-08] MEDS ORDERED: FURO80TA3 PO (08:55)
--- NOTE | 2018-12-08 12:27 | Physical Therapy Daily Note ---
PT Daily Note-Current Subjective Pt. up in chair and agrees to therapy, says she is discharging home tomorrow. Mental Status Patient Orientation: Normal For Age Attachments: Oxygen Transfers Therapy Code Descriptions/Definitions Functional [place] Measure: 0=Not Assessed/NA 4=Minimal Assistance 1=Total Assistance 5=Supervision or Setup 2=Maximal Assistance 6=Modified [place] 3=Moderate Assistance 7=Complete [place] Therapy Quality Codes: 6 Independent with activity with or without an assistive device 5 Patient requires set up or clean up by helper. Patient completes activity by themselves 4 Supervision or touching assist (CGA). [place] provide cues , steadying assist 3 The helper provides less than half the effort to complete the activity 2 The helper provides more than half the effort to complete the activity 1 Dependent. The helper does all the effort to complete an activity 7 Patient refused to complete or attempt activity 9 The patient did not perform the activity before the current illness or i njury 88 Not attempted due to Medical conditions or safety concerns Transfers (B, C, W/C) (FIM): 6 Sit to/from Stand: 6 Weight Bearing Right Lower Extremity: Right Weight Bearing/Tolerated Left Lower Extremity: Left Weight Bearing/Tolerated Gait Training Gait (FIM): 6 Distance (FIM): 3=150 ft Distance: 350 ft Gait Level of Assist: 6 Gait Persons Needed: 1 Gait Assistive Device: FWW slow and steady with gait using FWW Exercises Seated Therapy Exercises: Ankle pumps, Long arc quads, Hip flexion Seated Reps: 10 Treatments gait Assessment Current Status: Good Progress Pt. does very well with mobility, is mod (I) with all transfers and gait. Pt. returned to bedside chair post session with call light and all needs met, O2 in situ. PT Fpc Goals Denitrator Operator Goals PT Fpc Goals Time Frame: Dec 14, 2018 Transfers (B,C,W/C) (FIM): 6 Gait (FIM): 6 Gait distance (FIM): 3=150 ft Gait Assistive Device: FWW PT Plan Treatment/Plan Treatment Plan: Continue Plan of Care Treatment Plan: Bed Mobility, Education, Functional Activity Yudith, Functional Strength, Gait, Safety, Therapeutic Exercise, Transfers Treatment Duration: Dec 14, 2018 Frequency: 5 times per week Estimated Hrs Per Day: .25 hour per day Patient and/or Family Agrees t: Yes Time/GCodes Time In: 1202 Time Out: 1226 Total Billed Treatment Time: 24 Total Billed Treatment 1, GT 24' KWAME PORTILLO PT Dec 08, 2018 12:27
--- NOTE | 2018-12-08 12:59 | Progress Note-Cardiology ---
Cardiology SOAP Progress Note Subjective: Malaise improved No cp or palp or syncope or shortness of breath Objective: I&O/Vital Signs 12/08/18 12/08/18 12/08/18 04:00 08:00 08:00 Temp 97.6 98.6 Pulse 61 61 Resp 20 18 B/P (MAP) 136/63 (87) 123/60 (81) Pulse Ox 96 97 O2 Delivery Nasal Cannula Nasal Cannula Nasal Cannula O2 Flow Rate 3.50 3.50 4.00 12/08/18 00:00 Intake Total 2970 ml Output Total 860 ml Balance 2110 ml Weight (Pounds): 205 Weight (Ounces): 5.0 Weight (Calculated Kilograms): 93.997361 Constitutional: AAO x 3, well-developed, well-nourished Respiratory: No accessory muscle use; other (good bilat air entry) Cardiovascular: regular rate-rhythm, S1 and S2, systolic murmur (soft NANCY at card base) Gastrointestional: No tender; soft; No guarding, No rebound; audible bowel sounds Extremities: No clubbing, No cyanosis, No significant edema Neurologic/Psychiatric: oriented x 3, grossly intact, power is 5/5 both on sides Skin: No rash on exposed areas, No ulcerations on exposed areas Results/Procedures: Labs Laboratory Tests 12/07/18 15:51: Glucometer 214H 12/07/18 20:45: Glucometer 132H 12/08/18 05:20: White Blood Count 5.1, Red Blood Count 3.39L, Hemoglobin 10.7L, Hematocrit 34L, Mean Corpuscular Volume 99, Mean Corpuscular Hemoglobin 32, Mean Corpuscular Hemoglobin Concent 32, Red Cell Distribution Width 14.2, Platelet Count 219, Mean Platelet Volume 10.7H, Neutrophils (%) (Auto) 51, Lymphocytes (%) (Auto) 29, Monocytes (%) (Auto) 10, Eosinophils (%) (Auto) 10, Basophils (%) (Auto) 0, Neutrophils # (Auto) 2.6, Lymphocytes # (Auto) 1.5, Monocytes # (Auto) 0.5, Eosinophils # (Auto) 0.5H, Basophils # (Auto) 0.0 12/08/18 05:30: Sodium Level 137, Potassium Level 4.2, Chloride Level 108H, Carbon Dioxide Level 22, Anion Gap 7, Blood Urea Nitrogen 21H, Creatinine 1.38H, Estimat Glomerular Filtration Rate 37, BUN/Creatinine Ratio 15, Glucose Level 140H, Calcium Level 8.7 12/08/18 06:21: Glucometer 125H 12/08/18 10:56: Glucometer 142H Laboratory Tests 12/06/18 15:39 12/07/18 05:45 12/08/18 05:20 12/08/18 05:30 A/P: Assessment: Acute Kidney Injury (YAHAIRA) 3, likely due to volume depletion, much improved with hydration Chronic systolic congestive heart failure CAD, clinically stable Hypertension Hyperlipidemia treated with statins Ischemic cardiomyopathy. Patient has acute on chronic systolic congestive heart failure with left bundle branch block with QRS duration of 150 ms with previous EF of 25 percent. The patient has been on goal-directed medical therapy for at least the last one and a half year. Repeat echocardiogram 07/04/2018 shows an EF of 30-35 percent. Patient has been advised PEDIATRIC CARDIOLOGIST-D, but she has not agreed. ICD in place. Device interrogation by Dr Enriquez on 07/04/18 shows a single chamber ICD with V pacing less than 1 percent. Normal sensitivity and capture threshold. No ATP or shocks. Normal device function. Plan: * Resume/reduce meds (see below) * Furosemide 40 mg daily - previously on 80 bid * Lisinopril 5 mg daily - previously on 10 daily * Carvedilol 6.25 bid - unchanged * Aspirin 81 mg daily - unchanged * Rosuvastatin 10 mg daily - previously on 20 mg daily * Diabetes med per MANDA Hollingsworth MD FACP [facility] Dec 08, 2018 12:59
[2018-12-08] MEDS: ENOXAPARIN 40 MG/0.4 ML (LOVENOX) SYR SQ SCH (13:31)
--- NOTE | 2018-12-08 13:40 | Occupational Ther Daily Note ---
OT Current Status-Daily Note Subjective Pt seen in room, returning to bed from bathroom, agreeable to OT. No pain mentioned. Appearance Alert, cooperative Mental Status/Objective Therapy Code Descriptions/Definitions Functional [place] Measure: 0=Not Assessed/NA 4=Minimal Assistance 1=Total Assistance 5=Supervision or Setup 2=Maximal Assistance 6=Modified [place] 3=Moderate Assistance 7=Complete [place] ADL-Treatment Pt reported no problems taking herself to the bathroom but did not take her walker. She is not interested in dressing at this time. She anticipates returning to her apartment tomorrow. She reported that she only has help at home twice a month and is concerned about being able to manage everything at home, especially since she has fallen several times. She is very interested in home health PT and OT and would benefit from this service. She is also interested in getting some kind of meals delivered. OT was unable to share this information with social work staff. Pt left up at EOB, all needs met. Education OT Patient Education: Progress toward Goal/Update tx plan, Purpose of tx/functional activities, Other (Community services) Teaching Recipient: Patient Teaching Methods: Discussion Response to Teaching: Verbalize Understanding OT Short Term Goals Short Term Goals 1=Demonstrate adherence to instructed precautions during ADL tasks. 2=Patient will verbalize/demonstrate understanding of assistive devices/modifications for ADL. 3=Patient will improve strength/tolerance for activity to enable patient to perform ADL's. OT Fuel Efficient Automobile Designer Goals Fuel Efficient Automobile Designer Goals Time Frame: Dec 14, 2018 Grooming(FIM): 6 Bathing(FIM): 5 Upper Body Dressing(FIM): 6 Lower Body Dressing(FIM): 6 Toileting(FIM): 6 Toilet/Commode Transfer(FIM): 6 Additional Goals: 1-Demonstrate ADL Tasks, 2-Verbalize Understanding, 3- ImproveStrength/Yudith 1=Demonstrate adherence to instructed precautions during ADL tasks. 2=Patient will verbalize/demonstrate understanding of assistive devices/modifications for ADL. 3=Patient will improve strength/tolerance for activity to enable patient to perform ADL's. OT Education/Plan Problem List/Assessment Pt to benefit from skilled OT intervention for ADL training, transfers, strengthening, and safety education to increase level of independence and allow safe return home. Discharge Recommendations Plan/Recommendations: Continue POC Treatment Plan/Plan of Care Patient would benefit from OT for education, treatment and training to promote independence in ADL's, mobility, safety and/or upper extremity function for ADL's. Plan of Care: ADL Retraining, Functional Mobility, UE Funct Exercise/Act Treatment Duration: Dec 14, 2018 Frequency: 5 times per week Estimated Hrs Per Day: .25 hour per day Rehab Potential: Good Time/GCodes Start Time: 12:52 Stop Time: 13:12 Total Time Billed (hr/min): 20 Billed Treatment Time visit, 20 minutes ADL BRENDA PEREZ OT Dec 08, 2018 13:40
[2018-12-08] MEDS ORDERED: ROSUVASTATIN 10 MG (CRESTOR) TABLET PO SCH (21:00)
[2018-12-08] MEDS: FLUoxetine HCL 20 MG (PROzac) CAP PO SCH (21:23)
[2018-12-09 03:37] VITALS: BP 144/67
[2018-12-09 05:42] LABS: CALCIUM 9.2 MG/DL (8.5-10.1); CREATININE SERUM 1.03 MG/DL (0.60-1.30); POTASSIUM 4.3 MMOL/L (3.6-5.0)
[2018-12-09] MEDS: inSUlin ASPART (NovoLOG) 1 UNIT/0.01 ML (CHARGE PER UNIT) SC SCH ×2 (06:21→10:52)
[2018-12-09] MEDS: CARVEDILOL 6.25 MG (COREG) TAB PO SCH (06:22)
[2018-12-09 08:00] VITALS: BP 144/68
[2018-12-09] MEDS: ASPIRIN 81 MG CHEW (CHILDREN'S ASA) PO SCH (08:24)
--- NOTE | 2018-12-09 08:51 | NUR ---
PRIOR TO A.M. MEDICATIONS PULSE WAS 144/68 HR OF 59.
[2018-12-09] MEDS ORDERED: FUROSEMIDE 40 MG (LASIX) TAB PO SCH (09:00)
[2018-12-09] MEDS ORDERED: KCL 10 MEQ TAB (MICRO K) PO ONE (09:00)
[2018-12-09] MEDS ORDERED: lisINopril 5 MG (PRINIVIL) TABLET PO SCH (09:00)
[2018-12-09] MEDS ORDERED: LISI-556 PO (10:30)
[2018-12-09] MEDS ORDERED: ROSU10TA27 PO (10:30)
[2018-12-09] MEDS ORDERED: FURO40TA4 PO (10:30)
--- NOTE | 2018-12-09 11:05 | Discharge Summary-Hospitalist ---
Diagnosis/Chief Complaint Date of Admission Dec 06, 2018 at 7:20 pm Date of Discharge Discharge Date: Dec 09, 2018 Admission Diagnosis YAHAIRA Discharge Diagnosis (1) Acute renal failure (ARF) Status: Acute Assessment & Plan: Acute on chronic stage 3a Creatinine much improved since admission (2) CHF Status: Acute Assessment & Plan: known systolic dysfunction cardiology consulted appreicate recs Hold XIOMARA for YAHAIRA (3) Falls frequently Status: Acute Assessment & Plan: PT/OT Will need HH at DC (4) Non-insulin dependent type 2 diabetes mellitus Status: Chronic Assessment & Plan: holding metformin for YAHAIRA AC HS accu-checks SSI A1C ordered (5) HTN (hypertension) Assessment & Plan: BP well controlled with coreg only Cntinue coreg Discharge Summary Procedures/Consulations Dr Wiseman- Cardiology Discharge Physical Exam Allergies: Coded Allergies: No Known Drug Allergies (Unverified , 07/03/18) Vitals & I&Os Vital Signs Date Time Temp Pulse Resp B/P (MAP) Pulse Ox O2 Delivery O2 Flow Rate FiO2 12/09/18 08:45 93 Nasal Cannula 4.00 12/09/18 08:00 97.6 59 16 144/68 (93) General Appearance: No Apparent Distress, WD/WN Respiratory: Lungs Clear, No Accessory Muscle Use, No Respiratory Distress Cardiovascular: Regular Rate, Rhythm, No Murmur Gastrointestinal: Normal Bowel Sounds, Non Tender, Soft Neurologic/Psychiatric: Alert, Oriented x3 Hospital Course Pt is an 83yo CF with a PMH of CKD, cardiomyopathy, diabetes, HTN, who presented to the ER with a CC of weakness and falls and found to have a significant YAHAIRA. She was admitted for IV fluids and adjustment of medications. Her creatinine improved and she was discharged home in stable condition with medication adjustment as listed below. Home Health was ordered to assist with continued strengthening. Labs (last 24 hrs) Laboratory Tests 12/08/18 15:36: Glucometer 198H 12/08/18 20:51: Glucometer 184H 12/09/18 04:59: Sodium Level 140, Potassium Level 4.3, Chloride Level 108H, Carbon Dioxide Level 23, Anion Gap 9, Blood Urea Nitrogen 15, Creatinine 1.03, Estimat Glomerular Filtration Rate 51, BUN/Creatinine Ratio 15, Glucose Level 102, Calcium Level 9.2 12/09/18 05:43: Glucometer 110 12/09/18 10:50: Glucometer 147H Patient resulted labs reviewed. Pending Labs Laboratory Tests 12/09/18 04:59: Sodium Level 140, Potassium Level 4.3, Chloride Level 108, Carbon Dioxide Level 23, Anion Gap 9, Blood Urea Nitrogen 15, Creatinine 1.03, Estimat Glomerular Filtration Rate 51, BUN/Creatinine Ratio 15, Glucose Level 102, Calcium Level 9.2 12/09/18 05:43: Glucometer 110 12/09/18 10:50: Glucometer 147 Discussion & Recommendations Discharge Planning: >30 minutes discharge planning Discharge Home Medications: Active Scripts Active Furosemide 40 Mg Tablet 40 Mg PO DAILY Rosuvastatin Calcium 10 Mg Tablet 10 Mg PO HS Lisinopril 5 Mg Tablet 5 Mg PO DAILY Metformin HCl 500 Mg Tablet 500 Mg PO 1800 Reported Coreg (Carvedilol) 6.25 Mg Tablet 6.25 Mg PO BID Centrum Adults Tablet (Multivitamin/Iron/Folic Acid) 1 Each Tablet 1 Tab PO DAILY Tylenol (Acetaminophen) 325 Mg Tablet 650 Mg PO Q4H PRN TAKES 2 (325MG) TABLETS Potassium Chloride 10 Meq Tablet.er 10 Meq PO DAILY Aspirin EC (Aspirin) 81 Mg Tablet.dr 81 Mg PO HS Clonazepam 1 Mg Tablet 2 Mg PO HS TAKES 2 (1MG) TABLETS Prozac (Fluoxetine HCl) 40 Mg Capsule 40 Mg PO HS Instructions to patient/family Please see electronic discharge instructions given to patient. Clinical Quality Measures DVT/VTE Risk/Contraindication: Risk Factor Score Per Nursin RFS Level Per Nursing on Admit: 4+=Very High Problem Qualifiers (1) Acute renal failure (ARF): Acute renal failure type: unspecified Qualified Codes: N17.9 - Acute kidney failure, unspecified SONG GUDINO MD Dec 09, 2018 11:05 am
--- NOTE | 2018-12-09 11:07 | D/C HH Face to Face Order ---
D/C Face to Face Orders Instructions for Patient Via [facility], Patient Instructions/FollowUp: Please continue to take your medications as written. Please follow up with your PCP in the next week to follow up this hospital stay. Physician to follow Patient: Dr Anderson Discharge Diet for Home: Low Sodium Diet Patient Data-Allergies,Ht & Wt Patient Allergies: Coded Allergies: No Known Drug Allergies (Unverified , 07/03/18) Height (Feet): 5 Height (Inches): 5.00 Weight (Pounds): 205 Weight (Ounces): 5.0 Home Health Need/Face to Face Date of Face to Face: Dec 09, 2018 Clinical Findings: Generalized weakness and fatigue, Shortness of breath I have seen Pt [id number]: Yes Discharged To: Home Diagnosis/Conditions: heart failure Patient is Homebound due to: [place] fall risk due to instabilty, Shortness of breath/distress Homebound Status Due to the above stated illness, injury or surgical procedure (medical condition or diagnosis) and associated clinical findings, the patient is homebound because of his/her inability to leave home except with aid of a supportive device and/or person AND leaving the home requires a considerable and taxing effort or is medically contraindicated. Pt req the following assistanc: Aid of another person, Walker Home Health Nursing Orders Home Health Services Order: Nursing Services, Senior Clinical Data Analyst-Evaluate & Treat, Physical Therapy-Evaluate & Treat Home Health Infusion Therapy Line Start Date: Dec 06, 2018 Therapy Orders Therapy Orders: OT (must have SN or PT order), Physical Therapy Therapy Specific Orders: Eval assistive deivces, Teach enviro modifications/safety, Gait training, Increase strength/endurance Certify Stmt I certify that this patient is under my care and that I, a nurse practitioner or a physician; a administrative assistant coordinator working with me, had a face to face encounter that - meets the physician face to face encounter requirements with this patient as dated. SONG GUDINO MD Dec 08, 2018 9:00 am
--- NOTE | 2018-12-09 11:51 | Physical Therapy Daily Note ---
PT Daily Note-Current Subjective Patient is up independently in room. Agrees to PT. Pain Numeric Pain Scale: 0-No Pain Location: No Pain Reported Mental Status Patient Orientation: Normal For Age Transfers Therapy Code Descriptions/Definitions Functional [place] Measure: 0=Not Assessed/NA 4=Minimal Assistance 1=Total Assistance 5=Supervision or Setup 2=Maximal Assistance 6=Modified [place] 3=Moderate Assistance 7=Complete [place] Therapy Quality Codes: 6 Independent with activity with or without an assistive device 5 Patient requires set up or clean up by helper. Patient completes activity by themselves 4 Supervision or touching assist (CGA). [place] provide cues , steadying assist 3 The helper provides less than half the effort to complete the activity 2 The helper provides more than half the effort to complete the activity 1 Dependent. The helper does all the effort to complete an activity 7 Patient refused to complete or attempt activity 9 The patient did not perform the activity before the current illness or injury 88 Not attempted due to Medical conditions or safety concerns Transfers (B, C, W/C) (FIM): 7 Scootin Sit to/from Stand: 7 Weight Bearing Right Lower Extremity: Right Weight Bearing/Tolerated Left Lower Extremity: Left Weight Bearing/Tolerated Gait Training Gait (FIM): 7 Distance (FIM): 3=150 ft Distance: 300' Gait Level of Assist: 7 Gait Assistive Device: None safe and functional/does utilize FWW for longer distances per her report Assessment Patient is currently at independent [facility] with all gross motor skills and will dismiss to home on this date per physician. PT Cutting And Printing Machine Operator Goals Custodial Goals PT Cutting And Printing Machine Operator Goals Time Frame: Dec 14, 2018 Transfers (B,C,W/C) (FIM): 6 Gait (FIM): 6 Gait distance (FIM): 3=150 ft Gait Assistive Device: FWW PT Plan Treatment/Plan Treatment Plan: Discontinue PT, goals met Treatment Plan: Bed Mobility, Education, Functional Activity Yudith, Functional Strength, Gait, Safety, Therapeutic Exercise, Transfers Treatment Duration: Dec 14, 2018 Frequency: 5 times per week Estimated Hrs Per Day: .25 hour per day Patient and/or Family Agrees t: Yes Time/GCodes Time In: 1043 Time Out: 1053 Total Billed Treatment Time: 10 Total Billed Treatment 1 visit FA 10 min SOPHIA SANTORO PT Dec 09, 2018 11:51
[2018-12-09 12:00] VITALS: BP 141/63
[2018-12-09 12:30] VITALS: BP 141/63
--- NOTE | 2018-12-09 12:47 | NUR ---
IRF Upon review of today's PT note, patient is ambulating (300ft, no AD) and transferring with independence; therefore, the patient does not require intensive therapies, at this time. Additionally, it is reported the patient will be dismissing home on today's date.
--- NOTE | 2018-12-09 13:57 | NUR ---
CM/SS, respond to consult for new HHC orders. Patient had already left facility and phone number is incorrect. HHC: Referral completed with [facility] agency because they do accept patient's Medicare replacement insurance. They indicate they will first visit patient Wednesday. If able, will get patient's phone number updated. It was known from a previous hospital stay she was current with [facility] home O2.
== END 2018-12-09 12:30 | disposition home health service (06) | DRG 682 ==
LOC: EDUNIT# 15:30 → ER 15:31 → 4TH 19:20
PROVIDERS: ADMIT Family Medicine; ATTEND Family Medicine
DX: N17.9 Acute kidney failure, unspecified (principal); E86.9 Volume depletion, unspecified; I13.0 Hypertensive heart and chronic kidney disease with heart failure and stage 1 through stage 4 chronic kidney disease, or unspecified chronic kidney disease; I50.23 Acute on chronic systolic (congestive) heart failure; N18.9 Chronic kidney disease, unspecified; I25.5 Ischemic cardiomyopathy; I25.10 Atherosclerotic heart disease of native coronary artery without angina pectoris; I48.91 Unspecified atrial fibrillation; Z66 Do not resuscitate; E11.9 Type 2 diabetes mellitus without complications; Z79.84 Long term (current) use of oral hypoglycemic drugs; F32.9 Major depressive disorder, single episode, unspecified; I44.7 Left bundle-branch block, unspecified; E78.5 Hyperlipidemia, unspecified; Z95.810 Presence of automatic (implantable) cardiac defibrillator
CPT/HCPCS: 36415; 70450; 71045; 72125; 80048; 80053; 81000; 82962; 83036; 83735; 84443; 85025; 93005; 93041; 94760; 96360

== ENCOUNTER 2019-06-04 22:19 | Inpatient (IN) | payer MEDICARE ==
[~2019-06-04] VITALS: Ht 167.7 cm; Wt 102.4 kg
[~2019-06-04 22:19] MED LIST changes: +LISI-556 PO; +ROSU10TA28 PO; -ROSU20TA31 PO; +ROSU20TA32 PO
[2019-06-04] MEDS ORDERED: LACTATED RINGERS 1,000 ML IV ONE (22:30)
[2019-06-04 22:45] LABS: BASOPHILS % (AUTO) 1 % (0-10); EOSINOPHILS # (AUTO) 0.4 10^3/uL (0.0-0.3); EOSINOPHILS % (AUTO) 6 % (0-10); HEMATOCRIT 34 % (35-52); HEMOGLOBIN 11.2 G/DL (11.5-16.0); LYMPHOCYTES % (AUTO) 30 % (12-44); MEAN CORPUSCULAR HEMOGLOBIN 32 PG (25-34); MEAN CORPUSCULAR HGB CONC 33 G/DL (32-36); MEAN CORPUSCULAR VOLUME 96 FL (80-99); MEAN PLATELET VOLUME 10.4 FL (7.4-10.4); MONOCYTES # (AUTO) 0.8 X 10^3 (0.0-1.0); MONOCYTES % (AUTO) 11 % (0-12); NEUTROPHILS # (AUTO) 3.5 X 10^3 (1.8-7.8); NEUTROPHILS % (AUTO) 53 % (42-75); PLATELET COUNT 224 10^3/uL (130-400); RED CELL DISTRIBUTION WIDTH 13.2 % (10.0-14.5); WHITE BLOOD COUNT 6.6 10^3/uL (4.3-11.0)
--- NOTE | 2019-06-04 22:55 | ED Psychosocial ---
General Chief Complaint: Overdose Stated Complaint: OVERDOSE Source: patient, EMS Exam Limitations: no limitations History of Present Illness Date Seen by Provider: Jun 04, 2019 Time Seen by Provider: 22:25 Initial Comments Here by EMS with report of overdose on approximately 24-26 1 mg Klonopin tablets. She states she just does not want to live anymore and she is tired of the depression. She is stating that she is tired of talking the psychiatrist and everybody else about her depression problems. She has not talked to her doctor about this. She states she stopped taking all of her other medicines and then took about half of the Klonopin tablets at about 3 PM and more sometime between 6 and 7 to a total of 24-26 pills. Family member noted that she had slurred speech and was not acting right and asked her what happened. She apparently told him that she took the pills or the family member found out somehow and then called EMS. EMS brings her here for further evaluation. They did start an IV. Patient does have slurred speech and seems to be quite drowsy but is protecting her airway well. Denies other problems or concerns. She states that she did want to kill herself but now she is not actively thinking that. She does state that she is tired of all of this though. Timing/Duration: this afternoon, this evening Severity: severe Associated Symptoms: ingestion, suicidal ideation Allergies and Home Medications Allergies Coded Allergies: No Known Drug Allergies (Unverified , 07/03/18) Home Medications Acetaminophen 325 Mg Tablet, 650 MG PO Q4H PRN for PAIN-MILD, (Reported) TAKES 2 (325MG) TABLETS Aspirin 81 Mg Tablet.dr, 81 MG PO HS, (Reported) Carvedilol 6.25 Mg Tablet, 6.25 MG PO BID, (Reported) Clonazepam 1 Mg Tablet, 2 MG PO HS, (Reported) TAKES 2 (1MG) TABLETS Fluoxetine HCl 40 Mg Capsule, 40 MG PO HS, (Reported) Furosemide 40 Mg Tablet, 40 MG PO DAILY Prescribed by: SONG GUDINO on 12/09/18 1030 Lisinopril 5 Mg Tablet, 5 MG PO DAILY Prescribed by: SONG GUDINO on 12/09/18 1030 Metformin HCl 500 Mg Tablet, 500 MG PO 1800 Prescribed by: SONG GUDINO on 12/08/18 0855 Multivitamin/Iron/Folic Acid 1 Each Tablet, 1 TAB PO DAILY, (Reported) Potassium Chloride 10 Meq Tablet.er, 10 MEQ PO DAILY, (Reported) Rosuvastatin Calcium 10 Mg Tablet, 10 MG PO HS Prescribed by: SONG GUDINO on 12/09/18 1030 Patient Home Medication List Home Medication List Reviewed: Yes Review of Systems Constitutional: see HPI; No chills, No fever EENTM: no symptoms reported Respiratory: no symptoms reported Cardiovascular: no symptoms reported Gastrointestinal: no symptoms reported Genitourinary: no symptoms reported Musculoskeletal: no symptoms reported Psychiatric/Neurological: Depressed, Emotional Problems All Other Systems Reviewed Negative Unless Noted: Yes Past Khbpwgj-Ealopb-Qwffat Hx Past Med/Social Hx: Reviewed Nursing Past Med/Soc Hx Patient Social History Alcohol Use: Denies Use Recreational Drug Use: No Smoking Status: Current Everyday Smoker Type Used: Cigarettes 2nd Hand Smoke Exposure: No Recent Hopitalizations: No Immunizations Up To Date Tetanus Booster (TDap): Less than 5yrs PED Vaccines UTD: Yes Date of Pneumonia Vaccine: Dec 07, 2014 Date of Influenza Vaccine: Jun 14, 2018 Seasonal Allergies Seasonal Allergies: No Past Medical History Surgeries: Yes (2004 hemorrhoidectomy, breast reduction, right ovary removed) Breast, Cardiac, Coronary Stent, Defibrillator, Eye Surgery, Gallbladder, Hysterectomy, Joint Replacement, Oophorectomy, Orthopedic, Pacemaker, Rectal Respiratory: Yes (Has home O2 and wears infrequent at 2 L/M) COPD Cardiac: Yes (Pacemaker/DEFIB, stents x 2, congestive heart failure) Atrial Fibrillation, Cardiomyopathy, Chronic Edema/Swelling, Coronary Artery Disease, High Cholesterol, Hypertension, Peripheral Vascular Neurological: No 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 Disorders: No Female 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 Disorders: Denies 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 Sexually Transmitted Disease: No HIV/AIDS: No Genitourinary: Yes Renal Failure Gastrointestinal: Yes Hemorrhoids Musculoskeletal: Yes Arthritis, Chronic Back Pain Endocrine: Yes (Type II) Diabetes, Non-Insulin dep HEENT: Yes Cataract Loss of Vision: Denies Hearing Impairment: Denies Cancer: No Psychosocial: Yes Depression Integumentary: No Blood Disorders: No Adverse Reaction/Blood Tranf: No Family Medical History Reviewed Nursing Family Hx Arthritis 19 FATHER 19 MOTHER G8 BROTHER G8 SISTER Asthma 19 FATHER Completed stroke G8 SISTER FH: COPD (chronic obstructive pulmonary disease) G8 SISTER FH: cancer 19 FATHER 19 MOTHER (stomach cancer ) G8 SISTER (LIVER- enio floya- breast cancer) FH: emphysema 19 FATHER G8 SISTER Glaucoma G8 SISTER Headache disorder G8 SISTER No Pertinent Family Hx Physical Exam Vital Signs - First Documented 06/04/19 22:19 Temp 36.9 Pulse 59 Resp 20 B/P (MAP) 153/73 (99) Pulse Ox 99 Capillary Refill : Height, Weight, BMI Height: 5'5.00" Weight: 205lbs. 5.0oz. 93.859794jm; 34.2 BMI Method:Stated General Appearance: WD/WN, no apparent distress HEENT: PERRL/EOMI, pharynx normal Neck: full range of motion, supple Respiratory: lungs clear, normal breath sounds Cardiovascular: regular rate, rhythm, no murmur Gastrointestinal: non tender, soft Extremities: non-tender, normal inspection Neurologic/Psychiatric: alert, depressed affect, other (slurred speech) Appearance/Memory: appropriate insight, no memory impairment Behavior/Eye Contact: cooperative, good eye contact, decreased rate of speech Thoughts/Hallucinations: normal thought pattern, no apparent hallucination Skin: normal color, warm/dry Procedures/Interventions Suture Size: 5-0 Progress/Results/Core Measures Results/Orders Lab Results Laboratory Tests Test 06/04/19 22:36 Range/Units White Blood Count 6.6 4.3-11.0 10^3/uL Red Blood Count 3.51 L 4.35-5.85 10^6/uL Hemoglobin 11.2 L 11.5-16.0 G/DL Hematocrit 34 L 35-52 % Mean Corpuscular Volume 96 80-99 FL Mean Corpuscular Hemoglobin 32 25-34 PG Mean Corpuscular Hemoglobin Concent 33 32-36 G/DL Red Cell Distribution Width 13.2 10.0-14.5 % Platelet Count 224 130-400 10^3/uL Mean Platelet Volume 10.4 7.4-10.4 FL Neutrophils (%) (Auto) 53 42-75 % Lymphocytes (%) (Auto) 30 12-44 % Monocytes (%) (Auto) 11 0-12 % Eosinophils (%) (Auto) 6 0-10 % Basophils (%) (Auto) 1 0-10 % Neutrophils # (Auto) 3.5 1.8-7.8 X 10^3 Lymphocytes # (Auto) 2.0 1.0-4.0 X 10^3 Monocytes # (Auto) 0.8 0.0-1.0 X 10^3 Eosinophils # (Auto) 0.4 H 0.0-0.3 10^3/uL Basophils # (Auto) 0.0 0.0-0.1 10^3/uL Sodium Level 140 135-145 MMOL/L Potassium Level 3.3 L 3.6-5.0 MMOL/L Chloride Level 108 H 98-107 MMOL/L Carbon Dioxide Level 19 L 21-32 MMOL/L Anion Gap 13 5-14 MMOL/L Blood Urea Nitrogen 22 H 7-18 MG/DL Creatinine 1.40 H 0.60-1.30 MG/DL Estimat Glomerular Filtration Rate 36 BUN/Creatinine Ratio 16 Glucose Level 198 H 70-105 MG/DL Calcium Level 7.5 L 8.5-10.1 MG/DL Corrected Calcium 8.1 L 8.5-10.1 MG/DL Total Bilirubin 0.3 0.1-1.0 MG/DL Aspartate Amino Transf (AST/SGOT) 9 5-34 U/L Alanine Aminotransferase (ALT/SGPT) 8 0-55 U/L Alkaline Phosphatase 57 40-136 U/L Total Protein 5.7 L 6.4-8.2 GM/DL Albumin 3.3 3.2-4.5 GM/DL Salicylates Level < 5.0 L 5.0-20.0 MG/DL Acetaminophen Level 10 10-30 UG/ML Serum Alcohol < 10 <10 MG/DL My Orders Orders - EBONI VINES MD Ua Culture If Indicated (06/04/19 22:30) Cbc With Automated Diff (06/04/19 22:30) Comprehensive Metabolic Panel (06/04/19 22:30) Alcohol (06/04/19 22:30) Drug Screen Stat (Urine) (06/04/19 22:30) Acetaminophen (06/04/19 22:30) Salicylate (06/04/19 22:30) Ekg Tracing (06/04/19 22:30) Ed Iv/Invasive Line Start (06/04/19 22:30) Monitor-Rhythm Ecg Trace Only (06/04/19 22:30) Bh Status Checks/Observation Q15M (06/04/19 22:30) Ed Iv/Invasive Line Start (06/04/19 22:30) Lactated Ringers (Lr 1000 Ml Iv Solution (06/04/19 22:30) Medications Given in ED Current Medications Medications Dose Ordered Sig/Teresa Route Start Time Stop Time Status Last Admin Dose Admin Lactated Ringer's 1,000 ml @ 0 mls/hr Q0M ONCE IV 06/04/19 22:30 06/04/19 22:33 DC 06/04/19 22:56 1,000 MLS/HR Vital Signs/I&O 06/04/19 22:19 Temp 36.9 Pulse 59 Resp 20 B/P (MAP) 153/73 (99) Pulse Ox 99 Progress Progress Note : Progress Note Seen and evaluated. IV, labs, EKG and UA ordered. Monitor patient. 2305: I discussed the case with Dr. Livingston, on-call for hospitalist service. He accepted patient for admission to the ICU, observation status. 2330: Poison control was contacted and somnolence and hypotension are the things to watch for. She is at the peak after ingestion but there is a long half-life so she will need to be monitored through that which we will do in the ICU. This was discussed with the patient. Admit, observation status. Patient agrees with plan. Initial ECG Impression Date: Jun 04, 2019 Initial ECG Impression Time: 22:26 Initial ECG Rate: 58 Initial ECG Rhythm: S.Akbar Comment Sinus with left bundle branch block and first-degree AV block. Left axis deviation. Similar to previous of 12/06/18. Interpreted by me. No evidence of ST elevation GA. Departure Communication (Admissions) Time/Spoke to Admitting Phy: 23:05 Impression Primary Impression: Drug overdose Qualified Codes: T50.902A - Poisoning by unspecified drugs, medicaments and biological substances, intentional self-harm, initial encounter Disposition: ADMITTED INPATIENT Condition: Stable Admissions Decision to Admit Reason: Admit from ER (General) Decision to Admit/Date: Jun 04, 2019 Time/Decision to Admit Time: 23:05 Departure-Patient Inst. Referrals: SHANE LOZANO MD (PCP/Family) Primary Care Physician Patient Instructions: ALCOHOL AND SUBSTANCE ABUSE EBONI VINES MD Jun 04, 2019 22:54
[2019-06-04 23:04] LABS: ACETAMINOPHEN 10 UG/ML (10-30); ALANINE AMINOTRANSFERASE 8 U/L (0-55); ALBUMIN 3.3 GM/DL (3.2-4.5); ALKALINE PHOSPHATASE 57 U/L (40-136); BILIRUBIN,TOTAL 0.3 MG/DL (0.1-1.0); BUN/CREATININE RATIO 16; CALCIUM 7.5 MG/DL (8.5-10.1); CARBON DIOXIDE 19 MMOL/L (21-32); CHLORIDE 108 MMOL/L (98-107); GFR ESTIMATED 36; GLUCOSE 198 MG/DL (70-105); POTASSIUM 3.3 MMOL/L (3.6-5.0); SALICYLATE < 5.0 MG/DL (5.0-20.0); SODIUM 140 MMOL/L (135-145); TOTAL PROTEIN 5.7 GM/DL (6.4-8.2)
[2019-06-05] VITALS (16 sets, daily range): BP systolic 145–190; BP diastolic 63–139
[2019-06-05 01:56] LABS: BILIRUBIN,URINE NEGATIVE (NEGATIVE); CLARITY,URINE CLEAR; COLOR,URINE YELLOW; GLUCOSE, URINE (UA) 1+ (NEGATIVE); KETONES,URINE NEGATIVE (NEGATIVE); LEUKOCYTE ESTERASE ,URINE NEGATIVE (NEGATIVE); NITRITE,URINE NEGATIVE (NEGATIVE); PROTEIN,URINE NEGATIVE (NEGATIVE)
[2019-06-05 02:11] LABS: BACTERIA,URINE NEGATIVE /HPF
[2019-06-05 02:22] LABS: AMPHETAMINE SCREEN, URINE NEGATIVE (NEGATIVE); BARBITURATE SCREEN URINE NEGATIVE (NEGATIVE); BENZODIAZEPINES SCREEN URINE POSITIVE (NEGATIVE); CANNABINOID SCREEN, URINE NEGATIVE (NEGATIVE); COCAINE SCREEN URINE NEGATIVE (NEGATIVE); METHADONE STAT NEGATIVE (NEGATIVE); METHAMPHETAMINE SCREEN URINE S NEGATIVE (NEGATIVE); OPIATE SCREEN URINE NEGATIVE (NEGATIVE); OXYCODONE STAT NEGATIVE (NEGATIVE); PROPOXYPHENE STAT NEGATIVE (NEGATIVE); TRICYCLIC ANTIDEPRESSANTS SCRE NEGATIVE (NEGATIVE)
[2019-06-05] MEDS ORDERED: ONDANSETRON 4 MG/2 ML (SDV) Z0FRAN IV PRN (03:45)
[2019-06-05 04:42] LABS: BASOPHILS % (AUTO) 1 % (0-10); EOSINOPHILS # (AUTO) 0.3 10^3/uL (0.0-0.3); EOSINOPHILS % (AUTO) 6 % (0-10); HEMATOCRIT 34 % (35-52); HEMOGLOBIN 11.1 G/DL (11.5-16.0); LYMPHOCYTES # (AUTO) 2.2 X 10^3 (1.0-4.0); LYMPHOCYTES % (AUTO) 36 % (12-44); MEAN CORPUSCULAR HEMOGLOBIN 31 PG (25-34); MEAN CORPUSCULAR HGB CONC 33 G/DL (32-36); MEAN CORPUSCULAR VOLUME 96 FL (80-99); MEAN PLATELET VOLUME 10.2 FL (7.4-10.4); MONOCYTES # (AUTO) 0.6 X 10^3 (0.0-1.0); MONOCYTES % (AUTO) 10 % (0-12); NEUTROPHILS # (AUTO) 2.9 X 10^3 (1.8-7.8); NEUTROPHILS % (AUTO) 48 % (42-75); PLATELET COUNT 203 10^3/uL (130-400); RED CELL DISTRIBUTION WIDTH 13.1 % (10.0-14.5); WHITE BLOOD COUNT 6.1 10^3/uL (4.3-11.0)
[2019-06-05 05:01] LABS: ALBUMIN 3.6 GM/DL (3.2-4.5); BILIRUBIN,TOTAL 0.3 MG/DL (0.1-1.0); CALCIUM 8.4 MG/DL (8.5-10.1); CREATININE SERUM 1.2 MG/DL (0.60-1.30); MAGNESIUM 1.7 MG/DL (1.6-2.4); POTASSIUM 3.3 MMOL/L (3.6-5.0); TOTAL PROTEIN 6.1 GM/DL (6.4-8.2)
[2019-06-05] MEDS: MAGNESIUM 1 GM/100 ML IVPB 100 ML IV SCH (05:49)
[2019-06-05] MEDS: POTASSIUM CL 10MEQ/50ML IVPB 50 ML IV SCH ×3 (05:49→09:15)
[2019-06-05] MEDS ORDERED: POTASSIUM CL 10MEQ/50ML IVPB 50 ML IV SCH (06:00)
[2019-06-05] MEDS ORDERED: KCL 20 MEQ TAB (K-DUR) PO SCH (06:00)
[2019-06-05] MEDS ORDERED: MAGNESIUM 1 GM/100 ML IVPB 100 ML IV SCH (06:00)
--- NOTE | 2019-06-05 07:30 | Diagnostic Imaging Report ---
INDICATION: Atrial fibrillation Upright portable AP view of the chest is obtained. Comparison is made to study of 12/06/2018. Heart size and pulmonary vascularity are at the upper limits of normal with mildly prominent interstitial markings which may reflect diffuse edema or pneumonitis. No definite consolidation is identified. There is no evidence of pneumothorax. IMPRESSION: Heart size and pulmonary vascularity are at the upper limits of normal with interstitial prominence which may reflect congestive heart failure and developing edema. Dictated by: Dictated on workstation # [id number]
--- NOTE | 2019-06-05 09:45 | History & Physical-Hospitalist ---
History of Present Illness HPI/Chief Complaint Pt is an 84yoCF known to me from previous admission who presented due to an acute intentional overdose. She states she has been feeling frustrated and depressed for a while and she had a very bad Samantha. Because of this she decided she was done living and threw away her all of her normal medicines and then took a handful of klonopin. A few hours later she decided to take some more to make her go to sleep. She states she wishes she would have gone to sleep and not woken up still. A friend came to visit her and she told her friend what she did so her friend called the ambulance. She states she is unsure if she would do it again if she got fed up with life. She still states she is done living and doesn't want to take any more medications for her chronic disease. Source: patient Date Seen 06/05/19 Time Seen by a Provider: 07:30 Attending Physician Danyel Anderson MD PCP Danyel Anderson MD Referring Physician Date of Admission Jun 04, 2019 at 23:30 Home Medications & Allergies Home Medications Reviewed patient Home Medication Reconciliation performed by pharmacy medication reconciliations research laboratory technician and/or nursing. Patients Allergies have been reviewed. Allergies Allergies Coded Allergies No Known Drug Allergies (Unverified07/03/18) Past Qxddmdu-Qjhcea-Xfhzlg Hx Past Med/Social Hx: Reviewed Nursing Past Med/Soc Hx Patient Social History Alcohol Use: Denies Use Recreational Drug Use: No Smoking Status: Current Everyday Smoker Type Used: Cigarettes 2nd Hand Smoke Exposure: No Recent Foreign Travel: No Contact w/other who traveled: No Recent Hopitalizations: No Recent Infectious Disease Expo: No Immunizations Up To Date Tetanus Booster (TDap): Less than 5yrs Pediatric: Yes Date of Pneumonia Vaccine: Dec 07, 2014 Date of Influenza Vaccine: May 18, 2019 Seasonal Allergies Seasonal Allergies: No Past Medical History Surgeries: Breast, Cardiac, Coronary Stent, Defibrillator, Eye Surgery, Gallbladder, Hysterectomy, Joint Replacement, Oophorectomy, Orthopedic, Pacemaker, Rectal Currently Using BIPAP: No Cardiac: Atrial Fibrillation, Cardiomyopathy, Chronic Edema/Swelling, Coronary Artery Disease, High Cholesterol, Hypertension, Peripheral Vascular 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: No Sexually Transmitted Disease: No HIV/AIDS: No Female 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 Disorders: Denies Hysterectomy, Menopausal Genitourinary: Renal Failure Gastrointestinal: Hemorrhoids Musculoskeletal: Arthritis, Chronic Back Pain Endocrine: Diabetes, Non-Insulin dep HEENT: Cataract Loss of Vision: Denies Hearing Impairment: Denies Psychosocial: Depression History of Blood Disorders: No Adverse Reaction to Blood [place]: No Family History Reviewed Nursing Family Hx Arthritis 19 FATHER 19 MOTHER G8 BROTHER G8 SISTER Asthma 19 FATHER Completed stroke G8 SISTER FH: COPD (chronic obstructive pulmonary disease) G8 SISTER FH: cancer 19 FATHER 19 MOTHER (stomach cancer ) G8 SISTER (LIVER- enio floya- breast cancer) FH: emphysema 19 FATHER G8 SISTER Glaucoma G8 SISTER Headache disorder G8 SISTER No Family History of: AIDS Abdominal aortic aneurysm Alcoholism Alzheimer's disease Cancer of mouth Cardiovascular disease Colon cancer Cystic fibrosis Deafness or hearing loss Dementia Diabetes mellitus Drug abuse Dysphasia Hypercholesterolemia Hypertension Kidney disease Myocardial infarction Parkinson's disease Prostate cancer Psychosocial problem Respiratory disorder Seizure disorder Severe allergy Thyroid disease Tuberculosis No Pertinent Family Hx Review of Systems Constitutional: No chills, No fever EENTM: No blurred vision, No double vision, No nose congestion, No throat pain Respiratory: No cough, No dyspnea on exertion, No short of breath Cardiovascular: No chest pain, No edema, No palpitations Gastrointestinal: No abdominal pain, No constipation, No diarrhea, No nausea, No vomiting Genitourinary: No dysuria, No frequency Musculoskeletal: No joint pain, No muscle pain Skin: No lesions, No rash Psychiatric/Neurological: See HPI, Anxiety, Depressed, Emotional Problems; Denies Headache, Denies Numbness, Denies Tingling Physical Exam Physical Exam Vital Signs Vital Signs - First Documented 06/04/19 06/05/19 06/05/19 22:19 02:15 03:16 Temp 36.9 Pulse 59 Resp 20 B/P (MAP) 153/73 (99) Pulse Ox 99 O2 Delivery Room Air O2 Flow Rate 2.00 Capillary Refill : Less Than 3 Seconds Height, Weight, BMI Height: 5'5.00" Weight: 205lbs. 5.0oz. [id number]; 36.41 BMI Method:Stated General Appearance: No Apparent Distress, Chronically ill, Obese HEENT: Moist Mucous Membranes; No Scleral Icterus (L), No Scleral Icterus (R) Respiratory: Lungs Clear, No Accessory Muscle Use, No Respiratory Distress Cardiovascular: Regular Rate, Rhythm, No Murmur Gastrointestinal: Normal Bowel Sounds, Non Tender, Soft Extremity: No Calf Tenderness, No Pedal Edema Neurologic/Psychiatric: Alert, Oriented x3, Other (flat affect) Results Results/Procedures Labs Laboratory Tests 06/04/19 22:36 06/05/19 04:30 Patient resulted labs reviewed. Assessment/Plan Admission Diagnosis Suicide Attempt with Intentional Overdose Admission Status: Observation Assessment and Plan Suicide Attempt with Intentional Overdose - Was admitted to observation for respiratory depression - Has maintained oxygenation and airway protection all night - Alert and oriented this morning and still wishes she would have - Will consult social work and [facility] for evaluation - Plan to DC to [facility] once accepted as she is medically stable for DC Diagnosis/Problems Diagnosis/Problems (1) Intentional benzodiazepine overdose Status: Acute Qualifiers: Encounter type: initial encounter Qualified Codes: T42.4X2A - Poisoning by benzodiazepines, intentional self-harm, initial encounter Clinical Quality Measures DVT/VTE Risk/Contraindication: Risk Factor Score Per Nursin RFS Level Per Nursing on Admit: 3=High SONG GUDINO MD Jun 05, 2019 09:45
[2019-06-05] MEDS ORDERED: ROSU10TA28 PO (10:57)
[2019-06-05] MEDS ORDERED: CARV6.252 PO (10:57)
[2019-06-05] MEDS ORDERED: LISI-556 PO (10:57)
[2019-06-05] MEDS ORDERED: FLUO40CA PO (10:57)
[2019-06-05] MEDS ORDERED: GLIM2TAB PO (10:57)
[2019-06-05] MEDS ORDERED: FURO40TA4 PO (10:57)
[2019-06-05] MEDS ORDERED: METF-397 PO (11:08)
--- NOTE | 2019-06-05 15:26 | Discharge Inst-Simple/Standard ---
Discharge Inst-Standard Reconcile Patient Problems Problems Reviewed?: Yes Patient Instructions/Follow Up Plan of Care/Instructions/FU: Please continue to take your medications as written. Please follow up with Dr Anderson once you are discahrged from [place]. Activity as Tolerated: Yes Discharge Diet: No Restrictions SONG GUDINO MD Jun 05, 2019 15:26
== END 2019-06-05 16:30 | disposition home or self-care (01) | DRG 918 ==
LOC: EDUNIT# 22:21 → ER 22:22 → ICU 23:30 → UNDOADMIN 23:31 → ICU 23:31
PROVIDERS: ADMIT Internal Medicine; ATTEND Internal Medicine
DX: T42.4X2A Poisoning by benzodiazepines, intentional self-harm, initial encounter (principal); R45.851 Suicidal ideations; I42.9 Cardiomyopathy, unspecified; F17.210 Nicotine dependence, cigarettes, uncomplicated; I48.91 Unspecified atrial fibrillation; I25.10 Atherosclerotic heart disease of native coronary artery without angina pectoris; I11.0 Hypertensive heart disease with heart failure; I50.9 Heart failure, unspecified; E78.00 Pure hypercholesterolemia, unspecified; E11.51 Type 2 diabetes mellitus with diabetic peripheral angiopathy without gangrene; M19.90 Unspecified osteoarthritis, unspecified site; M54.9 Dorsalgia, unspecified; G89.29 Other chronic pain; H26.9 Unspecified cataract; E66.9 Obesity, unspecified; Z68.36 Body mass index [BMI] 36.0-36.9, adult; Z90.710 Acquired absence of both cervix and uterus; Z95.0 Presence of cardiac pacemaker; Z95.5 Presence of coronary angioplasty implant and graft
CPT/HCPCS: 36415; 71045; 80053; 80306; 80320; 80329; 81000; 83735; 84100; 85025; 87081; 93005; 93041; 96360

== ENCOUNTER 2019-06-21 16:37 | Observation (INO) | payer MEDICARE ==
[~2019-06-21] VITALS: Ht 165 cm; Wt 97.5 kg
[~2019-06-21 16:37] MED LIST changes: +GLIM2TAB2 PO
--- NOTE | 2019-06-21 16:52 | NUR ---
AFTER SITTING IN TRIAGE PT'S PULSE OX INCREASED TO 94% RA
[2019-06-21] MEDS ORDERED: FUROSEMIDE 40 MG/4 ML INJ (LASIX) IV STA (17:05)
[2019-06-21 17:12] LABS: BASOPHILS % (AUTO) 0 % (0-10); EOSINOPHILS # (AUTO) 0.2 10^3/uL (0.0-0.3); EOSINOPHILS % (AUTO) 3 % (0-10); HEMATOCRIT 41 % (35-52); HEMOGLOBIN 13.4 G/DL (11.5-16.0); LYMPHOCYTES # (AUTO) 1.5 X 10^3 (1.0-4.0); LYMPHOCYTES % (AUTO) 21 % (12-44); MEAN CORPUSCULAR HEMOGLOBIN 32 PG (25-34); MEAN CORPUSCULAR HGB CONC 33 G/DL (32-36); MEAN CORPUSCULAR VOLUME 97 FL (80-99); MEAN PLATELET VOLUME 10.2 FL (7.4-10.4); MONOCYTES # (AUTO) 0.6 X 10^3 (0.0-1.0); MONOCYTES % (AUTO) 9 % (0-12); NEUTROPHILS # (AUTO) 4.7 X 10^3 (1.8-7.8); NEUTROPHILS % (AUTO) 66 % (42-75); PLATELET COUNT 303 10^3/uL (130-400); RED CELL DISTRIBUTION WIDTH 13.7 % (10.0-14.5); WHITE BLOOD COUNT 7.1 10^3/uL (4.3-11.0)
--- NOTE | 2019-06-21 17:13 | ED Respiratory ---
General Chief Complaint: Respiratory Problems Stated Complaint: SOB Nursing Triage Note: STATES SHE THREW ALL HER MEDS AWAY AND WAS ADMITTED TO [facility]. STATES SINCE YESTERDAYSHE IS VERY SOA AND THINKS ITS BECAUSE SHE HAS NOT BEEN TAKING HER LASIX. HAD AN APPT WITH TODAY BUT MISSED IT. Source: patient Exam Limitations: no limitations (EBONI VINES MD) History of Present Illness Date Seen by Provider: Jun 21, 2019 Time Seen by Provider: 16:58 Initial Comments Here with report of shortness of air. At the end of May, she had thrown all of her meds away and then ended up here for evaluation. Subsequently she was transferred to [place] for evaluation and treatment and was there for a week. She did get represcribed for her medicines afterwards but forgot about her Lasix. She's been off Lasix for a week and now notes that she's got swelling of her legs and increasing shortness of breath. She has appointment with Dr. Anderson next Wednesday. She would take her Lasix if she had it and she thinks then she wouldn't have any problems at all. Denies chest pain, nausea, vomiting, diarrhea, fever or chills or other concerns other than increased fluid and roosevelt rtness of air. She also has home O2 but has not been using that and states that she can and will. Timing/Duration: week, getting worse Severity: mild Prior Episodes/Possible Cause: occasional episodes Modifying Factors: Improves With Oxygen, Improves With Rest Associated Symptoms: No chest pain/soreness, No cough, No fever/chills, No nasal congestion; shortness of breath; No wheezing (EBONI VINES MD) Allergies and Home Medications Allergies Coded Allergies: No Known Drug Allergies (Unverified , 07/03/18) Home Medications Acetaminophen 325 Mg Tablet, 650 MG PO Q4H PRN for PAIN-MILD, (Reported) TAKES 2 (325MG) TABLETS Aspirin 81 Mg Tablet.dr, 81 MG PO DAILY, (Reported) Carvedilol 6.25 Mg Tablet, 6.25 MG PO BID, (Reported) Fluoxetine HCl 40 Mg Capsule, 40 MG PO HS, (Reported) Furosemide 40 Mg Tablet, 40 MG PO DAILY, (Reported) Glimepiride 2 Mg Tablet, 2 MG PO HS, (Reported) Lisinopril 5 Mg Tablet, 5 MG PO DAILY, (Reported) Metformin HCl 500 Mg Tablet, 500 MG PO BID, (Reported) Multivitamin/Iron/Folic Acid 1 Each Tablet, 1 TAB PO DAILY, (Reported) Potassium Chloride 10 Meq Tablet.er, 10 MEQ PO DAILY, (Reported) Rosuvastatin Calcium 10 Mg Tablet, 10 MG PO HS, (Reported) Patient Home Medication List Home Medication List Reviewed: Yes (EBONI VINES MD) Home Medication List Reviewed: Yes (CARO PINK) Review of Systems Review of Systems Constitutional: see HPI; No chills, No fever EENTM: no symptoms reported Respiratory: see HPI, dyspnea on exertion; No wheezing Cardiovascular: edema; No palpitations Gastrointestinal: No abdominal pain, No nausea, No vomiting Genitourinary: no symptoms reported Musculoskeletal: no symptoms reported Skin: no symptoms reported Psychiatric/Neurological: No Symptoms Reported (EBONI VINES MD) Past Zxrsexp-Bxzvto-Eagmae Hx Past Med/Social Hx: Reviewed Nursing Past Med/Soc Hx (EBONI VINES MD) Patient Social History Alcohol Use: Denies Use Recreational Drug Use: No Smoking Status: Former Smoker Type Used: Cigarettes 2nd Hand Smoke Exposure: No Recent Foreign Travel: No Contact w/Someone Who Travel: No Recent Infectious Disease Expo: No Recent Hopitalizations: No (EBONI VINES MD) Immunizations Up To Date Tetanus Booster (TDap): Less than 5yrs PED Vaccines UTD: Yes Date of Pneumonia Vaccine: Dec 07, 2014 Date of Influenza Vaccine: May 18, 2019 (EBONI VINES MD) Seasonal Allergies Seasonal Allergies: No (EBONI VINES MD) Past Medical History Surgeries: Yes (2004 hemorrhoidectomy, breast reduction, right ovary remove d) Breast, Cardiac, Coronary Stent, Defibrillator, Eye Surgery, Gallbladder, Hysterectomy, Joint Replacement, Oophorectomy, Orthopedic, Pacemaker, Rectal Respiratory: Yes (Has home O2 and wears infrequent at 3 L/M) COPD Currently Using BIPAP: No Cardiac: Yes (Pacemaker/DEFIB, stents x 2, congestive heart failure) Atrial Fibrillation, Cardiomyopathy, Chronic Edema/Swelling, Coronary Artery Disease, High Cholesterol, Hypertension, Peripheral Vascular Neurological: No 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 Disorders: No Female 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 Disorders: Denies 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, 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 Sexually Transmitted Disease: No HIV/AIDS: No Genitourinary: Yes Renal Failure Gastrointestinal: Yes Hemorrhoids Musculoskeletal: Yes Arthritis, Chronic Back Pain Endocrine: Yes (Type II) Diabetes, Non-Insulin dep HEENT: Yes Cataract Loss of Vision: Denies Hearing Impairment: Denies Cancer: No Psychosocial: Yes Depression Integumentary: No Blood Disorders: No Adverse Reaction/Blood Tranf: No (EBONI VINES MD) Family Medical History Reviewed Nursing Family Hx (EBONI VINES MD) Arthritis 19 FATHER 19 MOTHER G8 BROTHER G8 SISTER Asthma 19 FATHER Completed stroke G8 SISTER FH: COPD (chronic obstructive pulmonary disease) G8 SISTER FH: cancer 19 FATHER 19 MOTHER (stomach cancer ) G8 SISTER (LIVER- enio floya- breast cancer) FH: emphysema 19 FATHER G8 SISTER Glaucoma G8 SISTER Headache disorder G8 SISTER Physical Exam Vital Signs - First Documented 06/21/19 06/21/19 16:45 16:50 Temp 36.6 Pulse 80 Resp 16 B/P (MAP) 159/90 (113) Pulse Ox 88 O2 Delivery Room Air O2 Flow Rate 2.00 (CARO PINK) Capillary Refill : Less Than 3 Seconds (EBONI VINES MD) Height: 5'5.00" Weight: 205lbs. 5.0oz. 93.898749gi; 35.00 BMI Method:Stated General Appearance: WD/WN, no apparent distress HEENT: PERRL/EOMI, pharynx normal Neck: full range of motion, supple Respiratory: lungs clear, normal breath sounds, no respiratory distress Cardiovascular: regular rate, rhythm, no murmur Gastrointestinal: non tender, soft Extremities: non-tender, no calf tenderness, pedal edema (2+ up to knee bilaterally.) Neurologic/Psychiatric: alert, oriented x 3 Skin: normal color, warm/dry (EBONI VINES MD) Procedures/Interventions Suture Size: 5-0 (EBONI VINES MD) Progress/Results/Core Measures Suspected Sepsis Recent Fever Within 48 Hours: No Infection Criteria Present: Suspected New Infection New/Unexplained Altered Menta: No Sepsis Screen: No Definite Risk SIRS Temperature: Pulse: 80 Respiratory Rate: 16 Laboratory Tests 06/21/19 17:05: White Blood Count 7.1 Blood Pressure 159 /90 Mean: 113 Laboratory Tests 06/21/19 17:05: Creatinine 1.57H, Platelet Count 303, Total Bilirubin 0.4 (EBONI VINES MD) Results/Orders Lab Results Laboratory Tests Test 06/21/19 17:05 06/21/19 18:23 Range/Units White Blood Count 7.1 4.3-11.0 10^3/uL Red Blood Count 4.24 L 4.35-5.85 10^6/uL Hemoglobin 13.4 11.5-16.0 G/DL Hematocrit 41 35-52 % Mean Corpuscular Volume 97 80-99 FL Mean Corpuscular Hemoglobin 32 25-34 PG Mean Corpuscular Hemoglobin Concent 33 32-36 G/DL Red Cell Distribution Width 13.7 10.0-14.5 % Platelet Count 303 130-400 10^3/uL Mean Platelet Volume 10.2 7.4-10.4 FL Neutrophils (%) (Auto) 66 42-75 % Lymphocytes (%) (Auto) 21 12-44 % Monocytes (%) (Auto) 9 0-12 % Eosinophils (%) (Auto) 3 0-10 % Basophils (%) (Auto) 0 0-10 % Neutrophils # (Auto) 4.7 1.8-7.8 X 10^3 Lymphocytes # (Auto) 1.5 1.0-4.0 X 10^3 Monocytes # (Auto) 0.6 0.0-1.0 X 10^3 Eosinophils # (Auto) 0.2 0.0-0.3 10^3/uL Basophils # (Auto) 0.0 0.0-0.1 10^3/uL Sodium Level 142 135-145 MMOL/L Potassium Level 4.2 3.6-5.0 MMOL/L Chloride Level 111 H 98-107 MMOL/L Carbon Dioxide Level 21 21-32 MMOL/L Anion Gap 10 5-14 MMOL/L Blood Urea Nitrogen 20 H 7-18 MG/DL Creatinine 1.57 H 0.60-1.30 MG/DL Estimat Glomerular Filtration Rate 31 BUN/Creatinine Ratio 13 Glucose Level 158 H 70-105 MG/DL Calcium Level 9.2 8.5-10.1 MG/DL Corrected Calcium 9.0 8.5-10.1 MG/DL Magnesium Level 2.0 1.6-2.4 MG/DL Total Bilirubin 0.4 0.1-1.0 MG/DL Aspartate Amino Transf (AST/SGOT) 12 5-34 U/L Alanine Aminotransferase (ALT/SGPT) 11 0-55 U/L Alkaline Phosphatase 79 40-136 U/L Troponin I 0.035 H 0.060 H <0.028 NG/ML B-Type Natriuretic Peptide 620.9 H <100.0 PG/ML Total Protein 7.3 6.4-8.2 GM/DL Albumin 4.2 3.2-4.5 GM/DL (CARO PINK) My Orders Orders - CARO PINK Troponin I (06/21/19 19:05) (CARO PINK) Vital Signs/I&O 06/21/19 06/21/19 16:45 16:50 Temp 36.6 Pulse 80 Resp 16 B/P (MAP) 159/90 (113) Pulse Ox 88 97 O2 Delivery Room Air Nasal Cannula O2 Flow Rate 2.00 (CARO PINK) Vital Signs/I&O Capillary Refill : Less Than 3 Seconds (EBONI VINES MD) Blood Pressure Mean: 113 Progress Note : Progress Note Seen and evaluated. IV, labs, EKG and chest x-ray ordered. Lasix 40 mg IV ordered. Monitor patient. 180: Patient is doing quite well and has urinated quite a bit as well. She did have slight elevation of her troponin so we will repeat that and as long as it is trending down, patient can be safely discharged home. I did discuss this with Dr. Pink who is assuming care for me and he will follow the patient. (EBONI VINES MD) Progress Note : Time: 19:17 Progress Note Assume care of the patient at shift change. She appears to have heart failure related to not resuming her Lasix over the past month. Subsequent troponin was almost doubled the initial one which was not undetectable. 8 years ago she had mild CAD was stable, patent stents 2 on cardiac catheterization and 2 years ago she had similar appearance. (CARO PINK) ECG Initial ECG Impression Date: Jun 21, 2019 Initial ECG Impression Time: 17:09 Initial ECG Rate: 73 Initial ECG Rhythm: Normal Sinus Comment Sinus rhythm with first-degree AV block. Left axis deviation. Left bundle branch block noted. Similar to previous of 06/04/19. Interpreted by me. (EBONI VINES MD) Departure Communication (Admissions) Time/Spoke to Admitting Phy: 19:35 Dr. Anderson agrees to observe the patient overnight with consultation with Dr. Wiseman in the morning. Time/Spoke to Consulting Phy: 19:25 Dr. Enriquez is okay with her staying observation and seeing Dr. Wiseman first thing in the morning. (CARO PINK) Impression Primary Impression: CHF exacerbation Qualified Codes: I50.23 - Acute on chronic systolic (congestive) heart failure Additional Impression: Elevated troponin I level Disposition: ADMITTED INPATIENT Condition: Stable Admissions Decision to Admit Reason: Admit from ER (General) Decision to Admit/Date: Jun 21, 2019 Time/Decision to Admit Time: 19:19 (CARO PINK) Departure-Patient Inst. Referrals: SHANE ANDERSON MD (PCP/Family) Primary Care Physician EBONI VINES MD Jun 21, 2019 17:13 CARO PINK Jun 21, 2019 19:24
[2019-06-21 17:26] LABS: ALBUMIN 4.2 GM/DL (3.2-4.5); BILIRUBIN,TOTAL 0.4 MG/DL (0.1-1.0); CALCIUM 9.2 MG/DL (8.5-10.1); CREATININE SERUM 1.57 MG/DL (0.60-1.30); POTASSIUM 4.2 MMOL/L (3.6-5.0); TOTAL PROTEIN 7.3 GM/DL (6.4-8.2)
--- NOTE | 2019-06-21 17:41 | Diagnostic Imaging Report ---
INDICATION: Shortness of air. COMPARISON: 06/05/2019. FINDINGS: Single frontal radiographic view of the chest was obtained and demonstrates mild cardiomegaly and mild pulmonary vascular congestion. There is also mild diffuse prominence of the pulmonary interstitium. No large effusion or pneumothorax is seen. Left-sided AICD is noted. Osseous structures show no acute abnormalities. IMPRESSION: 1. Mild cardiomegaly with sequelae of CHF including probable mild interstitial pulmonary edema. Dictated by: Dictated on workstation # [id number]
[2019-06-21 20:30] VITALS: BP 182/77
--- NOTE | 2019-06-21 20:30 | NUR ---
BRANDEN HERNANDEZ admitted to room 422-1, with an admitting diagnosis of CHF EXACERBATION, ELEVATED TROP I, on 06/21/19 from ED via , accompanied by STAFF.BRANDEN HERNANDEZ introduced to surroundings, call light, bed controls, phone, TV, temperature control, lights, meal times, smoking policy, visitor policy, side rail policy, bathrooms and showers. Patient Rights given to patient in the handbook. BRANDEN HERNANDEZ verbalizes understanding that [facility] is not responsible for the loss or damage to any personal effects or valuables that are kept in the patients possession during their hospitalization. THE PATIENT'S PLAN OF CARE WAS DISCUSSED WITH THE PATIENT, SHE AGREES TO THE PLAN & DENIES ANY QUESTIONS AT THIS TIME. BRANDEN HERNANDEZ verbalizes understanding of Interdisciplinary Patient Education.
[2019-06-21 21:13] VITALS: BP 182/77
[2019-06-21] MEDS ORDERED: NITROGLYCERIN 0.4 MG SL TABS BTL 25'S SL PRN (21:45)
[2019-06-21] MEDS ORDERED: ONDANSETRON 4 MG/2 ML (SDV) Z0FRAN IV PRN (21:45)
[2019-06-21] MEDS ORDERED: ACETAMINOPHEN 500 MG TAB (TYLENOL) PO PRN (21:45)
[2019-06-21] MEDS ORDERED: morphine INJ 4 MG/ML 1 ML (VIAL/SYRINGE) IV PRN (21:45)
[2019-06-21 22:00] VITALS: BP 146/75
[2019-06-21] MEDS ORDERED: ROSUVASTATIN 10 MG (CRESTOR) TABLET PO SCH (22:30)
[2019-06-21] MEDS ORDERED: FLUoxetine HCL 20 MG (PROzac) CAP PO SCH (22:30)
[2019-06-21] MEDS: CARVEDILOL 6.25 MG (COREG) TAB PO SCH (22:31)
[2019-06-22] VITALS: BP 149/72
[2019-06-22 01:10] VITALS: BP 149/72
[2019-06-22 04:00] VITALS: BP 142/67
[2019-06-22] MEDS: inSUlin ASPART (NovoLOG) 1 UNIT/0.01 ML (CHARGE PER UNIT) SC SCH ×2 (05:49→11:00)
[2019-06-22 06:37] LABS: BASOPHILS % (AUTO) 0 % (0-10); EOSINOPHILS # (AUTO) 0.3 10^3/uL (0.0-0.3); EOSINOPHILS % (AUTO) 4 % (0-10); HEMATOCRIT 39 % (35-52); HEMOGLOBIN 12.7 G/DL (11.5-16.0); LYMPHOCYTES # (AUTO) 1.9 X 10^3 (1.0-4.0); LYMPHOCYTES % (AUTO) 25 % (12-44); MEAN CORPUSCULAR HEMOGLOBIN 31 PG (25-34); MEAN CORPUSCULAR HGB CONC 33 G/DL (32-36); MEAN CORPUSCULAR VOLUME 97 FL (80-99); MEAN PLATELET VOLUME 10.1 FL (7.4-10.4); MONOCYTES # (AUTO) 0.9 X 10^3 (0.0-1.0); MONOCYTES % (AUTO) 11 % (0-12); NEUTROPHILS # (AUTO) 4.5 X 10^3 (1.8-7.8); NEUTROPHILS % (AUTO) 60 % (42-75); PLATELET COUNT 285 10^3/uL (130-400); RED CELL DISTRIBUTION WIDTH 13.7 % (10.0-14.5); WHITE BLOOD COUNT 7.6 10^3/uL (4.3-11.0)
--- NOTE | 2019-06-22 06:53 | Diagnostic Imaging Report ---
INDICATION: CHF, cardiac pacemaker COMPARISON: 06/21/2019 FINDINGS: Single view of the chest demonstrates stable cardiac enlargement. The lungs are clear. There is no pneumothorax. The osseous structures normal. Pacemaker stable. IMPRESSION: Cardiac enlargement with resolved central vascular congestion and edema. Dictated by: Dictated on workstation # [id number]
[2019-06-22 06:55] LABS: ALBUMIN 4.1 GM/DL (3.2-4.5); BILIRUBIN,TOTAL 0.3 MG/DL (0.1-1.0); CALCIUM 9.6 MG/DL (8.5-10.1); CREATININE SERUM 1.43 MG/DL (0.60-1.30); POTASSIUM 3.8 MMOL/L (3.6-5.0); TOTAL PROTEIN 7.1 GM/DL (6.4-8.2)
[2019-06-22] MEDS ORDERED: KCL 10 MEQ TAB (MICRO K) PO SCH (07:00)
[2019-06-22] MEDS ORDERED: FUROSEMIDE 40 MG/4 ML INJ (LASIX) IV SCH (07:00)
--- NOTE | 2019-06-22 07:49 | Consultation-Cardiology ---
HPI-Cardiology Cardiology Consultation: Date of Consultation 06/22/19 Time Seen by a Provider: 08:20 Date of Admission 06-21-2019 Attending Physician Shane Anderson MD Admitting Physician Shane Anderson MD Consulting Physician Myrtle Wiseman MD HPI: Chief Complaint: Progressive dyspnea Ms. Dolan is a 84 year old female who has been admitted to [facility] from the ED. She reports after [place] she threw all her medications and cell phone in the dumpster behind her apartment complex. She reports she was "having a fit" and then her neighbor called her land-lord and he in turn called the ambulance. She reports she was admitted to [facility] at [facility]. She reports she just came home a week ago. She reports she had two medications which were given to her at [facility], but she did not have her other medications since she had thrown them away. She believes she was without her medications for over a week. She states she did her other medications refilled, but she forgot about her Lasix. She reports she began to have increasing SOB with a feeling of fullness approx 3 days ago. She reports she then came to the ED. She denies any c/o CP, palpitations, syncope, near syncope or LE swelling. She denies any n/v/d. She denies any fever or chills. Review of Systems-Cardiology Review of Systems Constitutional: No chills, No fever; malaise Eyes: No vision change Ears/Nose/Throat: No epistaxis, No recent hearing loss Respiratory: As described under HPI Cardiovascular: As described under HPI Gastrointestinal: No constipation, No diarrhea, No nausea, No vomiting Genitourinary: No dysuria, No hematuria Musculoskeletal: no symptoms reported Skin: No rash on exposed areas, No ulcerations on exposed areas Psychiatric/Neurological: depression; No anxiety, No seizure, No focal weakness, No syncope Hematologic: No bleeding abnormalities YPT-Iztspd-Zicvod Hx Patient Social History Alcohol Use: Denies Use Recreational Drug Use: No Smoking Status: Former Smoker Type Used: Cigarettes 2nd Hand Smoke Exposure: No Recent Foreign Travel: No Recent Infectious Disease Expo: No Immunizations Up To Date Tetanus Booster (TDap): Less than 5yrs Date of Pneumonia Vaccine: Dec 07, 2014 Date of Influenza Vaccine: May 18, 2019 Past Medical History PMH As described under Assessment. Family Medical History Family Medical History: She reports her sister had a CVA. No reported family h/o CAD. Family History: 19 FATHER Arthritis Asthma FH: cancer FH: emphysema 19 MOTHER Arthritis FH: cancer (stomach cancer ) G8 BROTHER Arthritis G8 SISTER Arthritis Completed stroke FH: COPD (chronic obstructive pulmonary disease) FH: cancer (LIVER- enio floya- breast cancer) FH: emphysema Glaucoma Headache disorder Allergies and Home Medications Allergies Coded Allergies: No Known Drug Allergies (Unverified , 07/03/18) Home Medications Acetaminophen 325 Mg Tablet, 650 MG PO Q4H PRN for PAIN-MILD, (Reported) TAKES 2 (325MG) TABLETS Aspirin 81 Mg Tablet.dr, 81 MG PO DAILY, (Reported) Carvedilol 6.25 Mg Tablet, 6.25 MG PO BID LAST FILLED #60 04-26-19 Prescribed by: SONG GUDINO on 06/22/19 1411 Furosemide 40 Mg Tablet, 40 MG PO DAILY Prescribed by: SONG GUDINO on 06/22/19 1251 Glimepiride 2 Mg Tablet, 2 MG PO HS, (Reported) Lisinopril 5 Mg Tablet, 5 MG PO DAILY, (Reported) Metformin HCl 500 Mg Tablet, 500 MG PO BID, (Reported) Mirtazapine 15 Mg Tablet, 15 MG PO HS, (Reported) Multivitamin/Iron/Folic Acid 1 Each Tablet, 1 TAB PO DAILY, (Reported) Potassium Chloride 10 Meq Tab.er.prt, 10 MEQ PO DAILY, (Reported) Simvastatin 10 Mg Tablet, 10 MG PO HS, (Reported) Venlafaxine HCl 150 Mg Cap.er.24h, 150 MG PO DAILY, (Reported) Physical Exam-Cardiology Physical Exam Vital Signs/I&O Capillary Refill : Less Than 3 Seconds Constitutional: AAO x 3, well-developed, well-nourished HEENT: PERRL, hearing is well preserved, oral hygience is good Neck: No carotid bruit; carotid pulses are 2 + bilaterally Respiratory: No accessory muscle use, No respiratory distress; chest expansion is symmetric, chest is bilaterally symmetric, other (good air entry) Cardiovascular: regular rate-rhythm; No JVD; S1 and S2 Gastrointestinal: No tender; soft, round, audible bowel sounds Rectal: deferred Extremities: no lower extremity edema bilateral Neurologic/Psychiatric: grossly intact (moves all extremiteis) Skin: No rash on exposed areas, No ulcerations on exposed areas Data Review Labs Radiology NAME: BRANDEN DOLAN [facility] REC#: [id number] PT STATUS: ADM Sara : 1935 PHYSICIAN: SHANE ANDERSON MD ADMIT DATE: 06/21/19/ Draft Date of Exam:06/22/19 CHEST 1 VIEW, AP/PA ONLY INDICATION: CHF, cardiac pacemaker COMPARISON: 06/21/2019 FINDINGS: Single view of the chest demonstrates stable cardiac enlargement. The lungs are clear. There is no pneumothorax. The osseous structures normal. Pacemaker stable. IMPRESSION: Cardiac enlargement with resolved central vascular congestion and edema. Dictated on workstation # [id number] Dict: 06/22/1933 Trans: 06/22/19 0652 [facility] [id number] Interpreted by: PEPE WATSON Electronically signed by: ECG Impression ECG Initial ECG Rhythm: Normal Sinus (LBBB) Initial ECG Impression: 1st Degree AV Block A/P-Cardiology Assessment/Admission Diagnosis Acute on chronic systolic CHF Non-compliance with medications, including diuretics Minimally elevated troponin, likely Type 2 DE, d/t transient hypoxia Coronary artery disease with a history of bare-metal stenting to a non-dominant right coronary and to a diagonal branch of the left anterior descending. Last cardiac catheterization was in October 2016 which showed angiographically mild CAD. Stents in the first diagonal and in a nondominant RCA are widely patent. LVEF 20-25%. Mild LVEDP elevation. No signif MR Chronic L bundle branch block Cardiomyopathy, probably ischemic, with an ejection fraction of 35 to 40% at the time of cardiac catheterization of April 2010. Echocardiogram of Jun 2017 showed LVEF 30-35%. Hypertrophy noted. LA mod dilated. Trival MR and mild TR. 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 Normal ankle brachial indices in April 2009. Elevated body mass index of nearly 32. Mild carotid arterial disease, bilaterally, per carotid ultrasound of Feb 2018 PVCs, asymptomatic H/o sleep apnea, but noncompliant with therapy Intolerant to XIOMARA (-) d/t cough Intolerant to ARB d/t rash Discussion and Recomendations Acute on chronic systolic CHF - treat with diuretics Minimally elevated troponin, likely Type 2 DE, d/t transient hypoxia Continue previous medications including Coreg, statin and ASA Monitor lab closely Replace electrolytes Further recs will be based on her hospital course We would like to thank medical services for this consult Advised compliance with medications Clinical Quality Measures DVT/VTE Risk/Contraindication: Risk Factor Score Per Nursin RFS Level Per Nursing on Admit: 4+=Very High JEWEL OSEGUERA Jun 22, 2019 07:49
--- NOTE | 2019-06-22 07:57 | NUR ---
0700 ON COMING NATO GUTIERREZ AGREES TO NOTIFY DR. CHAVEZ ABOUT THE CONSULT & AGREES TO CONTACT THE PRIMARY CARE PROVIDER FOR DVT PREVENTION ORDERS.
[2019-06-22 08:55] VITALS: BP 141/67
[2019-06-22] MEDS ORDERED: CARVEDILOL 6.25 MG (COREG) TAB PO SCH (09:00)
[2019-06-22] MEDS ORDERED: lisINopril 5 MG (PRINIVIL) TABLET PO SCH (09:00)
[2019-06-22] MEDS ORDERED: ASPIRIN E.C. 81 MG (ECOTRIN) TAB PO SCH (09:00)
[2019-06-22] MEDS: CARVEDILOL 6.25 MG (COREG) TAB PO SCH (09:11)
[2019-06-22] MEDS ORDERED: MIRT15TA6 PO (10:48)
[2019-06-22] MEDS ORDERED: SIMV10TA26 PO (10:48)
[2019-06-22] MEDS ORDERED: POTA10TA36 PO (10:48)
[2019-06-22] MEDS ORDERED: VENL150C98 PO (10:48)
[2019-06-22] MEDS ORDERED: CARV6.25 PO ×2 (10:52→14:11)
--- NOTE | 2019-06-22 10:59 | NUR ---
HAD A LIST OF MEDICATIONS FAXED OVER FROM [facility] AND WENT OVER IT WITH THE PATIENT. THE PHARMACIST AT [facility] STATES THAT WHEN THE PATIENT WAS DISCHARGED FROM [facility] THEY STOPPED CLONAZEPAM AND COREG. THE LASIX, GLIMEPIRIDE, LISINOPRIL, METFORMIN, AND POTASSIUM WERE CONTINUED BUT WERE TOO SOON TO BE REFILLED ON INSURANCE SO SHE DID NOT FILL THEM ON THE 06-14-19 WHEN SHE PICKED UP THE THREE NEW MEDS. WHEN I SPOKE WITH THE PATIENT SHE VERIFIED RAN DISCONTINUED THE CLONAZEPAM AND STATES THEY ALSO STOPPED HER PROZAC, THEY PRESCRIBED THE MIRTAZAPINE AND EFFEXOR THE NEW MEDS. SHE IS NOT SURE WHY THEY WOULD HAVE DISCONTINUED HER COREG SINCE THEY WERE NOT ADJUSTING HER HEART MEDICATION. [facility] STATES IN MAY WHEN SHE FILLED THE OTHER MAINTENANCE MEDS SHE REFUSED THE COREG THEREFORE IT IS MORE PAST DUE THAN HER OTHER MEDS. I LEFT IT ON THE MED REC SINCE SHE STATES SHE IS SUPPOSED TO BE TAKING IT AND NOTED THE PAST DUE FILL DATE. [facility] FILLED: 06-14-2019 VENLAFAXINE ER 150MG #30 (NEW FROM [facility]) 06-14-19 SIMVASTATIN 10MG #30 (NEW FROM [facility], PREVIOUSLY HAD BEEN ON CRESTOR) 06-14-19 MIRTAZAPINE 15MG #30 (NEW FROM [facility]) 05-26-19 FUROSEMIDE 40MG DAILY 05-26-19 GLIMEPIRIDE 2MG HS 05-26-19 LISINOPRIL 5MG DAILY 05-26-19 METFORMIN 500MG BID 05-26-19 POTASSIUM 10MEQ DAILY 04-26-19 COREG 6.25MG BID #60 OTC MEDS: [employer] DAILY TYLENOL PRN ASPIRIN 81MG DAILY (STATES SHE THREW THIS AWAY WITH HER OTHER MEDS AFTER BUT WILL BUY MORE OTC WHEN SHE GOES TO [employer]ODUCTION PLANNING [employer]PERVIS[employer] THE REST OF HER SCRIPTS) Addendum: 06/22/19 at 1107 by NICOLE CHU [facility] PATIENT STATES SHE THREW AWAY ALL HER MEDS AFTER [facility] INCLUDING HER OTC ASPIRIN. THEREFORE SHE HAS BEEN OUT OF HER LASIX, POTASSIUM, GLIMEPIRIDE, LISINOPRIL, AND METFORMIN SINCE 06-14-19 WHEN SHE WAS DISCHARGED FROM [facility]. SHE HAS BEEN OUT OF HER COREG LONGER THAN THAT SINCE IT HAS NOT BEEN FILLED SINCE 04-26-19 #60. Addendum: 06/22/19 at 1437 by NICOLE CHU [employer]els[employer] picker CALLED [facility] AND ASKED THEM TO REFILL THE METFORMIN, GLIMEPIRIDE, LISINOPRIL, AND POTASSIUM. NEW SCRIPTS WERE SENT OVER FOR COREG AND LASIX. I ALSO CALLED [employer] TO MAKE SURE THESE CLAIMS WOULD GO THROUGH TODAY. PHARMACY GOT PAID CLAIMS FOR ALL MEDS EXCEPT COREG, THEY HAVE NOT RECEIVED THE E SCRIPT YET, BUT WILL FILL IT WHEN THEY RECEIVE IT.
[2019-06-22 11:37] VITALS: BP 97/54
--- NOTE | 2019-06-22 12:12 | Short Stay Summary-Hospitalist ---
History of Present Illness HPI/Chief Complaint She is an 84-year-old female with a past medical history of coronary artery disease, hypertension, heart failure who presented to the emergency department due to shortness of breath. Last month she threw away all of her medicines and overdose on her benzos and an attempt to kill herself. She was admitted to the Dr[facility] Bustill[facility] behavioral unit and has been doing well since then but has been out of medicines. She has not taken her Lasix in about a week and hasn't been wearing her oxygen as regularly. CXR showed pulmonary edema and she was given IV lasix. The plan was actually to discharge home last night but due to a minimally elevated troponin she was held in the ER to make sure it trended down. Unfortunately it did not and raised from 0.035 to 0.060 so she was admitted for observation. She states today she is feeling well and has no chest pain or shortness of breath. Her chest x-ray has cleared and her troponin has trended back down today. I discussed need for cardiology evaluation with her and she is agreeable to consult but states she will not have an procedures done including cardiac cath and stress test. She is requesting discharge home. Source: patient Date Seen 06/22/19 Time Seen by a Provider: 12:04 Attending Physician Danyel Lozano MD PCP Danyel Lozano MD Referring Physician Date of Admission Jun 21, 2019 at 19:40 Home Medications & Allergies Home Medications Reviewed patient Home Medication Reconciliation performed by pharmacy medication reconciliations sales service technician and/or nursing. Patients Allergies have been reviewed. Allergies Allergies Coded Allergies No Known Drug Allergies (Unverified07/03/18) Past Iddvnkh-Tnaizw-Dgmygz Hx Past Med/Social Hx: Reviewed Nursing Past Med/Soc Hx Patient Social History Alcohol Use: Denies Use Recreational Drug Use: No Smoking Status: Former Smoker Type Used: Cigarettes 2nd Hand Smoke Exposure: No Recent Foreign Travel: No Contact w/other who traveled: No Recent Hopitalizations: No Recent Infectious Disease Expo: No Immunizations Up To Date Tetanus Booster (TDap): Less than 5yrs Pediatric: Yes Date of Pneumonia Vaccine: Dec 07, 2014 Date of Influenza Vaccine: May 18, 2019 Seasonal Allergies Seasonal Allergies: No Past Medical History Surgeries: Breast, Cardiac, Coronary Stent, Defibrillator, Eye Surgery, Gallbladder, Hysterectomy, Joint Replacement, Oophorectomy, Orthopedic, Pacema ker, Rectal Currently Using BIPAP: No Cardiac: Atrial Fibrillation, Cardiomyopathy, Chronic Edema/Swelling, Coronary Artery Disease, High Cholesterol, Hypertension, Peripheral Vascular 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: No Sexually Transmitted Disease: No HIV/AIDS: No Female 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 Disorders: Denies Hysterectomy, Menopausal Genitourinary: Renal Failure Gastrointestinal: Hemorrhoids Musculoskeletal: Arthritis, Chronic Back Pain Endocrine: Diabetes, Non-Insulin dep HEENT: Cataract Loss of Vision: Denies Hearing Impairment: Denies Psychosocial: Depression History of Blood Disorders: No Adverse Reaction to Blood [place]: No Family History Reviewed Nursing Family Hx Arthritis 19 FATHER 19 MOTHER G8 BROTHER G8 SISTER Asthma 19 FATHER Completed stroke G8 SISTER FH: COPD (chronic obstructive pulmonary disease) G8 SISTER FH: cancer 19 FATHER 19 MOTHER (stomach cancer ) G8 SISTER (LIVER- enio floya- breast cancer) FH: emphysema 19 FATHER G8 SISTER Glaucoma G8 SISTER Headache disorder G8 SISTER No Family History of: AIDS Abdominal aortic aneurysm Alcoholism Alzheimer's disease Cancer of mouth Cardiovascular disease Colon cancer Cystic fibrosis Deafness or hearing loss Dementia Diabetes mellitus Drug abuse Dysphasia Hypercholesterolemia Hypertension Kidney disease Myocardial infarction Parkinson's disease Prostate cancer Psychosocial problem Respiratory disorder Seizure disorder Severe allergy Thyroid disease Tuberculosis Review of Systems Constitutional: No chills, No fever EENTM: no symptoms reported Respiratory: dyspnea on exertion, short of breath Cardiovascular: see HPI, Hx of Intervention; No palpitations Gastrointestinal: no symptoms reported Genitourinary: no symptoms reported Musculoskeletal: no symptoms reported Skin: no symptoms reported Psychiatric/Neurological: No Symptoms Reported Physical Exam Physical Exam Vital Signs Vital Signs - First Documented 06/21/19 06/21/19 16:45 16:50 Temp 36.6 Pulse 80 Resp 16 B/P (MAP) 159/90 (113) Pulse Ox 88 O2 Delivery Room Air O2 Flow Rate 2.00 Capillary Refill : Less Than 3 SecondsLess Than 3 Seconds Height, Weight, BMI Height: 5'5.00" Weight: 205lbs. 5.0oz. 93.677672ov; 230.76 BMI Method:Stated General Appearance: No Apparent Distress, WD/WN, Obese HEENT: Moist Mucous Membranes; No Scleral Icterus (L), No Scleral Icterus (R) Neck: Normal Inspection, Supple; No JVD Respiratory: Lungs Clear, No Accessory Muscle Use, No Respiratory Distress, Other (on 3lpm) Cardiovascular: Regular Rate, Rhythm, No Murmur Gastrointestinal: Normal Bowel Sounds, Non Tender, Soft Extremity: No Calf Tenderness, No Pedal Edema Neurologic/Psychiatric: Alert, Oriented x3, Normal Mood/Affect Skin: Normal Color, Warm/Dry Results Results/Procedures Labs Laboratory Tests 06/21/19 17:05 06/22/19 06:20 Patient resulted labs reviewed. Imaging: Reviewed Imaging Report Short Stay Diagnosis Discharge Diagnosis-Short Stay Admission Diagnosis CHF Exacerbation Final Discharge Diagnosis CHF Exacerbation Conclusion Plan CHF Exacerbation due to noncompliance Acute on chronic respiratory failure EF 35% 1 year ago with grade 2 diastolic dysfunction Continue Diuretics Cardiology consulted due to elevated troponin Likely due to CHF exacerbation Will send for a refill of her lasix Plan to [place] home today Diagnosis/Problems Diagnosis/Problems (1) CHF exacerbation Status: Acute Qualifiers: Qualified Codes: I50.23 - Acute on chronic systolic (congestive) heart failure (2) HTN (hypertension) Qualifiers: Qualified Codes: I10 - Essential (primary) hypertension (3) Hypoxia Status: Acute (4) Elevated troponin I level Status: Acute Clinical Quality Measures DVT/VTE Risk/Contraindication: Risk Factor Score Per Nursin RFS Level Per Nursing on Admit: 4+=Very High Copy Copies To 1: DANYEL LOZANO MD, KATELYN M MD Jun 22, 2019 12:12
[2019-06-22] MEDS ORDERED: FURO40TA4 PO (12:51)
--- NOTE | 2019-06-22 12:56 | D/C HH Face to Face Order ---
D/C Face to Face Orders Instructions for Patient Via [facility], Patient Instructions/FollowUp: Please follow up with your primary care doctor within the next week. Please follow up with Dr. Garcia as scheduled. Please continue to take her medications currently as written. Physician to follow Patient: Dr Anderson Discharge Diet for Home: Low Sodium Diet Patient Data-Allergies,Ht & Wt Patient Allergies: Coded Allergies: No Known Drug Allergies (Unverified , 07/03/18) Height (Feet): 5 Height (Inches): 5.00 Weight (Pounds): 205 Weight (Ounces): 5.0 Home Health Need/Face to Face Date of Face to Face: Jun 22, 2019 Clinical Findings: Shortness of breath I have seen Pt [id number]: Yes Discharged To: Home Diagnosis/Conditions: CHF, CAD, oyxgen dependent Patient is Homebound due to: Shortness of breath/distress Homebound Status Due to the above stated illness, injury or surgical procedure (medical condition or diagnosis) and associated clinical findings, the patient is homebound because of his/her inability to leave home except with aid of a supportive device and/or person AND leaving the home requires a considerable and taxing effort or is medically contraindicated. Pt req the following assistanc: Aid of another person Home Health Nursing Orders Home Health Services Order: Nursing Services, Physical Therapy-Evaluate & Treat Home Health Infusion Therapy Line Start Date: Jun 21, 2019 Therapy Orders Therapy Orders: Physical Therapy, PT to assess for OT Therapy Specific Orders: Eval assistive deivces, Teach enviro modifications/safety, Increase strength/endurance Certify Stmt I certify that this patient is under my care and that I, a nurse practitioner or a physician; a medical laboratory assistant working with me, had a face to face encounter that - meets the physician face to face encounter requirements with this patient as dated. SONG GUDINO MD Jun 22, 2019 12:56
--- NOTE | 2019-06-22 13:05 | Consultation-Cardiology ---
HPI-Cardiology Cardiology Consultation: Date of Consultation 06/22/19 Time Seen by a Provider: 12:10 Date of Admission Attending Physician Danyel Anderson MD Admitting Physician Danyel Anderson MD Consulting Physician MANDA CHAVEZ MD, MA, FACP, FACC, [facility], CCDS HPI: Chief Complaint: CC: Shortness of breath HPI Ms. Dolan is a 84 year old female who has been admitted to [facility] from the ED. She reports after Samantha she threw all her medications and cell phone in the dumpster behind her apartment complex. She reports she was "having a fit" and then her neighbor called her land-lord and he in turn called the ambulance. She reports she was admitted to Behavioral Health at [facility] [place] [place]. She reports she just came home a week ago. She reports she had two medications which were given to her at [facility] [place] [place], but she did not have her other medications since she had thrown them away. She believes she was without her medications for over a week. She states she did her other medications refilled, but she forgot about her Lasix. She reports she began to have increasing SOB with a feeling of fullness approx 3 days ago. She reports she then came to the ED. She denies any c/o CP (except that described below), palpitations, syncope, near syncope or LE swelling. She denies any n/v/d. She denies any fever or chills. Had an episode of a feeling of chest discomfort discomfort (mild squeezing) today in the L parasternal area that resolved as soon as she sat up, non- exertional, non-radiating, w/o associated symptoms, lasting less than a minute. Review of Systems-Cardiology Review of Systems Constitutional: No chills, No fever; malaise Eyes: No vision change Ears/Nose/Throat: No epistaxis, No recent hearing loss Respiratory: As described under HPI Cardiovascular: As described under HPI Gastrointestinal: No constipation, No diarrhea, No nausea, No vomiting Genitourinary: No dysuria, No hematuria Musculoskeletal: no symptoms reported Skin: No rash on exposed areas, No ulcerations on exposed areas Psychiatric/Neurological: depression; No anxiety, No seizure, No focal weakness, No syncope Hematologic: No bleeding abnormalities VFS-Fwsvmg-Vuqhgg Hx Patient Social History Alcohol Use: Denies Use Recreational Drug Use: No Smoking Status: Former Smoker Type Used: Cigarettes 2nd Hand Smoke Exposure: No Recent Foreign Travel: No Recent Infectious Disease Expo: No Immunizations Up To Date Tetanus Booster (TDap): Less than 5yrs Date of Pneumonia Vaccine: Dec 07, 2014 Date of Influenza Vaccine: May 18, 2019 Past Medical History PMH As described under Assessment. Family Medical History Family Medical History: She reports her sister had a CVA. No reported family h/o CAD. Family History: Arthritis 19 FATHER 19 MOTHER G8 BROTHER G8 SISTER Asthma 19 FATHER Completed stroke G8 SISTER FH: COPD (chronic obstructive pulmonary disease) G8 SISTER FH: cancer 19 FATHER 19 MOTHER (stomach cancer ) G8 SISTER (LIVER- enio floya- breast cancer) FH: emphysema 19 FATHER G8 SISTER Glaucoma G8 SISTER Headache disorder G8 SISTER No Family History of: AIDS Abdominal aortic aneurysm Alcoholism Alzheimer's disease Cancer of mouth Cardiovascular disease Colon cancer Cystic fibrosis Deafness or hearing loss Dementia Diabetes mellitus Drug abuse Dysphasia Hypercholesterolemia Hypertension Kidney disease Myocardial infarction Parkinson's disease Prostate cancer Psychosocial problem Respiratory disorder Seizure disorder Severe allergy Thyroid disease Tuberculosis Allergies and Home Medications Allergies Coded Allergies: No Known Drug Allergies (Unverified , 07/03/18) Home Medications Acetaminophen 325 Mg Tablet, 650 MG PO Q4H PRN for PAIN-MILD, (Reported) TAKES 2 (325MG) TABLETS Aspirin 81 Mg Tablet.dr, 81 MG PO DAILY, (Reported) Carvedilol 6.25 Mg Tablet, 6.25 MG PO BID, (Reported) LAST FILLED #60 04-26-19 Furosemide 40 Mg Tablet, 40 MG PO DAILY Prescribed by: SONG GALDAMEZ on 06/22/19 1251 Glimepiride 2 Mg Tablet, 2 MG PO HS, (Reported) Lisinopril 5 Mg Tablet, 5 MG PO DAILY, (Reported) Metformin HCl 500 Mg Tablet, 500 MG PO BID, (Reported) Mirtazapine 15 Mg Tablet, 15 MG PO HS, (Reported) Multivitamin/Iron/Folic Acid 1 Each Tablet, 1 TAB PO DAILY, (Reported) Potassium Chloride 10 Meq Tab.er.prt, 10 MEQ PO DAILY, (Reported) Simvastatin 10 Mg Tablet, 10 MG PO HS, (Reported) Venlafaxine HCl 150 Mg Cap.er.24h, 150 MG PO DAILY, (Reported) Patient Home Medication List Home Medication List Reviewed: Yes Physical Exam-Cardiology Physical Exam Vital Signs/I&O 06/22/19 06/22/19 06/22/19 06/22/19 01:00 01:10 04:00 07:00 Temp 36.8 36.7 Pulse 66 65 63 66 Resp 18 20 B/P (MAP) 149/72 (97) 142/67 (92) Pulse Ox 92 94 O2 Delivery Nasal Cannula Nasal Cannula O2 Flow Rate 2.00 2.00 06/22/19 06/22/19 06/22/19 06/22/19 08:00 08:55 10:33 10:53 Temp 36.4 Pulse 67 Resp 20 B/P (MAP) 141/67 (91) Pulse Ox 94 94 94 94 O2 Delivery Nasal Cannula Nasal Cannula Nasal Cannula Nasal Cannula O2 Flow Rate 2.00 3.00 2.00 2.00 06/22/19 12:07 Pulse 60 06/22/19 00:00 Intake Total 220 ml Output Total 625 ml Balance -405 ml Capillary Refill : Less Than 3 SecondsLess Than 3 Seconds Constitutional: AAO x 3, well-developed, well-nourished HEENT: PERRL, hearing is well preserved, oral hygience is good Neck: No carotid bruit; carotid pulses are 2 + bilaterally Respiratory: No accessory muscle use, No respiratory distress; chest expansion is symmetric, chest is bilaterally symmetric, other (good air entry) Cardiovascular: regular rate-rhythm; No JVD; S1 and S2 Gastrointestinal: No tender; soft, round, audible bowel sounds Rectal: deferred Extremities: no lower extremity edema bilateral Neurologic/Psychiatric: grossly intact (moves all extremiteis) Skin: No rash on exposed areas, No ulcerations on exposed areas Data Review Labs Laboratory Tests 06/21/19 17:05: White Blood Count 7.1, Red Blood Count 4.24L, Hemoglobin 13.4, Hematocrit 41, Mean Corpuscular Volume 97, Mean Corpuscular Hemoglobin 32, Mean Corpuscular Hemoglobin Concent 33, Red Cell Distribution Width 13.7, Platelet Count 303, Me an Platelet Volume 10.2, Neutrophils (%) (Auto) 66, Lymphocytes (%) (Auto) 21, Monocytes (%) (Auto) 9, Eosinophils (%) (Auto) 3, Basophils (%) (Auto) 0, Neutrophils # (Auto) 4.7, Lymphocytes # (Auto) 1.5, Monocytes # (Auto) 0.6, Eosinophils # (Auto) 0.2, Basophils # (Auto) 0.0, Sodium Level 142, Potassium Level 4.2, Chloride Level 111H, Carbon Dioxide Level 21, Anion Gap 10, Blood Urea Nitrogen 20H, Creatinine 1.57H, Estimat Glomerular Filtration Rate 31, BUN/Creatinine Ratio 13, Glucose Level 158H, Calcium Level 9.2, Corrected Calcium 9.0, Magnesium Level 2.0, Total Bilirubin 0.4, Aspartate Amino Transf (AST/SGOT) 12, Alanine Aminotransferase (ALT/SGPT) 11, Alkaline Phosphatase 79, Troponin I 0.035H, B-Type Natriuretic Peptide 620.9H, Total Protein 7.3, Albumin 4.2 06/21/19 18:23: Troponin I 0.060H 06/22/19 00:48: Troponin I 0.043H 06/22/19 05:34: Glucometer 144H 06/22/19 06:20: White Blood Count 7.6, Red Blood Count 4.04L, Hemoglobin 12.7, Hematocrit 39, Mean Corpuscular Volume 97, Mean Corpuscular Hemoglobin 31, Mean Corpuscular Hemoglobin Concent 33, Red Cell Distribution Width 13.7, Platelet Count 285, Mean Platelet Volume 10.1, Neutrophils (%) (Auto) 60, Lymphocytes (%) (Auto) 25, Monocytes (%) (Auto) 11, Eosinophils (%) (Auto) 4, Basophils (%) (Auto) 0, Neutrophils # (Auto) 4.5, Lymphocytes # (Auto) 1.9, Monocytes # (Auto) 0.9, Eosinophils # (Auto) 0.3, Basophils # (Auto) 0.0, Sodium Level 142, Potassium Level 3.8, Chloride Level 109H, Carbon Dioxide Level 21, Anion Gap 12, Blood Urea Nitrogen 22H, Creatinine 1.43H, Estimat Glomerular Filtration Rate 35, BUN/Creatinine Ratio 15, Glucose Level 168H, Calcium Level 9.6, Corrected Calcium 9.5, Total Bilirubin 0.3, Aspartate Amino Transf (AST/SGOT) 13, Alanine Aminotransferase (ALT/SGPT) 11, Alkaline Phosphatase 73, Troponin I 0.042H, Total Protein 7.1, Albumin 4.1, Triglycerides Level 186H, Cholesterol Level 179, LDL Cholesterol Direct 120, VLDL Cholesterol 37, HDL Cholesterol 41 06/22/19 11:37: Glucometer 173H A/P-Cardiology Assessment/Admission Diagnosis Acute on chronic systolic CHF Nonspecific chest discomfort today, resolved, w/o any new ECG changes, nonanginal by description Troponin minimally elevated and flat at an average of approximately 0.045, likely type 2 MO due to CHF Non-compliance with medications, including diuretics Coronary artery disease with a history of bare-metal stenting to a non-dominant right coronary and to a diagonal branch of the left anterior descending. Last cardiac catheterization was in October 2016 which showed angiographically mild CAD. Stents in the first diagonal and in a nondominant RCA are widely patent. LVEF 20-25%. Mild LVEDP elevation. No signif MR Chronic L bundle branch block Cardiomyopathy, probably ischemic, with an ejection fraction of 35 to 40% at the time of cardiac catheterization of April 2010. Echocardiogram of Jun 2017 showed LVEF 30-35%. Hypertrophy noted. LA mod dilated. Trival MR and mild TR. 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 Normal ankle brachial indices in April 2009. Elevated body mass index of nearly 32. Mild carotid arterial disease, bilaterally, per carotid ultrasound of Feb 2018 PVCs, asymptomatic H/o sleep apnea, but noncompliant with therapy Intolerant to XIOMARA (-) d/t cough Intolerant to ARB d/t rash Discussion and Recomendations Acute on chronic systolic CHF - treat with diuretics Minimally elevated troponin, likely Type 2 MO, d/t transient hypoxia. We have reviewed options for further eval, invasive and noninvasive. She refuses. Feels well, wishes to be treated conservatively and empirically only, and wishes to go home today Continue previous medications including Coreg, statin and ASA Replace electrolytes and monitor labs Advised compliance with medications I discussed her case with Dr Galdamez today Clinical Quality Measures DVT/VTE Risk/Contraindication: Risk Factor Score Per Nursin RFS Level Per Nursing on Admit: 4+=Very High MANDA CHAVEZ MD FACP FAC CCDS Jun 22, 2019 13:05
[2019-06-22] MEDS ORDERED: CARV6.252 PO (14:08)
[2019-06-22] MEDS ORDERED: FLUoxetine HCL 20 MG (PROzac) CAP PO SCH (21:00)
[2019-06-22] MEDS ORDERED: ROSUVASTATIN 10 MG (CRESTOR) TABLET PO SCH (21:00)
[2019-06-23] MEDS ORDERED: FUROSEMIDE 40 MG (LASIX) TAB PO SCH (09:00)
--- NOTE | 2019-06-23 14:53 | NUR ---
CM/SS: Visited with pt and family as to needs at time of discharge Plan: Pt to be discharged to home with home care services from [facility] Summary: Pt in room. Family at the bedside, discuss services at home. They report that they have had home care in the past from [facility], and they are ok to have that again. Referral made to [facility]. Process explained and family aware that [facility] will contact them once discharged from home. Family have this workers contact information if they have questions.
== END 2019-06-22 15:49 | disposition home or self-care (01) ==
LOC: EDUNIT# 16:37 → ER 16:39 → 4TH 19:40
PROVIDERS: ADMIT Internal Medicine; ATTEND Internal Medicine
DX: I13.0 Hypertensive heart and chronic kidney disease with heart failure and stage 1 through stage 4 chronic kidney disease, or unspecified chronic kidney disease (principal); I50.23 Acute on chronic systolic (congestive) heart failure; I44.7 Left bundle-branch block, unspecified; I48.91 Unspecified atrial fibrillation; I25.10 Atherosclerotic heart disease of native coronary artery without angina pectoris; R79.89 Other specified abnormal findings of blood chemistry; N18.3 Chronic kidney disease, stage 3 (moderate); E11.22 Type 2 diabetes mellitus with diabetic chronic kidney disease; M19.90 Unspecified osteoarthritis, unspecified site; G89.29 Other chronic pain; M54.9 Dorsalgia, unspecified; E78.00 Pure hypercholesterolemia, unspecified; F32.9 Major depressive disorder, single episode, unspecified; Z79.82 Long term (current) use of aspirin; Z79.84 Long term (current) use of oral hypoglycemic drugs; Z91.14 Patient's other noncompliance with medication regimen; Z95.810 Presence of automatic (implantable) cardiac defibrillator; Z79.899 Other long term (current) drug therapy; Z87.891 Personal history of nicotine dependence; Z85.3 Personal history of malignant neoplasm of breast; Z90.710 Acquired absence of both cervix and uterus; Z82.61 Family history of arthritis; Z80.0 Family history of malignant neoplasm of digestive organs; Z83.6 Family history of other diseases of the respiratory system; Z82.3 Family history of stroke
CPT/HCPCS: 36415; 71045; 80053; 80061; 82962; 83735; 83880; 84484; 85025; 93005; 93041; 96374; G0378

== ENCOUNTER 2019-09-04 15:29 | Emergency (ER) | payer MEDICARE ==
[~2019-09-04] VITALS: Ht 167.7 cm; Wt 97.1 kg
[~2019-09-04 15:29] MED LIST changes: -GLIM2TAB2 PO; +GLIM2TAB4 PO; +MIRT15TA6 PO; +SIMV10TA26 PO; +VENL150C98 PO
[2019-09-04 16:00] LABS: BASOPHILS % (AUTO) 0 % (0-10); EOSINOPHILS # (AUTO) 0.6 10^3/uL (0.0-0.3); EOSINOPHILS % (AUTO) 7 % (0-10); HEMATOCRIT 37 % (35-52); HEMOGLOBIN 12.3 G/DL (11.5-16.0); LYMPHOCYTES # (AUTO) 1.8 X 10^3 (1.0-4.0); LYMPHOCYTES % (AUTO) 22 % (12-44); MEAN CORPUSCULAR HGB CONC 33 G/DL (32-36); MEAN CORPUSCULAR VOLUME 95 FL (80-99); MEAN PLATELET VOLUME 10.8 FL (7.4-10.4); MONOCYTES # (AUTO) 0.7 X 10^3 (0.0-1.0); MONOCYTES % (AUTO) 8 % (0-12); NEUTROPHILS # (AUTO) 5.3 X 10^3 (1.8-7.8); NEUTROPHILS % (AUTO) 63 % (42-75); PLATELET COUNT 247 10^3/uL (130-400); RED CELL DISTRIBUTION WIDTH 12.8 % (10.0-14.5); WHITE BLOOD COUNT 8.4 10^3/uL (4.3-11.0)
[2019-09-04 16:01] LABS: MEAN CORPUSCULAR HEMOGLOBIN 31 PG (25-34)
--- NOTE | 2019-09-04 16:13 | ED Chest Pain ---
General Stated Complaint: CHEST PAIN,SOB Source: patient Exam Limitations: no limitations (EBONI VINES MD) History of Present Illness Date Seen by Provider: Sep 04, 2019 Time Seen by Provider: 15:50 Initial Comments Here with report of chest pain over the last few days as well as shortness of breath. She has been self isolating in her apartment complex, [facility]. Patient reports that she's had increasing shortness of breath over the last couple of days. Admits that she is not using her oxygen right. She was also has some chest discomfort that is vague if. States that she feels like she has abdominal bloating and is burping and passing gas more than typical. She was wondering if this may be related to being cooped up and the depression from worry related to the pandemic. States that her legs are really swollen and she has been taking her Lasix as directed. She states she is urinating quite a bit but it is vza-ssee-paizemgw, normal color and not painful. She states that she thinks she is just taking her medicines appropriately and this is causing her to go more. She called her doctor's office today related to the pain and they told her to go to the emergency department. She does admit to shortness of air. Denies fever, cough, sore throat, respiratory illness, muscle aches or significant fatigue. Timing/Duration: changing over time, 1-2 days Severity/Quality: mild, dull Location: central, epigastric Radiation: no radiation Activities at Onset: none Prior CP/Workup: cardiac cath, echocardiography Modifying Factors: worse with movement; improves with rest ASA po SLAB GRINDER: No NTG SL SLAB GRINDER: No Associated Symptoms: abdominal pain (bloating); No back pain, No diaphoresis, No edema, No nausea/vomiting; shortness of breath (EBONI VINES MD) Allergies and Home Medications Allergies Coded Allergies: No Known Drug Allergies (Unverified , 07/03/18) Home Medications Acetaminophen 325 Mg Tablet, 650 MG PO Q4H PRN for PAIN-MILD, (Reported) TAKES 2 (325MG) TABLETS Aspirin 81 Mg Tablet.dr, 81 MG PO DAILY, (Reported) Carvedilol 6.25 Mg Tablet, 6.25 MG PO BID LAST FILLED #60 04-26-19 Prescribed by: SONG GUDINO on 06/22/19 1411 Furosemide 40 Mg Tablet, 40 MG PO DAILY Prescribed by: SONG Darden SHAHAB on 06/22/19 1251 Glimepiride 2 Mg Tablet, 2 MG PO HS, (Reported) Lisinopril 5 Mg Tablet, 5 MG PO DAILY, (Reported) Metformin HCl 500 Mg Tablet, 500 MG PO BID, (Reported) Mirtazapine 15 Mg Tablet, 15 MG PO HS, (Reported) Multivitamin/Iron/Folic Acid 1 Each Tablet, 1 TAB PO DAILY, (Reported) Potassium Chloride 10 Meq Tab.er.prt, 10 MEQ PO DAILY, (Reported) Simvastatin 10 Mg Tablet, 10 MG PO HS, (Reported) Venlafaxine HCl 150 Mg Cap.er.24h, 150 MG PO DAILY, (Reported) Patient Home Medication List Home Medication List Reviewed: Yes (EBONI VINES MD) Review of Systems Review of Systems Constitutional: see HPI; No chills, No fever EENTM: No Symptoms Reported Respiratory: Denies Cough; Shortness of Air Cardiovascular: Chest Pain; Denies Edema, Denies Lightheadedness Gastrointestinal: Denies Constipated, Denies Nausea, Denies Vomiting Genitourinary: No Symptoms Reported Musculoskeletal: no symptoms reported Psychiatric/Neurological: No Symptoms Reported (EBONI VINES MD) All Other Systems Reviewed Negative Unless Noted: Yes (EBONI VINES MD) Past Ndjxide-Weoefh-Xahlcy Hx Past Med/Social Hx: Reviewed Nursing Past Med/Soc Hx (EBONI VINES MD) Patient Social History Alcohol Use: Denies Use Recreational Drug Use: No Smoking Status: Current Everyday Smoker Type Used: Cigarettes 2nd Hand Smoke Exposure: No Recent Hopitalizations: No (EBONI VINES MD) Immunizations Up To Date Tetanus Booster (TDap): Less than 5yrs PED Vaccines UTD: Yes Date of Pneumonia Vaccine: Dec 07, 2014 Date of Influenza Vaccine: May 18, 2019 (EBONI VINES MD) Seasonal Allergies Seasonal Allergies: No (EBONI VINES MD) Past Medical History Surgeries: Yes (2004 hemorrhoidectomy, breast reduction, right ovary removed) Breast, Cardiac, Coronary Stent, Defibrillator, Eye Surgery, Gallbladder, Hysterectomy, Joint Replacement, Oophorectomy, Orthopedic, Pacemaker, Rectal Respiratory: Yes (Has home O2 and wears infrequent at 3 L/M) COPD Currently Using BIPAP: No Cardiac: Yes (Pacemaker/DEFIB, stents x 2, congestive heart failure) Atrial Fibrillation, Cardiomyopathy, Chronic Edema/Swelling, Coronary Artery Disease, High Cholesterol, Hypertension, Peripheral Vascular Neurological: No 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 Disorders: No 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, 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 Sexually Transmitted Disease: No HIV/AIDS: No Genitourinary: Yes Renal Failure Gastrointestinal: Yes Hemorrhoids Musculoskeletal: Yes Arthritis, Chronic Back Pain Endocrine: Yes (Type II) Diabetes, Non-Insulin dep HEENT: Yes Cataract Loss of Vision: Denies Hearing Impairment: Denies Cancer: No Psychosocial: Yes Depression Integumentary: No Blood Disorders: No Adverse Reaction/Blood Tranf: No (EBONI VINES MD) Family Medical History Reviewed Nursing Family Hx (EBONI VINES MD) Arthritis 19 FATHER 19 MOTHER G8 BROTHER G8 SISTER Asthma 19 FATHER Completed stroke G8 SISTER FH: COPD (chronic obstructive pulmonary disease) G8 SISTER FH: cancer 19 FATHER 19 MOTHER (stomach cancer ) G8 SISTER (LIVER- enio floya- breast cancer) FH: emphysema 19 FATHER G8 SISTER Glaucoma G8 SISTER Headache disorder G8 SISTER No Family History of: AIDS Abdominal aortic aneurysm Alcoholism Alzheimer's disease Cancer of mouth Cardiovascular disease Colon cancer Cystic fibrosis Deafness or hearing loss Dementia Diabetes mellitus Drug abuse Dysphasia Hypercholesterolemia Hypertension Kidney disease Myocardial infarction Parkinson's disease Prostate cancer Psychosocial problem Respiratory disorder Seizure disorder Severe allergy Thyroid disease Tuberculosis Physical Exam Vital Signs Vital Signs - First Documented 09/04/19 15:38 Temp 37.1 Pulse 66 Resp 14 B/P (MAP) 167/78 (107) Pulse Ox 96 O2 Delivery Room Air (GERMAN KIMBALL) Vital Signs Capillary Refill : (EBONI VINES MD) Height, Weight, BMI Height: 5'5.00" Weight: 205lbs. 5.0oz. 93.372750ef; 230.76 BMI Method:Stated General Appearance: No Apparent Distress, WD/WN HEENT: PERRL/EOMI, Pharynx Normal Neck: Non Tender, Supple Respiratory: Lungs Clear, Normal Breath Sounds Cardiovascular: Regular Rate, Rhythm, No Murmur Gastrointestinal: Non Tender, Soft Extremity: Normal Range of Motion, Non Tender Neurologic/Psychiatric: Alert (EBONI VINES MD) Procedures/Interventions Suture Size: 5-0 (EBONI VINES MD) Progress/Results/Core Measures Results/Orders Lab Results Laboratory Tests Test 09/04/19 15:50 09/04/19 16:36 Range/Units White Blood Count 8.4 4.3-11.0 10^3/uL Red Blood Count 3.91 L 4.35-5.85 10^6/uL Hemoglobin 12.3 11.5-16.0 G/DL Hematocrit 37 35-52 % Mean Corpuscular Volume 95 80-99 FL Mean Corpuscular Hemoglobin 31 25-34 PG Mean Corpuscular Hemoglobin Concent 33 32-36 G/DL Red Cell Distribution Width 12.8 10.0-14.5 % Platelet Count 247 130-400 10^3/uL Mean Platelet Volume 10.8 H 7.4-10.4 FL Neutrophils (%) (Auto) 63 42-75 % Lymphocytes (%) (Auto) 22 12-44 % Monocytes (%) (Auto) 8 0-12 % Eosinophils (%) (Auto) 7 0-10 % Basophils (%) (Auto) 0 0-10 % Neutrophils # (Auto) 5.3 1.8-7.8 X 10^3 Lymphocytes # (Auto) 1.8 1.0-4.0 X 10^3 Monocytes # (Auto) 0.7 0.0-1.0 X 10^3 Eosinophils # (Auto) 0.6 H 0.0-0.3 10^3/uL Basophils # (Auto) 0.0 0.0-0.1 10^3/uL Prothrombin Time 13.6 12.2-14.7 SEC INR Comment 1.0 0.8-1.4 Activated Partial Thromboplast Time 27 24-35 SEC Sodium Level 139 135-145 MMOL/L Potassium Level 4.5 3.6-5.0 MMOL/L Chloride Level 107 98-107 MMOL/L Carbon Dioxide Level 21 21-32 MMOL/L Anion Gap 11 5-14 MMOL/L Blood Urea Nitrogen 24 H 7-18 MG/DL Creatinine 1.45 H 0.60-1.30 MG/DL Estimat Glomerular Filtration Rate 34 BUN/Creatinine Ratio 17 Glucose Level 199 H 70-105 MG/DL Calcium Level 9.0 8.5-10.1 MG/DL Corrected Calcium 9.1 8.5-10.1 MG/DL Magnesium Level 1.9 1.6-2.4 MG/DL Total Bilirubin 0.3 0.1-1.0 MG/DL Aspartate Amino Transf (AST/SGOT) 16 5-34 U/L Alanine Aminotransferase (ALT/SGPT) 9 0-55 U/L Alkaline Phosphatase 77 40-136 U/L Myoglobin 45.7 10.0-92.0 NG/ML Troponin I < 0.028 <0.028 NG/ML B-Type Natriuretic Peptide 193.5 H <100.0 PG/ML Total Protein 7.1 6.4-8.2 GM/DL Albumin 3.9 3.2-4.5 GM/DL Lipase 30 8-78 U/L Urine Color YELLOW Urine Clarity CLEAR Urine pH 6.5 5-9 Urine Specific [place] 1.020 1.016-1.022 Urine Protein NEGATIVE NEGATIVE Urine Glucose (UA) 3+ H NEGATIVE Urine Ketones NEGATIVE NEGATIVE Urine Nitrite NEGATIVE NEGATIVE Urine Bilirubin NEGATIVE NEGATIVE Urine Urobilinogen 0.2 < = 1.0 MG/DL Urine Leukocyte Esterase NEGATIVE NEGATIVE Urine RBC (Auto) NEGATIVE NEGATIVE Urine RBC NONE /HPF Urine WBC RARE /HPF Urine Squamous Epithelial Cells 0-2 /HPF Urine Crystals NONE /LPF Urine Bacteria TRACE /HPF Urine Casts NONE /LPF Urine Mucus NEGATIVE /LPF Urine Culture Indicated NO (GERMAN KIMBALL) My Orders Orders - GERMAN KIMBALL Ua Culture If Indicated (09/04/19 16:30) (GERMAN KIMBALL) Medications Given in ED Current Medications Medications Dose Ordered Sig/Teresa Route Start Time Stop Time Status Last Admin Dose Admin Aspirin 324 mg ONCE ONCE PO 09/04/19 16:15 09/04/19 16:16 DC 09/04/19 16:19 324 MG (GERMAN KIMBALL) Vital Signs/I&O 09/04/19 15:38 Temp 37.1 Pulse 66 Resp 14 B/P (MAP) 167/78 (107) Pulse Ox 96 O2 Delivery Room Air (GERMAN KIMBALL) Progress Progress Note : Progress Note And evaluated. IV, labs, EKG and chest x-ray ordered. ASA 324 mg by mouth ordered. Initially seen and evaluated in full protective equipment due to shortness of air but history does not fit with COVID-19 pandemic infection. This appears to be more related to cardiac/volume. Monitor patient. (EBONI VINES MD) Progress Note : Progress Note 1650 Lab and chest x-ray reviewed. No further chest pain. Feels this was related to her anxiety and not using her O2 at home. Discharge instructions and return precautions reviewed with the patient. All questions answered. (GERMAN KIMBALL) Departure Impression Primary Impression: CHF (congestive heart failure) Qualified Codes: I50.9 - Heart failure, unspecified Additional Impression: Anxiety about health Disposition: 01 HOME, SELF-CARE Condition: Improved Departure-Patient Inst. Decision time for Depature: 16:55 (GERMAN KIMBALL) Referrals: SHANE LOZANO MD (PCP/Family) Primary Care Physician Patient Instructions: Heart Failure, Adult (DC) EBONI VINES MD Sep 04, 2019 16:13 GERMAN KIMBALL Sep 04, 2019 16:54
[2019-09-04] MEDS ORDERED: ASPIRIN 81 MG CHEW (CHILDREN'S ASA) PO ONE (16:15)
[2019-09-04 16:22] LABS: ALBUMIN 3.9 GM/DL (3.2-4.5); BILIRUBIN,TOTAL 0.3 MG/DL (0.1-1.0); CREATININE SERUM 1.45 MG/DL (0.60-1.30); MAGNESIUM 1.9 MG/DL (1.6-2.4); POTASSIUM 4.5 MMOL/L (3.6-5.0); TOTAL PROTEIN 7.1 GM/DL (6.4-8.2)
[2019-09-04 16:28] LABS: PROTHROMBIN TIME PATIENT 13.6 SEC (12.2-14.7)
--- NOTE | 2019-09-04 16:36 | Diagnostic Imaging Report ---
Indication: Shortness of air, worsened swelling. Exam compared 06/22/2019. FINDINGS: There is right greater than left perihilar interstitial type infiltrates on the right. There may be some early air bronchograms. Lung volumes symmetric and normal. There is no effusion or pneumothorax. There is no failure pattern. IMPRESSION: Perihilar interstitial infiltrates greater right. Dictated by: Dictated on workstation # [id number]
[2019-09-04 16:44] LABS: BILIRUBIN,URINE NEGATIVE (NEGATIVE); CLARITY,URINE CLEAR; COLOR,URINE YELLOW; GLUCOSE, URINE (UA) 3+ (NEGATIVE); KETONES,URINE NEGATIVE (NEGATIVE); LEUKOCYTE ESTERASE ,URINE NEGATIVE (NEGATIVE); NITRITE,URINE NEGATIVE (NEGATIVE); PH,URINE 6.5 (5-9); PROTEIN,URINE NEGATIVE (NEGATIVE)
[2019-09-04 16:50] LABS: BACTERIA,URINE TRACE /HPF; SQUAMOUS EPITHELIAL CELL,UR 0-2 /HPF; WBC,URINE RARE /HPF
[2019-09-04 17:08] VITALS: BP 140/57
== END 2019-09-04 17:12 | disposition home or self-care (01) ==
LOC: EDUNIT# 15:29 → ER 15:31
DX: I11.0 Hypertensive heart disease with heart failure (principal); I50.9 Heart failure, unspecified; F41.9 Anxiety disorder, unspecified; J44.9 Chronic obstructive pulmonary disease, unspecified; I48.91 Unspecified atrial fibrillation; I42.9 Cardiomyopathy, unspecified; I25.10 Atherosclerotic heart disease of native coronary artery without angina pectoris; E78.00 Pure hypercholesterolemia, unspecified; E11.51 Type 2 diabetes mellitus with diabetic peripheral angiopathy without gangrene; M19.91 Primary osteoarthritis, unspecified site; F32.9 Major depressive disorder, single episode, unspecified; F17.210 Nicotine dependence, cigarettes, uncomplicated; Z99.81 Dependence on supplemental oxygen; Z79.82 Long term (current) use of aspirin; Z79.899 Other long term (current) drug therapy; Z79.84 Long term (current) use of oral hypoglycemic drugs; Z95.5 Presence of coronary angioplasty implant and graft; Z95.810 Presence of automatic (implantable) cardiac defibrillator
CPT/HCPCS: 36415; 71045; 80053; 81000; 83690; 83735; 83874; 83880; 84484; 85025; 85610; 85730; 93041

== ENCOUNTER → 2021-01-14 | Outpatient (CLI) | payer MEDICARE ==
[~2021-01-14] MED LIST changes: +ASPI-1238 PO; -ASPI-983 PO; +CALC600T91 PO; -LISI-556 PO; +LISI-729 PO; -LISI10TA2 PO; +LISI10TA25 PO; +MIRT-68 PO; -MIRT15TA6 PO; +REGADENOSON 0.4 MG/5 ML SYR (LEXISCAN) IV ONE
[2021-01-14] MEDS: CATHETER FLUSH 10 ML SYR IV PRN ×2 (12:21→13:34)
[2021-01-14 13:33] VITALS: BP 123/80
--- NOTE | 2021-01-14 19:02 | STRESS TEST ---
DATE OF SERVICE: 01/14/2021 RESTING AND POST REGADENOSON TECHNETIUM-99M TETROFOSMIN SPECT CT IMAGING ORDERING PHYSICIAN: Amparo Mckay APRN PRIMARY PHYSICIAN: Dr. Anderson. CLINICAL DIAGNOSES: Coronary artery disease. Baseline images were carried out after injection of 10.02 mCi of technetium-99m Tetrofosmin. This was followed by 0.4 mg regadenoson and 29.3 mCi of technetium-99m Tetrofosmin for stress imaging. The electrocardiogram showed atrial fibrillation or flutter. There was left bundle branch block. The electrocardiogram did not change significantly with the regadenoson infusion. Review of images at rest and following stress does not indicate any distinct evidence of myocardial ischemia or infarction. There is global hypokinesis. There is moderate cardiomegaly. Left ventricular ejection fraction is calculated to be 30%. Left ventricular end diastolic volume is 117 mL. TID is absent (1.05). CONCLUSIONS: 1. Dilated cardiomyopathy with an ejection fraction of 30%. 2. No evidence of significant myocardial ischemia or infarction. 3. Moderate cardiomegaly. Job ID: [id number] DocumentID: [id number] Dictated Date: 01/14/2021 17:35:24 Sleep Lab Technician Date: 01/14/2021 19:01:51 Dictated By: MANDA CHAVEZ MD, MA, FACP, FACC,
== END ==
LOC: CARD 11:30
PROVIDERS: ATTEND Nurse Practitioner Family
DX: I08.3 Combined rheumatic disorders of mitral, aortic and tricuspid valves (principal); I25.5 Ischemic cardiomyopathy; I25.10 Atherosclerotic heart disease of native coronary artery without angina pectoris
CPT/HCPCS: 78452; 93017; 93306; A9502

== ENCOUNTER 2021-04-01 10:56 | Observation (INO) | payer MEDICARE ==
[~2021-04-01] VITALS: Ht 165 cm; Wt 93.8 kg
[~2021-04-01 10:56] MED LIST changes: -REGADENOSON 0.4 MG/5 ML SYR (LEXISCAN) IV ONE
--- NOTE | 2021-04-01 11:24 | ED Respiratory ---
General Chief Complaint: Respiratory Problems Stated Complaint: SOA Source: patient Exam Limitations: no limitations (JAZMYNE WHITEHEAD APRN) History of Present Illness Date Seen by Provider: Apr 01, 2021 Time Seen by Provider: 11:21 Initial Comments To ER by private vehicle to Dr. Anderson's office with reports of shortness of breath. This has been getting worse. She wears oxygen at night. She has CHF and takes Bumex. Her oxygen saturation had declined to about 89% at Dr. Anderson's office today. She presented there for insomnia. She is reportedly had a weight gain of a few pounds since yesterday. However, she states that she is able to lay flat without noticeable increased shortness of breath. She has a chronic infrequent cough nonproductive. She has chills but no fever. It was believed that her insomnia was secondary to paroxysmal nocturnal dyspnea so she was referred to the emergency room for CHF evaluation. She denies any chest pain. Timing/Duration: constant Severity: moderate Associated Symptoms: cough, shortness of breath (JAZMYNE WHITEHEAD APRN) Allergies and Home Medications Allergies Coded Allergies: No Known Drug Allergies (Unverified , 07/03/18) Patient Home Medication List Home Medication List Reviewed: Yes (JAZMYNE WHITEHEAD APRN) Acetaminophen (Tylenol) 325 Mg Tablet, 650 MG PO Q4H PRN for PAIN-MILD, (Reported) Entered as Reported by: NICOLE CHU on 06/08/17 1133 Last Action: Continued Aspirin (Aspirin EC) 81 Mg Tablet.dr, 81 MG PO DAILY, (Reported) Entered as Reported by: NICOLE CHU on 06/08/17 1127 Last Action: Continued Bumetanide (Bumetanide) 2 Mg Tablet, 2 MG PO MO,WE,FR, (Reported) Entered as Reported by: LUCIO GANT on 04/01/21 1555 Last Action: Converted Carvedilol (Carvedilol) 6.25 Mg Tablet, 6.25 MG PO BID, (Reported) Entered as Reported by: LUCIO GANT on 12/15/19 1431 Last Action: Continued Glimepiride (Glimepiride) 2 Mg Tablet, 2 MG PO 1900, (Reported) Entered as Reported by: NICOLE CHU on 06/05/19 1057 Last Action: Continued Lisinopril (Lisinopril) 5 Mg Tablet, 5 MG PO DAILY, (Reported) Entered as Reported by: NICOLE CHU on 06/05/19 105 Last Action: Continued Magnesium Oxide (Magnesium) 400 Mg Tablet, 400 MG PO HS, (Reported) Entered as Reported by: LUCIO GANT on 04/01/21 155 Last Action: Converted Metformin HCl (Metformin HCl) 500 Mg Tablet, 1,000 MG PO 1900, (Reported) Entered as Reported by: NICOLE CHU on 06/05/19 1108 Last Action: Held Cologne-3 Fatty Acids/Fish Oil ([place]ologne 3 1,000 mg Softgel) 1 Each Capsule, 1 EACH PO DAILY, (Reported) Entered as Reported by: LUCIO GANT on 04/01/211557 Last Action: Converted Potassium Chloride (Potassium Chloride) 10 Meq Capsule.er, 10 MEQ PO PEACE,TU,TH,SAT, (Reported) Entered as Reported by: LUCIO GANT on 04/01/211554 Last Action: Converted Potassium Chloride (Potassium Chloride) 10 Meq Capsule.er, 20 MEQ PO MO,WE,FR, (Reported) Entered as Reported by: LUCIO GANT on 04/01/211554 Last Action: Converted Simvastatin (Simvastatin) 10 Mg Tablet, 10 MG PO 1900, (Reported) Entered as Reported by: NICOLE CHU on 06/22/19 1048 Last Action: Continued Discontinued Medications Calcium Carbonate (Calcium) 600 Mg Tablet, 600 MG PO DAILY, (Reported) Discontinued Reason: No Longer Taking Entered as Reported by: LUCIO GANT on 12/15/19 1431 Last Action: Discontinued Furosemide (Furosemide) 40 Mg Tablet, 40 MG PO DAILY Discontinued Reason: No Longer Taking Prescribed by: DEREK ENAMORADO on 12/17/19 1134 Last Action: Discontinued Mirtazapine (Mirtazapine) 15 Mg Tablet, 15 MG PO HS, (Reported) Discontinued Reason: No Longer Taking Entered as Reported by: NICOLE CHU on 06/22/19 1048 Last Action: Discontinued Potassium Chloride (Potassium Chloride) 10 Meq Tab.er.prt, 10 MEQ PO DAILY Discontinued Reason: No Longer Taking Prescribed by: DEREK ENAMORADO on 12/17/19 1134 Last Action: Discontinued Review of Systems Review of Systems Constitutional: see HPI EENTM: see HPI Respiratory: no symptoms reported Cardiovascular: no symptoms reported Genitourinary: no symptoms reported Musculoskeletal: see HPI Skin: no symptoms reported Psychiatric/Neurological: No Symptoms Reported Hematologic/Lymphatic: No Symptoms Reported (JAZMYNE WHITEHEAD APRN) Past Qeiovha-Jsauoe-Ugbzbv Hx Immunizations Up To Date Tetanus Booster (TDap): Less than 5yrs PED Vaccines UTD: Yes (JAZMYNE WHITEHEAD APRN) Seasonal Allergies Seasonal Allergies: No (JAZMYNE WHITEHEAD APRN) Past Medical History Surgeries: Yes (2004 hemorrhoidectomy, breast reduction, right ovary removed) Breast, Cardiac, Coronary Stent, Defibrillator, Eye Surgery, Gallbladder, Hysterectomy, Joint Replacement, Oophorectomy, Orthopedic, Pacemaker, Rectal Respiratory: Yes (Has home O2 and wears infrequent at 3 L/M) COPD Currently Using BIPAP: No Cardiac: Yes (Pacemaker/DEFIB, stents x 2, congestive heart failure) Atrial Fibrillation, Cardiomyopathy, Chronic Edema/Swelling, Coronary Artery Disease, High Cholesterol, Hypertension, Peripheral Vascular Neurological: No 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 Disorders: No 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, 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 Sexually Transmitted Disease: No HIV/AIDS: No Genitourinary: Yes Renal Failure Gastrointestinal: Yes Hemorrhoids Musculoskeletal: Yes Arthritis, Chronic Back Pain Endocrine: Yes (Type II) Diabetes, Non-Insulin dep HEENT: Yes Cataract Loss of Vision: Denies Hearing Impairment: Denies Cancer: No Psychosocial: Yes Depression Integumentary: No Blood Disorders: No Adverse Reaction/Blood Tranf: No (JAZMYNE WHITEHEAD APRN) Family Medical History Arthritis 19 FATHER 19 MOTHER G8 BROTHER G8 SISTER Asthma 19 FATHER Completed stroke G8 SISTER FH: COPD (chronic obstructive pulmonary disease) G8 SISTER FH: cancer 19 FATHER 19 MOTHER (stomach cancer ) G8 SISTER (LIVER- enio floya- breast cancer) FH: emphysema 19 FATHER G8 SISTER Glaucoma G8 SISTER Headache disorder G8 SISTER No Family History of: AIDS Abdominal aortic aneurysm Alcoholism Alzheimer's disease Cancer of mouth Cardiovascular disease Colon cancer Cystic fibrosis Deafness or hearing loss Dementia Diabetes mellitus Drug abuse Dysphasia Hypercholesterolemia Hypertension Kidney disease Myocardial infarction Parkinson's disease Prostate cancer Psychosocial problem Respiratory disorder Seizure disorder Severe allergy Thyroid disease Tuberculosis Physical Exam Vital Signs - First Documented 04/01/21 11:32 Temp 36.2 Pulse 81 Resp 18 B/P (MAP) 145/121 (129) Pulse Ox 93 (THUY ADAMS MD) Capillary Refill : (JAZMYNE WHITEHEAD APRN) Height: 5'5.00" Weight: 205lbs. 5.0oz. 93.024682fv; 34.85 BMI Method:Stated General Appearance: WD/WN, no apparent distress, other (Saturation 85% on room air when ambulating to the room. Quickly recovers to 93% with rest.) Eyes: Bilateral Eye Normal Inspection, Bilateral Eye PERRL, Bilateral Eye EOMI Neck: non-tender, full range of motion Respiratory: normal breath sounds, no respiratory distress, no accessory muscle use; No crackles; other (There are no crackles and lungs are clear throughout including the bases) Cardiovascular: regular rate, rhythm, no murmur Gastrointestinal: normal bowel sounds, non tender, soft Extremities: normal capillary refill; No pedal edema Neurologic/Psychiatric: alert, normal mood/affect, oriented x 3 Skin: normal color, warm/dry (JAZMYNE WHITEHEAD APRN) Procedures/Interventions Suture Size: 5-0 (JAZMYNE WHITEHEAD APRN) Progress/Results/Core Measures Suspected Sepsis SIRS Temperature: Pulse: Respiratory Rate: Laboratory Tests 04/01/21 11:24: White Blood Count 7.6 Blood Pressure / Mean: Laboratory Tests 04/01/21 11:24: Creatinine 1.77H, INR Comment 1.0, Platelet Count 262, Total Bilirubin 0.8 (JAZMYNE WHITEHEAD APRN) Results/Orders Lab Results Laboratory Tests Test 04/01/21 11:24 Range/Units White Blood Count 7.6 4.3-11.0 10^3/uL Red Blood Count 4.43 3.80-5.11 10^6/uL Hemoglobin 14.0 11.5-16.0 g/dL Hematocrit 42 35-52 % Mean Corpuscular Volume 95 80-99 fL Mean Corpuscular Hemoglobin 32 25-34 pg Mean Corpuscular Hemoglobin Concent 33 32-36 g/dL Red Cell Distribution Width 13.0 10.0-14.5 % Platelet Count 262 130-400 10^3/uL Mean Platelet Volume 11.1 9.0-12.2 fL Immature Granulocyte % (Auto) 1 % Neutrophils (%) (Auto) 66 42-75 % Lymphocytes (%) (Auto) 22 12-44 % Monocytes (%) (Auto) 10 0-12 % Eosinophils (%) (Auto) 2 0-10 % Basophils (%) (Auto) 0 0-10 % Neutrophils # (Auto) 5.0 1.8-7.8 10^3/uL Lymphocytes # (Auto) 1.6 1.0-4.0 10^3/uL Monocytes # (Auto) 0.7 0.0-1.0 10^3/uL Eosinophils # (Auto) 0.2 0.0-0.3 10^3/uL Basophils # (Auto) 0.0 0.0-0.1 10^3/uL Immature Granulocyte # (Auto) 0.0 0.0-0.1 10^3/uL Prothrombin Time 13.5 12.2-14.7 SEC INR Comment 1.0 0.8-1.4 D-Dimer 1.19 H 0.00-0.49 UG/ML Sodium Level 136 135-145 MMOL/L Potassium Level 4.2 3.6-5.0 MMOL/L Chloride Level 104 98-107 MMOL/L Carbon Dioxide Level 21 21-32 MMOL/L Anion Gap 11 5-14 MMOL/L Blood Urea Nitrogen 22 H 7-18 MG/DL Creatinine 1.77 H 0.60-1.30 MG/DL Estimat Glomerular Filtration Rate 27 BUN/Creatinine Ratio 12 Glucose Level 275 H 70-105 MG/DL Calcium Level 10.1 8.5-10.1 MG/DL Corrected Calcium 10.0 8.5-10.1 MG/DL Magnesium Level 2.0 1.6-2.4 MG/DL Total Bilirubin 0.8 0.1-1.0 MG/DL Aspartate Amino Transf (AST/SGOT) 12 5-34 U/L Alanine Aminotransferase (ALT/SGPT) 16 0-55 U/L Alkaline Phosphatase 76 40-136 U/L Troponin I < 0.028 <0.028 NG/ML B-Type Natriuretic Peptide 262.2 H <100.0 PG/ML Total Protein 7.5 6.4-8.2 GM/DL Albumin 4.1 3.2-4.5 GM/DL Procalcitonin 0.04 <0.10 NG/ML SARS-CoV-2 RNA (RT-PCR) Not Detected Not Detecte (THUY ADAMS MD) Vital Signs/I&O 04/01/21 11:32 Temp 36.2 Pulse 81 Resp 18 B/P (MAP) 145/121 (129) Pulse Ox 93 (THUY ADAMS MD) Vital Signs/I&O Capillary Refill : (JAZMYNE WHITEHEAD APRN) Departure Communication (Admissions) 1305-Discussed with Dr. Anderson. This does not seem to be a CHF exacerbation. However her D-dimer is minimally elevated and likely insignificant but will admit for pulmonary VQ scan. I will give 1 mg/kg dose of Lovenox here. I spoke with nuclear medicine, they can have the medication here within about 3 hours and do the test today. Patient is agreeable with this plan. Dr. Anderson would like the patient admitted to the hospitalist service. NAME: BRANDEN HERNANDEZ [facility] REC#: [id number] PT STATUS: REG ER : 1935 PHYSICIAN: JAZMYNE WHITEHEAD APRN ADMIT DATE: 04/01/21/ER Draft Date of Exam:04/01/21 CHEST 1 VIEW, AP/PA ONLY INDICATION: Shortness of breath. Comparison with previous exam 12/15/2019. The cardiomegaly is again noted. ICD pacer on the left appears unchanged. The lungs are well aerated. No infiltrates are demonstrated. No evidence of pulmonary edema. No pneumothorax or pleural effusion. No bony abnormalities. IMPRESSION: 1. No acute changes. Cardiomegaly. No evidence of congestive failure. Dictated on workstation # [id number] Dict: 04/01/21 1216 Trans: 04/01/21 1222 CV [id number] Interpreted by: GORDON DELVALLE MD Electronically signed by: (JAZMYNE WHITEHEAD APRN) Impression Primary Impression: WINTERS (dyspnea on exertion) Disposition: ADMITTED INPATIENT Condition: Stable Admissions Decision to Admit Reason: Admit from ER (General) Decision to Admit/Date: Apr 01, 2021 Time/Decision to Admit Time: 13:05 (JAZMYNE WHITEHEAD APRN) Departure-Patient Inst. Decision time for Depature: 12:47 (JAZMYNE WHITEHEAD APRN) Referrals: SHANE ANDERSON MD (PCP/Family) Primary Care Physician Patient Instructions: Shortness of Breath (Dyspnea) (DC) ATTENDING PHYSICIAN NOTE: I was physically present as attending physician in the emergency department during the care of this patient, but I was not directly involved in the decision making or delivery of care for this patient. (THUY ADAMS MD) JAZMYNE WHITEHEAD APRN Apr 01, 2021 11:24 THUY ADAMS MD Apr 03, 2021 12:08
[2021-04-01 11:38] LABS: BASOPHILS % (AUTO) 0 % (0-10); EOSINOPHILS # (AUTO) 0.2 10^3/uL (0.0-0.3); EOSINOPHILS % (AUTO) 2 % (0-10); HEMATOCRIT 42 % (35-52); LYMPHOCYTES # (AUTO) 1.6 10^3/uL (1.0-4.0); LYMPHOCYTES % (AUTO) 22 % (12-44); MEAN CORPUSCULAR HEMOGLOBIN 32 pg (25-34); MEAN CORPUSCULAR HGB CONC 33 g/dL (32-36); MEAN CORPUSCULAR VOLUME 95 fL (80-99); MEAN PLATELET VOLUME 11.1 fL (9.0-12.2); MONOCYTES # (AUTO) 0.7 10^3/uL (0.0-1.0); MONOCYTES % (AUTO) 10 % (0-12); NEUTROPHILS % (AUTO) 66 % (42-75); PLATELET COUNT 262 10^3/uL (130-400); WHITE BLOOD COUNT 7.6 10^3/uL (4.3-11.0)
[2021-04-01 11:49] LABS: FIBRIN DEGRADATION PRODUCTS 1.19 UG/ML (0.00-0.49); PROTHROMBIN TIME PATIENT 13.5 SEC (12.2-14.7)
[2021-04-01 11:51] LABS: ALBUMIN 4.1 GM/DL (3.2-4.5); CHLORIDE 104 MMOL/L (98-107); POTASSIUM 4.2 MMOL/L (3.6-5.0); SODIUM 136 MMOL/L (135-145)
[2021-04-01 11:52] LABS: CALCIUM 10.1 MG/DL (8.5-10.1)
[2021-04-01 11:53] LABS: GLUCOSE 275 MG/DL (70-105); TOTAL PROTEIN 7.5 GM/DL (6.4-8.2)
[2021-04-01 11:55] LABS: BILIRUBIN,TOTAL 0.8 MG/DL (0.1-1.0); CARBON DIOXIDE 21 MMOL/L (21-32)
[2021-04-01 11:57] LABS: ALKALINE PHOSPHATASE 76 U/L (40-136); CREATININE SERUM 1.77 MG/DL (0.60-1.30); GFR ESTIMATED 27
[2021-04-01 11:58] LABS: BUN/CREATININE RATIO 12
[2021-04-01 12:00] LABS: ALANINE AMINOTRANSFERASE 16 U/L (0-55)
--- NOTE | 2021-04-01 12:22 | Diagnostic Imaging Report ---
INDICATION: Shortness of breath. Comparison with previous exam 12/15/2019. The cardiomegaly is again noted. ICD pacer on the left appears unchanged. The lungs are well aerated. No infiltrates are demonstrated. No evidence of pulmonary edema. No pneumothorax or pleural effusion. No bony abnormalities. IMPRESSION: 1. No acute changes. Cardiomegaly. No evidence of congestive failure. Dictated by: Dictated on workstation # [id number]
[2021-04-01] MEDS ORDERED: ENOXAPARIN 100 MG/1 ML (LOVENOX) SYR SC ONE (13:00)
[2021-04-01 13:50] LABS: BILIRUBIN,URINE NEGATIVE (NEGATIVE); CLARITY,URINE CLEAR; COLOR,URINE YELLOW; GLUCOSE, URINE (UA) 3+ (NEGATIVE); KETONES,URINE NEGATIVE (NEGATIVE); LEUKOCYTE ESTERASE ,URINE NEGATIVE (NEGATIVE); NITRITE,URINE NEGATIVE (NEGATIVE); PROTEIN,URINE NEGATIVE (NEGATIVE)
[2021-04-01 14:09] LABS: BACTERIA,URINE NEGATIVE /HPF; RBC,URINE RARE /HPF; SQUAMOUS EPITHELIAL CELL,UR RARE /HPF; WBC,URINE 0-2 /HPF
[2021-04-01 14:50] VITALS: BP 145/121
[2021-04-01] MEDS ORDERED: RT-ALBUTEROL/IPRATROPIUM 3 ML (DUONEB) VIAL INH PRN (15:00)
[2021-04-01] MEDS: RT-ALBUTEROL/IPRATROPIUM 3 ML (DUONEB) VIAL INH SCH ×2 (15:36→20:34)
[2021-04-01 15:43] VITALS: BP 144/65
[2021-04-01] MEDS ORDERED: BUME2TAB7 PO (15:55)
[2021-04-01] MEDS ORDERED: POTA10CA43 PO ×2 (15:55)
[2021-04-01] MEDS ORDERED: MAGN400T39 PO (15:58)
[2021-04-01] MEDS ORDERED: OMEG1CAP58 PO (15:58)
--- NOTE | 2021-04-01 16:35 | Diagnostic Imaging Report ---
INDICATION: Elevated D-dimer and shortness of air. Patient was administered 5.5 mCi technetium 99m MAA intravenously and imaging over the chest was performed in multiple obliquities. There is homogeneous perfusion to both lungs. No pleural-based perfusion defects are identified. IMPRESSION: Normal perfusion lung study. Dictated by: Dictated on workstation # [id number]
[2021-04-01 19:27] VITALS: BP 127/58
[2021-04-01] MEDS ORDERED: ACETAMINOPHEN 325 MG TABLET PO PRN (19:45)
[2021-04-01] MEDS ORDERED: NON-FORMULARY MEDICATION 1 EA EA (Bumetanide 2 MG) PO SCH (19:45)
[2021-04-01] MEDS ORDERED: NON-FORMULARY MEDICATION 1 EA EA (Potassium Chloride 20 MEQ) PO SCH (19:45)
[2021-04-01] MEDS ORDERED: NON-FORMULARY MEDICATION 1 EA EA (Potassium Chloride 10 MEQ) PO SCH (19:45)
[2021-04-01] MEDS ORDERED: MAGNESIUM OXIDE (MAG-OX)400 MG TAB PO SCH (21:00)
[2021-04-01] MEDS ORDERED: NON-FORMULARY MEDICATION 1 EA EA (Magnesium Oxide (Magnesium) 400 MG) PO SCH (21:00)
[2021-04-01 23:55] VITALS: BP 119/79
[2021-04-02] MEDS: RT-ALBUTEROL/IPRATROPIUM 3 ML (DUONEB) VIAL INH SCH ×2 (02:52→08:49)
[2021-04-02 04:32] VITALS: BP 128/71
[2021-04-02 07:59] VITALS: BP 157/75
[2021-04-02] MEDS ORDERED: KCL 10 MEQ TAB (MICRO K) PO SCH (08:00)
[2021-04-02] MEDS ORDERED: BUMETANIDE 1 MG (BUMEX) TAB PO SCH (08:00)
[2021-04-02] MEDS ORDERED: ASPIRIN E.C. 81 MG (ECOTRIN) TAB PO SCH (09:00)
[2021-04-02] MEDS ORDERED: OMEGA 3 (FISH OIL) 1000 MG CAP PO SCH (09:00)
[2021-04-02] MEDS ORDERED: lisINopril 5 MG (PRINIVIL) TABLET PO SCH (09:00)
[2021-04-02 12:00] VITALS: BP 161/73
--- NOTE | 2021-04-02 12:44 | Discharge Summary ---
Discharge Summary Hospital Course Problems/Dx: (1) Acute respiratory failure with hypoxia Status: Acute Hospital Course Date of Admission: Apr 01, 2021 at 13:33 Admission Diagnosis : Acute respiratory failure with hypoxia Family Physician/Provider: Shane Anderson MD Date of Discharge: 04/02/21 Discharge Diagnosis: Acute respiratory failure with hypoxia Hospital Course: Alma Dolan is an 86 year old female who was admitted due to acute respirat ory failure with hypoxia. She had an elevated d-dimer and underwent a VQ scan which was negative. Her oxygen requirement resolved. She was not requiring any supplemental oxygen during an RT study on the day of discharge. She was not having any shortness of breath. She was discharged home in stable condition. Labs and Pending Lab Test: Laboratory Tests 04/01/21 13:36: Urine Color YELLOW, Urine Clarity CLEAR, Urine pH 6.0, Urine Specific [place] 1.020, Urine Protein NEGATIVE, Urine Glucose (UA) 3+H, Urine Ketones NEGATIVE, Urine Nitrite NEGATIVE, Urine Bilirubin NEGATIVE, Urine Urobilinogen 0.2, Urine Leukocyte Esterase NEGATIVE, Urine RBC (Auto) NEGATIVE, Urine RBC RARE, Urine WBC 0-2, Urine Squamous Epithelial Cells RARE, Urine Crystals NONE, Urine Bacteria NEGATIVE, Urine Casts NONE, Urine Mucus NEGATIVE, Urine Culture Bobbi cated NO Home Meds Active Reported Magnesium (Magnesium Oxide) 400 Mg Tablet 400 Mg PO HS [place] 3 1,000 mg Softgel ([place]-3 Fatty Acids/Fish Oil) 1 Each Capsule 1 Each PO DAILY Bumetanide 2 Mg Tablet 2 Mg PO MO,WE,FR Potassium Chloride 10 Meq Capsule.er 20 Meq PO MO,WE,FR TAKES 2 (10MEQ) CAPS Potassium Chloride 10 Meq Capsule.er 10 Meq PO [place],,,SAT Carvedilol 6.25 Mg Tablet 6.25 Mg PO BID Simvastatin 10 Mg Tablet 10 Mg PO 1900 Metformin HCl 500 Mg Tablet 1,000 Mg PO 1900 TAKES 2 (500MG) TABS Glimepiride 2 Mg Tablet 2 Mg PO 1900 Lisinopril 5 Mg Tablet 5 Mg PO DAILY Tylenol (Acetaminophen) 325 Mg Tablet 650 Mg PO Q4H PRN TAKES 2 (325MG) TABLETS Aspirin EC (Aspirin) 81 Mg Tablet.dr 81 Mg PO DAILY Assessment/Pt Instructions Take medications as prescribed. Follow up with your PCP. Return with worsening symptoms. Discharge Planning: <30 minutes discharge planning Discharge Instructions Discharge Diet: No Restrictions Activity as Tolerated: Yes Discharge Physical Examination Vital Signs Vital Signs Date Time Temp Pulse Resp B/P (MAP) Pulse Ox O2 Delivery O2 Flow Rate FiO2 04/02/21 12:00 36.2 83 22 161/73 (102) 93 Nasal Cannula 2.50 04/01/21 14:50 21 General Appearance: No Apparent Distress, Obese Respiratory: Lungs Clear, Normal Breath Sounds, No Respiratory Distress Cardiovascular: Regular Rate, Rhythm, No Edema, No Murmur Gastrointestinal: Normal Bowel Sounds, Non Tender, Soft Extremity: Normal Inspection, Non Tender, No Pedal Edema Skin: Normal Color, Warm/Dry Neurologic/Psychiatric: Alert, Oriented x3, No Motor/Sensory Deficits, Normal Mood/Affect Allergies: Coded Allergies: No Known Drug Allergies (Unverified , 07/03/18) Copy Copies To 1: SHANE ANDERSON MD Discharge Summary Date of Admission Apr 01, 2021 at 13:33 Date of Discharge Discharge Date: Apr 02, 2021 Discharge Time: 12:43 Admission Diagnosis Acute respiratory failure with hypoxia Discharge Diagnosis (1) Acute respiratory failure with hypoxia Status: Acute DEREK ENAMORADO MD Apr 02, 2021 12:44
[2021-04-02 16:00] VITALS: BP 102/59
[2021-04-02] MEDS ORDERED: GLIMEPIRIDE 2 MG (AMARYL) TAB PO SCH (19:00)
[2021-04-02] MEDS ORDERED: SIMvastatin 10 MG (ZOCOR) TAB PO SCH (19:00)
[2021-04-03] MEDS ORDERED: KCL 10 MEQ TAB (MICRO K) PO SCH (08:00)
== END 2021-04-02 11:41 | disposition home or self-care (01) ==
LOC: EDUNIT# 10:56 → ER 10:58 → UNDOADMOB 13:33 → 4TH 13:33 → UNDODISOB 04-02 17:41
PROVIDERS: ADMIT Internal Medicine; ATTEND Internal Medicine
DX: J96.01 Acute respiratory failure with hypoxia (principal); J44.9 Chronic obstructive pulmonary disease, unspecified; I48.91 Unspecified atrial fibrillation; I42.9 Cardiomyopathy, unspecified; I25.10 Atherosclerotic heart disease of native coronary artery without angina pectoris; I10 Essential (primary) hypertension; E78.5 Hyperlipidemia, unspecified; E11.9 Type 2 diabetes mellitus without complications; M19.90 Unspecified osteoarthritis, unspecified site; M54.9 Dorsalgia, unspecified; G89.29 Other chronic pain; F32.A Depression, unspecified; Z79.82 Long term (current) use of aspirin; Z79.84 Long term (current) use of oral hypoglycemic drugs; Z79.899 Other long term (current) drug therapy; Z90.710 Acquired absence of both cervix and uterus; Z80.0 Family history of malignant neoplasm of digestive organs
CPT/HCPCS: 71045; 78580; 80053; 81000; 83735; 83880; 84145; 84484; 85025; 85379; 85610; 87636; 93005; 94640 ×2; 94760 ×2; 94761; 99284; A9540; G0378; 36415

== ENCOUNTER 2021-07-21 22:01 | Emergency (ER) | payer MEDICARE ==
[~2021-07-21] VITALS: Ht 165 cm; Wt 93.8 kg
[~2021-07-21 22:01] MED LIST changes: +BUME2TAB7 PO; -LISI-729 PO; +LISI5TAB20 PO; +MAGN400T39 PO; +OMEG1CAP58 PO; +POTA10TA37 PO
[2021-07-21] MEDS ORDERED: ASPIRIN 81 MG CHEW (CHILDREN'S ASA) PO STA (22:24)
[2021-07-21] MEDS ORDERED: ONDANSETRON 4 MG/2 ML (SDV) Z0FRAN IVP ONE (22:30)
--- NOTE | 2021-07-21 22:34 | ED General ---
General Chief Complaint: Respiratory Problems Stated Complaint: N/V Nursing Triage Note: BROUGHT IN BY [facility] FOR SOA/CHEST/BACK PAIN, WEAKNESS X1 DAY. Source of Information: Patient Exam Limitations: No Limitations History of Present Illness Date Seen by Provider: Jul 21, 2021 Time Seen by Provider: 22:05 Initial Comments Patient is an 86-year-old female who presents to the emergency department today with a chief complaint of feeling shortness of breath, cough that is nonproductive, multiple body aches, severe headache. Onset of symptoms 2 days ago. Patient states that she had nausea with vomiting yesterday evening and remains a little bit nauseous. She does use oxygen at 4 L per nasal cannula mostly at night but over the last couple of days has been using it "24/ continuously". She has no smoking history. She does have coronary artery disease with 2 stents prior. She also has a pacer defibrillator. Patient cannot recall whether or not she has ever been diagnosed with atrial fibrillation. She states her pacemaker defibrillator was last interrogated about a week ago. She has seen Dr. Wiseman, her shaper operator within the last 6 months or so. No fevers or chills. She took some ibuprofen earlier. She endorses chest pain/pressure/"crushing". It has been continuous all day. Diffuse abdominal pain. A little diarrhea. No burning with urination. No swelling in her legs. She does have sick contacts at the [facility] which she resides. Known Covid positive. Patient states she feels a little better after the Ibuprofen. She is COVID vaccinated with a booster couple of months ago. All other review of systems reviewed and negative except as stated Timing/Duration: 1-2 Days Severity: Moderate Associated Systoms: Chest Pain, Cough, Headaches, Malaise, Nausea/Vomiting, Shortness of Air, Weakness Allergies and Home Medications Allergies Coded Allergies: No Known Drug Allergies (Unverified , 07/03/18) Patient Home Medication List Home Medication List Reviewed: Yes Acetaminophen (Tylenol) 325 Mg Tablet, 650 MG PO Q4H PRN for PAIN-MILD, (Reported) Entered as Reported by: NICOLE CHU on 06/08/17 1133 Aspirin (Aspirin EC) 81 Mg Tablet.dr 81 MG PO DAILY, (Reported) Entered as Reported by: NICOLE CHU on 06/08/17 1127 Azithromycin (Azithromycin) 250 Mg Tablet, 500 MG PO DAILY Prescribed by: DARRYL TORRES on 07/21/21 2346 Bumetanide (Bumetanide) 2 Mg Tablet, 2 MG PO MO,WE,FR, (Reported) Entered as Reported by: LUCIO GANT on 04/01/21 155 Carvedilol (Carvedilol) 6.25 Mg Tablet, 6.25 MG PO BID, (Reported) Entered as Reported by: LUCIO GANT on 12/15/19 1431 Cefdinir (Cefdinir) 300 Mg Capsule, 300 MG PO BID Prescribed by: DARRYL TORRES on 07/21/21 2346 Glimepiride (Glimepiride) 2 Mg Tablet, 2 MG PO 1900, (Reported) Entered as Reported by: NICOLE CHU on 06/05/19 1057 Lisinopril (Lisinopril) 5 Mg Tablet, 5 MG PO DAILY, (Reported) Entered as Reported by: NICOLE CHU on 06/05/19 1057 Magnesium Oxide (Magnesium) 400 Mg Tablet, 400 MG PO HS, (Reported) Entered as Reported by: LUCIO GANT on 04/01/21 155 Metformin HCl (Metformin HCl) 500 Mg Tablet, 1,000 MG PO 1900, (Reported) Entered as Reported by: NICOLE CHU on 06/05/19 1108 [place]-3 Fatty Acids/Fish Oil ([place] 3 1,000 mg Softgel) 1 Each Capsule, 1 EACH PO DAILY, (Reported) Entered as Reported by: LUCIO GANT on 04/01/21 155 Ondansetron (Ondansetron Odt) 4 Mg Tab.rapdis, 4 MG PO Q8H PRN for nausea Prescribed by: DARRYL TORRES on 07/21/21 234 Potassium Chloride (Potassium Chloride) 10 Meq Capsule.er, 10 MEQ PO [place],,TH,SAT, (Reported) Entered as Reported by: LUCIO GANT on 04/01/21 155 Potassium Chloride (Potassium Chloride) 10 Meq Capsule.er, 20 MEQ PO MO,WE,FR, (Reported) Entered as Reported by: LUCIO GANT on 04/01/21 155 Simvastatin (Simvastatin) 10 Mg Tablet, 10 MG PO 1900, (Reported) Entered as Reported by: NICOLE CHU on 06/22/19 1048 Review of Systems Review of Systems Constitutional: see HPI, malaise, weakness EENTM: no symptoms reported Respiratory: cough, dyspnea on exertion, short of breath Cardiovascular: chest pain Gastrointestinal: diarrhea, nausea, vomiting Genitourinary: no symptoms reported Musculoskeletal: back pain, joint pain, muscle pain Skin: no symptoms reported Psychiatric/Neurological: Headache All Other Systems Reviewed Negative Unless Noted: Yes Past Finkekk-Xoitgk-Hkewom Hx Patient Social History Tobacco Use?: No Substance use?: No Alcohol Use?: No Pt feels they are or have been: No Immunizations Up To Date Tetanus Booster (TDap): Less than 5yrs PED Vaccines UTD: Yes First/Initial COVID19 Vaccinat: 07/24/20 Second COVID19 Vaccination Josh: 08/26/20 Third COVID19 Vaccination Date: UNK Seasonal Allergies Seasonal Allergies: No Past Medical History Surgery/Hospitalization HX: PMH: CHF, AFIB, COPD, CARDIOMYOPATHY, CAD, PVD, HYSTERECTOMY, IDDM, OOPHERECTOMY/HYSTERECTOMY, PPM, ORTHOPEDIC Surgeries: Yes (2004 hemorrhoidectomy, breast reduction, right ovary removed) Breast, Cardiac, Coronary Stent, Defibrillator, Eye Surgery, Gallbladder, Hysterectomy, Joint Replacement, Oophorectomy, Orthopedic, Pacemaker, Rectal Respiratory: Yes (Has home O2 and wears infrequent at 3 L/M) COPD Currently Using BIPAP: No Cardiac: Yes (Pacemaker/DEFIB, stents x 2, congestive heart failure) Atrial Fibrillation, Cardiomyopathy, Chronic Edema/Swelling, Coronary Artery Disease, High Cholesterol, Hypertension, Peripheral Vascular Neurological: No 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 Disorders: No Female 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 Disorders: Denies RECORDS TECH History: Hysterectomy, Menopausal Sexually Transmitted Disease: No HIV/AIDS: No Genitourinary: Yes Renal Failure Gastrointestinal: Yes Hemorrhoids Musculoskeletal: Yes Arthritis, Chronic Back Pain Endocrine: Yes (Type II) Diabetes, Non-Insulin dep HEENT: Yes Cataract Loss of Vision: Denies Hearing Impairment: Denies Cancer: No Psychosocial: Yes Depression Integumentary: No Blood Disorders: No Adverse Reaction/Blood Tranf: No Family Medical History Arthritis 19 FATHER 19 MOTHER G8 BROTHER G8 SISTER Asthma 19 FATHER Completed stroke G8 SISTER FH: COPD (chronic obstructive pulmonary disease) G8 SISTER FH: cancer 19 FATHER 19 MOTHER (stomach cancer ) G8 SISTER (LIVER- enio floya- breast cancer) FH: emphysema 19 FATHER G8 SISTER Glaucoma G8 SISTER Headache disorder G8 SISTER No Family History of: AIDS Abdominal aortic aneurysm Alcoholism Alzheimer's disease Cancer of mouth Cardiovascular disease Colon cancer Cystic fibrosis Deafness or hearing loss Dementia Diabetes mellitus Drug abuse Dysphasia Hypercholesterolemia Hypertension Kidney disease Myocardial infarction Parkinson's disease Prostate cancer Psychosocial problem Respiratory disorder Seizure disorder Severe allergy Thyroid disease Tuberculosis Physical Exam Vital Signs Vital Signs - First Documented 07/21/21 22:01 Temp 35.4 Pulse 98 Resp 18 B/P (MAP) 119/90 (100) Pulse Ox 95 O2 Delivery Nasal Cannula O2 Flow Rate 4.00 Capillary Refill : Less Than 3 Seconds Height, Weight, BMI Height: 5'5.00" Weight: 205lbs. 5.0oz. 93.730641lp; 34.00 BMI Method:Stated General Appearance: No Apparent Distress, WD/WN Eyes: Bilateral Eye Normal Inspection, Bilateral Eye PERRL, Bilateral Eye EOMI HEENT: PERRL/EOMI Neck: Normal Inspection Respiratory: Lungs Clear, Normal Breath Sounds, No Accessory Muscle Use, No Respiratory Distress, Other (oxygen sats 97% on 4L) Cardiovascular: Normal Peripheral Pulses, Irregularly Irregular (98bpm) Gastrointestinal: Normal Bowel Sounds, Non Tender, Soft Extremity: Normal Capillary Refill, Normal Inspection, Normal Range of Motion, Non Tender, No Calf Tenderness, Pedal Edema (trace bilateral LE pedal edema) Neurologic/Psychiatric: Alert, Oriented x3, No Motor/Sensory Deficits, Normal Mood/Affect, development director II-XII Norm as Tested Skin: Normal Color, Warm/Dry Procedures/Interventions Suture Size: 5-0 Progress/Results/Core Measures Suspected Sepsis SIRS Temperature: Pulse: 98 Respiratory Rate: 18 Laboratory Tests 07/21/21 22:05: White Blood Count 13.8H Blood Pressure 119 /90 Mean: 100 Laboratory Tests 07/21/21 22:05: Creatinine 1.87H, Platelet Count 239, Total Bilirubin 1.2H Results/Orders Lab Results Laboratory Tests Test 07/21/21 22:05 07/21/21 22:36 Range/Units White Blood Count 13.8 H 4.3-11.0 10^3/uL Red Blood Count 4.59 3.80-5.11 10^6/uL Hemoglobin 14.5 11.5-16.0 g/dL Hematocrit 44 35-52 % Mean Corpuscular Volume 95 80-99 fL Mean Corpuscular Hemoglobin 32 25-34 pg Mean Corpuscular Hemoglobin Concent 33 32-36 g/dL Red Cell Distribution Width 13.0 10.0-14.5 % Platelet Count 239 130-400 10^3/uL Mean Platelet Volume 11.5 9.0-12.2 fL Immature Granulocyte % (Auto) 1 % Neutrophils (%) (Auto) 86 H 42-75 % Lymphocytes (%) (Auto) 7 L 12-44 % Monocytes (%) (Auto) 6 0-12 % Eosinophils (%) (Auto) 0 0-10 % Basophils (%) (Auto) 0 0-10 % Neutrophils # (Auto) 11.8 H 1.8-7.8 10^3/uL Lymphocytes # (Auto) 1.0 1.0-4.0 10^3/uL Monocytes # (Auto) 0.9 0.0-1.0 10^3/uL Eosinophils # (Auto) 0.0 0.0-0.3 10^3/uL Basophils # (Auto) 0.0 0.0-0.1 10^3/uL Immature Granulocyte # (Auto) 0.1 0.0-0.1 10^3/uL Neutrophils % (Manual) 81 % Lymphocytes % (Manual) 7 % Monocytes % (Manual) 12 % Blood Morphology Comment NORMAL Sodium Level 135 135-145 MMOL/L Potassium Level 4.2 3.6-5.0 MMOL/L Chloride Level 99 98-107 MMOL/L Carbon Dioxide Level 21 21-32 MMOL/L Anion Gap 15 H 5-14 MMOL/L Blood Urea Nitrogen 29 H 7-18 MG/DL Creatinine 1.87 H 0.60-1.30 MG/DL Estimat Glomerular Filtration Rate 26 BUN/Creatinine Ratio 16 Glucose Level 331 H 70-105 MG/DL Calcium Level 9.2 8.5-10.1 MG/DL Corrected Calcium 9.3 8.5-10.1 MG/DL Total Bilirubin 1.2 H 0.1-1.0 MG/DL Aspartate Amino Transf (AST/SGOT) 12 5-34 U/L Alanine Aminotransferase (ALT/SGPT) 11 0-55 U/L Alkaline Phosphatase 76 40-136 U/L Troponin I < 0.028 <0.028 NG/ML C-Reactive Protein High Sensitivity 0.53 H 0.00-0.50 MG/DL B-Type Natriuretic Peptide 109.9 H <100.0 PG/ML Total Protein 7.2 6.4-8.2 GM/DL Albumin 3.9 3.2-4.5 GM/DL Procalcitonin 0.05 <0.10 NG/ML Influenza Type A (RT-PCR) Not Detected Not Detecte Influenza Type B (RT-PCR) Not Detected Not Detecte SARS-CoV-2 RNA (RT-PCR) Not Detected Not Detecte My Orders Orders - DARRYL TORRES MD Ed Iv/Invasive Line Start (07/21/21 22:24) Cbc With Automated Diff (07/21/21 22:24) Comprehensive Metabolic Panel (07/21/21 22:24) Procalcitonin (Pct) (07/21/21 22:24) Hs C Reactive Protein (07/21/21 22:24) Troponin I Pedro (07/21/21 22:24) Ekg Tracing (07/21/21 22:24) Chest 1 View, Ap/Pa Only (07/21/21 22:24) Covid 19 Inhouse Test (07/21/21 22:24) Bnp Pedro (07/21/21 22:24) Influenza A And B By Pcr (07/21/21 22:24) Isolation Central Supply Req (07/21/21 22:24) Ondansetron Injection (Zofran Injectio (07/21/21 22:30) Aspirin Chewable Tablet (Baby Aspirin Ch (07/21/21 22:24) Manual Differential (07/21/21 22:05) Cefdinir Capsule (Omnicef Capsule) (07/21/21 23:45) Azithromycin Tablet (Zithromax Tablet) (07/21/21 23:45) Medications Given in ED Current Medications Medications Dose Ordered Sig/Teresa Route Start Time Stop Time Status Last Admin Dose Admin Azithromycin 500 mg ONCE ONCE PO 07/21/21 23:45 07/21/21 23:46 DC 07/21/21 23:53 500 MG Cefdinir 300 mg ONCE ONCE PO 07/21/21 23:45 07/21/21 23:46 DC 07/21/21 23:53 300 MG Ondansetron HCl 4 mg ONCE ONCE IVP 07/21/21 22:30 07/21/21 22:31 DC 07/21/21 22:31 4 MG Vital Signs/I&O 07/21/21 07/21/21 07/21/21 22:01 22:01 23:56 Temp 35.4 36.0 Pulse 98 79 Resp 18 18 B/P (MAP) 119/90 (100) 113/68 Pulse Ox 95 99 O2 Delivery Nasal Cannula Nasal Cannula Nasal Cannula O2 Flow Rate 4.00 4.00 3.00 Capillary Refill : Less Than 3 Seconds Blood Pressure Mean: 100 Progress Note : Time: 23:37 Progress Note She really continues to feel good. No nausea. No persistent cough. Resting comfortably on her 4 L at 99% room air. A. fib on the monitor from the 80s to a bout 105. Blood pressure is good. I talked to her about her A. fib and advised that I saw that she had A. fib back in March when she had a short hospital stay due to respiratory issues. She is not anticoagulated on any medications. I strongly encouraged her to follow-up with Dr. Wiseman tomorrow to discuss this. Her BNP is about 100 which is lower than previous. I suspect more infiltrate rather than pulmonary edema in her lungs. She does have a mildly elevated white blood cell count. Her Covid is negative. Her kidney status is about at its baseline. Pro-Rosales is 0.05. CRP is 0.5. No concerns for sepsis at this time. She has been afebrile here in the department. Clinically looks well. She did not take her Lasix this morning because she "slept in". So she will take it again in the morning. She normally takes it every other day during the week. Says that she was switched to taking it Wednesday and Wednesday this week. She is given good return precautions. She is given her first dose of a ntibiotics here in the emergency department. Plan to send her home on cefdinir and azithromycin. She is comfortable with this plan of care I reiterated follow-up with Dr. Wiseman. All questions are sought and answered. ECG Initial ECG Impression Date: Jul 21, 2021 Initial ECG Impression Time: 22:04 Initial ECG Rate: 82 Initial ECG Rhythm: A Fib/Flutter Initial ECG Impression: Atrial Fibrillation Comment [facility] Diagnostic Imaging Diagonstic Imaging: Xray Plain Films/CT/US/NM/MRI: chest Comments NAME: BRANDEN HERNANDEZ [facility] REC#: [id number] PT STATUS: REG ER : 1935 PHYSICIAN: DARRYL TORRES MD ADMIT DATE: 07/21/21/ER Draft Date of Exam:07/21/21 CHEST 1 VIEW, AP/PA ONLY EXAMINATION: Chest 1 view HISTORY: Chest pain and shortness of breath COMPARISON: 04/01/2021 FINDINGS: Stable enlargement of the cardiac silhouette and prominence of the pulmonary vasculature. Left-sided cardiac device is unchanged. There are mild interstitial opacities within the mid and lower lungs. No pleural effusion or pneumothorax. The osseous structures are intact. IMPRESSION: 1. Cardiomegaly with mild interstitial opacities in the lower lungs which can be seen with pulmonary edema or atypical infection. Dictated on workstation # [id number] Dict: 07/21/[id number] Trans: 07/21/[id number] [facility] [id number] Interpreted by: FAUSTINA PEREZ DO Electronically signed by: Departure Impression Primary Impression: Pneumonia Qualified Codes: J18.9 - Pneumonia, unspecified organism Additional Impressions: Atrial fibrillation Qualified Codes: I48.20 - Chronic atrial fibrillation, unspecified Chronic kidney disease Qualified Codes: N18.9 - Chronic kidney disease, unspecified Chronic congestive heart failure Qualified Codes: I50.32 - Chronic diastolic (congestive) heart failure Disposition: 01 HOME, SELF-CARE Condition: Stable Departure-Patient Inst. Decision time for Depature: 23:43 Referrals: SHANE ANDERSON MD (PCP/Family) Primary Care Physician MANDA WISEMAN MD FACP FACC CCDS Patient Instructions: Pneumonia, Adult (DC), Atrial Fibrillation Add. Discharge Instructions: Take the antibiotics as directed. Azithromycin 500 mg 1 tablet once a day for 2 more days. Cefdinir, 300 mg twice a day for 7 days. Zofran, nausea medication, 4mg every 8 hours as needed for nausea. Continue your daily medications as prescribed, most importantly your Lasix. Take the missed dose from today in the morning. Continue to use your oxygen 4 L as needed. Keep your oxygen saturations greater than 90%. Come back to the emergency room for worsening symptoms of shortness of breath, fever, cough vomiting or diarrhea or any other emergent concerning symptoms. Please call both Dr. Wiseman and Dr. Anderson's offices for a follow-up appointment. Scripts Ondansetron (Ondansetron Odt) 4 Mg Tab.rapdis 4 MG PO Q8H PRN for nausea, #15 TAB Prov: DARRYL TORRES MD 07/21/21 Cefdinir (Cefdinir) 300 Mg Capsule 300 MG PO BID for 7 Days, #13 CAP Prov: DARRYL TORRES MD 07/21/21 Azithromycin (Azithromycin) 250 Mg Tablet 500 MG PO DAILY, #2 TAB 0 Refills Prov: DARRYL TORRES MD 07/21/21 Copy Copies To 1: MANDA WISEMAN MD FACP FAC CCDS Copies To 2: SHANE ANDERSON MD, KATHRYN M MD Jul 21, 2021 22:34
--- NOTE | 2021-07-21 22:48 | Diagnostic Imaging Report ---
EXAMINATION: Chest 1 view HISTORY: Chest pain and shortness of breath COMPARISON: 04/01/2021 FINDINGS: Stable enlargement of the cardiac silhouette and prominence of the pulmonary vasculature. Left-sided cardiac device is unchanged. There are mild interstitial opacities within the mid and lower lungs. No pleural effusion or pneumothorax. The osseous structures are intact. IMPRESSION: 1. Cardiomegaly with mild interstitial opacities in the lower lungs which can be seen with pulmonary edema or atypical infection. Dictated by: Dictated on workstation # [id number]
[2021-07-21 22:55] LABS: BASOPHILS % (AUTO) 0 % (0-10); EOSINOPHILS % (AUTO) 0 % (0-10); HEMATOCRIT 44 % (35-52); HEMOGLOBIN 14.5 g/dL (11.5-16.0); LYMPHOCYTES % (AUTO) 7 % (12-44); MEAN CORPUSCULAR HEMOGLOBIN 32 pg (25-34); MEAN CORPUSCULAR HGB CONC 33 g/dL (32-36); MEAN CORPUSCULAR VOLUME 95 fL (80-99); MEAN PLATELET VOLUME 11.5 fL (9.0-12.2); MONOCYTES # (AUTO) 0.9 10^3/uL (0.0-1.0); MONOCYTES % (AUTO) 6 % (0-12); NEUTROPHILS # (AUTO) 11.8 10^3/uL (1.8-7.8); NEUTROPHILS % (AUTO) 86 % (42-75); PLATELET COUNT 239 10^3/uL (130-400); WHITE BLOOD COUNT 13.8 10^3/uL (4.3-11.0)
[2021-07-21 22:59] LABS: ALBUMIN 3.9 GM/DL (3.2-4.5); CHLORIDE 99 MMOL/L (98-107); POTASSIUM 4.2 MMOL/L (3.6-5.0); SODIUM 135 MMOL/L (135-145)
[2021-07-21 23:00] LABS: CALCIUM 9.2 MG/DL (8.5-10.1)
[2021-07-21 23:01] LABS: GLUCOSE 331 MG/DL (70-105); TOTAL PROTEIN 7.2 GM/DL (6.4-8.2)
[2021-07-21 23:02] LABS: CARBON DIOXIDE 21 MMOL/L (21-32)
[2021-07-21 23:03] LABS: BILIRUBIN,TOTAL 1.2 MG/DL (0.1-1.0)
[2021-07-21 23:05] LABS: ALKALINE PHOSPHATASE 76 U/L (40-136); CREATININE SERUM 1.87 MG/DL (0.60-1.30); GFR ESTIMATED 26
[2021-07-21 23:06] LABS: BUN/CREATININE RATIO 16
[2021-07-21 23:08] LABS: ALANINE AMINOTRANSFERASE 11 U/L (0-55)
[2021-07-21] MEDS ORDERED: AZITHROMYCIN 250 MG TAB (ZITHROMAX) PO ONE (23:45)
[2021-07-21] MEDS ORDERED: CEFDINIR 300 MG (OMNICEF) CAP PO ONE (23:45)
[2021-07-21] MEDS ORDERED: AZIT250T12 PO (23:46)
[2021-07-21] MEDS ORDERED: ONDA4TAB11 PO (23:46)
[2021-07-21] MEDS ORDERED: CEFD300C3 PO (23:46)
[2021-07-21 23:56] VITALS: BP 113/68
[2021-07-21 23:57] LABS: LYMPHOCYTES % (MANUAL) 7 %; MONOCYTES % (MANUAL) 12 %; NEUTROPHILS % (MANUAL) 81 %
[2021-07-21 23:58] LABS: RBC MORPH NORMAL
== END 2021-07-22 01:03 | disposition home or self-care (01) ==
LOC: EDUNIT# 22:01 → ER 22:04
DX: J18.9 Pneumonia, unspecified organism (principal); I48.91 Unspecified atrial fibrillation; I13.0 Hypertensive heart and chronic kidney disease with heart failure and stage 1 through stage 4 chronic kidney disease, or unspecified chronic kidney disease; E11.22 Type 2 diabetes mellitus with diabetic chronic kidney disease; N18.9 Chronic kidney disease, unspecified; I50.9 Heart failure, unspecified; D72.829 Elevated white blood cell count, unspecified; J44.9 Chronic obstructive pulmonary disease, unspecified; I25.10 Atherosclerotic heart disease of native coronary artery without angina pectoris; E78.00 Pure hypercholesterolemia, unspecified; G89.29 Other chronic pain; M54.9 Dorsalgia, unspecified; Z95.5 Presence of coronary angioplasty implant and graft; Z95.810 Presence of automatic (implantable) cardiac defibrillator; Z79.82 Long term (current) use of aspirin; Z79.84 Long term (current) use of oral hypoglycemic drugs; Z99.81 Dependence on supplemental oxygen; Z79.899 Other long term (current) drug therapy; Z20.822 Contact with and (suspected) exposure to COVID-19
CPT/HCPCS: 36415; 71045; 80053; 83880; 84145; 84484; 85007; 85027; 86141; 87636; 93005

== ENCOUNTER 2022-05-11 21:46 | Inpatient (IN) | payer MEDICARE ==
[~2022-05-11] VITALS: Ht 165 cm; Wt 98.4 kg
[~2022-05-11 21:46] MED LIST changes: +AZIT250T12 PO; +CEFD300C3 PO; +ONDA4TAB11 PO; +POTA-177 PO; -POTA10TA37 PO
[2022-05-11] MEDS ORDERED: NITROGLYCERIN 0.4 MG SL TABS BTL 25'S SL PRN (22:00)
[2022-05-11] MEDS ORDERED: ASPIRIN 81 MG CHEW (CHILDREN'S ASA) PO ONE (22:00)
--- NOTE | 2022-05-11 22:04 | ED Chest Pain ---
General Chief Complaint: Chest Pain Stated Complaint: CHEST PAIN Nursing Triage Note: PT ARRIVAL TO ER [facility]IA [facility] FROM HOME WITH COMPLAINT OF CHEST PAIN/SOA SINCE YESTERDAY. PATIENT STATES THAT IT STARTED LAST NIGHT AROUND 2229. PAIN WAS COMING AND GOING LAST NIGHT AND THIS MORNING, BUT STATES THAT NOW PAIN HAS BEEN PRESENT SINCE EARLY EVENING. PAIN IS A CRUSHING LIKE PAIN THAT GOES THROUGH TO NECK AND BACK. PATIENT HAS PACEMAKER AND DEFIBRILLATOR. PATIENT IS ALSO NAUSEATED. PATIENT TAKES BABY ASA AND ELIQUIS. Source: patient (SOMEWHAT LIMITED HISTORIAN) History of Present Illness Date Seen by Provider: May 11, 2022 Time Seen by Provider: 21:53 Initial Comments PT ARRIVES VIA EMS FROM HOME PT C/O CHEST PAIN SINCE LAST PM AROUND 2229 SHE HAS ALSO BEEN SHORT OF BREATH SINCE THEN PAIN WOULD COME AND GO LAST NIGHT, BUT HAS BEEN CONSTANT ALL EVENING PAIN IS IN CENTER OF CHEST AND GOES THROUGH TO HER BACK AND INTO HER NECK DESCRIBES IT A "CRUSHING" PAIN, AND RATES IT 5/10 + NAUSEA, NO VOMITING NO SWEATS NO DIZZINESS OR SYNCOPE HAS HAD SOME SWELLING IN RIGHT LEG FOR 1-2 WEEKS. NO DIFFERENT TODAY NO COUGH OR RECENT ILLNESS PT WEARS O2 " NEEDED" , AND HAS BEEN USING IT CONSTANTLY SINCE LAST PM--NORM KAYLAY WEARS 3 LITERS PT HAS A PACEMAKER + DEFIBRILLATOR IN PLACE, AND HAS HAD CARDIAC STENTS X 2, AND IS ON ELIQUIS FOR ATRIAL FIBRILLATION, IN ADDITION TO ASPIRIN. SHE IS ALSO DIABETIC, BUT DOES NOT CHECK BLOOD SUGARS SHE STATES "I BEEN REAL BAD THE LAST MONTH OR TWO ABOUT TAKING MY MEDICINES" --HAS NOT BEEN TAKING ANY OF HER MEDICATIONS --GIVES NO REASON WHY, STATES "I JUST DIDN'T TAKE THEM" PT LIVES AT HOME, AND HAS ROUND THE CLOCK CARETAKERS THAT STAY WITH HER 24 HOURS A DAY, EVERY DAY. SHE REFUSED EKG, NTG OR ASPIRIN BY EMS. SHE AGREES TO ALL OF THESE HERE ON ARRIVAL. PT HAS HAD COVID VACCINE X 2--OVER A YEAR AGO. NO FLU VACCINE THIS SEASON PCP: DR. LOZANO IRON CASTER: DR. CHAVEZ HAS SEEN EITHER OF THEM RECENTLY Allergies and Home Medications Allergies Coded Allergies: No Known Drug Allergies (Unverified , 07/03/18) Patient Home Medication List Home Medication List Reviewed: Yes Acetaminophen (Tylenol) 325 Mg Tablet, 650 MG PO Q4H PRN for PAIN-MILD, (Reported) Entered as Reported by: NICOLE CHU on 06/08/17 1133 Aspirin (Aspirin EC) 81 Mg Tablet.dr, 81 MG PO DAILY, (Reported) Entered as Reported by: NICOLE CHU on 06/08/17 1127 Azithromycin (Azithromycin) 250 Mg Tablet, 500 MG PO DAILY Prescribed by: DARRYL TORRES on 07/21/21 2346 Bumetanide (Bumetanide) 2 Mg Tablet, 2 MG PO MO,WE,FR, (Reported) Entered as Reported by: LUCIO GANT on 04/01/21 1555 Carvedilol (Carvedilol) 6.25 Mg Tablet, 6.25 MG PO BID, (Reported) Entered as Reported by: LUCIO GANT on 12/15/19 1431 Cefdinir (Cefdinir) 300 Mg Capsule, 300 MG PO BID Prescribed by: DARRYL TORRES on 07/21/21 2346 Glimepiride (Glimepiride) 2 Mg Tablet, 2 MG PO 1900, (Reported) Entered as Reported by: NICOLE CHU on 06/05/19 1057 Lisinopril (Lisinopril) 5 Mg Tablet, 5 MG PO DAILY, (Reported) Entered as Reported by: NICOLE CHU on 06/05/19 1057 Magnesium Oxide (Magnesium) 400 Mg Tablet, 400 MG PO HS, (Reported) Entered as Reported by: LUCIO GANT on 04/01/21 1558 Metformin HCl (Metformin HCl) 500 Mg Tablet, 1,000 MG PO 1900, (Reported) Entered as Reported by: NICOLE CHU on 06/05/19 1108 Ellijay-3 Fatty Acids/Fish Oil (Ellijay 3 1,000 mg Softgel) 1 Each Capsule, 1 EACH PO DAILY, (Reported) Entered as Reported by: LUCIO GANT on 04/01/21 155 Ondansetron (Ondansetron Odt) 4 Mg Tab.rapdis, 4 MG PO Q8H PRN for nausea Prescribed by: DARRYL TORRES on 07/21/21 2346 Potassium Chloride (Potassium Chloride) 10 Meq Capsule.er, 10 MEQ PO PEACE,TU,TH,SAT, (Reported) Entered as Reported by: LUCIO GANT on 04/01/21 155 Potassium Chloride (Potassium Chloride) 10 Meq Capsule.er, 20 MEQ PO MO,WE,FR, (Reported) Entered as Reported by: LUCIO GANT on 04/01/21 155 Simvastatin (Simvastatin) 10 Mg Tablet, 10 MG PO 1900, (Reported) Entered as Reported by: NICOLE CHU on 06/22/19 1048 Review of Systems Review of Systems Constitutional: no symptoms reported EENTM: No Symptoms Reported Respiratory: See HPI; Denies Cough; Shortness of Air Cardiovascular: See HPI, Chest Pain Gastrointestinal: See HPI; Denies Abdominal Pain; Nausea; Denies Vomiting Genitourinary: No Symptoms Reported Musculoskeletal: see HPI Skin: no symptoms reported Psychiatric/Neurological: No Symptoms Reported Endocrine: No Symptoms Reported Hematologic/Lymphatic: No Symptoms Reported Past Kulefop-Cmrgbt-Yjftom Hx Patient Social History Tobacco Use?: No Use of E-Cig and/or Vaping dev: No Substance use?: No Alcohol Use?: No Pt feels they are or have been: No Immunizations Up To Date Tetanus Booster (TDap): Less than 5yrs PED Vaccines UTD: Yes Influenza Vaccine Up-to-Date: Yes; Up-to-Date First/Initial COVID19 Vaccinat: 07/24/20 Second COVID19 Vaccination Josh: 08/26/20 Third COVID19 Vaccination Date: COVID19 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: [employer] Seasonal Allergies Seasonal Allergies: No Past Medical History Surgery/Hospitalization HX: PMH: CHF, AFIB, COPD, CARDIOMYOPATHY, CAD, PVD, HYSTERECTOMY, IDDM, OOPHORECTOMY/HYSTERECTOMY, PACEMAKER/DEFIBRILLATOR, ORTHOPEDIC Surgeries: Yes (2004 hemorrhoidectomy, breast reduction, right ovary removed) Breast, Cardiac, Coronary Stent, Defibrillator, Eye Surgery, Gallbladder, Hysterectomy, Joint Replacement, Oophorectomy, Orthopedic, Pacemaker, Rectal Respiratory: Yes (Has home O2 and wears infrequent at 3 L/M) COPD Currently Using BIPAP: No Cardiac: Yes (Pacemaker/DEFIB, stents x 2, congestive heart failure) Atrial Fibrillation, Cardiomyopathy, Chronic Edema/Swelling, Coronary Artery Disease, High Cholesterol, Hypertension, Peripheral Vascular Neurological: No 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 Disorders: No Female 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 Disorders: Denies 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, 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 Sexually Transmitted Disease: No HIV/AIDS: No Genitourinary: Yes Renal Failure Gastrointestinal: Yes Hemorrhoids Musculoskeletal: Yes Arthritis, Chronic Back Pain Endocrine: Yes (Type II) Diabetes, Non-Insulin dep HEENT: Yes Cataract Loss of Vision: Denies Hearing Impairment: Denies Cancer: No Psychosocial: Yes Anxiety, Depression Integumentary: No Blood Disorders: No Adverse Reaction/Blood Tranf: No Family Medical History Arthritis 19 FATHER 19 MOTHER G8 BROTHER G8 SISTER Asthma 19 FATHER Completed stroke G8 SISTER FH: COPD (chronic obstructive pulmonary disease) G8 SISTER FH: cancer 19 FATHER 19 MOTHER (stomach cancer ) G8 SISTER (LIVER- enio floya- breast cancer) FH: emphysema 19 FATHER G8 SISTER Glaucoma G8 SISTER Headache disorder G8 SISTER No Family History of: AIDS Abdominal aortic aneurysm Alcoholism Alzheimer's disease Cancer of mouth Cardiovascular disease Colon cancer Cystic fibrosis Deafness or hearing loss Dementia Diabetes mellitus Drug abuse Dysphasia Hypercholesterolemia Hypertension Kidney disease Myocardial infarction Parkinson's disease Prostate cancer Psychosocial problem Respiratory disorder Seizure disorder Severe allergy Thyroid disease Tuberculosis Physical Exam Vital Signs Vital Signs - First Documented 05/11/22 05/11/22 21:48 22:05 Temp 36.7 Pulse 88 Resp 24 B/P (MAP) 118/69 (85) Pulse Ox 97 O2 Delivery Nasal Cannula O2 Flow Rate 2.00 Capillary Refill : Less Than 3 Seconds Height, Weight, BMI Height: 5'5.00" Weight: 205lbs. 5.0oz. 93.585138uj; 34.00 BMI Method:Stated General Appearance: No Apparent Distress, WD/WN, Obese, Other (DOES NOT APPEAR ILL OR TO BE IN ANY DISCOMFORT OR DISTRESS. ) Neck: Normal Inspection, Supple; No JVD Respiratory: Chest Non Tender, Normal Breath Sounds, No Accessory Muscle Use, No Respiratory Distress Cardiovascular: No JVD, No Murmur, Normal Peripheral Pulses, Irregularly Irregular Gastrointestinal: Non Tender, Soft Extremity: Normal Capillary Refill, Normal Range of Motion, Pedal Edema (TRACE EDEMA ON LEFT, 1+ EDEMA ON RIGHT. DIFFUSE TENDERNESS TO BILATERAL LOWER LEGS. 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 Norm as Tested Skin: Normal Color, Warm/Dry; No Rash Focused Exam Sepsis Stage: Sepsis Possible Source: Pulmonary Lactate Level 05/11/22 23:10: Lactic Acid Level 1.35 Time of Focused Exam: 00:10 Respiratory: Normal Breath Sounds, No Accessory Muscle Use, No Respiratory Distress Cardiovascular: No JVD, Irregularly Irregular Capillary Refill: Less Than 3 Seconds Skin: normal color, warm/dry Lactic Acid Level Laboratory Tests Test 05/11/22 23:10 Lactic Acid Level 1.35 MMOL/L (0.50-2.00) Within 3hrs of presentation: Admin fluids, Admin ABX, Blood cultures prior to ABX's, Focus exam, Lactate level Procedures/Interventions Suture Size: 5-0 Progress/Results/Core Measures Results/Orders Lab Results Laboratory Tests Test 05/11/22 22:05 05/11/22 22:48 05/11/22 22:51 05/11/22 23:10 Range/Units White Blood Count 17.1 H 4.3-11.0 10^3/uL Red Blood Count 4.39 3.80-5.11 10^6/uL Hemoglobin 14.0 11.5-16.0 g/dL Hematocrit 43 35-52 % Mean Corpuscular Volume 98 80-99 fL Mean Corpuscular Hemoglobin 32 25-34 pg Mean Corpuscular Hemoglobin Concent 33 32-36 g/dL Red Cell Distribution Width 13.5 10.0-14.5 % Platelet Count 228 130-400 10^3/uL Mean Platelet Volume 10.7 9.0-12.2 fL Immature Granulocyte % (Auto) 1 % Neutrophils (%) (Auto) 86 H 42-75 % Lymphocytes (%) (Auto) 6 L 12-44 % Monocytes (%) (Auto) 7 0-12 % Eosinophils (%) (Auto) 0 0-10 % Basophils (%) (Auto) 0 0-10 % Neutrophils # (Auto) 14.7 H 1.8-7.8 10^3/uL Lymphocytes # (Auto) 1.0 1.0-4.0 10^3/uL Monocytes # (Auto) 1.2 H 0.0-1.0 10^3/uL Eosinophils # (Auto) 0.1 0.0-0.3 10^3/uL Basophils # (Auto) 0.0 0.0-0.1 10^3/uL Immature Granulocyte # (Auto) 0.1 0.0-0.1 10^3/uL Neutrophils % (Manual) 85 % Lymphocytes % (Manual) 6 % Monocytes % (Manual) 9 % Blood Morphology Comment NORMAL Prothrombin Time 14.0 12.2-14.7 SEC INR Comment 1.0 0.8-1.4 Activated Partial Thromboplast Time 25 24-35 SEC D-Dimer 3.57 H 0.00-0.49 UG/ML Sodium Level 141 135-145 MMOL/L Potassium Level 3.5 L 3.6-5.0 MMOL/L Chloride Level 104 98-107 MMOL/L Carbon Dioxide Level 22 21-32 MMOL/L Anion Gap 15 H 5-14 MMOL/L Blood Urea Nitrogen 44 H 7-18 MG/DL Creatinine 1.80 H 0.60-1.30 MG/DL Estimat Glomerular Filtration Rate 27 BUN/Creatinine Ratio 24 Glucose Level 200 H 70-105 MG/DL Calcium Level 8.7 8.5-10.1 MG/DL Corrected Calcium 8.9 8.5-10.1 MG/DL Magnesium Level 1.7 1.6-2.4 MG/DL Total Bilirubin 1.1 H 0.1-1.0 MG/DL Aspartate Amino Transf (AST/SGOT) 14 5-34 U/L Alanine Aminotransferase (ALT/SGPT) 14 0-55 U/L Alkaline Phosphatase 62 40-136 U/L Total Creatine Kinase 43 29-168 U/L Creatine Kinase MB 1.6 <6.6 NG/ML Myoglobin 91.4 10.0-92.0 NG/ML Troponin I 0.030 H <0.028 NG/ML B-Type Natriuretic Peptide 82.2 <100.0 PG/ML Total Protein 6.7 6.4-8.2 GM/DL Albumin 3.7 3.2-4.5 GM/DL Amylase Level 17 L 25-125 U/L Lipase 27 8-78 U/L Procalcitonin 0.06 <0.10 NG/ML Influenza Type A (RT-PCR) Not Detected Not Detecte Influenza Type B (RT-PCR) Not Detected Not Detecte SARS-CoV-2 RNA (RT-PCR) Not Detected Not Detecte Blood Gas Puncture Site LEFT RADIAL Blood Gas Patient Temperature 37.0 Arterial Blood pH 7.30 *L 7.37-7.43 Arterial Blood Partial Pressure CO2 60 H 35-45 MMHG Arterial Blood Partial Pressure O2 30 *L 79-93 MMHG Arterial Blood HCO3 29 H 23-27 MMOL/L Arterial Blood Total CO2 30.7 21.0-31.0 MMOL/L Arterial Blood Oxygen Saturation 43 L 94-100 % Arterial Blood Base Excess 2.9 H -2.5-2.5 MMOL/L Pratik Test YES-POS Blood Gas Ventilator Setting NO Blood Gas Inspired Oxygen 6L Lactic Acid Level 1.35 0.50-2.00 MMOL/L Test 05/11/22 23:58 05/12/22 00:20 Range/Units Blood Gas Puncture Site LEFT RADIAL Blood Gas Patient Temperature 36.7 Arterial Blood pH 7.31 *L 7.37-7.43 Arterial Blood Partial Pressure CO2 49 H 35-45 MMHG Arterial Blood Partial Pressure O2 52 L 79-93 MMHG Arterial Blood HCO3 24 23-27 MMOL/L Arterial Blood Total CO2 25.1 21.0-31.0 MMOL/L Arterial Blood Oxygen Saturation 83 L 94-100 % Arterial Blood Base Excess -1.9 -2.5-2.5 MMOL/L Pratik Test YES-POS Blood Gas Ventilator Setting NO Blood Gas Inspired Oxygen 6L Urine Color YELLOW Urine Clarity CLEAR Urine pH 5.0 5-9 Urine Specific [place] 1.015 L 1.016-1.022 Urine Protein NEGATIVE NEGATIVE Urine Glucose (UA) 3+ H NEGATIVE Urine Ketones NEGATIVE NEGATIVE Urine Nitrite NEGATIVE NEGATIVE Urine Bilirubin NEGATIVE NEGATIVE Urine Urobilinogen 0.2 < = 1.0 MG/DL Urine Leukocyte Esterase NEGATIVE NEGATIVE Urine RBC (Auto) NEGATIVE NEGATIVE Urine RBC NONE /HPF Urine WBC 2-5 /HPF Urine Squamous Epithelial Cells 5-10 /HPF Urine Crystals NONE /LPF Urine Bacteria NEGATIVE /HPF Urine Casts PRESENT /LPF Urine Hyaline Casts 25-50 H /LPF Urine Mucus SMALL H /LPF Urine Culture Indicated CULTURE PENDING My Orders Orders - JEAN PIERRE GRACIA DO Cbc With Automated Diff (05/11/22 21:53) Magnesium (05/11/22 21:53) Chest 1 View, Ap/Pa Only (05/11/22 21:53) Ekg Tracing (05/11/22 21:53) Comprehensive Metabolic Panel (05/11/22 21:53) Myoglobin Serum (05/11/22 21:53) Protime With Inr (05/11/22 21:53) Partial Thromboplastin Time (05/11/22 21:53) O2 (05/11/22 21:53) Monitor-Rhythm Ecg Trace Only (05/11/22 21:53) Ed Iv/Invasive Line Start (05/11/22 21:53) Creatine Kinase (05/11/22 21:53) Creatine Kinase Mb (05/11/22 21:53) Lipase (05/11/22 21:53) Amylase (05/11/22 21:53) Bnp Dent (05/11/22 21:53) Fibrin Degradation Products (05/11/22 21:53) Troponin I Pedro (05/11/22 21:53) Nitroglycerin 0.4 Mg Btl 25's (Nitrostat (05/11/22 22:00) Aspirin Chewable Tablet (Baby Aspirin Ch (05/11/22 22:00) Ondansetron Injection (Zofran Injectio (05/11/22 22:15) Manual Differential (05/11/22 22:05) Arterial Blood Gas (05/11/22 22:41) Blood Culture (05/11/22 22:43) Sputum Culture (05/11/22 22:43) Urinalysis (05/11/22 22:43) Urine Culture (05/11/22 22:43) Ed Iv/Invasive Line Start (05/11/22 22:43) Vital Signs Adult Sepsis Patie Q15M (05/11/22 22:43) O2 (05/11/22 22:43) Remove Rings In Anticipation O (05/11/22 22:43) Lactic Acid Analyzer (05/11/22 22:43) Ceftriaxone 1 Gm Pre-Mix (Rocephin 1 Gm (05/11/22 22:45) Azithromycin Injection (Zithromax Inject (05/11/22 22:45) Ed Iv/Invasive Line Start (05/11/22 22:43) Procalcitonin (Pct) (05/11/22 22:43) Ed Iv/Invasive Line Start (05/11/22 22:43) Ns Iv 1000 Ml (Sodium Chloride 0.9%) (05/11/22 22:45) Covid 19 Inhouse Test (05/11/22 22:43) Influenza A And B By Pcr (05/11/22 22:43) Isolation Central Supply Req (05/11/22 22:43) Enoxaparin Injection (Lovenox Injection) (05/11/22 22:45) Arterial Blood Gas (05/12/22 00:00) Medications Given in ED Current Medications Medications Dose Ordered Sig/Teresa Route Start Time Stop Time Status Last Admin Dose Admin Aspirin 324 mg ONCE ONCE PO 05/11/22 22:00 05/11/22 22:01 DC 05/11/22 22:01 324 MG Azithromycin 500 mg/Sodium Chloride 255 ml @ 250 mls/hr ONCE ONCE IV 05/11/22 22:45 05/11/22 23:46 DC 05/11/22 23:09 250 MLS/HR Ceftriaxone Sodium/Dextrose 50 ml @ 100 mls/hr ONCE ONCE IV 05/11/22 22:45 05/11/22 23:14 DC 05/11/22 23:07 100 MLS/HR Enoxaparin Sodium 100 mg ONCE ONCE SC 05/11/22 22:45 05/11/22 22:47 DC 05/11/22 23:10 100 MG Nitroglycerin 0.4 mg UD PRN SL 05/11/22 22:00 05/11/22 22:03 0.4 MG Ondansetron HCl 4 mg ONCE ONCE IV 05/11/22 22:15 05/11/22 22:16 DC 05/11/22 22:43 4 MG Vital Signs/I&O 05/11/22 05/11/22 05/11/22 21:48 22:05 22:10 Temp 36.7 Pulse 88 Resp 24 B/P (MAP) 118/69 (85) Pulse Ox 97 90 92 O2 Delivery Nasal Cannula Nasal Cannula OxyMask O2 Flow Rate 2.00 6.00 05/12/22 00:00 Intake Total 1050 ml Balance 1050 ml Blood Pressure Mean: 85 Progress Progress Note : Progress Note GIVEN: -O2 AT 4L/NC -ASPIRIN -NTG SL X 1--FURTHER HELD DUE TO DROP IN BP -ZOFRAN -IV FLUIDS -ANTIBIOTICS -LOVENOX SEPSIS PROTOCOL AND COVID TESTING INITIATED ON RECEIVING WBC RESULTS AND CXR FINDINGS O2 SATS DROP TO THE 80'S ON O2 AT 4L/NC WHEN SHE IS DOZING OFF, AND ALSO DROP WHEN THE O2 IS DECREASED TO 2 AND 3 LITERS. PLACED ON OXIMASK AT 6L AND O2 SATS UP TO MID 90'S. ON RECEIVING ABG RESULTS, PT WAS THEN PLACED ON BIPAP. COMPLEX ISSUES INCLUDING CHEST PAIN WITH HX OF CAD WITH STENTS, PACEMAKER/DEFIBRILLATOR, CHF, ATRIAL FIBRILLATION IN A PT THAT HAS NOT BEEN TAKING HER MEDICATIONS FOR AT LEAST A MONTH. SHE ALSO HAS FINDINGS OF SEPSIS, WITH ELEVATED WBC AND BIBASILAR INFILTRATES NOTED ON CXR, WITH HYPOXIA AND NEED FOR BIPAP. HER BLOOD PRESSURES HAVE BEEN IN THE 90'S TO LOW 100'S, BUT NO TACHYCARDIA.FLUIDS GIVEN ADDITIONALLY SHE IS DIABETIC, WITH CHRONIC RENAL INSUFFICIENCY HER D-DIMER IS ELEVATED, AND ARE UNABLE TO DO CT CHEST ANGIOGRAM DUE TO LOW GFR, SO WILL PROPHYLACTICALLY TREAT WITH LOVENOX TONIGHT, OBTAIN V/Q SCAN IN THE MORNING, ALONG WITH VENOUS DOPPLERS OF LEGS. Initial ECG Impression Date: May 11, 2022 Initial ECG Impression Time: 22:05 Initial ECG Rate: 86 Initial ECG Rhythm: A Fib/Flutter (LBBB AND PVC'S) Diagnostic Imaging Comments CXR--BIBASILAR INFILTRATES, PENDING RADIOLOGIST REVIEW Reviewed: Reviewed by [place] Departure Communication (Admissions) 003--SPOKE WITH DR. RANGEL, HOSPITALIST, ACCEPTS PT FOR ADMIT 33--REPORT TO E-ICU PHYSICIAN. Impression Primary Impression: Chest pain Additional Impressions: BIBASILAR PNEUMONIA Acute on chronic respiratory failure with hypoxia Chronic atrial fibrillation Non-compliance NIDDM POORLY CONTROLLED CHF (congestive heart failure) Pain and swelling of right lower leg HX OF CAD WITH STENTS Sepsis Chronic renal insufficiency Disposition: ADMITTED INPATIENT Condition: Stable Admissions Decision to Admit Reason: Admit from ER (General) Decision to Admit/Date: May 12, 2022 Time/Decision to Admit Time: 00:30 Departure-Patient Inst. Referrals: SHANE LOZANO MD (PCP/Family) Primary Care Physician JEAN PIERRE GRACIA DO May 11, 2022 22:04
[2022-05-11] MEDS ORDERED: ONDANSETRON 4 MG/2 ML (SDV) Z0FRAN IV ONE (22:15)
[2022-05-11 22:17] LABS: BASOPHILS % (AUTO) 0 % (0-10); EOSINOPHILS # (AUTO) 0.1 10^3/uL (0.0-0.3); EOSINOPHILS % (AUTO) 0 % (0-10); HEMATOCRIT 43 % (35-52); LYMPHOCYTES % (AUTO) 6 % (12-44); MEAN CORPUSCULAR HEMOGLOBIN 32 pg (25-34); MEAN CORPUSCULAR HGB CONC 33 g/dL (32-36); MEAN CORPUSCULAR VOLUME 98 fL (80-99); MEAN PLATELET VOLUME 10.7 fL (9.0-12.2); MONOCYTES # (AUTO) 1.2 10^3/uL (0.0-1.0); MONOCYTES % (AUTO) 7 % (0-12); NEUTROPHILS # (AUTO) 14.7 10^3/uL (1.8-7.8); NEUTROPHILS % (AUTO) 86 % (42-75); PLATELET COUNT 228 10^3/uL (130-400); WHITE BLOOD COUNT 17.1 10^3/uL (4.3-11.0)
[2022-05-11 22:27] LABS: ALBUMIN 3.7 GM/DL (3.2-4.5); POTASSIUM 3.5 MMOL/L (3.6-5.0)
[2022-05-11 22:28] LABS: CALCIUM 8.7 MG/DL (8.5-10.1)
[2022-05-11 22:30] LABS: TOTAL PROTEIN 6.7 GM/DL (6.4-8.2)
[2022-05-11 22:31] LABS: BILIRUBIN,TOTAL 1.1 MG/DL (0.1-1.0)
[2022-05-11 22:33] LABS: CREATININE SERUM 1.8 MG/DL (0.60-1.30)
[2022-05-11 22:36] LABS: MAGNESIUM 1.7 MG/DL (1.6-2.4)
[2022-05-11 22:41] LABS: LYMPHOCYTES % (MANUAL) 6 %; MONOCYTES % (MANUAL) 9 %; NEUTROPHILS % (MANUAL) 85 %; RBC MORPH NORMAL
[2022-05-11 22:44] LABS: CREATINE KINASE MB 1.6 NG/ML (<6.6)
[2022-05-11] MEDS ORDERED: cefTRIAXone 1 GM PRE-MIX 50 ML IV ONE (22:45)
[2022-05-11] MEDS ORDERED: ENOXAPARIN 100 MG/1 ML (LOVENOX) SYR SC ONE (22:45)
[2022-05-11] MEDS ORDERED: AZITHROMYCIN INJECTION 500 MG in NS (IVPB) 250 ML IV ONE (22:45)
[2022-05-11] MEDS ORDERED: NS IV 1000 ML 1,000 ML IV SCH (22:45)
[2022-05-11 22:57] LABS: ABG BASE EXCESS 2.9 MMOL/L (-2.5-2.5); ABG OXYGEN SATURATION 43 % (94-100); ABG PCO2 60 MMHG (35-45); ABG TCO2 30.7 MMOL/L (21.0-31.0)
[2022-05-11 22:59] LABS: ABG PO2 30 MMHG (79-93); ALLENS TEST YES-POS
[2022-05-11 23:00] LABS: INSPIRED O2 6L; VENTILATOR NO
[2022-05-12 00:07] LABS: ABG BASE EXCESS -1.9 MMOL/L (-2.5-2.5); ABG OXYGEN SATURATION 83 % (94-100); ABG PCO2 49 MMHG (35-45); ABG PO2 52 MMHG (79-93); ABG TCO2 25.1 MMOL/L (21.0-31.0)
[2022-05-12 00:08] LABS: ABG PH 7.31 (7.37-7.43); ALLENS TEST YES-POS
[2022-05-12 00:09] LABS: INSPIRED O2 6L; PATIENT TEMP 36.7; VENTILATOR NO
[2022-05-12 00:25] LABS: BILIRUBIN,URINE NEGATIVE (NEGATIVE); CLARITY,URINE CLEAR; COLOR,URINE YELLOW; GLUCOSE, URINE (UA) 3+ (NEGATIVE); KETONES,URINE NEGATIVE (NEGATIVE); LEUKOCYTE ESTERASE ,URINE NEGATIVE (NEGATIVE); NITRITE,URINE NEGATIVE (NEGATIVE); PROTEIN,URINE NEGATIVE (NEGATIVE)
[2022-05-12 00:36] LABS: BACTERIA,URINE NEGATIVE /HPF
[2022-05-12 00:37] LABS: HYALINE CASTS, URINE 25-50 /LPF
[2022-05-12] MEDS ORDERED: NS IV 1000 ML 1,000 ML IV SCH (00:45)
[2022-05-12 00:48] VITALS: BP_DIAS 89
[2022-05-12] MEDS ORDERED: RT-ALBUTEROL/IPRATROPIUM 3 ML (DUONEB) VIAL INH PRN (01:30)
--- NOTE | 2022-05-12 01:38 | Tele-ICU Progress Note ---
Subjective Date Seen by a Provider: May 12, 2022 Subjective/Events-last exam This virtual visit was conducted using real time audio/video. Thank you for asking us to see this patient for 5/10 chest pain and dyspnea. BP dropped w NTG. Treated in ER for CAD, sepsis and thromboembolic disease empirically. PMH:CAD/stents/PM/AICD, chronic afib, CHF exacerbations, DM2, HTN., HL. On home O2, unclear why. Poorly compliant, not taking her meds. SH: Pt says she never smoked. PE: Obese. VSS. O2 sat 94-96% on 6 LPM NC. HEENT: No obvious masses, adenopathy or JVD. Chest: clear to auscultation. CV: RRR S1 S2 No murmur or added sounds. Abd: Non-tender. Bowel sounds Y. : Unremarkable. 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 No obvious focal findings. Extremities: Tr edema. Capillary refill < 3 seconds. Skin: unremarkable. Results: Elevated WCC 17.1, BUN 44, Creat 1.8, D-Dimer 3.57, BG 200. AB.36/49/52 on 6 LPM. CXR: Hyperinflated, bibasal infilts . Available chart/ vitals / labs / images reviewed. Video assessment done using teleICU camera, rest of exam as per RN. A/P: Respiratory Failure: Continue present management with O2. Will add PRN duonebs. Monitor for increasing oxygenation needs and/or need for intubatio n/NIV. Critical Care: critically ill patient. Cont. abx, lovenox, ASA. To undergo V/Q scanning and Duplex leg vein US later this AM. Discussed with NATO Rajan and ER MD Dr. Maynard. Asked RN to reach out to eICU if any questions or concerns later. Time spent with patient/coordination of care with other health professionals (mins): 33 Sepsis Event Evaluation Height, Weight, BMI Height: 5'5.00" Weight: 205lbs. 5.0oz. 93.060950wd; 34.00 BMI Method:Stated Focused Exam Lactate Level 05/11/22 23:10: Lactic Acid Level 1.35 Lactic Acid Level Laboratory Tests Test 05/11/22 23:10 Lactic Acid Level 1.35 MMOL/L (0.50-2.00) Exam Exam Patient acknowledged, consented, and participated in this virtual visit which was conducted using real time audio/video Vital Signs Date Time Temp Pulse Resp B/P (MAP) Pulse Ox O2 Delivery O2 Flow Rate FiO2 05/12/22 00:48 93 100 6.00 50.00 05/11/22 22:10 92 OxyMask 6.00 05/11/22 22:05 90 Nasal Cannula 2.00 05/11/22 21:48 36.7 88 24 118/69 (85) 97 Nasal Cannula I & O 05/12/22 07:00 Intake Total 1050 ml Balance 1050 ml Height & Weight Height: 5'5.00" Weight: 205lbs. 5.0oz. 93.607978dg; 34.00 BMI Method:Stated General Appearance: No Apparent Distress, WD/WN, Other (DOES NOT APPEAR ILL OR TO BE IN ANY DISCOMFORT OR DISTRESS. ) Neck: Normal Inspection, Supple; No JVD Respiratory: Chest Non Tender, Normal Breath Sounds, No Accessory Muscle Use, No Respiratory Distress Cardiovascular: No JVD, No Murmur, Normal Peripheral Pulses, Irregularly Irregular Capillary Refill: Less Than 3 Seconds Extremity: Normal Capillary Refill, Normal Range of Motion, Pedal Edema (TRACE EDEMA ON LEFT, 1+ EDEMA ON RIGHT. DIFFUSE TENDERNESS TO BILATERAL LOWER LEGS. 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 Critical Care: Critically Ill Patient WAGNER TOMLINSON MD May 12, 2022 01:38
[2022-05-12 01:42] VITALS: BP 118/69
[2022-05-12] MEDS ORDERED: EPINEPHrine 1 MG INJECTION 4 MG in NS (IVPB) 248 ML IV SCH (03:15)
[2022-05-12] MEDS ORDERED: morphine INJ 4 MG/ML 1 ML (VIAL/SYRINGE) IV PRN (03:15)
[2022-05-12] MEDS ORDERED: NS IV 500 ML 500 ML IV PRN (03:15)
[2022-05-12] MEDS ORDERED: ONDANSETRON 4 MG/2 ML (SDV) Z0FRAN IV PRN (03:15)
[2022-05-12] MEDS: NOREPINEPHRINE 8 MG/250 ML 250 ML IV SCH ×2 (05:16→14:29)
[2022-05-12] MEDS: VASOPRESSIN INJECTION 20 UNIT in NS (IVPB) 100 ML IV SCH ×2 (05:16→14:28)
[2022-05-12] MEDS: NS IV 1000 ML 1,000 ML IV SCH ×3 (06:01→12:11)
[2022-05-12] MEDS: inSUlin ASPART (NovoLOG) 1 UNIT/0.01 ML (CHARGE PER UNIT) SC SCH ×4 (06:07→21:00)
[2022-05-12 06:12] LABS: BASOPHILS % (AUTO) 0 % (0-10); EOSINOPHILS # (AUTO) 0.1 10^3/uL (0.0-0.3); EOSINOPHILS % (AUTO) 1 % (0-10); HEMATOCRIT 40 % (35-52); LYMPHOCYTES # (AUTO) 1.3 10^3/uL (1.0-4.0); LYMPHOCYTES % (AUTO) 10 % (12-44); MEAN CORPUSCULAR HEMOGLOBIN 32 pg (25-34); MEAN CORPUSCULAR HGB CONC 33 g/dL (32-36); MEAN CORPUSCULAR VOLUME 99 fL (80-99); MEAN PLATELET VOLUME 10.9 fL (9.0-12.2); MONOCYTES # (AUTO) 0.7 10^3/uL (0.0-1.0); MONOCYTES % (AUTO) 6 % (0-12); NEUTROPHILS % (AUTO) 83 % (42-75); PLATELET COUNT 184 10^3/uL (130-400); WHITE BLOOD COUNT 12.1 10^3/uL (4.3-11.0)
[2022-05-12 06:38] LABS: ALBUMIN 3.6 GM/DL (3.2-4.5); BILIRUBIN,TOTAL 0.8 MG/DL (0.1-1.0); CALCIUM 8.8 MG/DL (8.5-10.1); CREATININE SERUM 1.9 MG/DL (0.60-1.30); MAGNESIUM 1.9 MG/DL (1.6-2.4); PHOSPHORUS 5.9 MG/DL (2.3-4.7); POTASSIUM 4.2 MMOL/L (3.6-5.0); TOTAL PROTEIN 6.5 GM/DL (6.4-8.2)
[2022-05-12 07:14] VITALS: BP 107/64
--- NOTE | 2022-05-12 07:23 | Diagnostic Imaging Report ---
HISTORY: Chest pain. COMPARISON: 07/21/2021 TECHNIQUE: Frontal view of the chest. FINDINGS: There is stable mild cardiomegaly. There are diffuse interstitial opacities bilaterally, mildly increased in the right lung base. There is no pleural effusion or pneumothorax. Automatic implantable cardiac defibrillator leads appear stable. There is aortic atherosclerosis. IMPRESSION: 1. Increasing interstitial opacities, particularly in the right lung base, may be due to mild edema or infection. 2. Stable cardiomegaly. Dictated by: Dictated on workstation # [id number]
--- NOTE | 2022-05-12 08:11 | Consultation-Cardiology ---
HPI-Cardiology Cardiology Consultation: Date of Consultation 05/12/22 Time Seen by a Provider: 08:25 Date of Admission 05-11-22 Attending Physician Danyel Anderson MD Admitting Physician Admitting Physician: Sravani Camargo DO Attending Physician: Sravani Camargo DO Consulting Physician Myrtle Wiseman MD HPI: Chief Complaint: A-fib Elevated troponin Ms. Dolan is an 87 yr old female admitted to ICU 6 from the ED with c/o increasing SOB and chest tightness. She reports she has had episodes of itching of her skin for the last several years. She reports yesterday the itching "attacks" became worse, so she took 2 hot showers. She reports she went to bed at 5 p.m. and by 6 p.m. she woke up with her skin itching again. She states she felt weak. She reports increasing SOB over the last few days. She reports tightness in her chest which starts on the right side and radiates across her chest and into her back. She reports she has had these episodes for "years" and feels it is r/t her nerves. She reports the tightness in her chest had resolved by the time she got to the ED and has not returned. No c/o palpitations, syncope or near syncope. She reports she has not taken her medications for at least 2 months. She reports she takes her medications when she feels like it. No c/o LE swelling. Review of Systems-Cardiology Review of Systems Constitutional: No chills, No fever; malaise Eyes: No vision change Ears/Nose/Throat: No epistaxis, No recent hearing loss Respiratory: As described under HPI Cardiovascular: As described under HPI Gastrointestinal: As described under HPI Genitourinary: No dysuria, No hematuria Musculoskeletal: no symptoms reported Skin: No rash on exposed areas, No ulcerations on exposed areas Psychiatric/Neurological: anxiety, depression; No seizure, No focal weakness, No syncope Hematologic: No bleeding abnormalities RMA-Udeeev-Wzgodm Hx Patient Social History Smoking Status: Never a Smoker 2nd Hand Smoke Exposure: No Have you traveled recently?: No Alcohol Use?: No Pt feels they are or have been: No Immunizations Up To Date Tetanus Booster (TDap): Less than 5yrs Date of Pneumonia Vaccine: Dec 07, 2014 Date of Influenza Vaccine: Apr 10, 2022 Past Medical History PMH As described under Assessment. Family Medical History Family Medical History: She reports her sister had a CVA. No reported family h/o CAD. Family History: Arthritis 19 FATHER 19 MOTHER G8 BROTHER G8 SISTER Asthma 19 FATHER Completed stroke G8 SISTER FH: COPD (chronic obstructive pulmonary disease) G8 SISTER FH: cancer 19 FATHER 19 MOTHER (stomach cancer ) G8 SISTER (LIVER- enio floya- breast cancer) FH: emphysema 19 FATHER G8 SISTER Glaucoma G8 SISTER Headache disorder G8 SISTER No Family History of: AIDS Abdominal aortic aneurysm Alcoholism Alzheimer's disease Cancer of mouth Cardiovascular disease Colon cancer Cystic fibrosis Deafness or hearing loss Dementia Diabetes mellitus Drug abuse Dysphasia Hypercholesterolemia Hypertension Kidney disease Myocardial infarction Parkinson's disease Prostate cancer Psychosocial problem Respiratory disorder Seizure disorder Severe allergy Thyroid disease Tuberculosis Allergies and Home Medications Allergies Coded Allergies: No Known Drug Allergies (Unverified , 07/03/18) Patient Home Medication List Acetaminophen (Tylenol) 325 Mg Tablet, 650 MG PO Q4H PRN for PAIN-MILD, (Reported) Entered as Reported by: NICOLE CHU on 06/08/17 1133 Aspirin (Aspirin EC) 81 Mg Tablet.dr, 81 MG PO DAILY, (Reported) Entered as Reported by: NICOLE CHU on 06/08/17 1127 Azithromycin (Azithromycin) 250 Mg Tablet, 500 MG PO DAILY Prescribed by: DARRYL TORRES on 07/21/21 2346 Bumetanide (Bumetanide) 2 Mg Tablet, 2 MG PO MO,WE,FR, (Reported) Entered as Reported by: LUCIO GANT on 04/01/21 1555 Carvedilol (Carvedilol) 6.25 Mg Tablet, 6.25 MG PO BID, (Reported) Entered as Reported by: LUCIO GANT on 12/15/19 1431 Cefdinir (Cefdinir) 300 Mg Capsule, 300 MG PO BID Prescribed by: DARRYL TORRES on 07/21/21 2346 Glimepiride (Glimepiride) 2 Mg Tablet, 2 MG PO 1900, (Reported) Entered as Reported by: NICOLE CHU on 06/05/19 1057 Lisinopril (Lisinopril) 5 Mg Tablet, 5 MG PO DAILY, (Reported) Entered as Reported by: NICOLE CHU on 06/05/19 1057 Magnesium Oxide (Magnesium) 400 Mg Tablet, 400 MG PO HS, (Reported) Entered as Reported by: LUCIO GANT on 04/01/21 1558 Metformin HCl (Metformin HCl) 500 Mg Tablet, 1,000 MG PO 1900, (Reported) Entered as Reported by: NICOLE CHU on 06/05/19 1108 Freeburn-3 Fatty Acids/Fish Oil (Freeburn 3 1,000 mg Softgel) 1 Each Capsule, 1 EACH PO DAILY, (Reported) Entered as Reported by: LUCIO GANT on 04/01/21 1558 Ondansetron (Ondansetron Odt) 4 Mg Tab.rapdis, 4 MG PO Q8H PRN for nausea Prescribed by: DARRYL TORRES on 07/21/21 2346 Potassium Chloride (Potassium Chloride) 10 Meq Capsule.er, 10 MEQ PO PEACE,TU,TH,SAT, (Reported) Entered as Reported by: LUCIO GANT on 04/01/21 1555 Potassium Chloride (Potassium Chloride) 10 Meq Capsule.er, 20 MEQ PO MO,WE,FR, (Reported) Entered as Reported by: LUCIO GANT on 04/01/21 1555 Simvastatin (Simvastatin) 10 Mg Tablet, 10 MG PO 1900, (Reported) Entered as Reported by: NICOLE CHU on 06/22/19 1048 Physical Exam-Cardiology Physical Exam Vital Signs/I&O 05/11/22 05/11/22 05/11/22 05/12/22 21:48 22:05 22:10 00:48 Temp 36.7 Pulse 88 93 Resp 24 B/P (MAP) 118/69 (85) Pulse Ox 97 90 92 100 O2 Delivery Nasal Cannula Nasal Cannula OxyMask O2 Flow Rate 2.00 6.00 6.00 50.00 05/12/22 05/12/22 05/12/22 05/12/22 01:42 01:45 01:53 01:59 Temp 36.1 Pulse 93 108 91 Resp 18 B/P (MAP) 98/75 Pulse Ox 93 100 97 O2 Delivery NIV Bilevel O2 Flow Rate 6.00 40.00 05/12/22 05/12/22 05/12/22 05/12/22 02:00 02:00 02:05 02:15 Pulse 106 85 88 B/P (MAP) 120/74 (89) 102/60 (74) Pulse Ox 99 O2 Delivery NIV Bilevel NIV Bilevel NIV Bilevel O2 Flow Rate 40.00 40.00 FiO2 40 05/12/22 05/12/22 05/12/22 05/12/22 02:30 02:41 02:45 02:59 Temp 36.1 36.1 Pulse 82 81 Resp 14 20 B/P (MAP) 96/50 (65) 99/61 (74) Pulse Ox 99 97 O2 Delivery NIV Bilevel NIV Bilevel O2 Flow Rate 40.00 40.00 05/12/22 05/12/22 05/12/22 05/12/22 03:00 03:30 04:00 04:00 Pulse 64 77 73 Resp 16 16 14 B/P (MAP) 92/49 (63) 101/61 (74) 100/66 (77) Pulse Ox 99 100 99 O2 Delivery NIV Bilevel NIV Bilevel NIV Bilevel NIV Bilevel O2 Flow Rate 40.00 40.00 40.00 FiO2 40 05/12/22 05/12/22 05/12/22 05/12/22 05:00 06:00 07:13 07:14 Pulse 78 70 61 77 Resp 8 12 19 B/P (MAP) 111/77 (88) 100/42 (61) Pulse Ox 100 100 100 O2 Delivery NIV Bilevel NIV Bilevel O2 Flow Rate 40.00 40.00 40.00 05/12/22 08:00 Temp 36.0 05/12/22 00:00 Intake Total 1050 ml Balance 1050 ml Capillary Refill : Less Than 3 Seconds Constitutional: AAO x 3, well-developed, well-nourished HEENT: PERRL, hearing is well preserved, oral hygience is good Neck: No carotid bruit; carotid pulses are 2 + bilaterally Respiratory: No accessory muscle use, No respiratory distress; chest expansion is symmetric, chest is bilaterally symmetric, other (diminished lower lobes bilat) Cardiovascular: irregularly irregular, S1 and S2 Gastrointestinal: No tender; soft, round, audible bowel sounds Extremities: no lower extremity edema bilateral Neurologic/Psychiatric: grossly intact (moves all extremities) Skin: normal color, warm/dry; No rash on exposed areas, No ulcerations on exposed areas Data Review Labs Laboratory Tests 05/11/22 22:05: White Blood Count 17.1H, Red Blood Count 4.39, Hemoglobin 14.0, Hematocrit 43, Mean Corpuscular Volume 98, Mean Corpuscular Hemoglobin 32, Mean Corpuscular Hemoglobin Concent 33, Red Cell Distribution Width 13.5, Platelet Count 228, Mean Platelet Volume 10.7, Immature Granulocyte % (Auto) 1, Neutrophils (%) (Auto) 86H, Lymphocytes (%) (Auto) 6L, Monocytes (%) (Auto) 7, Eosinophils (%) (Auto) 0, Basophils (%) (Auto) 0, Neutrophils # (Auto) 14.7H, Lymphocytes # (Auto) 1.0, Monocytes # (Auto) 1.2H, Eosinophils # (Auto) 0.1, Basophils # (Auto) 0.0, Immature Granulocyte # (Auto) 0.1, Neutrophils % (Manual) 85, Lymphocytes % (Manual) 6, Monocytes % (Manual) 9, Blood Morphology Comment NORMAL, Prothrombin Time 14.0, INR Comment 1.0, Activated Partial Thromboplast Time 25, D-Dimer 3.57H, Sodium Level 141, Potassium Level 3.5L, Chloride Level 104, Carbon Dioxide Level 22, Anion Gap 15H, Blood Urea Nitrogen 44H, Creatinine 1.80H, Estimat Glomerular Filtration Rate 27, BUN/Creatinine Ratio 24, Glucose Level 200H, Calcium Level 8.7, Corrected Calcium 8.9, Magnesium Level 1.7, Total Bilirubin 1.1H, Aspartate Amino Transf (AST/SGOT) 14, Alanine Aminotransferase (ALT/SGPT) 14, Alkaline Phosphatase 62, Total Creatine Kinase 43, Creatine Kinase MB 1.6, Myoglobin 91.4, Troponin I 0.030H, B-Type Natriuretic Peptide 82.2, Total Protein 6.7, Albumin 3.7, Amylase Level 17L, Lipase 27, Procalcitonin 0.06 05/11/22 22:48: Influenza Type A (RT-PCR) Not Detected, Influenza Type B (RT-PCR) Not Detected, SARS-CoV-2 RNA (RT-PCR) Not Detected 05/11/22 22:51: Blood Gas Puncture Site LEFT RADIAL, Blood Gas Patient Temperature 37.0, Arterial Blood pH 7.30*L, Arterial Blood Partial Pressure CO2 60H, Arterial Blood Partial Pressure O2 30*L, Arterial Blood HCO3 29H, Arterial Blood Total CO2 30.7, Arterial Blood Oxygen Saturation 43L, Arterial Blood Base Excess 2.9H, Pratik Test YES-POS, Blood Gas Ventilator Setting NO, Blood Gas Inspired Oxygen 6L 05/11/22 23:10: Lactic Acid Level 1.35 05/11/22 23:58: Blood Gas Puncture Site LEFT RADIAL, Blood Gas Patient Temperature 36.7, Arterial Blood pH 7.31*L, Arterial Blood Partial Pressure CO2 49H, Arterial Blood Partial Pressure O2 52L, Arterial Blood HCO3 24, Arterial Blood Total CO2 25.1, Arterial Blood Oxygen Saturation 83L, Arterial Blood Base Excess -1.9, Pratik Test YES-POS, Blood Gas Ventilator Setting NO, Blood Gas Inspired Oxygen 6L 05/12/22 00:20: Urine Color YELLOW, Urine Clarity CLEAR, Urine pH 5.0, Urine Specific [place] 1.015L, Urine Protein NEGATIVE, Urine Glucose (UA) 3+H, Urine Ketones NEGATIVE, Urine Nitrite NEGATIVE, Urine Bilirubin NEGATIVE, Urine Urobilinogen 0.2, Urine Leukocyte Esterase NEGATIVE, Urine RBC (Auto) NEGATIVE, Urine RBC NONE, Urine WBC 2-5, Urine Squamous Epithelial Cells 5-10, Urine Crystals NONE, Urine Bacteria NEGATIVE, Urine Casts PRESENT, Urine Hyaline Casts 25-50H, Urine Mucus SMALLH, Urine Culture Indicated CULTURE PENDING 05/12/22 02:07: Glucometer 148H 05/12/22 02:42: Troponin I 0.031H 05/12/22 05:45: Glucometer 120H 05/12/22 06:07: White Blood Count 12.1H, Red Blood Count 4.04, Hemoglobin 13.0, Hematocrit 40, Mean Corpuscular Volume 99, Mean Corpuscular Hemoglobin 32, Mean Corpuscular Hemoglobin Concent 33, Red Cell Distribution Width 13.5, Platelet Count 184, Mean Platelet Volume 10.9, Immature Granulocyte % (Auto) 1, Neutrophils (%) (Auto) 83H, Lymphocytes (%) (Auto) 10L, Monocytes (%) (Auto) 6, Eosinophils (%) (Auto) 1, Basophils (%) (Auto) 0, Neutrophils # (Auto) 10.0H, Lymphocytes # (Auto) 1.3, Monocytes # (Auto) 0.7, Eosinophils # (Auto) 0.1, Basophils # (Auto) 0.0, Immature Granulocyte # (Auto) 0.1, Sodium Level 139, Potassium Level 4.2, Chloride Level 105, Carbon Dioxide Level 21, Anion Gap 13, Blood Urea Nitrogen 46H, Creatinine 1.90H, Estimat Glomerular Filtration Rate 25, BUN/Creatinine Ratio 24, Glucose Level 130H, Calcium Level 8.8, Corrected Calcium 9.1, Phosphorus Level 5.9H, Magnesium Level 1.9, Total Bilirubin 0.8, Aspartate Amino Transf (AST/SGOT) 17, Alanine Aminotransferase (ALT/SGPT) 18, Alkaline Phosphatase 57, Troponin I 0.031H, Total Protein 6.5, Albumin 3.6, Triglycerides Level 168H, Cholesterol Level 185, LDL Cholesterol Direct 138H, VLDL Cholesterol 34, HDL Cholesterol 30L Radiology NAME: BRANDEN DOLAN MED REC#: [id number] PT STATUS: ADM IN : 1935 PHYSICIAN: JEAN PIERRE GRACIA DO ADMIT DATE: 05/12/22/ICU Draft Date of Exam:05/11/22 CHEST 1 VIEW, AP/PA ONLY HISTORY: Chest pain. COMPARISON: 07/21/2021 TECHNIQUE: Frontal view of the chest. FINDINGS: There is stable mild cardiomegaly. There are diffuse interstitial opacities bilaterally, mildly increased in the right lung base. There is no pleural effusion or pneumothorax. Automatic implantable cardiac defibrillator leads appear stable. There is aortic atherosclerosis. IMPRESSION: 1. Increasing interstitial opacities, particularly in the right lung base, may be due to mild edema or infection. 2. Stable cardiomegaly. Dictated on workstation # [id number] Dict: 05/12/22711 Trans: 05/12/22721 [id number] Interpreted by: LEVI HAZEL MD Electronically signed by: ECG Impression ECG Initial ECG Impression: Atrial Fibrillation A/P-Cardiology Assessment/Admission Diagnosis Acute resp failure - likely secondary to pneumonia - management per medical services A Fib of undetermined age - first diagnosed on ECG of 10/09/21 - currently a-fib with controlled rate - OAC with Eliquis for which she has been non-compliant for the last 2 months per pt report Troponin elevation (has remained flat) - Type 2 SC d/t hypoxia Coronary artery disease - with a history of bare-metal stenting to a non-dominant right coronary and to a diagonal branch of the left anterior descending. - Last cardiac catheterization was in October 2016 which showed angiographically mild CAD. Stents in the first diagonal and in a nondominant RCA are widely patent. LVEF 20-25%. Mild LVEDP elevation. No signif MR - MPI of 01-14-21 shows dilated CM with LVEF 30%. No evidence of ischemia or infarction. Mod cardiomegaly Abnormal ECG - Chronic L bundle branch block - PVCs, asymptomatic - ECG on 10/09/21: A fib with a controlled vent response Cardiomyopathy - probably ischemic, with an ejection fraction of 35 to 40% at the time of cardiac catheterization of April 2010. - Echocardiogram of Jun 2017 showed LVEF 30-35%. Hypertrophy noted. LA mod dilated. Trival MR and mild TR. - Echocardiogram of 01-14-21 showed LVEF 25-30%. Severe diffuse hypokinesis. Grade 2 diastolic dysfunction. LA mild to mod dilated. Mild MR. AoV sclerosis. Mild to mod TR. PASP 40-45 mmHg - Status post single-chamber defibrillator implantation in August 2011. 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 Obesity - Elevated body mass index of nearly 32. Carotid dz - Mild carotid arterial disease, bilaterally, per carotid ultrasound of Feb 2018 Suspected sleep apnea - noncompliant with sleep study Medication Intolerance: - Intolerant to ARB d/t rash H/O non-compliance with medications Discussion and Recomendations Acute resp failure likely d/t pneumonia - management per medical services Chest discomfort - She herself has stated she does not wish to have a stress test or cardiac cath Troponin elevation - likely Type 2 SC secondary to hypoxia A-fib - rate controlled - restart OAC with Eliquis (reduced dose d/t age greater than 80 and Cr 1.9) Echocardiogram today Monitor lab Replace electrolytes as indicated Discussed importance of compliance with medications and f/u Further recs will be based on her hospital course We would like to thank medical services for this consult Clinical Quality Measures AMI/AHF: ASA po Prior to arrival: No (PT REFUSED WITH EMS ) JEWEL OSEGUERA May 12, 2022 08:11
[2022-05-12] MEDS: KCL 20 MEQ TAB (K-DUR) PO SCH (08:18)
[2022-05-12] MEDS: MAGNESIUM 1 GM/100 ML IVPB 100 ML IV SCH (08:18)
[2022-05-12] MEDS: POTASSIUM CL 10MEQ/50ML IVPB 50 ML IV SCH (08:18)
--- NOTE | 2022-05-12 08:25 | Diagnostic Imaging Report ---
PROCEDURE: US Venous Lower Ext Alejandro. TECHNIQUE: Multiple real-time grayscale images were obtained over the lower extremities in various projections, bilaterally. Additional duplex Doppler and color Doppler images were also obtained. INDICATION: Chronic respiratory failure EXAMINATION: Both grayscale and Doppler imaging of the deep veins of the lower extremities were performed. FINDINGS: There is no intraluminal filling defect. Normal flow is seen throughout the deep venous systems of both legs, and there is normal response to augmentation. IMPRESSION: No ultrasound evidence of deep venous thrombosis in either lower extremity. Dictated by: Dictated on workstation # [id number]
[2022-05-12] MEDS: ASPIRIN E.C. 81 MG (ECOTRIN) TAB PO SCH (08:35)
[2022-05-12] MEDS ORDERED: APIXABAN 2.5 MG (ELIQUIS) TABLET PO NR (09:30)
[2022-05-12 10:22] LABS: ABG BASE EXCESS -3.3 MMOL/L (-2.5-2.5); ABG OXYGEN SATURATION 98 % (94-100); ABG PCO2 48 MMHG (35-45); ABG PO2 105 MMHG (79-93); ABG TCO2 24.1 MMOL/L (21.0-31.0)
[2022-05-12 10:23] LABS: ALLENS TEST YES-POS; INSPIRED O2 40%; PATIENT TEMP 36.3; VENTILATOR NO
[2022-05-12 10:24] LABS: ABG PH 7.29 (7.37-7.43)
[2022-05-12 10:34] VITALS: BP 121/54
--- NOTE | 2022-05-12 11:34 | History & Physical-Hospitalist ---
YOLY CASSIDY A MED STUDENT 05/12/22 1134: History of Present Illness HPI/Chief Complaint Alma is an 87 yo female who was admitted for acute on chronic resp failure, chest pain and sepsis. Pt has pmhx of CHF, COPD, Diabetes, HTN, Afib, pacemaker/defib, cardiac stents, CAD, HLD. Pt reported that she was having chest pain that started on 05/11 in the ED. Pt reports this morning she thinks this was an anxiety attack. Her only concern this morning is that she has been itching recently. She cannot recall what medication she takes for this. She admits she has not been taking her medications for at least a month. She reports she has someone who comes once weekly to help with things around the house, but she manages her medications on her own. She admits to needing help with her medications, but states she would like to stay in her home. Her children have tried to discuss assisted living with her, but she is not agreeable to this. Currently pt is on bipap with oxygen saturations at 100%. She is no longer SOA or having CP. She denies fever, chills, cough, N/V/D, numbness or tingling. ROS is negative unless otherwise specified. Source: patient Exam Limitations: no limitations Date Seen 05/12/22 Time Seen by a Provider: 08:15 Attending Physician Danyel Anderson MD PCP Admitting Physician: Sravani Camargo DO Attending Physician: rSavani Camargo DO Referring Physician Date of Admission May 12, 2022 at 00:30 Home Medications & Allergies Home Medications Reviewed patient Home Medication Reconciliation performed by pharmacy medication reconciliations audiovisual technician and/or nursing. Patients Allergies have been reviewed. Allergies Allergies Coded Allergies No Known Drug Allergies (Unverified07/03/18) Past Ltqdixk-Ovynfz-Qftwhi Hx Patient Social History Tobacco Use?: No Smoking Status: Never a Smoker Use of E-Cig and/or Vaping dev: No Substance use?: No Alcohol Use?: No Pt feels they are or have been: No Immunizations Up To Date Date of Influenza Vaccine: Apr 10, 2022 First/Initial COVID19 Vaccinat: 07/24/20 Second COVID19 Vaccination Josh: 08/26/20 Tetanus Booster (TDap): Unknown Hepatitis A: Yes Hepatitis B: Yes PED Vaccines UTD: Yes Date of Pneumonia Vaccine: Dec 07, 2014 Seasonal Allergies Seasonal Allergies: No Current Status status: No status: No Advance Directives: No Communicates: Verbally Primary Language: Occitan Preferred Spoken Language: Occitan Is interpretation needed?: No Sensory deficits: Vision impairment Implanted or Applied Medical D: Pacemaker Past Medical History Surgeries: Breast, Cardiac, Coronary Stent, Defibrillator, Eye Surgery, Gallbladder, Hysterectomy, Joint Replacement, Oophorectomy, Orthopedic, Pac emaker, Rectal COPD Currently Using BIPAP: No Atrial Fibrillation, Cardiomyopathy, Chronic Edema/Swelling, Coronary Artery Disease, High Cholesterol, Hypertension, 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, Menopausal Sexually Transmitted Disease: No HIV/AIDS: No Renal Failure Hemorrhoids Arthritis, Chronic Back Pain Diabetes, Non-Insulin dep Cataract Loss of Vision: Denies Hearing Impairment: Denies Anxiety, Depression Blood Disorders: No Adverse Reaction/Blood Tranf: No Family Medical History Arthritis 19 FATHER 19 MOTHER G8 BROTHER G8 SISTER Asthma 19 FATHER Completed stroke G8 SISTER FH: COPD (chronic obstructive pulmonary disease) G8 SISTER FH: cancer 19 FATHER 19 MOTHER (stomach cancer ) G8 SISTER (LIVER- enio floya- breast cancer) FH: emphysema 19 FATHER G8 SISTER Glaucoma G8 SISTER Headache disorder G8 SISTER No Family History of: AIDS Abdominal aortic aneurysm Alcoholism Alzheimer's disease Cancer of mouth Cardiovascular disease Colon cancer Cystic fibrosis Deafness or hearing loss Dementia Diabetes mellitus Drug abuse Dysphasia Hypercholesterolemia Hypertension Kidney disease Myocardial infarction Parkinson's disease Prostate cancer Psychosocial problem Respiratory disorder Seizure disorder Severe allergy Thyroid disease Tuberculosis Review of Systems Constitutional: No chills, No fever EENTM: No blurred vision, No double vision Respiratory: No cough, No short of breath Cardiovascular: No chest pain, No palpitations Gastrointestinal: No diarrhea, No nausea, No vomiting Genitourinary: No dysuria, No frequency Musculoskeletal: No back pain, No joint pain Skin: No lesions, No lumps Psychiatric/Neurological: Denies Headache, Denies Numbness Physical Exam Physical Exam Vital Signs Vital Signs - First Documented 05/11/22 05/11/22 05/12/22 21:48 22:05 02:00 Temp 36.7 Pulse 88 Resp 24 B/P (MAP) 118/69 (85) Pulse Ox 97 O2 Delivery Nasal Cannula O2 Flow Rate 2.00 FiO2 40 Capillary Refill : Less Than 3 Seconds Height, Weight, BMI Height: 5'5.00" Weight: 205lbs. 5.0oz. [id number]; 34.56 BMI Method:Stated General Appearance: No Apparent Distress, WD/WN HEENT: PERRL/EOMI, Moist Mucous Membranes Neck: Full Range of Motion, Non Tender Respiratory: Chest Non Tender, Normal Breath Sounds, No Accessory Muscle Use, No Respiratory Distress Cardiovascular: No Murmur, Irregularly Irregular Gastrointestinal: Normal Bowel Sounds, Non Tender, Soft Extremity: Normal Capillary Refill, Non Tender, No Pedal Edema Neurologic/Psychiatric: Alert, Oriented x3, Normal Mood/Affect Skin: Normal Color, Warm/Dry Results Results/Procedures Labs Laboratory Tests 05/11/22 22:05 05/12/22 06:07 Patient resulted labs reviewed. Assessment/Plan Admission Diagnosis Acute on chronic respiratory failure and sepsis Assessment and Plan Acute on chronic respiratory failure Sepsis d/t pneumonia Elevated D-dimer Chest pain COPD CKD CHF Afib on anticoagulation HTN Diabetes HLD CAD Acute on chronic respiratory failure -Wean off bipap today -MAT protocol -Baseline oxygen use is 3L NC prn -Will likely need home O2 study prior to d/c Sepsis d/t pneumonia -Ceftriaxone and azithromycin -Leukocytosis improving -lactic acidosis wnl Elevated d-dimer -Consider V/Q scan, pt has hx of elevated d-dimer with normal V/Q scan Chest pain -Cardiology consulted -Troponin mildly elevated at 0.031 -Likely d/t anxiety COPD -MAT protocol CKD -BUN and Cr 46 and 1.9, slightly above baseline CHF -EF of 30% on echo done in 2020 Afib on anticoagulation -Eliquis -Telemetry HTN -Currently hypotensive, hold home medications Diabetes -SSI HLD CAD Disposition: Will wean off bipap today and if tolerating, will consider transferring to 4th floor. Likely home tomorrow if oxygen requirements continue to decrease. Diet: carb consistent, low sodium Code Status: DNR/DNI after discussion with pt on 05/12. She does not wish to have chest compressions or intubation in the event that those things were necessary for survival. Diagnosis/Problems Diagnosis/Problems (1) T2DM (type 2 diabetes mellitus) Status: Chronic Qualifiers: Diabetes mellitus alf insulin use: without alf use (2) Acute kidney injury superimposed on chronic kidney disease Status: Acute (3) Chronic congestive heart failure Status: Chronic (4) Atrial fibrillation Status: Chronic (5) Acute on chronic respiratory failure with hypoxia Status: Acute (6) Sepsis Status: Acute Clinical Quality Measures AMI/AHF: ASA po Prior to arrival: No (PT REFUSED WITH EMS ) DEREK ENAMORADO MD 05/12/22 1820: History of Present Illness Time Seen by a Provider: 09:30 Past Ioslifq-Dgoqlw-Fquvqg Hx Family Medical History Arthritis 19 FATHER 19 MOTHER G8 BROTHER G8 SISTER Asthma 19 FATHER Completed stroke G8 SISTER FH: COPD (chronic obstructive pulmonary disease) G8 SISTER FH: cancer 19 FATHER 19 MOTHER (stomach cancer ) G8 SISTER (LIVER- enio floya- breast cancer) FH: emphysema 19 FATHER G8 SISTER Glaucoma G8 SISTER Headache disorder G8 SISTER No Family History of: AIDS Abdominal aortic aneurysm Alcoholism Alzheimer's disease Cancer of mouth Cardiovascular disease Colon cancer Cystic fibrosis Deafness or hearing loss Dementia Diabetes mellitus Drug abuse Dysphasia Hypercholesterolemia Hypertension Kidney disease Myocardial infarction Parkinson's disease Prostate cancer Psychosocial problem Respiratory disorder Seizure disorder Severe allergy Thyroid disease Tuberculosis Results Results/Procedures Imaging: Reviewed Imaging Report Assessment/Plan Admission Diagnosis Acute on chronic respiratory failure with hypoxia and hypercapnia Admission Status: Inpatient Order (span 2 midnights) Reason for Inpatient Admission: Respiratory failure Assessment and Plan Admitted with acute on chronic respiratory failure with hypoxia and hypercapnia. She required BiPAP overnight. Started on antibiotics for pneumonia. Echo revealed reduced EF 35-40% and elevated PASP 45-50. Cardiology following. Transitioned off BiPAP to 2 L nasal cannula. Discussed code status with patient and adamantly stated DNR/DNI (present on admission). 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 I reviewed and verified all information documented by the medical student and made modifications to such information, when appropriate. I personally performed the physical exam and medical decision making. YOLY CASSIDY MED STUDENT May 12, 2022 11:34 DEREK ENAMORADO MD May 12, 2022 18:20
[2022-05-12] MEDS ORDERED: GABA300C PO (15:48)
[2022-05-12] MEDS ORDERED: BUME1TAB8 PO (15:48)
--- NOTE | 2022-05-12 15:53 | Consultation-Cardiology ---
HPI-Cardiology Cardiology Consultation: Date of Consultation 05/12/22 Time Seen by a Provider: 15:00 Date of Admission Attending Physician Danyel Anderson MD Admitting Physician Admitting Physician: Sravani Camargo DO Attending Physician: Windy Livingston MD Consulting Physician MANDA CHAVEZ MD, FACP, FACC, [facility] [place], CCDS Physician requesting consult: Dr Livingston HPI: Chief Complaint: Reason for Card consult: A-fib, Elevated troponin Ms. Dolan is an 87 yr old female admitted to ICU 6 from the ED with c/o increasing SOB and chest tightness. She reports she has had episodes of itching of her skin for the last several years. She reports yesterday the itching "attacks" became worse, so she took 2 hot showers. She reports she went to bed at 5 p.m. and by 6 p.m. she woke up with her skin itching again. She states she felt weak. She reports increasing SOB over the last few days. She reports tightness in her chest which starts on the right side and radiates across her chest and into her back. She reports she has had these episodes for "years" and feels it is r/t her nerves. She reports the tightness in her chest had resolved by the time she got to the ED and has not returned. No c/o palpitations, sy ncope or near syncope. She reports she has not taken her medications for at least 2 months. She reports she takes her medications when she feels like it. No c/o LE swelling. Review of Systems-Cardiology Review of Systems Constitutional: No chills, No fever; malaise Eyes: No vision change Ears/Nose/Throat: No epistaxis, No recent hearing loss Respiratory: As described under HPI Cardiovascular: As described under HPI Gastrointestinal: As described under HPI Genitourinary: No dysuria, No hematuria Musculoskeletal: no symptoms reported Skin: No rash on exposed areas, No ulcerations on exposed areas Psychiatric/Neurological: anxiety, depression; No seizure, No focal weakness, No syncope Hematologic: No bleeding abnormalities GJK-Yoiras-Crypbc Hx Patient Social History Smoking Status: Never a Smoker 2nd Hand Smoke Exposure: No Have you traveled recently?: No Alcohol Use?: No Pt feels they are or have been: No Immunizations Up To Date Tetanus Booster (TDap): Less than 5yrs Date of Pneumonia Vaccine: Dec 07, 2014 Date of Influenza Vaccine: Apr 10, 2022 Past Medical History PMH As described under Assessment. Family Medical History Family Medical History: She reports her sister had a CVA. No reported family h/o CAD. Family History: Arthritis 19 FATHER 19 MOTHER G8 BROTHER G8 SISTER Asthma 19 FATHER Completed stroke G8 SISTER FH: COPD (chronic obstructive pulmonary disease) G8 SISTER FH: cancer 19 FATHER 19 MOTHER (stomach cancer ) G8 SISTER (LIVER- enio floya- breast cancer) FH: emphysema 19 FATHER G8 SISTER Glaucoma G8 SISTER Headache disorder G8 SISTER No Family History of: AIDS Abdominal aortic aneurysm Alcoholism Alzheimer's disease Cancer of mouth Cardiovascular disease Colon cancer Cystic fibrosis Deafness or hearing loss Dementia Diabetes mellitus Drug abuse Dysphasia Hypercholesterolemia Hypertension Kidney disease Myocardial infarction Parkinson's disease Prostate cancer Psychosocial problem Respiratory disorder Seizure disorder Severe allergy Thyroid disease Tuberculosis Allergies and Home Medications Allergies Coded Allergies: No Known Drug Allergies (Unverified , 07/03/18) Patient Home Medication List Home Medication List Reviewed: Yes Acetaminophen (Tylenol) 325 Mg Tablet, 650 MG PO Q4H PRN for PAIN-MILD, (Reported) Entered as Reported by: NICOLE CHU on 06/08/17 1133 Aspirin (Aspirin EC) 81 Mg Tablet.dr, 81 MG PO DAILY, (Reported) Entered as Reported by: NICOLE CHU on 06/08/17 1127 Azithromycin (Azithromycin) 250 Mg Tablet, 500 MG PO DAILY Prescribed by: DARRYL TORRES on 07/21/21 2346 Bumetanide (Bumetanide) 2 Mg Tablet, 2 MG PO MO,WE,FR, (Reported) Entered as Reported by: LUCIO GANT on 04/01/21 1555 Carvedilol (Carvedilol) 6.25 Mg Tablet, 6.25 MG PO BID, (Reported) Entered as Reported by: LUCIO GANT on 12/15/19 1431 Cefdinir (Cefdinir) 300 Mg Capsule, 300 MG PO BID Prescribed by: DARRYL TORRES on 07/21/21 2346 Glimepiride (Glimepiride) 2 Mg Tablet, 2 MG PO 1900, (Reported) Entered as Reported by: NICOLE CHU on 06/05/19 1057 Lisinopril (Lisinopril) 5 Mg Tablet, 5 MG PO DAILY, (Reported) Entered as Reported by: NICOLE CHU on 06/05/19 1057 Magnesium Oxide (Magnesium) 400 Mg Tablet, 400 MG PO HS, (Reported) Entered as Reported by: LUCIO GANT on 04/01/21 1558 Metformin HCl (Metformin HCl) 500 Mg Tablet, 1,000 MG PO 1900, (Reported) Entered as Reported by: NICOLE CHU on 06/05/19 1108 Montague-3 Fatty Acids/Fish Oil (Montague 3 1,000 mg Softgel) 1 Each Capsule, 1 EACH PO DAILY, (Reported) Entered as Reported by: LUCIO GANT on 04/01/21 1558 Ondansetron (Ondansetron Odt) 4 Mg Tab.rapdis, 4 MG PO Q8H PRN for nausea Prescribed by: DARRYL TORRES on 07/21/21 2346 Potassium Chloride (Potassium Chloride) 10 Meq Capsule.er, 10 MEQ PO PEACE,TU,TH,SAT, (Reported) Entered as Reported by: LUCIO GANT on 04/01/21 1555 Potassium Chloride (Potassium Chloride) 10 Meq Capsule.er, 20 MEQ PO MO,WE,FR, (Reported) Entered as Reported by: LUCIO GANT on 04/01/21 155 Simvastatin (Simvastatin) 10 Mg Tablet, 10 MG PO 1900, (Reported) Entered as Reported by: NICOLE CHU on 06/22/19 1048 Physical Exam-Cardiology Physical Exam Vital Signs/I&O 05/12/22 05/12/22 05/12/22 05/12/22 04:00 04:00 05:00 06:00 Pulse 73 78 70 Resp 14 8 12 B/P (MAP) 100/66 (77) 111/77 (88) 100/42 (61) Pulse Ox 99 100 100 O2 Delivery NIV Bilevel NIV Bilevel NIV Bilevel NIV Bilevel O2 Flow Rate 40.00 40.00 40.00 FiO2 40 05/12/22 05/12/22 05/12/22 05/12/22 07:00 07:13 07:14 08:00 Temp 36.0 Pulse 76 61 77 Resp 14 19 B/P (MAP) 107/64 (78) Pulse Ox 100 100 O2 Delivery NIV Bilevel O2 Flow Rate 40.00 40.00 05/12/22 05/12/22 05/12/22 05/12/22 08:00 08:35 09:00 10:00 Pulse 73 71 59 Resp 15 30 14 B/P (MAP) 114/90 (98) 115/77 (90) 106/52 (70) Pulse Ox 100 95 100 O2 Delivery NIV Bilevel NIV Bilevel NIV Bilevel NIV Bilevel O2 Flow Rate 40.00 40.00 40.00 FiO2 40 05/12/22 05/12/22 05/12/22 05/12/22 10:34 11:00 11:50 12:00 Temp 37.2 Pulse 70 68 63 Resp 18 15 15 B/P (MAP) 108/52 (70) 110/78 (89) Pulse Ox 100 100 100 O2 Delivery NIV Bilevel NIV Bilevel O2 Flow Rate 40.00 40.00 40.00 05/12/22 05/12/22 05/12/22 05/12/22 12:12 13:00 13:25 14:00 Pulse 69 72 107 Resp 16 B/P (MAP) 109/56 (73) 127/62 (83) Pulse Ox 94 93 94 O2 Delivery Nasal Cannula Nasal Cannula Nasal Cannula O2 Flow Rate 2.00 2.00 2.00 05/12/22 00:00 Intake Total 1050 ml Balance 1050 ml Capillary Refill : Less Than 3 Seconds Constitutional: AAO x 3, well-developed, well-nourished HEENT: PERRL, hearing is well preserved, oral hygience is good Neck: No carotid bruit; carotid pulses are 2 + bilaterally Respiratory: No accessory muscle use, No respiratory distress; chest expansion is symmetric, chest is bilaterally symmetric, other (diminished lower lobes luis f at) Cardiovascular: irregularly irregular, S1 and S2 Gastrointestinal: No tender; soft, round, audible bowel sounds Extremities: no lower extremity edema bilateral Neurologic/Psychiatric: other (moves all limbs equally) Skin: normal color, warm/dry; No rash on exposed areas, No ulcerations on exposed areas Data Review Labs Laboratory Tests 05/11/22 22:05: White Blood Count 17.1H, Red Blood Count 4.39, Hemoglobin 14.0, Hematocrit 43, Mean Corpuscular Volume 98, Mean Corpuscular Hemoglobin 32, Mean Corpuscular Hemoglobin Concent 33, Red Cell Distribution Width 13.5, Platelet Count 228, Mean Platelet Volume 10.7, Immature Granulocyte % (Auto) 1, Neutrophils (%) (Auto) 86H, Lymphocytes (%) (Auto) 6L, Monocytes (%) (Auto) 7, Eosinophils (%) (Auto) 0, Basophils (%) (Auto) 0, Neutrophils # (Auto) 14.7H, Lymphocytes # (Auto) 1.0, Monocytes # (Auto) 1.2H, Eosinophils # (Auto) 0.1, Basophils # (Auto) 0.0, Immature Granulocyte # (Auto) 0.1, Neutrophils % (Manual) 85, Lymphocytes % (Manual) 6, Monocytes % (Manual) 9, Blood Morphology Comment NORMAL, Prothrombin Time 14.0, INR Comment 1.0, Activated Partial Thromboplast Time 25, D-Dimer 3.57H, Sodium Level 141, Potassium Level 3.5L, Chloride Level 104, Carbon Dioxide Level 22, Anion Gap 15H, Blood Urea Nitrogen 44H, Creatinine 1.80H, Estimat Glomerular Filtration Rate 27, BUN/Creatinine Ratio 24, Glucose Level 200H, Calcium Level 8.7, Corrected Calcium 8.9, Magnesium Level 1.7, Total Bilirubin 1.1H, Aspartate Amino Transf (AST/SGOT) 14, Alanine Aminotransferase (ALT/SGPT) 14, Alkaline Phosphatase 62, Total Creatine Kinase 43, Creatine Kinase MB 1.6, Myoglobin 91.4, Troponin I 0.030H, B-Type Natriuretic Peptide 82.2, Total Protein 6.7, Albumin 3.7, Amylase Level 17L, Lipase 27, Procalcitonin 0.06 05/11/22 22:48: Influenza Type A (RT-PCR) Not Detected, Influenza Type B (RT-PCR) Not Detected, SARS-CoV-2 RNA (RT-PCR) Not Detected 05/11/22 22:51: Blood Gas Puncture Site LEFT RADIAL, Blood Gas Patient Temperature 37.0, Arterial Blood pH 7.30*L, Arterial Blood Partial Pressure CO2 60H, Arterial Blood Partial Pressure O2 30*L, Arterial Blood HCO3 29H, Arterial Blood Total CO2 30.7, Arterial Blood Oxygen Saturation 43L, Arterial Blood Base Excess 2.9H, Pratik Test YES-POS, Blood Gas Ventilator Setting NO, Blood Gas Inspired Oxygen 6L 05/11/22 23:10: Lactic Acid Level 1.35 05/11/22 23:58: Blood Gas Puncture Site LEFT RADIAL, Blood Gas Patient Temperature 36.7, Arterial Blood pH 7.31*L, Arterial Blood Partial Pressure CO2 49H, Arterial Bloo d Partial Pressure O2 52L, Arterial Blood HCO3 24, Arterial Blood Total CO2 25.1, Arterial Blood Oxygen Saturation 83L, Arterial Blood Base Excess -1.9, Pratik Test YES-POS, Blood Gas Ventilator Setting NO, Blood Gas Inspired Oxygen 6L 05/12/22 00:20: Urine Color YELLOW, Urine Clarity CLEAR, Urine pH 5.0, Urine Specific Wilson 1.015L, Urine Protein NEGATIVE, Urine Glucose (UA) 3+H, Urine Ketones NEGATIVE, Urine Nitrite NEGATIVE, Urine Bilirubin NEGATIVE, Urine Urobilinogen 0.2, Urine Leukocyte Esterase NEGATIVE, Urine RBC (Auto) NEGATIVE, Urine RBC NONE, Urine WBC 2-5, Urine Squamous Epithelial Cells 5-10, Urine Crystals NONE, Urine Bacteria NEGATIVE, Urine Casts PRESENT, Urine Hyaline Casts 25-50H, Urine Mucus SMALLH, Urine Culture Indicated CULTURE PENDING 05/12/22 02:07: Glucometer 148H 05/12/22 02:42: Troponin I 0.031H 05/12/22 05:45: Glucometer 120H 05/12/22 06:07: White Blood Count 12.1H, Red Blood Count 4.04, Hemoglobin 13.0, Hematocrit 40, Mean Corpuscular Volume 99, Mean Corpuscular Hemoglobin 32, Mean Corpuscular Hemoglobin Concent 33, Red Cell Distribution Width 13.5, Platelet Count 184, Mean Platelet Volume 10.9, Immature Granulocyte % (Auto) 1, Neutrophils (%) (Auto) 83H, Lymphocytes (%) (Auto) 10L, Monocytes (%) (Auto) 6, Eosinophils (%) (Auto) 1, Basophils (%) (Auto) 0, Neutrophils # (Auto) 10.0H, Lymphocytes # (Auto) 1.3, Monocytes # (Auto) 0.7, Eosinophils # (Auto) 0.1, Basophils # (Auto) 0.0, Immature Granulocyte # (Auto) 0.1, Sodium Level 139, Potassium Level 4.2, Chloride Level 105, Carbon Dioxide Level 21, Anion Gap 13, Blood Urea Nitrogen 46H, Creatinine 1.90H, Estimat Glomerular Filtration Rate 25, BUN/Creatinine Ratio 24, Glucose Level 130H, Calcium Level 8.8, Corrected Calcium 9.1, Phosphorus Level 5.9H, Magnesium Level 1.9, Total Bilirubin 0.8, Aspartate Amino Transf (AST/SGOT) 17, Alanine Aminotransferase (ALT/SGPT) 18, Alkaline Phosphatase 57, Troponin I 0.031H, Total Protein 6.5, Albumin 3.6, Triglycerides Level 168H, Cholesterol Level 185, LDL Cholesterol Direct 138H, VLDL Cholesterol 34, HDL Cholesterol 30L 05/12/22 06:17: Procalcitonin 0.12H 05/12/22 09:55: Blood Gas Puncture Site LR, Blood Gas Patient Temperature 36.3, Arterial Blood pH 7.29*L, Arterial Blood Partial Pressure CO2 48H, Arterial Blood Partial Pressure O2 105H, Arterial Blood HCO3 23, Arterial Blood Total CO2 24.1, Arterial Blood Oxygen Saturation 98, Arterial Blood Base Excess -3.3L, Pratik Te st YES-POS, Blood Gas Ventilator Setting NO, Blood Gas Inspired Oxygen 40% 05/12/22 11:31: Glucometer 134H Laboratory Tests 05/11/22 22:05 05/12/22 06:07 A/P-Cardiology Assessment/Admission Diagnosis Acute resp failure, multifactorial - probable pneumonia, managed by the Hospitalist svce - probable ac on ch diastolic and systolic chf; ac component because of noncompliance with meds A Fib of undetermined age - first diagnosed on ECG of 10/09/21 - currently a-fib with controlled rate - OAC with Eliquis for which she has been non-compliant for the last 2 months per pt report Troponin elevation (has remained flat) - Type 2 SC d/t hypoxia Coronary artery disease - with a history of bare-metal stenting to a non-dominant right coronary and to a diagonal branch of the left anterior descending. - Last cardiac catheterization was in October 2016 which showed angiographically mild CAD. Stents in the first diagonal and in a nondominant RCA are widely patent. LVEF 20-25%. Mild LVEDP elevation. No signif MR - MPI of 01-14-21 shows dilated CM with LVEF 30%. No evidence of ischemia or infarction. Mod cardiomegaly - States (05/12/22) wishes to be managed conservatively only Abnormal ECG - Chronic L bundle branch block - PVCs, asymptomatic - ECG on 5/5/22: A fib with a controlled vent response Cardiomyopathy - probably ischemic, with an ejection fraction of 35 to 40% at the time of cardiac catheterization of April 2010. - Echocardiogram of Jun 2017 showed LVEF 30-35%. Hypertrophy noted. LA mod dilated. Trival MR and mild TR. - Echocardiogram of 01-14-21 showed LVEF 25-30%. Severe diffuse hypokinesis. Grade 2 diastolic dysfunction. LA mild to mod dilated. Mild MR. AoV sclerosis. Mild to mod TR. PASP 40-45 mmHg - Echo on : LVEF 35-40%, mod biatrial enlargement, grade 3 magana dysfunction, mod MR, mild to mod TR, PASP 45-50 mmHg - Status post single-chamber defibrillator implantation in August 2011. 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 Obesity - Elevated body mass index of nearly 32. Carotid dz - Mild carotid arterial disease, bilaterally, per carotid ultrasound of Feb 2018 Suspected sleep apnea - noncompliant with sleep study Medication Intolerance: - Intolerant to ARB and XIOMARA-inhib due to renal failure (CKD-4) H/O non-compliance with medications Discussion and Recomendations * Pneumonia treatment by the Hosp svce * Diuretics as needed and as tolerated * Monitor lab closely because of CKD 4 * Not suitable for ARB and XIOMARA-inhib due to renal failure (CKD-4) * Beta-jacki as tolerated * OAC for stroke prophylaxis (low dosee because age 87 and Cr 1.9) * ASA because of h/o CAD Clinical Quality Measures AMI/AHF: ASA po Prior to arrival: No (PT REFUSED WITH EMS ) AMNDA CHAVEZ MD FACP [facility] CCDS May 12, 2022 15:53
[2022-05-12] MEDS ORDERED: FUROSEMIDE 40 MG/4 ML INJ (LASIX) IVP NR (16:15)
--- NOTE | 2022-05-12 16:47 | Diagnostic Imaging Report ---
INDICATION: Acute respiratory failure and chest pain. TECHNIQUE: The patient was administered 5.1 mCi of technetium 99M MAA intravenously and imaging over the chest was performed in multiple obliquities. FINDINGS: There is homogeneous perfusion of both lungs. No pleural-based perfusion defects are identified. IMPRESSION: Normal perfusion lung scan. Dictated by: Dictated on workstation # [id number]
[2022-05-12] MEDS: APIXABAN 2.5 MG (ELIQUIS) TABLET PO SCH (20:24)
[2022-05-12] MEDS ORDERED: cefTRIAXone 1 GM IV (PRE-MIX) 50 ML IV SCH (21:00)
[2022-05-12] MEDS ORDERED: AZITHROMYCIN 500 MG/NS 250 ML IVPB IV SCH ×2 (21:00)
[2022-05-12] MEDS ORDERED: ENOXAPARIN 100 MG/1 ML (LOVENOX) SYR SC SCH (23:00)
[2022-05-13] MEDS: NS IV 1000 ML 1,000 ML IV SCH ×2 (02:10→04:21)
[2022-05-13] MEDS: VASOPRESSIN INJECTION 20 UNIT in NS (IVPB) 100 ML IV SCH ×2 (02:10→11:20)
[2022-05-13 03:30] LABS: BASOPHILS % (AUTO) 1 % (0-10); EOSINOPHILS # (AUTO) 0.2 10^3/uL (0.0-0.3); EOSINOPHILS % (AUTO) 3 % (0-10); HEMATOCRIT 36 % (35-52); HEMOGLOBIN 11.2 g/dL (11.5-16.0); LYMPHOCYTES # (AUTO) 1.5 10^3/uL (1.0-4.0); LYMPHOCYTES % (AUTO) 23 % (12-44); MEAN CORPUSCULAR HEMOGLOBIN 32 pg (25-34); MEAN CORPUSCULAR HGB CONC 31 g/dL (32-36); MEAN CORPUSCULAR VOLUME 101 fL (80-99); MEAN PLATELET VOLUME 10.7 fL (9.0-12.2); MONOCYTES # (AUTO) 0.6 10^3/uL (0.0-1.0); MONOCYTES % (AUTO) 9 % (0-12); NEUTROPHILS % (AUTO) 64 % (42-75); PLATELET COUNT 174 10^3/uL (130-400); WHITE BLOOD COUNT 6.3 10^3/uL (4.3-11.0)
[2022-05-13 03:47] LABS: ALBUMIN 3.3 GM/DL (3.2-4.5); POTASSIUM 3.9 MMOL/L (3.6-5.0)
[2022-05-13 03:48] LABS: CALCIUM 8.1 MG/DL (8.5-10.1)
[2022-05-13 03:49] LABS: TOTAL PROTEIN 5.8 GM/DL (6.4-8.2)
[2022-05-13 03:51] LABS: BILIRUBIN,TOTAL 0.5 MG/DL (0.1-1.0)
[2022-05-13 03:52] LABS: PHOSPHORUS 4.3 MG/DL (2.3-4.7)
[2022-05-13 03:53] LABS: CREATININE SERUM 1.51 MG/DL (0.60-1.30)
[2022-05-13 03:56] LABS: MAGNESIUM 1.9 MG/DL (1.6-2.4)
[2022-05-13] MEDS: KCL 20 MEQ TAB (K-DUR) PO SCH (04:24)
[2022-05-13] MEDS: POTASSIUM CL 10MEQ/50ML IVPB 50 ML IV SCH (04:24)
[2022-05-13] MEDS: MAGNESIUM 1 GM/100 ML IVPB 100 ML IV SCH (04:24)
[2022-05-13] MEDS: inSUlin ASPART (NovoLOG) 1 UNIT/0.01 ML (CHARGE PER UNIT) SC SCH ×2 (04:24→13:43)
[2022-05-13] MEDS: NOREPINEPHRINE 8 MG/250 ML 250 ML IV SCH (07:54)
[2022-05-13] MEDS: ASPIRIN E.C. 81 MG (ECOTRIN) TAB PO SCH (08:32)
[2022-05-13] MEDS: APIXABAN 2.5 MG (ELIQUIS) TABLET PO SCH (08:33)
[2022-05-13] MEDS ORDERED: FUROSEMIDE 40 MG/4 ML INJ (LASIX) IVP SCH (09:00)
[2022-05-13] MEDS ORDERED: ACETAMINOPHEN 325 MG TABLET PO PRN (10:15)
--- NOTE | 2022-05-13 11:29 | Discharge Summary ---
KHANHYOLY A MED STUDENT 05/13/22 1129: Diagnosis/Chief Complaint Date of Admission May 12, 2022 at 00:30 Date of Discharge Discharge Date: May 13, 2022 Admission Diagnosis Acute on chronic respiratory failure with hypoxia and hypercapnia Primary Care Danyel Anderson MD Discharge Diagnosis Acute on chronic respiratory failure (1) Acute on chronic respiratory failure with hypoxia and hypercapnia Status: Acute Assessment & Plan: Will do home oxygen study to determine level of oxygen needed on d/c Was on 3L NC prn Will do physical therapy eval to see if pt needs home health PT. (2) Pneumonia Status: Acute Assessment & Plan: Will d/c on oral abx (3) T2DM (type 2 diabetes mellitus) Status: Chronic Assessment & Plan: Resume home meds (4) Acute kidney injury superimposed on chronic kidney disease Status: Acute Assessment & Plan: F.u with primary care physician to monitor kidney function. BUN and Cr continued to trend down and were close to baseline on d/c (5) Chronic congestive heart failure Status: Chronic Assessment & Plan: F/u with [employer] Echo in 2020 showed 30% EF (6) Atrial fibrillation Status: Chronic Assessment & Plan: Resume home medications (7) Sepsis Status: Resolved Assessment & Plan: Blood cultures were negative Will send home on oral abx, f/u with primary care physician Discharge Summary Discharge Physical Exam Allergies: Coded Allergies: No Known Drug Allergies (Unverified , 07/03/18) Vitals & I&Os Vital Signs Date Time Temp Pulse Resp B/P (MAP) Pulse Ox O2 Delivery O2 Flow Rate FiO2 05/13/22 10:00 78 6 113/71 (85) 96 Nasal Cannula 3.00 05/13/22 08:00 36.3 05/12/22 08:35 40 General Appearance: No Apparent Distress, WD/WN HEENT: PERRL/EOMI, Moist Mucous Membranes Respiratory: Chest Non Tender, Lungs Clear, No Accessory Muscle Use, No Respiratory Distress Cardiovascular: No Murmur, Irregularly Irregular Gastrointestinal: Normal Bowel Sounds, Non Tender, Soft Extremity: Normal Capillary Refill, Non Tender, Pedal Edema (mild nonpitting edema) Skin: Normal Color, Warm/Dry Neurologic/Psychiatric: Alert, Oriented x3, Normal Mood/Affect Hospital Course Alma is an 87 yo female who was admitted for acute on chronic resp failure, chest pain and sepsis. Pt has pmhx of CHF, COPD, Diabetes, HTN, Afib, pacemaker/defib, cardiac stents, CAD, HLD. Pt reported that she was having chest pain and SOA that started on 05/11. Pt also reported she has anxiety, which could be the cause of her chest pain. She admitted she has not been taking her medications for at least a month. She reported she has someone who comes once weekly to help with things around the house, but she manages her medications on her own. She admits to needing help with her medications, but states she would like to stay in her home. Her children have tried to discuss assisted living with her, but she is not agreeable to this. Pt was on bipap 40 FiO2 with oxygen saturations at 100%. She was no longer SOA or having CP, so this was decreased to 3L NC with adequate saturations. Pt received ceftriaxone and azithromycin for sepsis d/t pneumonia and WBC returned to normal. Pt was medically stable for discharge after home oxygen study and PT eval. Labs (last 24 hrs) Laboratory Tests 05/12/22 11:31: Glucometer 134H 05/12/22 17:45: Glucometer 159H 05/12/22 20:57: Glucometer 165H 05/13/22 03:20: White Blood Count 6.3, Red Blood Count 3.56L, Hemoglobin 11.2L, Hematocrit 36, Mean Corpuscular Volume 101H, Mean Corpuscular Hemoglobin 32, Mean Corpuscular Hemoglobin Concent 31L, Red Cell Distribution Width 13.6, Platelet Count 174, Mean Platelet Volume 10.7, Immature Granulocyte % (Auto) 0, Neutrophils (%) (Auto) 64, Lymphocytes (%) (Auto) 23, Monocytes (%) (Auto) 9, Eosinophils (%) (Auto) 3, Basophils (%) (Auto) 1, Neutrophils # (Auto) 4.0, Lymphocytes # (Auto) 1.5, Monocytes # (Auto) 0.6, Eosinophils # (Auto) 0.2, Basophils # (Auto) 0.0, Immature Granulocyte # (Auto) 0.0, Sodium Level 139, Potassium Level 3.9, Chloride Level 107, Carbon Dioxide Level 23, Anion Gap 9, Blood Urea Nitrogen 37H, Creatinine 1.51H, Estimat Glomerular Filtration Rate 33, BUN/Creatinine Ratio 25, Glucose Level 113H, Calcium Level 8.1L, Corrected Calcium 8.7, Phosphorus Level 4.3, Magnesium Level 1.9, Total Bilirubin 0.5, Aspartate Amino Transf (AST/SGOT) 10, Alanine Aminotransferase (ALT/SGPT) 10, Alkaline Phosphatase 55, Total Protein 5.8L, Albumin 3.3 Microbiology 05/12/22 MRSA Screen - Final, Complete MRSA not isolated 05/12/22 Blood Culture - Preliminary, Resulted No growth 05/12/22 Urine Culture - Final, Complete Mixed Bacterial Kamla Patient resulted labs reviewed. Imaging: Reviewed Imaging Report Discharge Home Medications: Active Scripts Active Reported Neurontin (Gabapentin) 300 Mg Capsule 300 Mg PO DAILY PRN Bumetanide 1 Mg Tablet 1 Mg PO 1900 Potassium Chloride 10 Meq Capsule.er 10 Meq PO 1900 Carvedilol 6.25 Mg Tablet 12.5 Mg PO 1900 TAKES 2 (6.25MG) TABS Metformin HCl 500 Mg Tablet 1,000 Mg PO 1900 TAKES 2 (500MG) TABS Glimepiride 2 Mg Tablet 2 Mg PO 1900 Lisinopril 5 Mg Tablet 5 Mg PO 1900 Aspirin EC (Aspirin) 81 Mg Tablet.dr 81 Mg PO HS Instructions to patient/family Please see electronic discharge instructions given to patient. Clinical Quality Measures AMI/AHF: ASA po Prior to arrival: No (PT REFUSED WITH EMS ) DEREK ENAMORADO MD 05/13/22 1741: Diagnosis/Chief Complaint Discharge Time: 17:38 Discharge Summary Discharge Physical Exam Allergies: Coded Allergies: No Known Drug Allergies (Unverified , 07/03/18) Hospital Course Admitted with acute on chronic respiratory failure with hypoxia and hypercapnia. Treated for pneumonia and sent home on antibiotics. She refused a sleep study. She was requiring increased oxygen from her baseline, now 3 L continuously and 4 L with exertion. She was set up with home health care and discharged home in stable condition. Imaging: Reviewed Imaging Report Discussion & Recommendations Discharge Planning: >30 minutes discharge planning Supervisory-Addendum Brief Verification & Attestation Participated in pt care: history, MDM, physical Personally performed: exam, history, MDM, supervision of care Care discussed with: Medical Student Procedures: n/a Results interpretation: Verified all documentation A medical student performed and documented this service in my presence. I revi ewed and verified all information documented by the medical student and made modifications to such information, when appropriate. I personally performed the physical exam and medical decision making. Problem Qualifiers (1) T2DM (type 2 diabetes mellitus): Diabetes mellitus [facility] insulin use: without termite control technician use YOLY CASSIDY MED STUDENT May 13, 2022 11:29 DEREK ENAMORADO MD May 13, 2022 17:41
--- NOTE | 2022-05-13 12:48 | Progress Note - Cardiology ---
Cardiology SOAP Progress Note Subjective: Feels unwell Report gen malaise Does not report cp or shortness of breath No n/v/d No focal weakness Denies swellin Objective: I&O/Vital Signs 05/13/22 05/13/22 05/13/22 05/13/22 01:00 01:00 02:00 02:08 Temp 36.2 Pulse 75 70 64 Resp 22 28 B/P (MAP) 111/58 (75) 106/61 (76) Pulse Ox 99 96 O2 Delivery Nasal Cannula Nasal Cannula Nasal Cannula O2 Flow Rate 3.00 3.00 3.00 05/13/22 05/13/22 05/13/22 05/13/22 02:10 03:00 04:08 04:21 Pulse 70 58 78 Resp 31 B/P (MAP) 111/58 92/39 (56) 115/58 (77) Pulse Ox 96 99 94 O2 Delivery Nasal Cannula Nasal Cannula Nasal Cannula O2 Flow Rate 3.00 3.00 3.00 05/13/22 05/13/22 05/13/22 05/13/22 05:00 06:00 07:00 07:21 Pulse 65 73 73 70 Resp 17 22 16 B/P (MAP) 104/69 (81) 120/49 (72) 117/94 (102) Pulse Ox 98 96 97 O2 Delivery Nasal Cannula Nasal Cannula Nasal Cannula O2 Flow Rate 3.00 3.00 3.00 05/13/22 05/13/22 05/13/22 05/13/22 08:00 08:00 08:30 09:00 Temp 36.3 Pulse 81 71 Resp 18 16 B/P (MAP) 108/71 (83) 118/66 (83) Pulse Ox 95 97 O2 Delivery Nasal Cannula Nasal Cannula Nasal Cannula O2 Flow Rate 3.00 3.00 3.00 05/13/22 10:00 Pulse 78 Resp 6 B/P (MAP) 113/71 (85) Pulse Ox 96 O2 Delivery Nasal Cannula O2 Flow Rate 3.00 05/13/22 00:00 Intake Total 875 ml Output Total 2250 ml Balance -1375 ml Weight (Pounds): 205 Weight (Ounces): 5.0 Weight (Calculated Kilograms): 93.280939 Constitutional: AAO x 3, well-developed, well-nourished Respiratory: No accessory muscle use, No respiratory distress; chest expansion is symmetric, chest is bilaterally symmetric, other (diminished lower lobes bilat) Cardiovascular: irregularly irregular, S1 and S2 Gastrointestional: No tender; soft, round, audible bowel sounds Extremities: no lower extremity edema bilateral Neurologic/Psychiatric: other (moves all limbs equally) Skin: normal color, warm/dry; No rash on exposed areas, No ulcerations on exposed areas Results/Procedures: Labs Laboratory Tests 05/12/22 17:45: Glucometer 159H 05/12/22 20:57: Glucometer 165H 05/13/22 03:20: White Blood Count 6.3, Red Blood Count 3.56L, Hemoglobin 11.2L, Hematocrit 36, Mean Corpuscular Volume 101H, Mean Corpuscular Hemoglobin 32, Mean Corpuscular Hemoglobin Concent 31L, Red Cell Distribution Width 13.6, Platelet Count 174, Mean Platelet Volume 10.7, Immature Granulocyte % (Auto) 0, Neutrophils (%) (Auto) 64, Lymphocytes (%) (Auto) 23, Monocytes (%) (Auto) 9, Eosinophils (%) (Auto) 3, Basophils (%) (Auto) 1, Neutrophils # (Auto) 4.0, Lymphocytes # (Auto) 1.5, Monocytes # (Auto) 0.6, Eosinophils # (Auto) 0.2, Basophils # (Auto) 0.0, Immature Granulocyte # (Auto) 0.0, Sodium Level 139, Potassium Level 3.9, Chloride Level 107, Carbon Dioxide Level 23, Anion Gap 9, Blood Urea Nitrogen 37H, Creatinine 1.51H, Estimat Glomerular Filtration Rate 33, BUN/Creatinine Ratio 25, Glucose Level 113H, Calcium Level 8.1L, Corrected Calcium 8.7, Phosphorus Level 4.3, Magnesium Level 1.9, Total Bilirubin 0.5, Aspartate Amino Transf (AST/SGOT) 10, Alanine Aminotransferase (ALT/SGPT) 10, Alkaline Phosphatase 55, Total Protein 5.8L, Albumin 3.3 Microbiology 05/12/22 MRSA Screen - Final, Complete MRSA not isolated 05/12/22 Blood Culture - Preliminary, Resulted No growth 05/12/22 Urine Culture - Final, Complete Mixed Bacterial [place] Laboratory Tests 05/11/22 22:05 05/12/22 06:07 05/13/22 03:20 A/P: Assessment: Acute resp failure, multifactorial - probable pneumonia, managed by the Hospitalist svce - probable ac on ch diastolic and systolic chf; ac component because of noncompliance with meds A Fib of undetermined age - first diagnosed on ECG of 10/09/21 - currently a-fib with controlled rate - OAC with Eliquis for which she has been non-compliant for the last 2 months per pt report Troponin elevation (has remained flat) - Type 2 [place] d/t hypoxia Coronary artery disease - with a history of bare-metal stenting to a non-dominant right coronary and to a diagonal branch of the left anterior descending. - Last cardiac catheterization was in October 2016 which showed angiographically mild CAD. Stents in the first diagonal and in a nondominant RCA are widely patent. LVEF 20-25%. Mild LVEDP elevation. No signif MR - MPI of 01-14-21 shows dilated CM with LVEF 30%. No evidence of ischemia or infarction. Mod cardiomegaly - States (05/12/22) wishes to be managed conservatively only Abnormal ECG - Chronic L bundle branch block - PVCs, asymptomatic - ECG on 10/09/21: A fib with a controlled vent response Cardiomyopathy - probably ischemic, with an ejection fraction of 35 to 40% at the time of cardiac catheterization of April 2010. - Echocardiogram of Jun 2017 showed LVEF 30-35%. Hypertrophy noted. LA mod dilated. Trival MR and mild TR. - Echocardiogram of 01-14-21 showed LVEF 25-30%. Severe diffuse hypokinesis. Grade 2 diastolic dysfunction. LA mild to mod dilated. Mild MR. AoV sclerosis. Mild to mod TR. PASP 40-45 mmHg - Echo on : LVEF 35-40%, mod biatrial enlargement, grade 3 magana dysfunction, mod MR, mild to mod TR, PASP 45-50 mmHg - Status post single-chamber defibrillator implantation in August 2011. 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 Obesity - Elevated body mass index of nearly 32. Carotid dz - Mild carotid arterial disease, bilaterally, per carotid ultrasound of Feb 2018 Suspected sleep apnea - noncompliant with sleep study Medication Intolerance: - Intolerant to ARB and XIOMARA-inhib due to renal failure (CKD-4) H/O non-compliance with medications Plan: * [facility] * Diuretics as needed and as tolerated * Monitor lab closely because of CKD 4 * Not suitable for ARB and XIOMARA-inhib due to renal failure (CKD-4) * Beta-jacki as tolerated * OAC for stroke prophylaxis (low dose because age 87 and Cr 1.9) * ASA because of h/o CAD Clinical Quality Measures AMI/AHF: ASA po Prior to arrival: No (PT REFUSED WITH EMS ) MANDA CHAVEZ MD FACP FAC CCDS May 13, 2022 12:48
--- NOTE | 2022-05-13 13:47 | Physical Therapy Evaluation ---
PT Evaluation-General Medical Diagnosis Admission Date May 12, 2022 at 00:30 Medical Diagnosis: Chest Pain Onset Date: May 12, 2022 Therapy Diagnosis Therapy Diagnosis: Debility Height/Weight Height (Feet): 5 Height (Inches): 5.00 Weight (Pounds): 205 Weight (Ounces): 5.0 Precautions Precautions/Isolations: Fall Prevention, Standard Precautions, Pressure Ulcer Weight Bear Status Right Lower Extremity: Right Full Weight Bearing Left Lower Extremity: Left Full Weight Bearing Referral Physician: Yara Reason for Referral: Evaluation/Treatment Medical History Pertinent Medical History: Arthritis, DM, HTN Additional Medical History Surgery/Hospitalization HX: PMH: CHF, AFIB, COPD, CARDIOMYOPATHY, CAD, PVD, HYSTERECTOMY, IDDM, OOPHORECTOMY/HYSTERECTOMY, PACEMAKER/DEFIBRILLATOR, ORTHOPEDIC Surgeries: Yes (2004 hemorrhoidectomy, breast reduction, right ovary removed) Breast, Cardiac, Coronary Stent, Defibrillator, Eye Surgery, Gallbladder, Hysterectomy, Joint Replacement, Oophorectomy, Orthopedic, Pacemaker, Rectal Respiratory: Yes (Has home O2 and wears infrequent at 3 L/M) COPD Currently Using BIPAP: No Cardiac: Yes (Pacemaker/DEFIB, stents x 2, congestive heart failure) Atrial Fibrillation, Cardiomyopathy, Chronic Edema/Swelling, Coronary Artery Disease, High Cholesterol, Hypertension, Peripheral Vascular Neurological: No 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 Disorders: No Female 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 Disorders: Denies JUKE [employer] MECH[employer]IC History: Hysterectomy, Menopausal Sexually Transmitted Disease: No HIV/AIDS: No Genitourinary: Yes Renal Failure Gastrointestinal: Yes Hemorrhoids Musculoskeletal: Yes Arthritis, Chronic Back Pain Endocrine: Yes (Type II) Diabetes, Non-Insulin dep HEENT: Yes Cataract Loss of Vision: Denies Hearing Impairment: Denies Cancer: No Psychosocial: Yes Anxiety, Depression Integumentary: No Blood Disorders: No Adverse Reaction/Blood Tranf: No Reviewed History: Yes Social History Home: Apartment Current Living Status: Alone Entry Into Home: Level Entry Prior Prior Level of Function SCALE: Activities may be completed with or without assistive devices. 1-[id number] completes the activity by him/herself with no assistance from a helper. 5-Set-up or Clean-up Assistance-helper sets up or cleans up; patient completes activity. [place] assists only prior to or following the activity. 4-Supervision or Touching Assistance-helper provides verbal cues and/or touching/steadying and/or contact guard assistance as patient completes activity. Assistance may be provided throughout the activity or intermittently. 3-Partial/Moderate Assistance-helper does LESS THAN HALF the effort. [place] lifts, holds or supports trunk or limbs, but provides less than half the effort. 2-Substantial/Maximal Assistance-helper does MORE THAN HALF the effort. [place] lifts or holds trunk or limbs and provides more than half the effort. 7-[id number]-[id number] does ALL the effort. Patient does none of the effort to complete the activity. Or, the assistance of 2 or more helpers is required for the patient to complete the activity. If activity was not attempted, code reason: 7-Patient Refused. 9-Not Applicable-not attempted and the patient did not perform the activity before the current illness, exacerbation or injury. 10-Not Attempted due to Environmental Limitations-(lack of equipment, weather restraints, etc.). 88-Not Attempted due to Medical Conditions or Safety Concerns. Bed Mobility: 6 Transfers (B,C,W/C): 6 Gait: 6 Stairs: 9 Indoor Mobility (Ambulation): Independent Stairs: Not Applicalbe Prior Devices Use: Walker Independent per patient report. She also states she has a man come every Wednesday for a couple of hours to help with food shopping. H&P indicates patient has 24 hour care. PT Evaluation-Current Subjective Patient in bed pre-tx, reports no pain, agrees to PT. Pt/Family Goals return home to independence Objective Patient Orientation: Person, Place, Situation Attachments: Oxygen ROM/Strength ROM Lower Extremities BLE AROM grossly WNL Strength Lower Extremities BLE grossly 4-/5 Sensory Vision: Wears Glasses Hearing: Functional Sensation Right Lower Extremit: Intact Sensation Left Lower Extremity: Intact Transfers Roll Left to Right (QC): 6 Sit to Lying (QC): 6 Lying to Sitting/Side of Bed(Q: 6 Sit to Stand (QC): 6 Independent with transfers and bed mobility Gait Does the Patient Walk?: Yes Mode of Locomotion: Walk Anticipated Mode of Locomotion: Walk Walk 10 feet (QC): 4 Walk 50 ft with 2 Turns(QC): 4 Distance: 100' Gait Assistive Device: FWW Comments/Gait Description SBA, Patient walks steady with good gait speed, step length, and foot clearance. Patient reported not feeling SOB during or after ambulating, but O2 levels were back in the low 80s when monitor plugged in sitting at EOB. Balance Sitting Static: Normal Sitting Dynamic: Normal Standing Static: Normal Standing Dynamic: Normal Treatment Ambulation Assessment/Needs Patient walks steady with FWW but gets frustrated when O2 levels drop and needs verbal cueing to take deep breaths. O2 drops into mid 80s while sitting EOB, but goes back into the 90s when patient takes deep breaths. Patient back in bed post-tx with nurse call in reach, tray, phone, all needs met. Rehab Potential: Fair PT Mcc Goals Mcc Goals PT Scout Sniper Goals Time Frame: May 20, 2022 Does the Patient Walk: Yes Walk 10 feet (QC): 6 Walk 50ft with 2 Turns (QC): 6 Walk 150 ft (QC): 6 PT Plan Problem List Problem List: Activity Tolerance, Functional Strength, Safety, Balance, Gait Treatment/Plan Treatment Plan: Continue Plan of Care Treatment Plan: Education, Functional Activity Yudith, Functional Strength, Gait, Safety, Therapeutic Exercise Treatment Duration: May 20, 2022 Frequency: 6 times per week Estimated Hrs Per Day: .25 hour per day Patient and/or Family Agrees t: Yes Safety Risks/Education Patient Education: Gait Training, Transfer Techniques, Correct Positioning, Safety Issues Teaching Recipient: Patient Teaching Methods: Demonstration, Discussion Response to Teaching: Reinforcement Needed Discharge Recommendations Therapy Discharge Recommendati: Scheduled Assistance, Assisted Living, Other, See Comments (NH), Home & Family Time Time In: 1330 Time Out: 1342 DATE: May 13, 2022 Total Billed Treatment Time: 12 Total Billed Treatment 1 visit DORITA Armstrong' RONEY LEACH PT May 13, 2022 13:47
[2022-05-13] MEDS ORDERED: CEFD300C3 PO (14:16)
--- NOTE | 2022-05-13 14:18 | Tele-ICU Progress Note ---
Subjective Date Seen by a Provider: May 13, 2022 Time Seen by a Provider: 14:18 Subjective/Events-last exam (Tele-ICU Physician , consultation) Available chart/ vitals / labs / Images reviewed H&P is from ER notes Patient's information available about PMH, allergy reviewed in EMR. ROS as per chart and RN report Video assessment done using teleICU camera, rest of exam as per RN Discussed with RN. She has a history of CHF, COPD, hypertension, atrial fibrillation status post AICD admitted with respiratory distress. Patient usually has oxygen 2-4 L nasal cannulae at home. Yesterday she required BiPAP ventilation. She had an elevated D-dimer hence VQ scan done which did not show any evidence of pulmonary embolism. Today she is feeling much better and her oxygen is decreasing to 2 L nasal cannula and she is tolerating very well. Impression 1. Acute and chronic respiratory failure improving 2. Elevated D-dimer. No evidence of thromboembolic phenomena 3. Underlying COPD with exacerbation improving Recommendations 1. Continue bronchodilator therapy 2. Anticoagulant therapy per cardiology 3. Antibiotics per primary care. 4. Home when okay with other specialist Sepsis Event Evaluation Height, Weight, BMI Height: 5'5.00" Weight: 205lbs. 5.0oz. [id number]; 36.14 BMI Method:Stated Focused Exam Lactate Level 05/11/22 23:10: Lactic Acid Level 1.35 Time of Focused Exam: 00:10 Exam Exam Patient acknowledged, consented, and participated in this virtual visit which was conducted using real time audio/video Vital Signs Date Time Temp Pulse Resp B/P (MAP) Pulse Ox O2 Delivery O2 Flow Rate FiO2 05/13/22 12:24 61 05/13/22 12:00 71 105/51 (69) 94 Nasal Cannula 3.00 05/13/22 11:00 65 27 103/49 (67) 97 Nasal Cannula 3.00 05/13/22 10:00 78 6 113/71 (85) 96 Nasal Cannula 3.00 05/13/22 09:00 71 16 118/66 (83) 97 Nasal Cannula 3.00 05/13/22 08:30 Nasal Cannula 3.00 05/13/22 08:00 36.3 05/13/22 08:00 81 18 108/71 (83) 95 Nasal Cannula 3.00 05/13/22 07:21 70 05/13/22 07:00 73 16 117/94 (102) 97 Nasal Cannula 3.00 05/13/22 06:00 73 22 120/49 (72) 96 Nasal Cannula 3.00 05/13/22 05:00 65 17 104/69 (81) 98 Nasal Cannula 3.00 05/13/22 04:21 94 Nasal Cannula 3.00 05/13/22 04:08 78 115/58 (77) 99 Nasal Cannula 3.00 05/13/22 03:00 58 31 92/39 (56) 96 Nasal Cannula 3.00 05/13/22 02:10 70 111/58 05/13/22 02:08 36.2 Nasal Cannula 3.00 05/13/22 02:00 64 28 106/61 (76) 96 Nasal Cannula 3.00 05/13/22 01:00 70 22 111/58 (75) 99 Nasal Cannula 3.00 05/13/22 01:00 75 05/13/22 00:00 61 14 111/59 (76) 98 Nasal Cannula 3.00 05/12/22 23:33 92 Nasal Cannula 3.00 05/12/22 23:32 36.4 Nasal Cannula 3.00 05/12/22 23:00 61 12 102/64 (77) 89 Nasal Cannula 2.00 05/12/22 22:00 69 99/51 (67) 95 Nasal Cannula 2.00 05/12/22 21:00 86 131/74 (93) 97 Nasal Cannula 2.00 05/12/22 20:32 Nasal Cannula 2.00 05/12/22 20:22 72 110/58 (75) 97 Nasal Cannula 2.00 05/12/22 20:00 94 Nasal Cannula 2.00 05/12/22 19:01 100 05/12/22 19:00 69 15 103/80 (88) 97 Nasal Cannula 2.00 05/12/22 18:00 76 16 134/72 (92) 96 Nasal Cannula 2.00 05/12/22 17:00 67 15 114/63 (80) 96 Nasal Cannula 2.00 05/12/22 16:57 Nasal Cannula 2.00 05/12/22 16:00 91 20 118/55 (76) 93 Nasal Cannula 2.00 05/12/22 15:56 36.1 05/12/22 15:00 76 119/78 (92) 96 Nasal Cannula 2.00 I & O 05/13/22 07:00 Intake Total 2560 ml Output Total 3800 ml Balance -1240 ml Height & Weight Height: 5'5.00" Weight: 205lbs. 5.0oz. 93.391956dt; 36.14 BMI Method:Stated General Appearance: No Apparent Distress, WD/WN HEENT: PERRL/EOMI, Moist Mucous Membranes Neck: Full Range of Motion, Non Tender Respiratory: Chest Non Tender, Lungs Clear, No Accessory Muscle Use, No Respira tory Distress Cardiovascular: No Murmur, Irregularly Irregular Capillary Refill: Less Than 3 Seconds Extremity: Normal Capillary Refill, Non Tender, Pedal Edema (mild nonpitting edema) Neurologic/Psychiatric: Alert, Oriented x3, Normal Mood/Affect Skin: Normal Color, Warm/Dry Results Lab Laboratory Tests 05/11/22 22:05 05/12/22 06:07 05/13/22 03:20 Assessment/Plan Assessment/Plan as above Critical Care: Critically Ill Patient Time spent with patient (mins): 15 ESTRELLA HOOK MD May 13, 2022 14:18
--- NOTE | 2022-05-13 14:21 | D/C HH Face to Face Order ---
D/C Face to Face Orders Reconcile Patient Problems Problems Reviewed?: Yes Instructions for Patient [facility] [employer], Patient Instructions/FollowUp: Take medications as prescribed. Follow up with Dr. Anderson in about a week. Return with worsening shortness of breath, pain, or if you feel like you are getting worse. Physician to follow Patient: Anderson Discharge Diet for Home: ADA Diet, Low Sodium Diet Patient Data-Allergies,Ht & Wt Patient Allergies: Coded Allergies: No Known Drug Allergies (Unverified , 07/03/18) Height (Feet): 5 Height (Inches): 5.00 Weight (Pounds): 205 Weight (Ounces): 5.0 Home Health Need/Face to Face Date of Face to Face: May 13, 2022 Clinical Findings: Generalized weakness and fatigue, Muscle weakness, Unsteady gait I have seen Pt [id number]: Yes Discharged To: Home Diagnosis/Conditions: HTN HLD T2DM CKD CHF PNA Problems/Diagnosis/Condition: (1) Pneumonia (2) CHF (3) T2DM (type 2 diabetes mellitus) (4) Chronic kidney disease (5) HLD (hyperlipidemia) (6) HTN (hypertension) Patient is Homebound due to: Pri[place] fall risk due to instabilty, Muscle weakness Homebound Status Due to the above stated illness, injury or surgical procedure (medical condition or diagnosis) and associated clinical findings, the patient is homebound because of his/her inability to leave home except with aid of a supportive device and/or person AND leaving the home requires a considerable and taxing effort or is medically contraindicated. Pt req the following assistanc: Aid of another person Home Health Nursing Orders Home Health Services Order: Nursing Services, Tobacco Sorter-Evaluate & Treat, Physical Therapy-Evaluate & Treat Home Health Infusion Therapy Line Start Date: May 11, 2022 Therapy Orders Therapy Orders: OT (must have SN or PT order), Physical Therapy Therapy Specific Orders: Eval assistive deivces, Teach enviro modifications/safety, Gait training, Increase strength/endurance Certify Stmt I certify that this patient is under my care and that I, a nurse practitioner or a physician; a assistant professor of drama working with me, had a face to face encounter that - meets the physician face to face encounter requirements with this patient as dated. DEREK ENAMORADO MD May 13, 2022 14:21
[2022-05-13] MEDS ORDERED: APIX2.5T PO (14:22)
[2022-05-13 16:34] VITALS: BP 113/51
== END 2022-05-13 16:35 | disposition home health service (06) | DRG 871 ==
LOC: EDUNIT# 21:46 → ER 21:47 → ICU 05-12 00:30
PROVIDERS: ADMIT Internal Medicine; ATTEND Internal Medicine
PROC: 5A09357 Assistance with Respiratory Ventilation, Less than 24 Consecutive Hours, Continuous Positive Airway Pressure (ICD-10-PCS; principal; 2022-05-12)
DX: A41.9 Sepsis, unspecified organism (principal); I21.A1 Myocardial infarction type 2; I50.23 Acute on chronic systolic (congestive) heart failure; J18.9 Pneumonia, unspecified organism; J96.21 Acute and chronic respiratory failure with hypoxia; J96.22 Acute and chronic respiratory failure with hypercapnia; N17.9 Acute kidney failure, unspecified; I48.20 Chronic atrial fibrillation, unspecified; I13.0 Hypertensive heart and chronic kidney disease with heart failure and stage 1 through stage 4 chronic kidney disease, or unspecified chronic kidney disease; I42.9 Cardiomyopathy, unspecified; N18.9 Chronic kidney disease, unspecified; Z95.810 Presence of automatic (implantable) cardiac defibrillator; Z95.5 Presence of coronary angioplasty implant and graft; I25.10 Atherosclerotic heart disease of native coronary artery without angina pectoris; E78.00 Pure hypercholesterolemia, unspecified; E11.22 Type 2 diabetes mellitus with diabetic chronic kidney disease; M19.90 Unspecified osteoarthritis, unspecified site; Z20.822 Contact with and (suspected) exposure to COVID-19; G89.29 Other chronic pain; M54.9 Dorsalgia, unspecified; F41.9 Anxiety disorder, unspecified; F32.A Depression, unspecified; Z79.82 Long term (current) use of aspirin; Z79.84 Long term (current) use of oral hypoglycemic drugs; Z79.899 Other long term (current) drug therapy; E66.9 Obesity, unspecified; Z91.14 Patient's other noncompliance with medication regimen; I77.9 Disorder of arteries and arterioles, unspecified; I44.7 Left bundle-branch block, unspecified; Z68.36 Body mass index [BMI] 36.0-36.9, adult
CPT/HCPCS: 36415; 36600; 71045; 80053; 80061; 81000; 82150; 82550; 82553; 82805; 82947; 83605; 83690; 83735; 83874; 83880; 84100; 84145; 84484; 85007; 85025; 85027; 85379; 85610; 85730; 87040; 87081; 87088; 87636; 93005; 93041; 93306; 93970; 94660; 94761

== ENCOUNTER 2022-05-16 09:20 | Emergency (ER) | payer MEDICARE, MEDICAID ==
[~2022-05-16] VITALS: Ht 167 cm; Wt 92.0 kg
[2022-05-16 09:20] VITALS: BP 140/88
[~2022-05-16 09:20] MED LIST changes: +APIX2.5T PO; +BUME1TAB8 PO; +GABA300C PO
--- NOTE | 2022-05-16 09:30 | ED General ---
General Chief Complaint: Allergic Reaction Stated Complaint: ALLERGIC REACTION Source of Information: Patient, EMS Exam Limitations: No Limitations History of Present Illness Date Seen by Provider: May 16, 2022 Time Seen by Provider: 09:30 Initial Comments Patient is an 87-year-old female who presents to the emergency department today with a chief complaint of feeling lightheaded and dizzy this morning. Patient states that she has been "dizzy" for at least 6 weeks. She recently was in the hospital with pneumonia discharged home last Wednesday, 4 days ago. She was sent out on oral cefdinir. Patient states that she has had now 5 doses but felt very unwell, weak and dizzy this morning. No nausea or vomiting. She states at one point her vision seemed to go almost "black". She did not have a syncopal event. She is a little short of breath. No productive cough. She is complaining of some right lower extremity swelling that has started over the last 24 hours. No calf pain. No trauma. She has had bilateral knee replacements. Chronically anticoagulated. She states that she is also having some bloody stools that she attributed to hemorrhoids over the last several days. Black today. So much blood that she is having to wear a pad. No abdominal pain. No problems with urination. No fevers or chills. Timing/Duration: 1 Hour Severity: Moderate Associated Systoms: Malaise, Weakness, Other (dizziness) Allergies and Home Medications Allergies Coded Allergies: No Known Drug Allergies (Unverified , 07/03/18) Patient Home Medication List Home Medication List Reviewed: Yes Apixaban (Eliquis) 2.5 Mg Tablet, 2.5 MG PO BID Prescribed by: DEREK ENAMORADO on 05/13/22 1422 Aspirin (Aspirin EC) 81 Mg Tablet.dr, 81 MG PO HS, (Reported) Entered as Reported by: NICOLE CHU on 06/08/17 1127 Bumetanide (Bumetanide) 1 Mg Tablet, 1 MG PO 1900, (Reported) Entered as Reported by: LUCIO GANT on 05/12/22 1548 Carvedilol (Carvedilol) 6.25 Mg Tablet, 12.5 MG PO 1900, (Reported) Entered as Reported by: LUCIO GANT on 12/15/19 1431 Cefdinir (Cefdinir) 300 Mg Capsule, 300 MG PO BID Prescribed by: DEREK ENAMORADO on 05/13/22 1416 Gabapentin (Neurontin) 300 Mg Capsule, 300 MG PO DAILY PRN for PAIN- BREAKTHROUGH, (Reported) Entered as Reported by: LUCIO GANT on 05/12/22 1548 Glimepiride (Glimepiride) 2 Mg Tablet, 2 MG PO 1900, (Reported) Entered as Reported by: NICOLE CHU on 06/05/19 1057 Lisinopril (Lisinopril) 5 Mg Tablet, 5 MG PO 1900, (Reported) Entered as Reported by: NICOLE CHU on 06/05/19 1057 Meclizine HCl (Meclizine HCl) 25 Mg Tablet, 25 MG PO Q6H PRN for dizziness Prescribed by: DARRYL TORRES on 05/16/22 1152 Metformin HCl (Metformin HCl) 500 Mg Tablet, 1,000 MG PO 1900, (Reported) Entered as Reported by: NICOLE CHU on 06/05/19 1108 Potassium Chloride (Potassium Chloride) 10 Meq Capsule.er, 10 MEQ PO 1900, (Reported) Entered as Reported by: LUCIO GANT on 04/01/21 1555 Discontinued Medications Acetaminophen (Tylenol) 325 Mg Tablet, 650 MG PO Q4H PRN for PAIN-MILD, (Reported) Discontinued Reason: No Longer Taking Entered as Reported by: NICOLE CHU on 06/08/17 1133 Azithromycin (Azithromycin) 250 Mg Tablet, 500 MG PO DAILY Discontinued Reason: No Longer Taking Prescribed by: DARRYL TORRES on 07/21/21 2346 Bumetanide (Bumetanide) 2 Mg Tablet, 2 MG PO MO,WE,FR, (Reported) Discontinued Reason: No Longer Taking Entered as Reported by: LUCIO GANT on 04/01/21 1555 Cefdinir (Cefdinir) 300 Mg Capsule, 300 MG PO BID Discontinued Reason: No Longer Taking Prescribed by: DARRYL TORRES on 07/21/21 2346 Magnesium Oxide (Magnesium) 400 Mg Tablet, 400 MG PO HS, (Reported) Discontinued Reason: No Longer Taking Entered as Reported by: LUCIO GANT on 04/01/21 1558 [place]-3 Fatty Acids/Fish Oil ([place] 3 1,000 mg Softgel) 1 Each Capsule, 1 EACH PO DAILY, (Reported) Discontinued Reason: No Longer Taking Entered as Reported by: LUCIO GANT on 04/01/21 1558 Ondansetron (Ondansetron Odt) 4 Mg Tab.rapdis, 4 MG PO Q8H PRN for nausea Discontinued Reason: No Longer Taking Prescribed by: DARRYL TORRES on 07/21/21 2346 Potassium Chloride (Potassium Chloride) 10 Meq Capsule.er, 10 MEQ PO PEACE,,TH,SAT, (Reported) Discontinued Reason: No Longer Taking Entered as Reported by: LUCIO GANT on 04/01/21 1555 Simvastatin (Simvastatin) 10 Mg Tablet, 10 MG PO 1900, (Reported) Discontinued Reason: No Longer Taking Entered as Reported by: NICOLE CHU on 06/22/19 1048 Review of Systems Review of Systems Constitutional: see HPI, dizziness, malaise EENTM: no symptoms reported Respiratory: no symptoms reported Cardiovascular: no symptoms reported Gastrointestinal: abdominal pain, other ("black stool" with some bright red blood this morning) Musculoskeletal: no symptoms reported Skin: no symptoms reported All Other Systems Reviewed Negative Unless Noted: Yes Past Whhdpcn-Kpohkj-Qtcfem Hx Patient Social History Tobacco Use?: No Substance use?: No Alcohol Use?: No Immunizations Up To Date Tetanus Booster (TDap): Less than 5yrs PED Vaccines UTD: Yes First/Initial COVID19 Vaccinat: 2021 Second COVID19 Vaccination Josh: 2021 Third COVID19 Vaccination Date: 2021 COVID19 Vaccine 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 Seasonal Allergies Seasonal Allergies: No Past Medical History Surgery/Hospitalization HX: PMH: CHF, AFIB, COPD, CARDIOMYOPATHY, CAD, PVD, HYSTERECTOMY, IDDM, OOPHORECTOMY/HYSTERECTOMY, PACEMAKER/DEFIBRILLATOR, ORTHOPEDIC Surgeries: Yes (2004 hemorrhoidectomy, breast reduction, right ovary removed) Breast, Cardiac, Coronary Stent, Defibrillator, Eye Surgery, Gallbladder, Hysterectomy, Joint Replacement, Oophorectomy, Orthopedic, Pacemaker, Rectal Respiratory: Yes (Has home O2 and wears infrequent at 3 L/M) COPD Currently Using BIPAP: No Cardiac: Yes (Pacemaker/DEFIB, stents x 2, congestive heart failure) Atrial Fibrillation, Cardiomyopathy, Chronic Edema/Swelling, Coronary Artery Disease, High Cholesterol, Hypertension, Peripheral Vascular Neurological: No 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 Disorders: No Female 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 Disorders: Denies 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, Menopausal Sexually Transmitted Disease: No HIV/AIDS: No Genitourinary: Yes Renal Failure Gastrointestinal: Yes Hemorrhoids Musculoskeletal: Yes Arthritis, Chronic Back Pain Endocrine: Yes (Type II) Diabetes, Non-Insulin dep HEENT: Yes Cataract Loss of Vision: Denies Hearing Impairment: Denies Cancer: No Psychosocial: Yes Anxiety, Depression Integumentary: No Blood Disorders: No Adverse Reaction/Blood Tranf: No Family Medical History Arthritis 19 FATHER 19 MOTHER G8 BROTHER G8 SISTER Asthma 19 FATHER Completed stroke G8 SISTER FH: COPD (chronic obstructive pulmonary disease) G8 SISTER FH: cancer 19 FATHER 19 MOTHER (stomach cancer ) G8 SISTER (LIVER- enio floya- breast cancer) FH: emphysema 19 FATHER G8 SISTER Glaucoma G8 SISTER Headache disorder G8 SISTER No Family History of: AIDS Abdominal aortic aneurysm Alcoholism Alzheimer's disease Cancer of mouth Cardiovascular disease Colon cancer Cystic fibrosis Deafness or hearing loss Dementia Diabetes mellitus Drug abuse Dysphasia Hypercholesterolemia Hypertension Kidney disease Myocardial infarction Parkinson's disease Prostate cancer Psychosocial problem Respiratory disorder Seizure disorder Severe allergy Thyroid disease Tuberculosis Physical Exam Vital Signs Vital Signs - First Documented 05/16/22 09:20 Temp 35.9 Pulse 84 Resp 17 B/P (MAP) 140/88 (105) Pulse Ox 94 O2 Delivery Nasal Cannula O2 Flow Rate 3.00 Capillary Refill : Height, Weight, BMI Height: 5'5.00" Weight: 205lbs. 5.0oz. [id number]; 36.14 BMI Method:Stated General Appearance: No Apparent Distress, WD/WN Eyes: Bilateral Eye Normal Inspection, Bilateral Eye PERRL, Bilateral Eye EOMI HEENT: PERRL/EOMI; No Pale Conjunctivae (L), No Pale Conjunctivae (R) Neck: Normal Inspection Respiratory: Lungs Clear, Normal Breath Sounds, No Accessory Muscle Use, No Respiratory Distress; No Accessory Muscle Use Cardiovascular: Normal Peripheral Pulses, Irregularly Irregular (Afib 60's) Gastrointestinal: Normal Bowel Sounds, Non Tender, Soft, Other (no reproducible tenderness) Genital/Rectal: Other (small non inflammed external hemorrhoid; + blood in pad. 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 Norm as Tested Skin: Normal Color, Warm/Dry Procedures/Interventions Suture Size: 5-0 Progress/Results/Core Measures Suspected Sepsis SIRS Temperature: Pulse: Respiratory Rate: Laboratory Tests 05/16/22 09:25: White Blood Count 7.9 Blood Pressure / Mean: Laboratory Tests 05/16/22 09:25: Platelet Count 199 05/16/22 10:14: Creatinine 1.39H, Total Bilirubin 0.6 Results/Orders Lab Results Laboratory Tests Test 05/16/22 09:25 05/16/22 10:14 Range/Units White Blood Count 7.9 4.3-11.0 10^3/uL Red Blood Count 3.94 3.80-5.11 10^6/uL Hemoglobin 12.6 11.5-16.0 g/dL Hematocrit 38 35-52 % Mean Corpuscular Volume 98 80-99 fL Mean Corpuscular Hemoglobin 32 25-34 pg Mean Corpuscular Hemoglobin Concent 33 32-36 g/dL Red Cell Distribution Width 13.5 10.0-14.5 % Platelet Count 199 130-400 10^3/uL Mean Platelet Volume 11.2 9.0-12.2 fL Immature Granulocyte % (Auto) 1 % Neutrophils (%) (Auto) 71 42-75 % Lymphocytes (%) (Auto) 15 12-44 % Monocytes (%) (Auto) 8 0-12 % Eosinophils (%) (Auto) 4 0-10 % Basophils (%) (Auto) 1 0-10 % Neutrophils # (Auto) 5.6 1.8-7.8 10^3/uL Lymphocytes # (Auto) 1.2 1.0-4.0 10^3/uL Monocytes # (Auto) 0.7 0.0-1.0 10^3/uL Eosinophils # (Auto) 0.3 0.0-0.3 10^3/uL Basophils # (Auto) 0.0 0.0-0.1 10^3/uL Immature Granulocyte # (Auto) 0.0 0.0-0.1 10^3/uL Sodium Level 138 135-145 MMOL/L Potassium Level 4.1 3.6-5.0 MMOL/L Chloride Level 105 98-107 MMOL/L Carbon Dioxide Level 23 21-32 MMOL/L Anion Gap 10 5-14 MMOL/L Blood Urea Nitrogen 32 H 7-18 MG/DL Creatinine 1.39 H 0.60-1.30 MG/DL Estimat Glomerular Filtration Rate 37 BUN/Creatinine Ratio 23 Glucose Level 166 H 70-105 MG/DL Calcium Level 9.0 8.5-10.1 MG/DL Corrected Calcium 9.2 8.5-10.1 MG/DL Total Bilirubin 0.6 0.1-1.0 MG/DL Aspartate Amino Transf (AST/SGOT) 22 5-34 U/L Alanine Aminotransferase (ALT/SGPT) 26 0-55 U/L Alkaline Phosphatase 54 40-136 U/L Total Protein 6.5 6.4-8.2 GM/DL Albumin 3.7 3.2-4.5 GM/DL My Orders Orders - DARRYL TORRES MD Ekg Tracing (05/16/22 09:21) Ed Iv/Invasive Line Start (05/16/22 09:45) Cbc With Automated Diff (05/16/22 09:45) Comprehensive Metabolic Panel (05/16/22 09:45) Chest 1 View, Ap/Pa Only (05/16/22 09:45) Fecal Occult Bedside (05/16/22 09:45) Furosemide Injection (Lasix Injection) (05/16/22 11:00) Meclizine Tablet (Antivert Tablet) (05/16/22 11:00) Medications Given in ED Current Medications Medications Dose Ordered Sig/Teresa Route Start Time Stop Time Status Last Admin Dose Admin Furosemide 40 mg ONCE ONCE IVP 05/16/22 11:00 05/16/22 11:01 DC 05/16/22 11:18 40 MG Meclizine HCl 25 mg ONCE ONCE PO 05/16/22 11:00 05/16/22 11:01 DC 05/16/22 11:17 25 MG Vital Signs/I&O 05/16/22 09:20 Temp 35.9 Pulse 84 Resp 17 B/P (MAP) 140/88 (105) Pulse Ox 94 O2 Delivery Nasal Cannula O2 Flow Rate 3.00 Capillary Refill : Progress Note : Time: 11:46 Progress Note Discussed with Dr. Anderson who is actually on-call for the hospitalist service and happens to be the patient's primary care physician. He recommended checking orthostatic vital signs on the patient, holding her Eliquis until Wednesday when she should call the office for a follow-up appointment. We will send her home with an outpatient order for repeat hemoglobin. He stated that he would see her first thing next week. Return precautions provided. Her hemoglobin is stable. No findings on abdominal exam to warrant CT scan of the abdomen and pelvis. She is treated with some meclizine for her vertigo symptoms. She will be sent home with a prescription for meclizine. All of the findings and plan of care been discussed with the patient. All questions sought and answered. Patient is stable for discharge. Diagnostic Imaging Diagonstic Imaging: Xray Plain Films/CT/US/NM/MRI: chest Comments [facility] [place] [place] NAME: BRANDEN HERNANDEZ [facility] REC#: [id number] PT STATUS: REG ER : 1935 PHYSICIAN: DARRYL TORRES MD ADMIT DATE: 05/16/22/ER Signed Date of Exam:05/16/22 CHEST 1 VIEW, AP/PA ONLY INDICATION: Dizziness, weakness, chest tightness. TECHNIQUE: Single view chest 9:48 AM. CORRELATION STUDY: 05/11/2022 FINDINGS: Left-sided AICD. Heart size and mediastinum remain enlarged and prominent. Vasculature has increased from prior as has interstitial prominence. No definitive consolidating infiltrate, or suspect small effusions. IMPRESSION: 1. Congestive heart failure, adversely changed from prior. Dictated by: Dictated on workstation # [id number] Dict: 05/16/22 1011 Trans: 05/16/22 1022 CV [id number] Interpreted by: MOHINI BOWMAN DO Electronically signed by: MOHINI BOWMAN DO 05/16/22 1022 Departure Impression Primary Impression: GI bleed Qualified Codes: K92.2 - Gastrointestinal hemorrhage, unspecified Additional Impressions: Vertigo Chronic anticoagulation Disposition: HOME, SELF-CARE Condition: Stable Departure-Patient Inst. Decision time for Depature: 11:50 Referrals: SHANE ANDERSON MD (PCP/Family) Primary Care Physician Patient Instructions: Gastrointestinal Bleeding (DC) Add. Discharge Instructions: Drink plenty of fluids to stay well-hydrated. Stop taking your Eliquis until you see Dr. Anderson on Wednesday or Wednesday of next week. I have written you a prescription for some meclizine. You take this every 6 hours as needed for dizziness. You need to also make sure you are taking your lasix daily. If you have worsening bleeding, feel like you are going to pass out, become lightheaded or dizzy please come back to the emergency department for reevaluation. I have provided you with an order for a repeat blood count on Wednesday. Call Dr. Anderson's office on Wednesday for a follow-up appointment Wednesday or Wednesday. Scripts Meclizine HCl (Meclizine HCl) 25 Mg Tablet 25 MG PO Q6H PRN for dizziness, #30 TAB Prov: DARRYL TORRES MD 05/16/22 Copy Copies To 1: SHANE ANDERSON MD, KATHRYN M MD May 16, 2022 09:30
[2022-05-16 09:51] LABS: BASOPHILS % (AUTO) 1 % (0-10); EOSINOPHILS # (AUTO) 0.3 10^3/uL (0.0-0.3); EOSINOPHILS % (AUTO) 4 % (0-10); HEMATOCRIT 38 % (35-52); HEMOGLOBIN 12.6 g/dL (11.5-16.0); LYMPHOCYTES # (AUTO) 1.2 10^3/uL (1.0-4.0); LYMPHOCYTES % (AUTO) 15 % (12-44); MEAN CORPUSCULAR HEMOGLOBIN 32 pg (25-34); MEAN CORPUSCULAR HGB CONC 33 g/dL (32-36); MEAN CORPUSCULAR VOLUME 98 fL (80-99); MEAN PLATELET VOLUME 11.2 fL (9.0-12.2); MONOCYTES # (AUTO) 0.7 10^3/uL (0.0-1.0); MONOCYTES % (AUTO) 8 % (0-12); NEUTROPHILS # (AUTO) 5.6 10^3/uL (1.8-7.8); NEUTROPHILS % (AUTO) 71 % (42-75); PLATELET COUNT 199 10^3/uL (130-400); WHITE BLOOD COUNT 7.9 10^3/uL (4.3-11.0)
--- NOTE | 2022-05-16 10:14 | Diagnostic Imaging Report ---
INDICATION: Dizziness, weakness, chest tightness. TECHNIQUE: Single view chest 9:48 AM. CORRELATION STUDY: 05/11/2022 FINDINGS: Left-sided AICD. Heart size and mediastinum remain enlarged and prominent. Vasculature has increased from prior as has interstitial prominence. No definitive consolidating infiltrate, or suspect small effusions. IMPRESSION: 1. Congestive heart failure, adversely changed from prior. Dictated by: Dictated on workstation # [id number]
[2022-05-16 10:36] LABS: ALBUMIN 3.7 GM/DL (3.2-4.5); BILIRUBIN,TOTAL 0.6 MG/DL (0.1-1.0); CREATININE SERUM 1.39 MG/DL (0.60-1.30); POTASSIUM 4.1 MMOL/L (3.6-5.0); TOTAL PROTEIN 6.5 GM/DL (6.4-8.2)
[2022-05-16] MEDS ORDERED: FUROSEMIDE 40 MG/4 ML INJ (LASIX) IVP ONE (11:00)
[2022-05-16] MEDS ORDERED: MECLIZINE 25 MG (ANTIVERT) TAB PO ONE (11:00)
[2022-05-16] MEDS ORDERED: MECL-149 PO (11:52)
== END 2022-05-16 12:20 | disposition home or self-care (01) ==
LOC: EDUNIT# 09:20 → ER 09:21
DX: K92.2 Gastrointestinal hemorrhage, unspecified (principal); J44.9 Chronic obstructive pulmonary disease, unspecified; Z79.01 Long term (current) use of anticoagulants; Z99.81 Dependence on supplemental oxygen
CPT/HCPCS: 36415; 71045; 80053; 82274; 85025; 93005

== ENCOUNTER → 2023-04-08 | Outpatient (CLI) | payer MEDICAID, MEDICARE ==
[~2023-04-08] MED LIST changes: +MECL-291 PO; +POTA10CA84 PO; -ROSU20TA32 PO; +ROSU20TA73 PO
== END ==
LOC: CARD 13:55
PROVIDERS: ATTEND Internal Medicine Cardiovascular Disease
DX: I08.3 Combined rheumatic disorders of mitral, aortic and tricuspid valves (principal); I42.0 Dilated cardiomyopathy
CPT/HCPCS: 93306